=== PATIENT | female | born 1955 | race Caucasian/White ===

== ENCOUNTER 2016-09-19 18:25 | Inpatient (IN) ==
[2016-09-19] MEDS ORDERED: DILTIAZEM 50 MG/10 ML VIAL IV STA (18:52)
--- NOTE | 2016-09-19 18:59 | Emergency Department Note ---
Arrival - Arrival Chief Complaint: Weakness ED Nursing Triage Note: c/o bilateral leg weakness for a month Mode of Arrival: Stretcher Limitations: No Limitations Source: Patient Time Seen by Provider: 09/19/16 18:52 - History of Present Illness HPI Narrative: This 60-year-old white female who recently moved here in May with multiple medical problems including atrial fibrillation and rheumatoid arthritis presents with increasing joint pains and complaints of rapid heartbeat in association with shortness of breath of insidious onset over the last month. The patient admits she has not taken any medicine since probably June when she ran out of her medications. The patient likewise has significant cardiac surgical history of mitral valve replacement with a mechanical valve for which she had been on chronic anticoagulation until she ran out of medication. Currently she denies chest pain, nausea, vomiting, visual changes, slurred speech, headache, or focal deficits. Onset (ago): month(s) (Patient presents 1 month post insidious onset of symptoms ) Allergies/Adverse Reactions: Allergies Allergy/AdvReac Type Severity Reaction Status Date / Time nitrofurantoin AdvReac RASH Verified 09/19/16 18:35 [From Macrodantin] Sulfonylureas AdvReac RASH Verified 09/19/16 18:35 Home Medications: Home Medications Medication Instructions Recorded Confirmed Type Atorvastatin [Lipitor] 40 mg PO BEDTIME 09/19/16 09/19/16 History Digoxin Tab [Lanoxin Tab] 0.125 mg PO DAILY@1300 09/19/16 09/19/16 History Folic Acid Tab 1 mg PO DAILY 09/19/16 09/19/16 History Furosemide Tab [Lasix Tab] 20 mg PO BEDTIME 09/19/16 09/19/16 History Furosemide Tab [Lasix Tab] 40 mg PO QAM 09/19/16 09/19/16 History Losartan Potassium 50 mg PO DAILY 09/19/16 09/19/16 History Metformin HCl 1,000 mg PO DAILY 09/19/16 09/19/16 History Methotrexate Tab 5 mg PO QAM 09/19/16 09/19/16 History Methotrexate Tab 7.5 mg PO DELUNA 09/19/16 09/19/16 History Omeprazole [Prilosec] 20 mg PO DAILY 09/19/16 09/19/16 History Salsalate 1,000 mg PO BID 09/19/16 09/19/16 History Warfarin [Coumadin] 3.75 mg PO SUMOWETHSA 09/19/16 09/19/16 History Warfarin [Coumadin] 5 mg PO TUFR 09/19/16 09/19/16 History dilTIAZem HCl [Cartia XT] 180 mg PO DAILY 09/19/16 09/19/16 History sitaGLIPtin [Januvia] 100 mg PO DAILY 09/19/16 09/19/16 History Review of System - Review of System 12 point system: reviewed and no additional remarkable complaints except as stated - Review of System Constitutional: Present: as per HPI Cardiovascular: Present: as per HPI Musculoskeletal: Present: as per HPI Medical,Surgical,& Family Hx - Medical History Cardio: History of: Hypertension, Cardiovascular Problems (valve replaced; mitral stenosis) HEENT: History of: Eye Problem (nuclear sclerosis) Endocrine: History of: Diabetes Mellitus (NIDDM), Dyslipidemia Respiratory: History of: Asthma Genitourinary: History of: Recurring Urinary Tract Infections Musculoskeletal: History of: Musculoskeletal Problems (arthritis) Other: History of: Miscellaneous Medical Problems (iron deficiency; psoriasis) - Social History Smoking Status: Never smoker Frequency of Alcohol Use: None Type of Drug Use: None Exam Physical Examination: GENERAL: Obese disheveled elderly white female covered in human and the line feces in no acute distress. HEENT: Normocephalic. No trauma. Moist mucous membranes. EOMI. PERRLA. Appearance of mild exophthalmos ENT NML NECK: Supple. No adenopathy. CARDIAC: Irregular at 135 with1/4 gilberto and allowed mechanical valve sounds. CHEST: Clear to auscultation. No respiratory distress. O2 sat 93% ABDOMEN: Soft. Nontender. Active bowel sounds. EXTREMITIES: No trauma. Pain on range of motion of large joints. No pedal edema. SKIN: No diaphoresis. No rash. NEURO: Alert. Oriented 3. Motor, sensory, vibratory intact. No focal deficits. Vital Signs: Vital Signs Temperature 98.0 F 09/19/16 18:28 Pulse Rate 112 H 09/19/16 18:28 Respiratory Rate 18 09/19/16 18:28 Blood Pressure 146/81 09/19/16 18:28 O2 Sat by Pulse Oximetry 93 L 09/19/16 18:28 Course - Reevaluation(s) Reevaluation #1: Discussed with patient the need for hospitalization given her variety of significant problems that have not been treated recently. - Consultations Consultation #1: Discussed with hospitalist service who will admit for further evaluation treatment. Results - Labs CBC & BMP: 09/19/16 19:14 09/19/16 19:14 Lab Results: I have reviewed the patients labs Labs: I reviewed the laboratory noted the significantly decreased potassium as well as the elevated d-dimer, CK total, MB, and borderline troponin. - Impressions EKG: Atrial fibrillation with rapid ventricular response of 120. Incomplete right bundle branch block with associated right ventricular hypertrophy. Evidence of old anterior DE noted. No acute injury pattern noted. - Diagnostic Findings Procedure: Chest x-ray: image reviewed by me, report reviewed by me ( Cardiomegaly with bibasilar edema and pleural effusions), CT - chest: image reviewed by me, report reviewed by me (CTA revealed no embolic phenomena although there is considerable motion artifact) Disposition Clinical Impression: Congestive heart failure, Atrial fibrillation, Status post mitral valve prosthesis, Abnormal cardiac enzyme abnormal cardiac Case discussed with: patient Disposition: Still a Patient Condition: Guarded Time of Disposition: 21:10
--- NOTE | 2016-09-19 19:12 | XRay Report ---
History: Shortness of breath Date: 09/19/2016 Study: Chest x-ray AP portable Comparison exam: No previous There is cardiomegaly. The pulmonary vasculature is slightly prominent. There is no mediastinal mass. The patient is status post prior median sternotomy. There is mild hazy edema in the lung bases. There is mild bilateral pleural effusion. Osseous structures are unremarkable. There has been previous cardiac valve replacement. Impression: Cardiomegaly and evidence of CHF with some mild bibasilar pulmonary edema and minimal bilateral pleural effusion PROCEDURE INTERPRETED AT [facility] [place] DEPARTMENT OF RADIOLOGY Final Report Signed by: Dr. Adrienne Vazquez
[2016-09-19] MEDS ORDERED: FUROSEMIDE 40 MG/4 ML VIAL IV STA (19:26)
[2016-09-19 19:28] LABS: Basophils % 0.1 % (0.0-0.8); Eosinophils % 0.6 % (0.00-10.9); Hematocrit 36.2 VOL% (35.7-47.0); Immature Granulocytes Absolute 0.07 #; Lymphocytes # 0.9 10*3/uL (1.4-4.0); Lymphocytes % 12.6 % (21.3-54.2); Mean Corpuscular HGB Conc 33.1 GM/DL (32-36); Mean Corpuscular Hemoglobin 29 PG (27-34); Mean Corpuscular Volume 88.1 FL (87-102); Monocytes # 1.2 10*3/uL (0.11-0.8); Monocytes % 17.3 % (1.7-12.7); NRBC # 0.04 10*3/uL; Neutrophils # 4.6 10*3/uL (1.4-7.4); Neutrophils % 68.4 % (38.7-73.9); Red Blood Count 4.11 MC/CUMM (3.8-5.5); Red Cell Distribution Width 23.2 % (9.3-17.3); White Blood Count 6.7 T/CUMM (4-12)
[2016-09-19] MEDS ORDERED: FUROSEMIDE 40 MG/4 ML VIAL ONE (19:35)
[2016-09-19] MEDS ORDERED: DILTIAZEM 50 MG/10 ML VIAL IV ONE (19:36)
[2016-09-19 19:37] LABS: INR 1.5; PT Patient Result 16.2 SECS; Partial Thromboplastin Time 31.3 SECS (0-40)
[2016-09-19 19:42] LABS: Platelet Count 48 T/CUMM (130-400)
[2016-09-19 19:44] LABS: D-Dimer 7.9 MG/L FEU
[2016-09-19 19:45] LABS: Band Neutrophils 1 % (0-10); Burr Cells 1+; Eosinophils 1 % (0-10); Lymphocytes 9 % (20-55); Ovalocytes Few; Platelet Estimate Decreased; Poikilocytosis 2+; Segmented Neutrophils 76 % (50-85); Tear Drop Cells Few; Total Cells Counted 100
[2016-09-19 20:04] LABS: Albumin 2.9 G/DL (3.4-5.0); Bilirubin,Total 2.7 MG/DL (0.2-1.0); Calcium 8.5 MG/DL (8.5-10.1); Osmolality,Calculated 278.5 MOS/KG (273-304); Potassium 3.1 MMOL/L (3.5-5.1); Thyroid Stimulating Hormone 3.06 uIU/ml (0.358-3.74); Total Protein 6.3 G/DL (6.4-8.3)
[2016-09-19 20:07] LABS: Free T4 (Free Thyroxine) 1.59 NG/DL (0.76-1.46)
[2016-09-19 20:16] LABS: Troponin I Only 0.083 NG/ML (0.00-0.045)
[2016-09-19] MEDS ORDERED: POTASSIUM BICARB EFFERVESCENT 25 MEQ TABLET PO ONE ×2 (20:19→20:36)
[2016-09-19] MEDS ORDERED: POTASSIUM CHLORIDE 20 MEQ PACK ONE (20:25)
[2016-09-19 20:27] LABS: Apearance,Urine Slightly Hazy (Clear); Bacteria,Urine Many /HPF (Few); Bilirubin,Urine Negative (Negative); Blood, Urine Moderate mg/dL (Negative); Glucose,Urine (UA) Negative (Negative); Ketones,Urine Negative (Negative); Mucus,Urine Few /LPF (Occasional); Nitrite,Urine Negative (Negative); Protein,Urine 100 MG/DL; Squamous Epithelial Cell,Urine Occasional /HPF (0-10); Urine Color Amber (Yellow); Urine Specific Gravity 1.013 (1.001-1.035); WBC,Urine 53 /HPF (0-6)
[2016-09-19 20:45] LABS: Barbiturates Screen,Urine Negative (Negative); Benzodiazepines Screen,Urine Negative (Negative); Cannabinoid Screen,Urine Negative (Negative); Opiate Screen,Urine Negative (Negative); Phencyclidine Screen,Urine Negative (Negative)
--- NOTE | 2016-09-19 20:57 | CT Report ---
History: Shortness of breath Date: 09/19/2016 Study: CT chest with IV contrast with pulmonary embolus technique Comparison exam: No previous similar Spiral CT sections were obtained through the lungs following the IV administration of 80 mL of Omnipaque 350 without immediate complication. Multiplanar reconstruction images are also evaluated. The CT exam was performed using one or more of the following dose reduction techniques: Automated exposure control, adjustment of the mA and/or kV according to patient size, or use of iterative reconstruction technique. There is no obvious evidence of acute pulmonary embolic disease, though evaluation of the peripheral pulmonary arterial tree for chronic PE or tiny subsegmental emboli is limited because of motion artifact and timing of IV contrast. There is distention of the IVC and hepatic veins compatible with passive congestion from right heart failure. There is no aortic aneurysm. There is a prosthetic mitral valve. There is no mediastinal mass or mediastinal lymphadenopathy. There is mild to moderate right and mild left pleural effusion. There is some minor hazy opacity in the lower lungs which could represent some early pulmonary edema. There is scattered mild to moderate thoracic spondylosis. Impression: No definite evidence of acute pulmonary embolic disease, though there is limited sensitivity for subsegmental emboli and chronic PE because of contrast timing and motion artifact. There is evidence to suggest some passive venous congestion of the IVC and hepatic veins from right heart failure Right greater than left pleural effusion Minimal bibasilar pulmonary edema PROCEDURE INTERPRETED AT [facility] [place] DEPARTMENT OF RADIOLOGY Final Report Signed by: Dr. Adrienne Vazquez
--- NOTE | 2016-09-19 22:40 | Hospitalist History & Physical ---
History of Present Illness Chief complaint: knee pain, SOB, and palpitations History of present illness: Ms. Gaytan is a 60 year old female who presents with complaints of knee pain, SOB, and palpitations. She states that was receiving her medical care in [place] and moved here in May 2016. Since May, she has not been taking her medications. Since that time, she has been having SOB mostly with walking along with palpitations. She has a history of a-fib as well as a mechanical mitral valve replacement. She was on coumadin and diltiazem but ran out of them in May 2016. She denies any CP, PND, orthopnea, LE swelling, increased abdominal girth, or weight gain. Her abdomen looks distended but she states that it is not. She states that she has a history of CHF but ran out of her lasix. She also notes some bilteral knee pain for the past month. She states that she has not been able ot walk much because of the pain. She denies any swelling or falls. While in the ER, her heart rate was in the 130s, and she was given diltiazem. She was also given potassium and lasix. Home Medications Medication Instructions Recorded Confirmed Type Atorvastatin [Lipitor] 40 mg PO BEDTIME 09/19/16 09/19/16 History Digoxin Tab [Lanoxin Tab] 0.125 mg PO DAILY@1300 09/19/16 09/19/16 History Folic Acid Tab 1 mg PO DAILY 09/19/16 09/19/16 History Furosemide Tab [Lasix Tab] 20 mg PO BEDTIME 09/19/16 09/19/16 History Furosemide Tab [Lasix Tab] 40 mg PO QAM 09/19/16 09/19/16 History Losartan Potassium 50 mg PO DAILY 09/19/16 09/19/16 History Metformin HCl 1,000 mg PO DAILY 09/19/16 09/19/16 History Methotrexate Tab 5 mg PO QAM 09/19/16 09/19/16 History Methotrexate Tab 7.5 mg PO DELUNA 09/19/16 09/19/16 History Omeprazole [Prilosec] 20 mg PO DAILY 09/19/16 09/19/16 History Salsalate 1,000 mg PO BID 09/19/16 09/19/16 History Warfarin [Coumadin] 3.75 mg PO SUMOWETHSA 09/19/16 09/19/16 History Warfarin [Coumadin] 5 mg PO TUFR 09/19/16 09/19/16 History dilTIAZem HCl [Cartia XT] 180 mg PO DAILY 09/19/16 09/19/16 History sitaGLIPtin [Januvia] 100 mg PO DAILY 09/19/16 09/19/16 History Allergies Allergy/AdvReac Type Severity Reaction Status Date / Time nitrofurantoin AdvReac RASH Verified 09/19/16 18:35 [From Macrodantin] Sulfonylureas AdvReac RASH Verified 09/19/16 18:35 Medical,Surgical,& Family Hx - Medical History Cardio: History of: Hypertension, Valvular Heart Disease (s/p mechanical mitral valve replacement), Cardiovascular Problems (valve replaced; mitral stenosis) HEENT: History of: Eye Problem (nuclear sclerosis) Endocrine: History of: Diabetes Mellitus (NIDDM), Dyslipidemia Respiratory: History of: Asthma Genitourinary: History of: Recurring Urinary Tract Infections Musculoskeletal: History of: Musculoskeletal Problems (rheumatoid arthritis) Other: History of: Miscellaneous Medical Problems (iron deficiency; psoriasis) - Surgical History Cardiac Surgeries: Sugical HX of: Cardiac Surgery (mechanical mitral valve replacement) - Family History Family History: noncontributory - Social History Smoking Status: Never smoker Frequency of Alcohol Use: None Type of Drug Use: None - Constitutional Constitutional: Present: as per HPI - EENT Eyes: Present: as per HPI - Cardiovascular Cardiovascular: Present: as per HPI - Respiratory Respiratory: Present: as per HPI. Absent: cough - Gastrointestinal Gastrointestinal: Present: as per HPI. Absent: abdominal pain, bloating, diarrhea, nausea, vomiting - Musculoskeletal Musculoskeletal: Present: as per HPI, arthralgias Exam - Constitutional Vitals: Period Temp Pulse Resp BP Sys/Grant Pulse Ox Last 24 Hr 98.0 F-98.0 F 112-112 18-18 146-146/81-81 93 General appearance: over weight, disheveled - Head Head exam: Present: normal inspection - Eye Eye exam: Present: EOMI - Neck Neck exam: Present: other (positive JVD) - Respiratory Respiratory exam: Present: decreased breath sounds, rales. Absent: rhonchi, wheezes - Cardiovascular Cardiovascular exam: Present: irregular rhythm (ns1, ns2; positive valvular click) - GI/Abdominal GI/Abdominal exam: Present: normal bowel sounds, distended, soft. Absent: mass - Extremities Exam Extremities exam: Absent: edema (biltateral joint line tenderness of the knees; decreased ROM) - Neurological Exam Neurological exam: Present: oriented X3 - Psychiatric Psychiatric exam: Present: normal affect, normal mood - Skin Skin exam: Present: normal color Results - Labs CBC & BMP: 09/20/16 00:42 09/20/16 00:42 - EKG EKG shows: atrial fibrillation (EKG: a-fib with HR 120, q waves in anteroseptal leads) - Impressions Chest CT: no PE although limited evaluation; bilateral pleural effusions Cxray: cardiomegaly, pulmonary edema Assessment: 1. CHF exacerbation 2. A-fib with RVR 3. Elevated cardiac enzymes 4. h/o mechanical mitral valve, not on AC 5. thrombocytopenia, severe 6. hypokalemia 7. non compliance 8. Abdominal distension 9. ADDY, mild 10. Comorbid conditions: h/o CHF, HTN, DM, RA Plan: telemetry; consult cardiology; patient will need AC but given thrombocytopenia, high risk for bleeding; consult hematology; transfuse platlets as needed; diuresis; strict ins/outs/daily weights; rate control; keep K at least 4 and magensium at least 2; RUQUS given abdominal distension; control pain; control sugars. DVT and GI prophalaxis. SW for PCM establishment and discharge planning. The plan of care may be modified as more information becomes available.
[2016-09-19] MEDS ORDERED: oxyCODONE IR 5 MG TABLET PO PRN (23:10)
[2016-09-20 00:56] LABS: Basophils % 0.2 % (0.0-0.8); Eosinophils # 0.1 10*3/uL (0.0-0.87); Eosinophils % 1.4 % (0.00-10.9); Hematocrit 35.6 VOL% (35.7-47.0); Immature Granulocytes % 1.2 %; Immature Granulocytes Absolute 0.07 #; Lymphocytes # 0.9 10*3/uL (1.4-4.0); Lymphocytes % 15.2 % (21.3-54.2); Mean Corpuscular HGB Conc 33.7 GM/DL (32-36); Mean Corpuscular Hemoglobin 30 PG (27-34); Mean Corpuscular Volume 88.1 FL (87-102); Monocytes # 1.1 10*3/uL (0.11-0.8); Monocytes % 19.6 % (1.7-12.7); NRBC # 0.04 10*3/uL; Neutrophils # 3.5 10*3/uL (1.4-7.4); Neutrophils % 62.4 % (38.7-73.9); Platelet Count 44 T/CUMM (130-400); Red Blood Count 4.04 MC/CUMM (3.8-5.5); Red Cell Distribution Width 23.2 % (9.3-17.3); White Blood Count 5.7 T/CUMM (4-12)
[2016-09-20 01:21] LABS: Band Neutrophils 5 % (0-10); Lymphocytes 15 % (20-55); Myelocytes 6 %; Segmented Neutrophils 70 % (50-85); Total Cells Counted 100
[2016-09-20 01:22] LABS: Anisocytosis 1+; Ovalocytes 2+
[2016-09-20 01:23] LABS: Acanthocytes Few; Platelet Estimate Decreased
[2016-09-20 01:27] LABS: Blood Urea Nitrogen 9 MG/DL (7-18); Calcium 8.2 MG/DL (8.5-10.1); Glucose 137 MG/DL (74-106); Magnesium 1.5 MG/DL (1.8-2.4); Osmolality,Calculated 283.1 MOS/KG (273-304); Potassium 3.7 MMOL/L (3.5-5.1); Sodium 142 MMOL/L (136-145)
[2016-09-20 01:28] LABS: Troponin I Only 0.063 NG/ML (0.00-0.045)
[2016-09-20 06:07] LABS: Basophils % 0.2 % (0.0-0.8); Eosinophils # 0.2 10*3/uL (0.0-0.87); Eosinophils % 3.1 % (0.00-10.9); Hematocrit 34.7 VOL% (35.7-47.0); Hemoglobin 11.6 GM/DL (12.0-16.0); Immature Granulocytes % 0.4 %; Immature Granulocytes Absolute 0.02 #; Lymphocytes # 0.9 10*3/uL (1.4-4.0); Mean Corpuscular HGB Conc 33.4 GM/DL (32-36); Mean Corpuscular Hemoglobin 30 PG (27-34); Mean Corpuscular Volume 88.3 FL (87-102); Monocytes # 0.9 10*3/uL (0.11-0.8); Monocytes % 18.6 % (1.7-12.7); Neutrophils # 2.9 10*3/uL (1.4-7.4); Neutrophils % 59.7 % (38.7-73.9); Platelet Count 47 T/CUMM (130-400); Red Blood Count 3.93 MC/CUMM (3.8-5.5); Red Cell Distribution Width 23.2 % (9.3-17.3); White Blood Count 4.8 T/CUMM (4-12)
[2016-09-20 06:32] LABS: Elliptocytes 1+; Eosinophils 1 % (0-10); Hypochromasia 2+; Lymphocytes 13 % (20-55); Platelet Estimate Decreased; Polychromasia 1+; Segmented Neutrophils 67 % (50-85); Target Cells Slight; Total Cells Counted 100
[2016-09-20 06:54] LABS: Blood Urea Nitrogen 9 MG/DL (7-18); Calcium 8.2 MG/DL (8.5-10.1); Glucose 111 MG/DL (74-106); Magnesium 1.6 MG/DL (1.8-2.4); Potassium 3.5 MMOL/L (3.5-5.1); Sodium 143 MMOL/L (136-145)
[2016-09-20 06:56] LABS: Troponin I Only 0.055 NG/ML (0.00-0.045)
[2016-09-20] MEDS ORDERED: POTASSIUM CHLORIDE 20 MEQ TABLET PO ONE (07:41)
[2016-09-20] MEDS ORDERED: MAGNESIUM SULF RIDER 2 GM in PREMIX 1 EACH IV ONE ×2 (07:41→11:45)
--- NOTE | 2016-09-20 07:41 | Ultrasound Report ---
Right upper quadrant ultrasound Indication: Abdominal distention Findings: The liver is normal in size with nodular contour and mildly heterogeneous echogenicity. The gallbladder has multiple calculi. The gallbladder wall thickness is 2.6 mm . The common bile duct measures 4.0 mm. The pancreas echogenicity appears heterogeneous where visualized The right kidney is normal in size and echogenicity and measures 10.4 cm . No free fluid or free air seen. Small right pleural effusion is seen Impression: Nodular hepatic contour with only heterogeneous echogenicity could indicate cirrhosis. Cholelithiasis, no cysts secondary signs of acute cholecystitis seen. Pancreas echogenicity is heterogeneous where visualized. Small right pleural effusion. Ultrasound images stored and captured. PROCEDURE INTERPRETED AT [facility] DEPARTMENT OF RADIOLOGY Final Report Signed by: Dr. Sal Summers
--- NOTE | 2016-09-20 08:08 | EKG Report ---
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 Electronically Signed On 09-20-16 11:34:54 CDT by JACKSON MACIAS [email or web address]
--- NOTE | 2016-09-20 08:09 | Oncology Consult Note ---
History of Present Illness Chief complaint: Moderate thrombocytopenia History of present illness: Ms. Gaytan is a 60 year old female who has moderate thrombocytopenia. Her platelet count today is 47,000. An MPV is not recorded. She has white cell count of 4800 and a hemoglobin of 11.6. She is on at least 2 medications, Lasix and Cardizem that have been reported to cause thrombocytopenia. She has also been on methotrexate and she tells me that this is the only medication that she has continued to take without fail. She takes it once every week on Monday or Monday. She has a history of atrial fibrillation and a mechanical mitral valve. She ran out of her medications, including diltiazem and Coumadin in May 2016 and did not get the medications refilled. She also has a history of congestive heart failure but has not been taking her Lasix. Her comprehensive metabolic profile on admission included an elevated serum creatinine of 1.2 as well as a total bilirubin of 2.0. The elevated serum creatinine is a relative contraindication to methotrexate. Past medical history: Allergies include nitrofurantoin and sulfonylurea. Medical,Surgical,& Family Hx - Medical History Cardio: History of: Hypertension, Valvular Heart Disease (s/p mechanical mitral valve replacement), Cardiovascular Problems (valve replaced; mitral stenosis) HEENT: History of: Eye Problem (nuclear sclerosis) Endocrine: History of: Diabetes Mellitus (NIDDM), Dyslipidemia Respiratory: History of: Asthma Genitourinary: History of: Recurring Urinary Tract Infections Musculoskeletal: History of: Musculoskeletal Problems (rheumatoid arthritis) for which she is apparently taking methotrexate for she may be taking it for her psoriasis. Other: History of: Miscellaneous Medical Problems (iron deficiency; psoriasis) - Surgical History Cardiac Surgeries: Sugical HX of: Cardiac Surgery (mechanical mitral valve replacement) - Family History Family History: noncontributory - Social History Smoking Status: Never smoker Frequency of Alcohol Use: None Type of Drug Use: She is on a narcotic pain medication but it apparently was started in the hospital. - Constitutional Constitutional: Present: as per HPI - EENT Eyes: Present: as per HPI - Cardiovascular Cardiovascular: Present: as per HPI - Respiratory Respiratory: Present: as per HPI. Absent: cough - Gastrointestinal Gastrointestinal: Present: as per HPI. Absent: abdominal pain, bloating, diarrhea, nausea, vomiting - Musculoskeletal Musculoskeletal: Present: as per HPI, arthralgias Physical examination: General: The patient is chronically ill-appearing. Eyes: Normal lids and conjunctivae. ENT: Her oral mucosa and pharynx are normal. Her trachea is midline. She has no neck masses. Hearing appears normal. Cardiovascular: She has an easily audible mechanical artificial cardiac valve sound heard over the entire precordium. There is no jugular venous distention, clubbing or cyanosis. Abdomen: She has significant splenomegaly. I think she has ascites also. Her abdomen is distended. There is no tenderness. Musculoskeletal: She has arthritic changes in her hands. There is no obvious focal muscle atrophy or bone or joint deformity. Neurologic: Cranial nerves II through XII are intact. There are no focal neurologic deficits. Nodes: I palpate no submandibular, cervical, supraclavicular or axillary adenopathy. Skin: She has multiple ecchymoses over her lower extremities. Impression: Thrombocytopenia that is probably multifactorial including the fact that the patient is taking methotrexate and has splenomegaly and possibly due to the fact that she is off anticoagulants with an artificial mechanical heart valve. In addition, autoimmune disease such as rheumatoid arthritis could cause this. I have ordered a mean platelet volume on this patient and I do not understand why they have not been done. I have also ordered a haptoglobin, B12 level and folic acid level. She has both an elevated bilirubin and elevated serum creatinine. The methotrexate is contraindicated with an elevated serum creatinine or in renal failure. It should not be continued. I will chart check on this patient but it probably will return to see her on a regular basis since I think that her thrombocytopenia is secondary to other disease processes, some of which can be treated and others of which cannot. Home Medications Medication Instructions Recorded Confirmed Type Atorvastatin [Lipitor] 40 mg PO BEDTIME 09/19/16 09/19/16 History Digoxin Tab [Lanoxin Tab] 0.125 mg PO DAILY@1300 09/19/16 09/19/16 History Folic Acid Tab 1 mg PO DAILY 09/19/16 09/19/16 History Furosemide Tab [Lasix Tab] 20 mg PO BEDTIME 09/19/16 09/19/16 History Furosemide Tab [Lasix Tab] 40 mg PO QAM 09/19/16 09/19/16 History Losartan Potassium 50 mg PO DAILY 09/19/16 09/19/16 History Metformin HCl 1,000 mg PO DAILY 09/19/16 09/19/16 History Methotrexate Tab 5 mg PO QAM 09/19/16 09/19/16 History Methotrexate Tab 7.5 mg PO DELUNA 09/19/16 09/19/16 History Omeprazole [Prilosec] 20 mg PO DAILY 09/19/16 09/19/16 History Salsalate 1,000 mg PO BID 09/19/16 09/19/16 History Warfarin [Coumadin] 3.75 mg PO SUMOWETHSA 09/19/16 09/19/16 History Warfarin [Coumadin] 5 mg PO TUFR 09/19/16 09/19/16 History dilTIAZem HCl [Cartia XT] 180 mg PO DAILY 09/19/16 09/19/16 History sitaGLIPtin [Januvia] 100 mg PO DAILY 09/19/16 09/19/16 History Allergies Allergy/AdvReac Type Severity Reaction Status Date / Time nitrofurantoin AdvReac RASH Verified 09/19/16 18:35 [From Macrodantin] Sulfonylureas AdvReac RASH Verified 09/19/16 18:35 Medical,Surgical,& Family Hx - Medical History Cardio: History of: Hypertension, Valvular Heart Disease (s/p mechanical mitral valve replacement), Cardiovascular Problems (valve replaced; mitral stenosis) HEENT: History of: Eye Problem (nuclear sclerosis) Endocrine: History of: Diabetes Mellitus (NIDDM), Dyslipidemia Respiratory: History of: Asthma Genitourinary: History of: Recurring Urinary Tract Infections Musculoskeletal: History of: Musculoskeletal Problems (rheumatoid arthritis) Other: History of: Miscellaneous Medical Problems (iron deficiency; psoriasis) - Surgical History Cardiac Surgeries: Sugical HX of: Cardiac Surgery (mechanical mitral valve replacement) - Social History Smoking Status: Never smoker Frequency of Alcohol Use: None Type of Drug Use: None Exam - Constitutional Vitals: Period Temp Pulse Resp BP Sys/Grant Pulse Ox Last 24 Hr 97.5 F-98.1 F 89-112 16-20 93-146/58-82 93-99 Results - Labs CBC & BMP: 09/20/16 05:41 09/20/16 05:41
[2016-09-20] MEDS: DILTIAZEM 60 MG TABLET PO SCH ×2 (08:22→20:25)
[2016-09-20] MEDS ORDERED: FUROSEMIDE 40 MG/4 ML VIAL IV ONE (09:00)
[2016-09-20 09:37] LABS: Haptoglobin < 8.0 MG/DL (30-200)
[2016-09-20 09:50] LABS: Folate 1.4 NG/ML (5.4-24.0)
--- NOTE | 2016-09-20 10:19 | Hospitalist Progress Note ---
Assessment and Plan (1) CHF (congestive heart failure) Status: Acute Assessment and plan: When Mrs Gaytan left [place] where she had insurance and doctors to come here where she had made arrangements for neither, she put herself at risk for many complications from her chronic medical problems. She needs to figure out how to see doctors and buy meds. At this time her echo is pending. I have reconciled her meds, stopping MTX as DR Cherry asked. I have replaced her magnesium and potassium again. Her heart rate is improved and she remains in afib. She will need to start anticoagulation for afib and the mechanical MV again- in mek[place] past she was on coumadin. The cardiology service is reviewing her echo prior to starting anticoagulation. Her cirrhosis with thrombocytopenia and splenomegaly will also complicate her anticoagulation. Her ADDY is improving. The CM has been consulted for discharge planning support and help wiht her meds , etc. If she was on [place] Medicaid, she should consider returning to [place] and resuming her health care there as it will likely take several years of residence here before she can get Medicaid in [place]. Current Visit: Yes (2) Thrombocytopenia Status: Acute Current Visit: Yes (3) ADDY (acute kidney injury) Status: Acute Current Visit: Yes (4) Hx of mitral valve replacement with mechanical valve Status: Acute Current Visit: Yes (5) Atrial fibrillation with RVR Status: Acute Current Visit: Yes (6) Hypokalemia Status: Acute Current Visit: Yes (7) cirrhosis with splenomegaly Status: Acute Current Visit: Yes (8) Diabetes Status: Acute Current Visit: Yes (9) Rheumatoid arthritis Status: Acute Current Visit: Yes Hospitalist: Subjective Interval history: Mrs Gaytan is doing well today and wants to go home soon. She denies pain or shortness of breath today. She is eating well. She does not have a doctor in [place]. She moved from [place] in the Spring. She lost her insurance when she moved. She lives in a trailer with her near her son' s trailer (they moved to be near their son). She took the MTX regularly, but stopped all her other meds when she moved. Exam - Constitutional Vitals: Period Temp Pulse Resp BP Sys/Grant Pulse Ox Last 24 Hr 97 F-98.1 F 89-112 16-20 93-146/58-82 93-99 General appearance: no acute distress, over weight, disheveled (unkempt, dirty fingernails) - Eye Eye exam: Present: EOMI. Absent: scleral icterus - Respiratory Respiratory exam: Present: clear to auscultation bilaterally - Cardiovascular Cardiovascular exam: Present: irregular rhythm (audible MV click) - GI/Abdominal GI/Abdominal exam: Present: normal bowel sounds, soft. Absent: tenderness - Extremities Exam Extremities exam: Absent: edema - Neurological Exam Neurological exam: Present: alert, oriented X3 - Skin Skin exam: Present: warm, dry Results - Labs CBC & BMP: 09/20/16 05:41 09/20/16 05:41 Lab Results: I have reviewed the past 24 hour labs
--- NOTE | 2016-09-20 11:08 | Cardiology Consult Note ---
<Shelley Mendoza E - Last Filed: 09/20/16 11:09> Assessment and Plan - Time spent with patient Time spent with patient: Greater than 30 minutes (1) Obesity (BMI 30.0-34.9) Status: Chronic Assessment and plan: SEE PLAN OF CARE LISTED BELOW Current Visit: Yes (2) Falls frequently Status: Acute Assessment and plan: SEE PLAN OF CARE LISTED BELOW Current Visit: Yes (3) Non-compliant behavior Status: Chronic Assessment and plan: SEE PLAN OF CARE LISTED BELOW Current Visit: Yes (4) Hypomagnesemia Status: Acute Assessment and plan: SEE PLAN OF CARE LISTED BELOW Current Visit: Yes (5) Thrombocytopenia Status: Acute Assessment and plan: SEE PLAN OF CARE LISTED BELOW Current Visit: Yes (6) ADDY (acute kidney injury) Status: Resolved Assessment and plan: SEE PLAN OF CARE LISTED BELOW Current Visit: Yes (7) Hx of mitral valve replacement with mechanical valve Status: Chronic Assessment and plan: SEE PLAN OF CARE LISTED BELOW Current Visit: Yes (8) CHF (congestive heart failure) Status: Acute Assessment and plan: SEE PLAN OF CARE LISTED BELOW Current Visit: Yes Qualifiers: Congestive heart failure type: unspecified congestive heart failure type Congestive heart failure chronicity: acute Qualified Code(s): I50.9 - Heart failure, unspecified (9) Atrial fibrillation with RVR Status: Acute Assessment and plan: SEE PLAN OF CARE LISTED BELOW Current Visit: Yes (10) Hypokalemia Status: Acute Assessment and plan: SEE PLAN OF CARE LISTED BELOW Current Visit: Yes (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 Status: Acute Assessment and plan: SEE PLAN OF CARE LISTED BELOW Current Visit: Yes (12) Diabetes Status: Chronic Assessment and plan: SEE PLAN OF CARE LISTED BELOW Current Visit: Yes (13) Rheumatoid arthritis Status: Chronic Assessment and plan: SEE PLAN OF CARE LISTED BELOW Current Visit: Yes (14) CHF (congestive heart failure), NYHA class III Status: Acute Current Visit: Yes Qualifiers: Congestive heart failure type: unspecified congestive heart failure type Qualified Code(s): I50.9 - Heart failure, unspecified History of Present Illness - Data of Consult Patient: new to practice Consult date: 09/20/16 Requesting Physician: Keri Mario - Consult Narrative Reason for consult: SOB, atrial fib, mechanical mitral valve, off Coumadin History of present illness: TUB RIDER: (NEW) DR. LOW Ms. Gaytan, 60WF, who was previously followed by [facility] [place], no [facility] locally. Risk factors include: hypertension, obesity , diabetes, sedentary lifestyle, noncompliance. Past medical history includes ( self-reported) mechanical mitral valve replacement three separate times, occurring around [address] [place], believed to be related to mitral stenosis. History of atrial fibrillation, rheumatoid arthritis. Presented to the ED [facility] September 19, 2016 with complaints of shortness of breath, palpitations. She has been diagnosed with acute CHF. Heart rate was noted to be 130 bpm, atrial fibrillation with RVR. Patient has a history of mitral valve replacement with mechanical mitral valve requiring chronic anticoagulation. She has been out of her medications, including Coumadin, Lasix and Diltiazem, since May 2016 when she moved to [place] from [place]. Since May, she has been having unsteady gait, palpitations and shortness of breath. She has not established herself with a primary care provider. She denies history of CAD, chest pain, heaviness or tightness. Cardiac biomarkers reveal mild elevation, most likely related to atrial fib with RVR. Dr. Cherry was consulted for thrombocytopenia. Patient has been taking Methotrexate routinely she reports. Echocardiogram has been ordered. Right upper quadrant abdominal ultrasound revealed cirrhosis, total bilirubin 2.7. At this point, she will need initiation of Coumadin immediately. INR 1.5 without Coumadin however bridging her with Lovenox may worsen the thrombocytopenia. We will check smear for fragmentation syndrome, hemolysis. D -dimer 7.9, CT chest does not reveal PTE. Will further discuss with Dr. Low and await additional recommendations. ASSESSMENT/PLAN: 1. ACUTE CHF - Etiology to be determined, NYHA Class III. Suspect this is acute on chronic as we have no prior records from which to extract information. Continue with diuresis, strict I&O, daily weights. Echo. 2. MECHANICAL MITRAL VALVE - has been off Coumadin and we must restart. Unfortunately, bridging with Lovenox may be contraindicated given her moderately severe thrombocytopenia. I will discuss with Dr. Low. 3. THROMBOCYTOPENIA - Appreciate Dr. Cherry's assistance. WIll ask a lab smear be evaluated for fragmentation syndrome from mechanical mitral valve. Not on aspirin at this time due to thrombocytopenia 4. ATRIAL FIBRILLATION WITH RVR - now rate controlled on oral Diltiazem and Digoxin. PATRICIA VASC SCORE 6. Also would benefit from reinitiation of Coumadin. 5. ADDY - initially creatinine was mildly elevated but this has resolved this morning. Favor CCB for rate control rather than betablocker at this time. 6. HYPOKALEMIA - resolved after treatment 7. HYPOMAGNESEMIA - will replace and check daily 8. NON-COMPLIANCE -reiterated the importance of continued follow-up. I recommended she follow with Dr. Rory Rodríguez in [place], [place]. This is close to her home. She can follow up with him for primary care needs at discharge. Also, the best case management to look into other sources of home benefits for her. I fear she is not being well taken care of at home. She tells me that her is decrepit and not well and he cannot help her when she falls. She is unkempt, actually dirt under her nails and over her body. She is not taking her medications. Will ask case management to look into her home situation further. 9. RHEUMATOID ARTHRITIS - Methotrexate has been home medication for which she takes routinely. Per Dr. Cherry's note, may be contributing to her thrombocytopenia 10. CIRRHOSIS OF THE LIVER - per RUQ US, elevated total bilirubin. Avoiding toxic agents such as lipid lowering agents. CC: Keri Mario MD - Home Medications and Allergies Home Medications: Home Medications Medication Instructions Recorded Confirmed Type Atorvastatin [Lipitor] 40 mg PO BEDTIME 09/19/16 09/19/16 History Digoxin Tab [Lanoxin Tab] 0.125 mg PO DAILY@1300 09/19/16 09/19/16 History Folic Acid Tab 1 mg PO DAILY 09/19/16 09/19/16 History Furosemide Tab [Lasix Tab] 20 mg PO BEDTIME 09/19/16 09/19/16 History Furosemide Tab [Lasix Tab] 40 mg PO QAM 09/19/16 09/19/16 History Losartan Potassium 50 mg PO DAILY 09/19/16 09/19/16 History Metformin HCl 1,000 mg PO DAILY 09/19/16 09/19/16 History Methotrexate Tab 5 mg PO QAM 09/19/16 09/19/16 History Methotrexate Tab 7.5 mg PO DELUNA 09/19/16 09/19/16 History Omeprazole [Prilosec] 20 mg PO DAILY 09/19/16 09/19/16 History Salsalate 1,000 mg PO BID 09/19/16 09/19/16 History Warfarin [Coumadin] 3.75 mg PO SUMOWETHSA 09/19/16 09/19/16 History Warfarin [Coumadin] 5 mg PO TUFR 09/19/16 09/19/16 History dilTIAZem HCl [Cartia XT] 180 mg PO DAILY 09/19/16 09/19/16 History sitaGLIPtin [Januvia] 100 mg PO DAILY 09/19/16 09/19/16 History Allergies/Adverse Reactions: Allergies Allergy/AdvReac Type Severity Reaction Status Date / Time nitrofurantoin AdvReac RASH Verified 09/19/16 18:35 [From Macrodantin] Sulfonylureas AdvReac RASH Verified 09/19/16 18:35 Review of systems: REVIEW OF SYSTEMS: - Constitutional Constitutional: Present: Fatigue, dizziness. Absent: syncope, anorexia, night sweats - EENT Eyes: Absent: blurry vision, loss of vision, diplopia Ears: Absent: decreased hearing, ear pain, ear discharge - Cardiovascular Cardiovascular: Denies: chest pain with exertion. Recent dyspnea on exertion, edema, palpitations. Absent: chest pain with deep breath, claudication - Respiratory Respiratory: Present: GUERRA, denies cough. Absent: wheezing, hemoptysis, change in phlegm color - Gastrointestinal Gastrointestinal: Denies: constipation. Patient has large abdominal girth suspicious for ascites. She states this is no larger than it normally is. Denies abdominal pain, hematemesis, hematochezia, melena, change in bowel habits , nausea - Genitourinary Genitourinary: Absent: difficulty urinating, dysuria, urinary hesitancy, flank pain - Musculoskeletal Musculoskeletal: Present: back pain Absent: joint swelling, muscle cramps, muscle weakness - Neurological Neurological: Present: Poor gait with frequent falls. Dizziness. Denies hemiparesis - Psychiatric Psychiatric: Appears depressed, disheveled. Absent: anxiety, difficulty concentrating - Endocrine Endocrine: Present: fatigue. Absent: cold intolerance, heat intolerance, polyuria, polyphagia, polydipsia - Hematologic/Lymphatic Hematologic/Lymphatic: Present: easy bruising, easy bleeding. -Integumentary Integumentary: Multiple areas of ecchymosis noted. Reports frequent falls due to knee pain, leg weakness and dizziness. Medical,Surgical,& Family Hx - Medical History Cardio: History of: Hypertension, Valvular Heart Disease (s/p mechanical mitral valve replacement), Cardiovascular Problems (valve replaced; mitral stenosis) No history of: CAD, HI HEENT: History of: Eye Problem (nuclear sclerosis) Endocrine: History of: Diabetes Mellitus (NIDDM), Dyslipidemia Respiratory: History of: Asthma Genitourinary: History of: Recurring Urinary Tract Infections Musculoskeletal: History of: Musculoskeletal Problems (rheumatoid arthritis) Other: History of: Miscellaneous Medical Problems (iron deficiency; psoriasis) - Surgical History Cardiac Surgeries: Sugical HX of: Cardiac Surgery (mechanical mitral valve replacement) - Social History Smoking Status: Never smoker Have you smoked in the last 12 months: No Frequency of Alcohol Use: None Type of Drug Use: None Marital Status: Lives With:: Spouse Functional capacity: uses cane/walker Physical Examination Vital Signs Temp Pulse Resp BP Pulse Ox 98.0 F 112 H 18 146/81 93 L 09/19/16 18:28 09/19/16 18:28 09/19/16 18:28 09/19/16 18:28 09/19/16 18:28 General: [Disheveled but pleasant and cooperative. Obese. ] HEENT: [PERRL, normocephalic, atraumatic. Mucous membranes dry and cracked on the lips. ] Neck: Unable to assess for JVD due to habitus. No obvious thyromegaly noted. No carotid bruit appreciated Cardiac: [Irregularly irregular rhythm, controlled rate. Systolic click auscultated best over fifth intercostal space to the left. Lungs: [Quiet, coarse sounds without rales. Not orthopneic. ] Oxygen in use via nasal cannula Abdomen: Soft, bowel sounds normoactive. Ascites. Nontender. No abdominal bruit or thrill noted. Musculoskeletal: No fluid collection. Decreased range of motion is noted. Extremities: No clubbing, cyanosis noted. [Trace bilateral lower extremity edema noted.] Upper extremity pulses 2+. Lower extremity pulses 2+. Capillary refill less than 3 seconds. TEDs on. Skin: Multiple areas of brown skin changes, multiple areas of ecchymosis. Neuro: Awake, alert and oriented 3. Moves all extremities fairly well without hemiparesis or paralysis. No essential tremor is appreciated. Result/EKG - Labs CBC & BMP: 09/20/16 05:41 09/20/16 05:41 Lab Results: I have reviewed the past 24 hour labs Labs: Laboratory Results - last 24 hr 09/19/16 09/19/16 09/19/16 19:14 19:14 19:14 WBC RBC Hgb Hct MCV MCH MCHC RDW Plt Count Neut % (Auto) Lymph % (Auto) Rush % (Auto) Eos % (Auto) Baso % (Auto) Neut # (Auto) Lymph # (Auto) Rush # (Auto) Eos # (Auto) Baso # (Auto) Total Counted Immature Gran % Nucleated RBC % Immature Gran # Segmented Neutrophils Band Neutrophils Lymphocytes Monocytes Eosinophils Myelocytes Nucleated RBCs # Platelet Estimate Polychromasia Hypochromasia Poikilocytosis Anisocytosis Target Cells Tear Drop Cells Ovalocytes Gilbert Cells Elliptocytes Acanthocytes (Spur) Haptoglobin INR 1.5 PT Patient/Control Mix 16.2 D-Dimer, Quantitative 7.9 Circ Anticoag PTT 31.3 Sodium Potassium Chloride Carbon Dioxide Anion Gap BUN Creatinine GFR Calculation BUN/Creatinine Ratio Glucose Calculated Osmolality Calcium Magnesium Total Bilirubin AST ALT Alkaline Phosphatase Lactate Dehydrogenase Total Creatine Kinase 1032 H CK-MB (CK-2) 4.2 H Troponin I 0.083 H B-Natriuretic Peptide Total Protein Albumin Globulin Albumin/Globulin Ratio Vitamin B12 Folate Free T4 1.59 H TSH 3rd Generation Urine Color Pamela Urine Appearance Slightly hazy Urine pH 5.0 Ur Specific [place] 1.013 Urine Protein 100 Urine Glucose (UA) Negative Urine Ketones Negative Urine Blood Moderate Urine Nitrate Negative Urine Bilirubin Negative Urine Urobilinogen 4.0 H Urine Leukocytes Small H Urine WBC 53 Ur Squamous Epith Cells Occasional Urine Bacteria Many Urine Mucus Few Ur Culture Indicated? Results to follow Digoxin Urine Opiates Screen Ur Barbiturates Screen Ur Phencyclidine Scrn U Amphetamine/Methamph U Benzodiazepines Scrn U Cocaine Metab Screen U Cannabinoids Screen Rheumatoid Factor 09/19/16 09/19/16 09/19/16 19:14 19:14 19:14 WBC 6.7 RBC 4.11 Hgb 12.0 Hct 36.2 MCV 88.1 MCH 29 MCHC 33.1 RDW 23.2 H Plt Count 48 L Neut % (Auto) 68.4 Lymph % (Auto) 12.6 L Rush % (Auto) 17.3 H Eos % (Auto) 0.6 Baso % (Auto) 0.1 Neut # (Auto) 4.6 Lymph # (Auto) 0.9 L Rush # (Auto) 1.2 H Eos # (Auto) 0.0 Baso # (Auto) 0.0 Total Counted 100 Immature Gran % 1.0 Nucleated RBC % 0.6 Immature Gran # 0.07 Segmented Neutrophils 76 Band Neutrophils 1 Lymphocytes 9 L Monocytes 13 Eosinophils 1 Myelocytes Nucleated RBCs # 0.04 Platelet Estimate Decreased Polychromasia Hypochromasia Poikilocytosis 2+ Anisocytosis Target Cells Tear Drop Cells Few Ovalocytes Few [place] Cells 1+ Elliptocytes Acanthocytes (Spur) Haptoglobin INR PT Patient/Control Mix D-Dimer, Quantitative Circ Anticoag PTT Sodium 139 Potassium 3.1 L Chloride 104 Carbon Dioxide 23 Anion Gap 15.1 H BUN 10 Creatinine 1.20 H GFR Calculation 53 BUN/Creatinine Ratio 8.00 Glucose 147 H Calculated Osmolality 278.5 Calcium 8.5 Magnesium Total Bilirubin 2.70 H AST 61 H ALT 23 Alkaline Phosphatase 93 Lactate Dehydrogenase Total Creatine Kinase CK-MB (CK-2) Troponin I 0.083 H B-Natriuretic Peptide Total Protein 6.3 L Albumin 2.9 L Globulin 3.4 Albumin/Globulin Ratio 0.8 L Vitamin B12 Folate Free T4 TSH 3rd Generation 3.060 Urine Color Urine Appearance Urine pH Ur Specific [place] Urine Protein Urine Glucose (UA) Urine Ketones Urine Blood Urine Nitrate Urine Bilirubin Urine Urobilinogen Urine Leukocytes Urine WBC Ur Squamous Epith Cells Urine Bacteria Urine Mucus Ur Culture Indicated? Digoxin Urine Opiates Screen Negative Ur Barbiturates Screen Negative Ur Phencyclidine Scrn Negative U Amphetamine/Methamph Negative U Benzodiazepines Scrn Negative U Cocaine Metab Screen Negative U Cannabinoids Screen Negative Rheumatoid Factor 09/19/16 09/20/16 09/20/16 19:14 00:42 00:42 WBC 5.7 RBC 4.04 Hgb 12.0 Hct 35.6 L MCV 88.1 MCH 30 MCHC 33.7 RDW 23.2 H Plt Count 44 L Neut % (Auto) 62.4 Lymph % (Auto) 15.2 L Rush % (Auto) 19.6 H Eos % (Auto) 1.4 Baso % (Auto) 0.2 Neut # (Auto) 3.5 Lymph # (Auto) 0.9 L Rush # (Auto) 1.1 H Eos # (Auto) 0.1 Baso # (Auto) 0.0 Total Counted 100 Immature Gran % 1.2 Nucleated RBC % 0.7 Immature Gran # 0.07 Segmented Neutrophils 70 Band Neutrophils 5 Lymphocytes 15 L Monocytes 4 Eosinophils Myelocytes 6 Nucleated RBCs # 0.04 Platelet Estimate Decreased Polychromasia Hypochromasia Poikilocytosis Anisocytosis 1+ Target Cells Tear Drop Cells Ovalocytes 2+ Gilbert Cells Elliptocytes Acanthocytes (Spur) Few Haptoglobin INR PT Patient/Control Mix D-Dimer, Quantitative Circ Anticoag PTT Sodium 142 Potassium 3.7 Chloride 105 Carbon Dioxide 27 Anion Gap 13.7 BUN 9 Creatinine 1.20 H GFR Calculation 53 BUN/Creatinine Ratio 7.00 Glucose 137 H Calculated Osmolality 283.1 Calcium 8.2 L Magnesium 1.5 L Total Bilirubin AST ALT Alkaline Phosphatase Lactate Dehydrogenase Total Creatine Kinase 769 H D CK-MB (CK-2) 2.8 Troponin I 0.063 H D B-Natriuretic Peptide Total Protein Albumin Globulin Albumin/Globulin Ratio Vitamin B12 Folate Free T4 TSH 3rd Generation Urine Color Urine Appearance Urine pH Ur Specific [place] Urine Protein Urine Glucose (UA) Urine Ketones Urine Blood Urine Nitrate Urine Bilirubin Urine Urobilinogen Urine Leukocytes Urine WBC Ur Squamous Epith Cells Urine Bacteria Urine Mucus Ur Culture Indicated? Digoxin Urine Opiates Screen Ur Barbiturates Screen Ur Phencyclidine Scrn U Amphetamine/Methamph U Benzodiazepines Scrn U Cocaine Metab Screen U Cannabinoids Screen Rheumatoid Factor < 15 09/20/16 09/20/16 09/20/16 05:41 05:41 05:41 WBC 4.8 RBC 3.93 Hgb 11.6 L Hct 34.7 L MCV 88.3 MCH 30 MCHC 33.4 RDW 23.2 H Plt Count 47 L Neut % (Auto) 59.7 Lymph % (Auto) 18.0 L Rush % (Auto) 18.6 H Eos % (Auto) 3.1 Baso % (Auto) 0.2 Neut # (Auto) 2.9 Lymph # (Auto) 0.9 L Rush # (Auto) 0.9 H Eos # (Auto) 0.2 Baso # (Auto) 0.0 Total Counted 100 Immature Gran % 0.4 Nucleated RBC % 0.0 Immature Gran # 0.02 Segmented Neutrophils 67 Band Neutrophils Lymphocytes 13 L Monocytes 19 H Eosinophils 1 Myelocytes Nucleated RBCs # 0.00 Platelet Estimate Decreased Polychromasia 1+ Hypochromasia 2+ Poikilocytosis Anisocytosis Target Cells Slight Tear Drop Cells Ovalocytes [place] Cells Elliptocytes 1+ Acanthocytes (Spur) Haptoglobin INR PT Patient/Control Mix D-Dimer, Quantitative Circ Anticoag PTT Sodium 143 Potassium 3.5 Chloride 104 Carbon Dioxide 29 Anion Gap 13.5 BUN 9 Creatinine 1.10 H GFR Calculation 59 BUN/Creatinine Ratio 8.00 Glucose 111 H Calculated Osmolality 284.0 Calcium 8.2 L Magnesium 1.6 L Total Bilirubin AST ALT Alkaline Phosphatase Lactate Dehydrogenase Total Creatine Kinase 561 H D CK-MB (CK-2) 1.5 Troponin I 0.055 H B-Natriuretic Peptide 748 H Total Protein Albumin Globulin Albumin/Globulin Ratio Vitamin B12 Folate Free T4 TSH 3rd Generation Urine Color Urine Appearance Urine pH Ur Specific [place] Urine Protein Urine Glucose (UA) Urine Ketones Urine Blood Urine Nitrate Urine Bilirubin Urine Urobilinogen Urine Leukocytes Urine WBC Ur Squamous Epith Cells Urine Bacteria Urine Mucus Ur Culture Indicated? Digoxin Urine Opiates Screen Ur Barbiturates Screen Ur Phencyclidine Scrn U Amphetamine/Methamph U Benzodiazepines Scrn U Cocaine Metab Screen U Cannabinoids Screen Rheumatoid Factor 09/20/16 09/20/16 09/20/16 08:26 08:26 08:26 WBC RBC Hgb Hct MCV MCH MCHC RDW Plt Count Neut % (Auto) Lymph % (Auto) Rush % (Auto) Eos % (Auto) Baso % (Auto) Neut # (Auto) Lymph # (Auto) Rush # (Auto) Eos # (Auto) Baso # (Auto) Total Counted Immature Gran % Nucleated RBC % Immature Gran # Segmented Neutrophils Band Neutrophils Lymphocytes Monocytes Eosinophils Myelocytes Nucleated RBCs # Platelet Estimate Polychromasia Hypochromasia Poikilocytosis Anisocytosis Target Cells Tear Drop Cells Ovalocytes Gilbert Cells Elliptocytes Acanthocytes (Spur) Haptoglobin < 8.0 L INR PT Patient/Control Mix D-Dimer, Quantitative Circ Anticoag PTT Sodium Potassium Chloride Carbon Dioxide Anion Gap BUN Creatinine GFR Calculation BUN/Creatinine Ratio Glucose Calculated Osmolality Calcium Magnesium Total Bilirubin AST ALT Alkaline Phosphatase Lactate Dehydrogenase 737 H Total Creatine Kinase CK-MB (CK-2) Troponin I B-Natriuretic Peptide Total Protein Albumin Globulin Albumin/Globulin Ratio Vitamin B12 909 Folate 1.4 L Free T4 TSH 3rd Generation Urine Color Urine Appearance Urine pH Ur Specific [place] Urine Protein Urine Glucose (UA) Urine Ketones Urine Blood Urine Nitrate Urine Bilirubin Urine Urobilinogen Urine Leukocytes Urine WBC Ur Squamous Epith Cells Urine Bacteria Urine Mucus Ur Culture Indicated? Digoxin < 0.10 L Urine Opiates Screen Ur Barbiturates Screen Ur Phencyclidine Scrn U Amphetamine/Methamph U Benzodiazepines Scrn U Cocaine Metab Screen U Cannabinoids Screen Rheumatoid Factor - Diagnostic Findings Procedure: Chest x-ray: report reviewed by me - EKG EKG results: interpreted by me EKG shows: atrial fibrillation <Derek Low - Last Filed: 09/20/16 14:22> History of Present Illness - Consult Narrative History of present illness: Cardiology addendum Patient examined chart reviewed discussed with nurse Shelley mendoza. Frail 60-year-old woman recently moved from [place] to [place] to be near her son. Status post bioprosthetic mitral valve replacement 1993 Status post redo #29 [employer] mechanical MVR for prosthetic mitral valve stenosis and #21 [employer] AVR June 16, 2008 [facility]. Chronic atrial fibrillation. Medical noncompliance. The patient been off Coumadin since May 2016. On exam she does have crisp valve clicks and a systolic ejection murmur at the upper right sternal border and at the lower sternal border radiates nearly to the apex. Debilitated. The patient has been essentially bedridden for the past several months. She has a walker at home but has fallen several times and does not get out of bed without assistance. Ultrasound of the abdomen consistent with cirrhosis Rheumatoid arthritis on methotrexate Thrombocytopenia No history of bleeding Denies any history of alcohol abuse. EKG shows atrial fib with ST-T wave changes Chest x-ray mild cardiomegaly Plan Echo Doppler Restart Coumadin Social service to see. This patient is unable to take care of herself. CC: Keri Mario MD Physical Examination Vital Signs Temp Pulse Resp BP Pulse Ox 98.0 F 112 H 18 146/81 93 L 09/19/16 18:28 09/19/16 18:28 09/19/16 18:28 09/19/16 18:28 09/19/16 18:28 Result/EKG - Labs CBC & BMP: 09/20/16 13:33 09/20/16 05:41 Labs: Laboratory Results - last 24 hr 09/19/16 09/19/16 09/19/16 19:14 19:14 19:14 WBC RBC Hgb Hct MCV MCH MCHC RDW Plt Count Neut % (Auto) Lymph % (Auto) Rush % (Auto) Eos % (Auto) Baso % (Auto) Neut # (Auto) Lymph # (Auto) Rush # (Auto) Eos # (Auto) Baso # (Auto) Total Counted Immature Gran % Nucleated RBC % Immature Gran # Segmented Neutrophils Band Neutrophils Lymphocytes Monocytes Eosinophils Myelocytes Nucleated RBCs # Hypersegmented Neuts Smudge Cells Platelet Estimate Polychromasia Hypochromasia Poikilocytosis Anisocytosis Target Cells Tear Drop Cells Ovalocytes Gilbert Cells Elliptocytes Acanthocytes (Spur) Haptoglobin INR 1.5 PT Patient/Control Mix 16.2 D-Dimer, Quantitative 7.9 Circ Anticoag PTT 31.3 Sodium Potassium Chloride Carbon Dioxide Anion Gap BUN Creatinine GFR Calculation BUN/Creatinine Ratio Glucose Calculated Osmolality Calcium Magnesium Total Bilirubin AST ALT Alkaline Phosphatase Lactate Dehydrogenase Total Creatine Kinase 1032 H CK-MB (CK-2) 4.2 H Troponin I 0.083 H B-Natriuretic Peptide Total Protein Albumin Globulin Albumin/Globulin Ratio Vitamin B12 Folate Free T4 1.59 H TSH 3rd Generation Urine Color Pamela Urine Appearance Slightly hazy Urine pH 5.0 Ur Specific [place] 1.013 Urine Protein 100 Urine Glucose (UA) Negative Urine Ketones Negative Urine Blood Moderate Urine Nitrate Negative Urine Bilirubin Negative Urine Urobilinogen 4.0 H Urine Leukocytes Small H Urine WBC 53 Ur Squamous Epith Cells Occasional Urine Bacteria Many Urine Mucus Few Ur Culture Indicated? Results to follow Digoxin Urine Opiates Screen Ur Barbiturates Screen Ur Phencyclidine Scrn U Amphetamine/Methamph U Benzodiazepines Scrn U Cocaine Metab Screen U Cannabinoids Screen Rheumatoid Factor 09/19/16 09/19/16 09/19/16 19:14 19:14 19:14 WBC 6.7 RBC 4.11 Hgb 12.0 Hct 36.2 MCV 88.1 MCH 29 MCHC 33.1 RDW 23.2 H Plt Count 48 L Neut % (Auto) 68.4 Lymph % (Auto) 12.6 L Rush % (Auto) 17.3 H Eos % (Auto) 0.6 Baso % (Auto) 0.1 Neut # (Auto) 4.6 Lymph # (Auto) 0.9 L Rush # (Auto) 1.2 H Eos # (Auto) 0.0 Baso # (Auto) 0.0 Total Counted 100 Immature Gran % 1.0 Nucleated RBC % 0.6 Immature Gran # 0.07 Segmented Neutrophils 76 Band Neutrophils 1 Lymphocytes 9 L Monocytes 13 Eosinophils 1 Myelocytes Nucleated RBCs # 0.04 Hypersegmented Neuts Smudge Cells Platelet Estimate Decreased Polychromasia Hypochromasia Poikilocytosis 2+ Anisocytosis Target Cells Tear Drop Cells Few Ovalocytes Few [place] Cells 1+ Elliptocytes Acanthocytes (Spur) Haptoglobin INR PT Patient/Control Mix D-Dimer, Quantitative Circ Anticoag PTT Sodium 139 Potassium 3.1 L Chloride 104 Carbon Dioxide 23 Anion Gap 15.1 H BUN 10 Creatinine 1.20 H GFR Calculation 53 BUN/Creatinine Ratio 8.00 Glucose 147 H Calculated Osmolality 278.5 Calcium 8.5 Magnesium Total Bilirubin 2.70 H AST 61 H ALT 23 Alkaline Phosphatase 93 Lactate Dehydrogenase Total Creatine Kinase CK-MB (CK-2) Troponin I 0.083 H B-Natriuretic Peptide Total Protein 6.3 L Albumin 2.9 L Globulin 3.4 Albumin/Globulin Ratio 0.8 L Vitamin B12 Folate Free T4 TSH 3rd Generation 3.060 Urine Color Urine Appearance Urine pH Ur Specific [place] Urine Protein Urine Glucose (UA) Urine Ketones Urine Blood Urine Nitrate Urine Bilirubin Urine Urobilinogen Urine Leukocytes Urine WBC Ur Squamous Epith Cells Urine Bacteria Urine Mucus Ur Culture Indicated? Digoxin Urine Opiates Screen Negative Ur Barbiturates Screen Negative Ur Phencyclidine Scrn Negative U Amphetamine/Methamph Negative U Benzodiazepines Scrn Negative U Cocaine Metab Screen Negative U Cannabinoids Screen Negative Rheumatoid Factor 09/19/16 09/20/16 09/20/16 19:14 00:42 00:42 WBC 5.7 RBC 4.04 Hgb 12.0 Hct 35.6 L MCV 88.1 MCH 30 MCHC 33.7 RDW 23.2 H Plt Count 44 L Neut % (Auto) 62.4 Lymph % (Auto) 15.2 L Rush % (Auto) 19.6 H Eos % (Auto) 1.4 Baso % (Auto) 0.2 Neut # (Auto) 3.5 Lymph # (Auto) 0.9 L Rush # (Auto) 1.1 H Eos # (Auto) 0.1 Baso # (Auto) 0.0 Total Counted 100 Immature Gran % 1.2 Nucleated RBC % 0.7 Immature Gran # 0.07 Segmented Neutrophils 70 Band Neutrophils 5 Lymphocytes 15 L Monocytes 4 Eosinophils Myelocytes 6 Nucleated RBCs # 0.04 Hypersegmented Neuts Smudge Cells Platelet Estimate Decreased Polychromasia Hypochromasia Poikilocytosis Anisocytosis 1+ Target Cells Tear Drop Cells Ovalocytes 2+ [place] Cells Elliptocytes Acanthocytes (Spur) Few Haptoglobin INR PT Patient/Control Mix D-Dimer, Quantitative Circ Anticoag PTT Sodium 142 Potassium 3.7 Chloride 105 Carbon Dioxide 27 Anion Gap 13.7 BUN 9 Creatinine 1.20 H GFR Calculation 53 BUN/Creatinine Ratio 7.00 Glucose 137 H Calculated Osmolality 283.1 Calcium 8.2 L Magnesium 1.5 L Total Bilirubin AST ALT Alkaline Phosphatase Lactate Dehydrogenase Total Creatine Kinase 769 H D CK-MB (CK-2) 2.8 Troponin I 0.063 H D B-Natriuretic Peptide Total Protein Albumin Globulin Albumin/Globulin Ratio Vitamin B12 Folate Free T4 TSH 3rd Generation Urine Color Urine Appearance Urine pH Ur Specific [place] Urine Protein Urine Glucose (UA) Urine Ketones Urine Blood Urine Nitrate Urine Bilirubin Urine Urobilinogen Urine Leukocytes Urine WBC Ur Squamous Epith Cells Urine Bacteria Urine Mucus Ur Culture Indicated? Digoxin Urine Opiates Screen Ur Barbiturates Screen Ur Phencyclidine Scrn U Amphetamine/Methamph U Benzodiazepines Scrn U Cocaine Metab Screen U Cannabinoids Screen Rheumatoid Factor < 15 09/20/16 09/20/16 09/20/16 05:41 05:41 05:41 WBC 4.8 RBC 3.93 Hgb 11.6 L Hct 34.7 L MCV 88.3 MCH 30 MCHC 33.4 RDW 23.2 H Plt Count 47 L Neut % (Auto) 59.7 Lymph % (Auto) 18.0 L Rush % (Auto) 18.6 H Eos % (Auto) 3.1 Baso % (Auto) 0.2 Neut # (Auto) 2.9 Lymph # (Auto) 0.9 L Rush # (Auto) 0.9 H Eos # (Auto) 0.2 Baso # (Auto) 0.0 Total Counted 100 Immature Gran % 0.4 Nucleated RBC % 0.0 Immature Gran # 0.02 Segmented Neutrophils 67 Band Neutrophils Lymphocytes 13 L Monocytes 19 H Eosinophils 1 Myelocytes Nucleated RBCs # 0.00 Hypersegmented Neuts Smudge Cells Platelet Estimate Decreased Polychromasia 1+ Hypochromasia 2+ Poikilocytosis Anisocytosis Target Cells Slight Tear Drop Cells Ovalocytes [place] Cells Elliptocytes 1+ Acanthocytes (Spur) Haptoglobin INR PT Patient/Control Mix D-Dimer, Quantitative Circ Anticoag PTT Sodium 143 Potassium 3.5 Chloride 104 Carbon Dioxide 29 Anion Gap 13.5 BUN 9 Creatinine 1.10 H GFR Calculation 59 BUN/Creatinine Ratio 8.00 Glucose 111 H Calculated Osmolality 284.0 Calcium 8.2 L Magnesium 1.6 L Total Bilirubin AST ALT Alkaline Phosphatase Lactate Dehydrogenase Total Creatine Kinase 561 H D CK-MB (CK-2) 1.5 Troponin I 0.055 H B-Natriuretic Peptide 748 H Total Protein Albumin Globulin Albumin/Globulin Ratio Vitamin B12 Folate Free T4 TSH 3rd Generation Urine Color Urine Appearance Urine pH Ur Specific [place] Urine Protein Urine Glucose (UA) Urine Ketones Urine Blood Urine Nitrate Urine Bilirubin Urine Urobilinogen Urine Leukocytes Urine WBC Ur Squamous Epith Cells Urine Bacteria Urine Mucus Ur Culture Indicated? Digoxin Urine Opiates Screen Ur Barbiturates Screen Ur Phencyclidine Scrn U Amphetamine/Methamph U Benzodiazepines Scrn U Cocaine Metab Screen U Cannabinoids Screen Rheumatoid Factor 09/20/16 09/20/16 09/20/16 08:26 08:26 08:26 WBC RBC Hgb Hct MCV MCH MCHC RDW Plt Count Neut % (Auto) Lymph % (Auto) Rush % (Auto) Eos % (Auto) Baso % (Auto) Neut # (Auto) Lymph # (Auto) Rush # (Auto) Eos # (Auto) Baso # (Auto) Total Counted Immature Gran % Nucleated RBC % Immature Gran # Segmented Neutrophils Band Neutrophils Lymphocytes Monocytes Eosinophils Myelocytes Nucleated RBCs # Hypersegmented Neuts Smudge Cells Platelet Estimate Polychromasia Hypochromasia Poikilocytosis Anisocytosis Target Cells Tear Drop Cells Ovalocytes [place] Cells Elliptocytes Acanthocytes (Spur) Haptoglobin < 8.0 L INR PT Patient/Control Mix D-Dimer, Quantitative Circ Anticoag PTT Sodium Potassium Chloride Carbon Dioxide Anion Gap BUN Creatinine GFR Calculation BUN/Creatinine Ratio Glucose Calculated Osmolality Calcium Magnesium Total Bilirubin AST ALT Alkaline Phosphatase Lactate Dehydrogenase 737 H Total Creatine Kinase CK-MB (CK-2) Troponin I B-Natriuretic Peptide Total Protein Albumin Globulin Albumin/Globulin Ratio Vitamin B12 909 Folate 1.4 L Free T4 TSH 3rd Generation Urine Color Urine Appearance Urine pH Ur Specific [place] Urine Protein Urine Glucose (UA) Urine Ketones Urine Blood Urine Nitrate Urine Bilirubin Urine Urobilinogen Urine Leukocytes Urine WBC Ur Squamous Epith Cells Urine Bacteria Urine Mucus Ur Culture Indicated? Digoxin < 0.10 L Urine Opiates Screen Ur Barbiturates Screen Ur Phencyclidine Scrn U Amphetamine/Methamph U Benzodiazepines Scrn U Cocaine Metab Screen U Cannabinoids Screen Rheumatoid Factor 09/20/16 13:33 WBC 6.1 RBC 4.05 Hgb 11.9 L Hct 36.4 MCV 89.9 MCH 29 MCHC 32.7 RDW 23.6 H Plt Count 59 L D Neut % (Auto) 65.4 Lymph % (Auto) 12.2 L Rush % (Auto) 18.1 H Eos % (Auto) 2.8 Baso % (Auto) 0.2 Neut # (Auto) 4.0 Lymph # (Auto) 0.7 L Rush # (Auto) 1.1 H Eos # (Auto) 0.2 Baso # (Auto) 0.0 Total Counted 100 Immature Gran % 1.3 Nucleated RBC % 0.5 Immature Gran # 0.08 Segmented Neutrophils 77 Band Neutrophils Lymphocytes 11 L Monocytes 11 Eosinophils 1 Myelocytes Nucleated RBCs # 0.03 Hypersegmented Neuts 1+ Smudge Cells Few Platelet Estimate Decreased Polychromasia Slight Hypochromasia Poikilocytosis 1+ Anisocytosis Target Cells Few Tear Drop Cells Ovalocytes 1+ [place] Cells Slight Elliptocytes Acanthocytes (Spur) Haptoglobin INR PT Patient/Control Mix D-Dimer, Quantitative Circ Anticoag PTT Sodium Potassium Chloride Carbon Dioxide Anion Gap BUN Creatinine GFR Calculation BUN/Creatinine Ratio Glucose Calculated Osmolality Calcium Magnesium Total Bilirubin AST ALT Alkaline Phosphatase Lactate Dehydrogenase Total Creatine Kinase CK-MB (CK-2) Troponin I B-Natriuretic Peptide Total Protein Albumin Globulin Albumin/Globulin Ratio Vitamin B12 Folate Free T4 TSH 3rd Generation Urine Color Urine Appearance Urine pH Ur Specific [place] Urine Protein Urine Glucose (UA) Urine Ketones Urine Blood Urine Nitrate Urine Bilirubin Urine Urobilinogen Urine Leukocytes Urine WBC Ur Squamous Epith Cells Urine Bacteria Urine Mucus Ur Culture Indicated? Digoxin Urine Opiates Screen Ur Barbiturates Screen Ur Phencyclidine Scrn U Amphetamine/Methamph U Benzodiazepines Scrn U Cocaine Metab Screen U Cannabinoids Screen Rheumatoid Factor
[2016-09-20] MEDS: cefTRIAXone 1,000 MG in SODIUM CHLORIDE 0.9% 100 ML IV SCH (11:20)
[2016-09-20] MEDS ORDERED: TUBERCULIN SKIN TEST 0.1 ML SYRINGE INTRADERM ONE (11:32)
[2016-09-20] MEDS ORDERED: MAGNESIUM SULF RIDER 4 GM in PREMIX 1 EACH IV PRN (11:45)
[2016-09-20] MEDS: DESITIN 4OZ/NYSTATIN 15 GRAM MIXTURE PASTE TOP SCH ×2 (11:50→20:26)
[2016-09-20] MEDS: DIGOXIN 0.125 MG TABLET PO SCH (13:15)
[2016-09-20 13:37] LABS: Basophils % 0.2 % (0.0-0.8); Eosinophils # 0.2 10*3/uL (0.0-0.87); Eosinophils % 2.8 % (0.00-10.9); Hematocrit 36.4 VOL% (35.7-47.0); Hemoglobin 11.9 GM/DL (12.0-16.0); Immature Granulocytes % 1.3 %; Immature Granulocytes Absolute 0.08 #; Lymphocytes # 0.7 10*3/uL (1.4-4.0); Lymphocytes % 12.2 % (21.3-54.2); Mean Corpuscular HGB Conc 32.7 GM/DL (32-36); Mean Corpuscular Hemoglobin 29 PG (27-34); Mean Corpuscular Volume 89.9 FL (87-102); Monocytes # 1.1 10*3/uL (0.11-0.8); Monocytes % 18.1 % (1.7-12.7); NRBC # 0.03 10*3/uL; Neutrophils % 65.4 % (38.7-73.9); Platelet Count 59 T/CUMM (130-400); Red Blood Count 4.05 MC/CUMM (3.8-5.5); Red Cell Distribution Width 23.6 % (9.3-17.3); White Blood Count 6.1 T/CUMM (4-12)
[2016-09-20 13:57] LABS: Eosinophils 1 % (0-10); Hypersegmented Neutrophil 1+; Lymphocytes 11 % (20-55); Platelet Estimate Decreased; Segmented Neutrophils 77 % (50-85); Total Cells Counted 100
[2016-09-20 13:58] LABS: Burr Cells Slight; Ovalocytes 1+; Poikilocytosis 1+; Polychromasia Slight; Smudge Cells Few; Target Cells Few
--- NOTE | 2016-09-20 16:37 | ECHO Report ---
Lilian Gaytan Exam Date: 09/20/2016 13:20 Referring Physician: Technologist: Jessie Allred Age: 60 Ht (in): 65 Wt (lb): 180 Gender: F Exam Location: [facility] Echo Indications: MVR, A fib, SOB, palp, CHF exacerbation BP: 93 / 58 HR: 98 Rhythm: Atrial fibrillation Technical Quality: Technically difficult study IMPRESSIONS Technically difficult study. EF 40 %, septal hypokinesis. Moderately increased right ventricular size. Severely increased right atrial size. Moderately increased left atrial size. Prosthetic mechanical mitral valve with pannus formation . Mean gradient 6 mmHG. V max 1.50. MVA 2.34 cm 2. Trace mitral valve regurgitation. Prosthetic mechanical AV with pannus. Peak gradient 53, mean gradient 20 mmHg. Trace aortic valve regurgitation. Moderate tricuspid valve regurgitation. PAP50 m,mHG. Trace pulmonary valve regurgitation. No pericardial effusion. Normal size aortic root and proximal ascending aorta. MEASUREMENTS (Male / Female) Normal Values 2D ECHO LV Diastolic Diameter PLAX 4.6 cm 4.2 - 5.9 / 3.9 - 5.3 cm LV Systolic Diameter PLAX 4.3 cm LV Fractional Shortening PLAX 7.0 % IVS Diastolic Thickness 1.2 cm 0.6 - 1.0 / 0.6 - 0.9 cm LVPW Diastolic Thickness 1.1 cm 0.6 - 1.0 / 0.6 - 0.9 cm Aortic Root Diameter 2.7 cm LA Systolic Diameter LX 2.5 cm 3.0 - 4.0 / 2.7 - 3.8 cm DOPPLER TR Peak Velocity 326.0 cm/s TR Peak Gradient 42.5 mmHg FINDINGS Left Ventricle EF 40 %, septal hypokinesis.; Right Ventricle Moderately increased right ventricular size. Right Atrium Severely increased right atrial size. Left Atrium Moderately increased left atrial size. Mitral Valve Prosthetic mechanical mitral valve with pannus formation . Mean gradient 6 mmHG. V max 1.50. MVA 2.34 cm 2.trace mitral valve regurgitation. Aortic Valve Prosthetic mechanical AV with pannus.Peak gradient 53, mean gradient 20 mmHg.trace aortic valve regurgitation. Tricuspid Valve Morphologically normal tricuspid valve. Moderate tricuspid valve regurgitation. PAP50 m,mHG. Pulmonic Valve Pulmonic valve not well visualized. Trace pulmonary valve regurgitation. . Pericardium No pericardial effusion. Aorta Normal size aortic root and proximal ascending aorta. Jayjay Devante (Electronically Signed) Final Date: 20 September 2016 16:36
[2016-09-20] MEDS: WARFARIN 7.5 MG TABLET PO SCH (17:45)
--- NOTE | 2016-09-20 18:14 | Oncology Progress Note ---
Oncology Subjective PN Interval history: Lab work that I have ordered that has returned includes a low haptoglobin of less than 8.0. She is probably hemolyzing but haptoglobin levels are decreased with liver disease which results in decreased production of haptoglobin. Her folic acid level is below normal at 1.4. I am ordering 1 mg p.o. daily. I ordered a mean platelet volume and it apparently has not been reported. I note that her LDH is 737. Exam - Constitutional Vitals: Period Temp Pulse Resp BP Sys/Grant Pulse Ox Last 24 Hr 97 F-98.4 F 89-112 16-20 93-146/58-86 93-100 Results - Labs CBC & BMP: 09/20/16 13:33 09/20/16 05:41
[2016-09-20] MEDS: FUROSEMIDE 20 MG TABLET PO SCH (20:25)
[2016-09-21 06:05] LABS: Basophils % 0.2 % (0.0-0.8); Eosinophils # 0.2 10*3/uL (0.0-0.87); Eosinophils % 4.4 % (0.00-10.9); Hematocrit 29.1 VOL% (35.7-47.0); Hemoglobin 9.8 GM/DL (12.0-16.0); Immature Granulocytes % 0.9 %; Immature Granulocytes Absolute 0.04 #; Lymphocytes # 0.8 10*3/uL (1.4-4.0); Lymphocytes % 19.1 % (21.3-54.2); Mean Corpuscular HGB Conc 33.7 GM/DL (32-36); Mean Corpuscular Hemoglobin 30 PG (27-34); Mean Corpuscular Volume 87.9 FL (87-102); Monocytes % 23.5 % (1.7-12.7); Neutrophils # 2.2 10*3/uL (1.4-7.4); Neutrophils % 51.9 % (38.7-73.9); Platelet Count 59 T/CUMM (130-400); Red Blood Count 3.31 MC/CUMM (3.8-5.5); Red Cell Distribution Width 23.4 % (9.3-17.3); White Blood Count 4.3 T/CUMM (4-12)
[2016-09-21 06:11] LABS: INR 1.4; PT Patient Result 14.8 SECS
[2016-09-21 06:32] LABS: Eosinophils 4 % (0-10); Hypochromasia 1+; Lymphocytes 13 % (20-55); Ovalocytes Slight; Platelet Estimate Decreased; Segmented Neutrophils 64 % (50-85); Total Cells Counted 100
[2016-09-21 06:39] LABS: Calcium 7.7 MG/DL (8.5-10.1); Osmolality,Calculated 275.8 MOS/KG (273-304); Potassium 2.9 MMOL/L (3.5-5.1)
[2016-09-21 06:40] LABS: Magnesium 1.7 MG/DL (1.8-2.4); Osmolality,Calculated 275.8 MOS/KG (273-304); Potassium 2.9 MMOL/L (3.5-5.1)
--- NOTE | 2016-09-21 07:41 | Physician Query Form ---
CLICK EDIT DOCUMENT TO SELECT QUERY ANSWER --> OK --> SIGN Nena Mata RN, CCDS Certified Clinical Project Construction Manager W) [phone] (f) [phone] [email or web address] PROVIDERS: Make your selection(s) from the choices in EACH section by typing an "x" and enter comments in the comment section. Please use your independent medical judgment in providing your response. This request does not imply that any particular answer is desired or expected. CLINICAL INDICATORS: (Providers should not edit this section) The medical record indicates that the patient was admitted with AF, urine CS is showing > 100,00 gram negative rods, Urine WBC of 53# and the patient is on Ceftriaxone. Based on the above, could you clarify the appropriate diagnosis, if significant , that supports the above abnormalities and additional evaluation, monitoring, and/or treatment rendered: ( x) patient is being treated or monitored for an UTI ( ) patient is not being treated or monitored for an UTI ( ) Other, please specify: ( ) Clinically unable to determine COMMENTS: PLEASE ALSO DOCUMENT RESPONSE IN PROGRESS NOTES AND/OR DISCHARGE SUMMARY Use of terms such as suspected, likely, or probable (associated with a specific diagnosis that is being evaluated, monitored, or treated as if it exists) are acceptable and can be restated in the discharge summary if not ruled out. MTDD
--- NOTE | 2016-09-21 07:43 | Physician Query Form ---
CLICK EDIT DOCUMENT TO SELECT QUERY ANSWER --> OK --> SIGN Nena Mata RN, CCDS Certified Clinical Veterans' Counselor W) [phone] (f) [phone] [email or web address] PROVIDERS: Make your selection(s) from the choices in EACH section by typing an "x" and enter comments in the comment section. Please use your independent medical judgment in providing your response. This request does not imply that any particular answer is desired or expected. CLINICAL INDICATORS: (Providers should not edit this section) The medical record indicates that the patient was admitted with AF, CHF [acute] , BNP 748#, "EF 40 %" and the patient is on PO / IV Lasix. Please provide further specificity regarding CHF. ACUITY: ( ) Acute ( ) Chronic (x) Acute on Chronic ( ) Clinically unable to determine TYPE: ( x) Systolic (HFrEF - heart failure with reduced systolic function/EF) ( ) Diastolic (HFpEF - heart failure with preserved systolic function/EF) ( ) Combined Systolic/Diastolic ( ) Other, please specify: ( ) Clinically unable to determine ( ) The patient does NOT have CHF COMMENTS: PLEASE ALSO DOCUMENT RESPONSE IN PROGRESS NOTES AND/OR DISCHARGE SUMMARY Use of terms such as suspected, likely, or probable (associated with a specific diagnosis that is being evaluated, monitored, or treated as if it exists) are acceptable and can be restated in the discharge summary if not ruled out. MTDD
[2016-09-21 07:57] LABS: Basophils % 0.2 % (0.0-0.8); Eosinophils # 0.2 10*3/uL (0.0-0.87); Eosinophils % 4.6 % (0.00-10.9); Hematocrit 29.3 VOL% (35.7-47.0); Hemoglobin 9.8 GM/DL (12.0-16.0); Immature Granulocytes % 0.5 %; Immature Granulocytes Absolute 0.02 #; Lymphocytes % 22.5 % (21.3-54.2); Mean Corpuscular HGB Conc 33.4 GM/DL (32-36); Mean Corpuscular Hemoglobin 30 PG (27-34); Mean Corpuscular Volume 89.3 FL (87-102); Monocytes # 1.2 10*3/uL (0.11-0.8); Monocytes % 26.8 % (1.7-12.7); Neutrophils % 45.4 % (38.7-73.9); Platelet Count 58 T/CUMM (130-400); Red Blood Count 3.28 MC/CUMM (3.8-5.5); Red Cell Distribution Width 23.3 % (9.3-17.3); White Blood Count 4.4 T/CUMM (4-12)
--- NOTE | 2016-09-21 08:08 | Cardiology Progress Note ---
Cardiology - PN: Subj Interval history: Cardiology note Awake and alert and responsive. Appreciate Dr. Cherry's assistance. Platelet count is 59,000 today. Status post bioprosthetic mitral valve replacement 1993. 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 Patient been off Coumadin for several months. Rheumatoid arthritis Cirrhosis Denies any history of alcohol abuse Blood pressure 110/74 Telemetry shows atrial fib controlled rate Irregular rhythm with crisp valve sounds and systolic ejection murmur but no AI Lab data today White count 4.3 hemoglobin 9.8 medical 29.1 platelet count 59,000 Pro time 14.8 INR 1.4 Sodium 137 potassium 2.9 chloride 99 CO2 30 BUN 10 creatinine 1.10 glucose 170 Echo Doppler Delia difficult, EF 40% with severely dilated atrium, normally functioning mechanical mitral valve prosthesis with pannus formation mean gradient 6, trivial MR. Normally functioning mechanical aortic valve prosthesis with peak gradient 53, mean gradient 20, with trace AI moderate TR PA pressure 50 and no effusion Plan 7.5 mg Coumadin Social service to see Exam (Progress Note) - Constitutional Vitals: Period Temp Pulse Resp BP Sys/Grant Pulse Ox Last 24 Hr 97.4 F-98.9 F 83-110 16-18 92-123/50-86 98-100 Result/EKG - Labs CBC & BMP: 09/21/16 07:46 09/21/16 05:56 Labs: Laboratory Results - last 24 hr 09/20/16 09/20/16 09/20/16 08:26 08:26 08:26 WBC RBC Hgb Hct MCV MCH MCHC RDW Plt Count MPV Neut % (Auto) Lymph % (Auto) Kimble % (Auto) Eos % (Auto) Baso % (Auto) Neut # (Auto) Lymph # (Auto) Kimble # (Auto) Eos # (Auto) Baso # (Auto) Total Counted Immature Gran % Nucleated RBC % Immature Gran # Segmented Neutrophils Lymphocytes Monocytes Eosinophils Nucleated RBCs # Hypersegmented Neuts Smudge Cells Platelet Estimate Polychromasia Hypochromasia Poikilocytosis Target Cells Ovalocytes Gilbert Cells Morphology Comment Peripheral Blood Smear Peripher Smr Path Cons Haptoglobin < 8.0 L INR PT Patient/Control Mix Sodium Potassium Chloride Carbon Dioxide Anion Gap BUN Creatinine GFR Calculation BUN/Creatinine Ratio Glucose Calculated Osmolality Calcium Magnesium Lactate Dehydrogenase 737 H Vitamin B12 909 Folate 1.4 L Digoxin < 0.10 L 09/20/16 09/21/16 09/21/16 13:33 05:56 05:56 WBC 6.1 4.3 RBC 4.05 3.31 L Hgb 11.9 L 9.8 L D Hct 36.4 29.1 L MCV 89.9 87.9 MCH 29 30 MCHC 32.7 33.7 RDW 23.6 H 23.4 H Plt Count 59 L D 59 L MPV Neut % (Auto) 65.4 51.9 Lymph % (Auto) 12.2 L 19.1 L Kimble % (Auto) 18.1 H 23.5 H Eos % (Auto) 2.8 4.4 Baso % (Auto) 0.2 0.2 Neut # (Auto) 4.0 2.2 Lymph # (Auto) 0.7 L 0.8 L Kimble # (Auto) 1.1 H 1.0 H Eos # (Auto) 0.2 0.2 Baso # (Auto) 0.0 0.0 Total Counted 100 100 Immature Gran % 1.3 0.9 Nucleated RBC % 0.5 0.0 Immature Gran # 0.08 0.04 Segmented Neutrophils 77 64 Lymphocytes 11 L 13 L Monocytes 11 19 H Eosinophils 1 4 Nucleated RBCs # 0.03 0.00 Hypersegmented Neuts 1+ Smudge Cells Few Platelet Estimate Decreased Decreased Polychromasia Slight Hypochromasia 1+ Poikilocytosis 1+ Target Cells Few Ovalocytes 1+ Slight [place] Cells Slight Morphology Comment Peripheral Blood Smear Not Reportable Peripher Smr Path Cons Haptoglobin INR 1.4 PT Patient/Control Mix 14.8 Sodium Potassium Chloride Carbon Dioxide Anion Gap BUN Creatinine GFR Calculation BUN/Creatinine Ratio Glucose Calculated Osmolality Calcium Magnesium Lactate Dehydrogenase Vitamin B12 Folate Digoxin 09/21/16 09/21/16 09/21/16 05:56 05:56 07:46 WBC 4.4 RBC 3.28 L Hgb 9.8 L Hct 29.3 L MCV 89.3 MCH 30 MCHC 33.4 RDW 23.3 H Plt Count 58 L MPV Neut % (Auto) 45.4 Lymph % (Auto) 22.5 Kimble % (Auto) 26.8 H Eos % (Auto) 4.6 Baso % (Auto) 0.2 Neut # (Auto) 2.0 Lymph # (Auto) 1.0 L Kimble # (Auto) 1.2 H Eos # (Auto) 0.2 Baso # (Auto) 0.0 Total Counted Immature Gran % 0.5 Nucleated RBC % 0.0 Immature Gran # 0.02 Segmented Neutrophils Lymphocytes Monocytes Eosinophils Nucleated RBCs # 0.00 Hypersegmented Neuts Smudge Cells Platelet Estimate Polychromasia Hypochromasia Poikilocytosis Target Cells Ovalocytes [place] Cells Morphology Comment Peripheral Blood Smear Peripher Smr Path Cons Haptoglobin INR PT Patient/Control Mix Sodium 137 137 Potassium 2.9 L 2.9 L Chloride 98 99 Carbon Dioxide 30 30 Anion Gap 11.9 10.9 BUN 10 10 Creatinine 1.10 H 1.10 H GFR Calculation 57 57 BUN/Creatinine Ratio 9.00 9.00 Glucose 162 H 170 H Calculated Osmolality 275.8 275.8 Calcium 7.7 L 7.7 L Magnesium 1.7 L Lactate Dehydrogenase Vitamin B12 Folate Digoxin
[2016-09-21 08:37] LABS: Band Neutrophils 1 % (0-10); Eosinophils 5 % (0-10); Lymphocytes 16 % (20-55); Platelet Estimate Decreased; Segmented Neutrophils 62 % (50-85); Total Cells Counted 100
[2016-09-21 08:38] LABS: Hypochromasia 1+; Ovalocytes Slight
[2016-09-21] MEDS: FOLIC ACID 1 MG TABLET PO SCH (08:46)
[2016-09-21] MEDS: LOSARTAN 50 MG TABLET PO SCH (08:46)
[2016-09-21] MEDS: DILTIAZEM 60 MG TABLET PO SCH ×2 (08:47→21:55)
[2016-09-21] MEDS: FUROSEMIDE 40 MG TABLET PO SCH (08:47)
[2016-09-21] MEDS: DESITIN 4OZ/NYSTATIN 15 GRAM MIXTURE PASTE TOP SCH ×2 (08:48→21:56)
[2016-09-21] MEDS: MAGNESIUM SULF RIDER 2 GM in PREMIX 1 EACH IV PRN (08:51)
[2016-09-21] MEDS ORDERED: FOLIC ACID 1 MG TABLET PO SCH (09:00)
[2016-09-21] MEDS: cefTRIAXone 1,000 MG in SODIUM CHLORIDE 0.9% 100 ML IV SCH (10:37)
[2016-09-21] MEDS ORDERED: POTASSIUM CHLORIDE 20 MEQ TABLET PO ONE ×2 (10:42→18:00)
--- NOTE | 2016-09-21 13:17 | Hospitalist Progress Note ---
Assessment and Plan (1) CHF (congestive heart failure) Status: Acute Assessment and plan: 1)cardiac-MVR and CHF, and afib---her echo shows EF 40%, dilated atrium, MVR functioning. Dr Low has added Coumadin back for her valve. 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 7)RA- off MTX. refer to outpatient rheumatology. 8)low potassium- replace today and recheck tomorrow. 9)UTI due to Klebsiella- on ceftriaxone. Current Visit: Yes Qualifiers: Congestive heart failure type: unspecified congestive heart failure type Congestive heart failure chronicity: acute Qualified Code(s): I50.9 - Heart failure, unspecified (2) Thrombocytopenia Status: Acute Current Visit: Yes (3) ADDY (acute kidney injury) Status: Resolved Current Visit: Yes (4) Hx of mitral valve replacement with mechanical valve Status: Chronic Current Visit: Yes (5) Atrial fibrillation with RVR Status: Acute Current Visit: Yes (6) Hypokalemia Status: Acute Current Visit: Yes (7) cirrhosis with splenomegaly Status: Acute Current Visit: Yes (8) Diabetes Status: Chronic Current Visit: Yes (9) Rheumatoid arthritis Status: Chronic Current Visit: Yes Hospitalist: Subjective Interval history: Mrs Mcrae feels good this morning. She is interested in swing bed. Exam - Constitutional Vitals: Period Temp Pulse Resp BP Sys/Grant Pulse Ox Last 24 Hr 97.6 F-98.9 F 83-110 16-18 92-120/50-68 98-100 General appearance: normal weight, no acute distress - Head Head exam: Present: normocephalic, atraumatic - Eye Eye exam: Present: EOMI. Absent: scleral icterus - Respiratory Respiratory exam: Present: clear to auscultation bilaterally - Cardiovascular Cardiovascular exam: Present: regular rate and rhythm - GI/Abdominal GI/Abdominal exam: Present: normal bowel sounds, soft. Absent: tenderness - Extremities Exam Extremities exam: Absent: edema - Neurological Exam Neurological exam: Present: alert, oriented X3 Results - Labs CBC & BMP: 09/21/16 07:46 09/21/16 05:56 Lab Results: I have reviewed the past 24 hour labs
[2016-09-21] MEDS: DIGOXIN 0.125 MG TABLET PO SCH (13:31)
[2016-09-21] MEDS: WARFARIN 7.5 MG TABLET PO SCH (17:06)
[2016-09-21] MEDS: FUROSEMIDE 20 MG TABLET PO SCH (21:56)
[2016-09-22 05:16] LABS: Basophils % 0.2 % (0.0-0.8); Eosinophils # 0.3 10*3/uL (0.0-0.87); Eosinophils % 6.5 % (0.00-10.9); Hemoglobin 10.8 GM/DL (12.0-16.0); Immature Granulocytes % 1.2 %; Immature Granulocytes Absolute 0.05 #; Lymphocytes % 24.5 % (21.3-54.2); Mean Corpuscular HGB Conc 32.7 GM/DL (32-36); Mean Corpuscular Hemoglobin 30 PG (27-34); Mean Corpuscular Volume 90.2 FL (87-102); Mean Platelet Volume 12.7 FL (9.6-12.0); Neutrophils # 1.8 10*3/uL (1.4-7.4); Neutrophils % 43.6 % (38.7-73.9); Platelet Count 88 T/CUMM (130-400); Red Blood Count 3.66 MC/CUMM (3.8-5.5); Red Cell Distribution Width 23.8 % (9.3-17.3); White Blood Count 4.2 T/CUMM (4-12)
[2016-09-22 05:43] LABS: Atypical Lymphocytes Few; Band Neutrophils 1 % (0-10); Eosinophils 6 % (0-10); Hypochromasia 1+; Lymphocytes 31 % (20-55); Segmented Neutrophils 48 % (50-85); Total Cells Counted 100
[2016-09-22 05:44] LABS: Anisocytosis 1+; Calcium 7.6 MG/DL (8.5-10.1); Magnesium 1.9 MG/DL (1.8-2.4); Microcytosis 1+; Osmolality,Calculated 273.8 MOS/KG (273-304); Ovalocytes Few; Potassium 3.7 MMOL/L (3.5-5.1)
[2016-09-22 05:45] LABS: Platelet Estimate Decreased
[2016-09-22] MEDS: DILTIAZEM 60 MG TABLET PO SCH ×2 (08:33→20:44)
[2016-09-22] MEDS: FUROSEMIDE 40 MG TABLET PO SCH (08:33)
[2016-09-22] MEDS: LOSARTAN 50 MG TABLET PO SCH (08:33)
[2016-09-22] MEDS: FOLIC ACID 1 MG TABLET PO SCH (08:33)
[2016-09-22] MEDS: DESITIN 4OZ/NYSTATIN 15 GRAM MIXTURE PASTE TOP SCH ×2 (08:34→20:47)
--- NOTE | 2016-09-22 08:50 | Cardiology Progress Note ---
Cardiology - PN: Subj Interval history: Cardiology note Eating better. 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 Patient has been off Coumadin several months Rheumatoid arthritis Cirrhosis Thrombocytopenia Denies any history of alcohol abuse echo Doppler ejection fraction 40% Normally functioning mechanical MVR with pannus formation and mean gradient 6 and trivial MR. Normally functioning mechanical aortic valve prosthesis with peak gradient 53 mean gradient 20 trace AI with moderate TR PA pressure 50 no effusion Plan 7.5 mg Coumadin today Pro time/INR in a.m. Encourage nutrition Social service to see Exam (Progress Note) - Constitutional Vitals: Period Temp Pulse Resp BP Sys/Grant Pulse Ox Last 24 Hr 96.7 F-98.5 F 79-97 18-20 89-120/47-67 98-100 Result/EKG - Labs CBC & BMP: 09/22/16 04:12 09/22/16 04:12 Labs: Laboratory Results - last 24 hr 09/22/16 09/22/16 04:12 04:12 WBC 4.2 RBC 3.66 L Hgb 10.8 L Hct 33.0 L MCV 90.2 MCH 30 MCHC 32.7 RDW 23.8 H Plt Count 88 L D MPV 12.7 H Neut % (Auto) 43.6 Lymph % (Auto) 24.5 [place] % (Auto) 24.0 H Eos % (Auto) 6.5 Baso % (Auto) 0.2 Neut # (Auto) 1.8 Lymph # (Auto) 1.0 L [place] # (Auto) 1.0 H Eos # (Auto) 0.3 Baso # (Auto) 0.0 Total Counted 100 Immature Gran % 1.2 Nucleated RBC % 0.0 Immature Gran # 0.05 Segmented Neutrophils 48 L Band Neutrophils 1 Lymphocytes 31 Monocytes 13 Eosinophils 6 Basophils 1.0 H Nucleated RBCs # 0.00 Atypical Lymphocytes Few Platelet Estimate Decreased Hypochromasia 1+ Anisocytosis 1+ Microcytosis 1+ Ovalocytes Few Sodium 137 Potassium 3.7 Chloride 100 Carbon Dioxide 32 Anion Gap 8.7 BUN 12 Creatinine 1.00 GFR Calculation 64 BUN/Creatinine Ratio 12.00 Glucose 115 H Calculated Osmolality 273.8 Calcium 7.6 L Magnesium 1.9
[2016-09-22] MEDS: cefTRIAXone 1,000 MG in SODIUM CHLORIDE 0.9% 100 ML IV SCH (10:19)
[2016-09-22] MEDS: DIGOXIN 0.125 MG TABLET PO SCH (12:04)
--- NOTE | 2016-09-22 13:24 | Hospitalist Progress Note ---
Assessment and Plan (1) CHF (congestive heart failure) Status: Acute Assessment and plan: 1)cardiac-MVR and CHF, and afib---her echo shows EF 40%, dilated atrium, MVR functioning. INR is 1.4, coumadin dose 7.5 mg. Home meds restarted yesterday including lasix, losartan, dig. On oral lasix. Comfortable, weak. 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 Medicaid pending. 6)afib- rate ok, on oral dilt now. 7)RA- off MTX. refer to outpatient rheumatology. 8)low potassium- replaced and now normal range. hypomagnesemia also replaced. 9)UTI due to Klebsiella- on ceftriaxone. Current Visit: Yes Qualifiers: Congestive heart failure type: unspecified congestive heart failure type Congestive heart failure chronicity: acute Qualified Code(s): I50.9 - Heart failure, unspecified (2) Thrombocytopenia Status: Acute Current Visit: Yes (3) ADDY (acute kidney injury) Status: Resolved Current Visit: Yes (4) Hx of mitral valve replacement with mechanical valve Status: Chronic Current Visit: Yes (5) Atrial fibrillation with RVR Status: Acute Current Visit: Yes (6) Hypokalemia Status: Acute Current Visit: Yes (7) cirrhosis with splenomegaly Status: Acute Current Visit: Yes (8) Diabetes Status: Chronic Current Visit: Yes (9) Rheumatoid arthritis Status: Chronic Current Visit: Yes Hospitalist: Subjective Interval history: Mrs Mehta reports a good night's sleep, eating well and feeling better than when she was admitted. The community mental health social worker is seeking a NH for her as she has Medicaid pending. Exam - Constitutional Vitals: Period Temp Pulse Resp BP Sys/Grant Pulse Ox Last 24 Hr 96.2 F-98.5 F 79-97 18-20 89-112/47-67 97-100 General appearance: no acute distress, over weight - Head Head exam: Present: normocephalic, atraumatic - Eye Eye exam: Present: EOMI. Absent: scleral icterus - Respiratory Respiratory exam: Present: clear to auscultation bilaterally - Cardiovascular Cardiovascular exam: Present: regular rate and rhythm (valve click) - GI/Abdominal GI/Abdominal exam: Present: normal bowel sounds, soft. Absent: tenderness - Extremities Exam Extremities exam: Present: edema - Neurological Exam Neurological exam: Present: alert, oriented X3 Results - Labs CBC & BMP: 09/22/16 04:12 09/22/16 04:12 Lab Results: I have reviewed the past 24 hour labs
[2016-09-22] MEDS: WARFARIN 7.5 MG TABLET PO SCH (18:05)
[2016-09-22] MEDS: FUROSEMIDE 20 MG TABLET PO SCH (20:45)
[2016-09-23 04:44] LABS: Basophils % 0.4 % (0.0-0.8); Eosinophils # 0.3 10*3/uL (0.0-0.87); Eosinophils % 5.9 % (0.00-10.9); Hematocrit 29.7 VOL% (35.7-47.0); Hemoglobin 9.8 GM/DL (12.0-16.0); Immature Granulocytes % 0.9 %; Immature Granulocytes Absolute 0.05 #; Lymphocytes # 1.2 10*3/uL (1.4-4.0); Lymphocytes % 22.8 % (21.3-54.2); Mean Corpuscular Hemoglobin 30 PG (27-34); Mean Platelet Volume 12.3 FL (9.6-12.0); Monocytes # 1.2 10*3/uL (0.11-0.8); Monocytes % 22.2 % (1.7-12.7); Neutrophils # 2.6 10*3/uL (1.4-7.4); Neutrophils % 47.8 % (38.7-73.9); Platelet Count 146 T/CUMM (130-400); Red Cell Distribution Width 23.9 % (9.3-17.3); White Blood Count 5.4 T/CUMM (4-12)
[2016-09-23 05:10] LABS: Calcium 7.7 MG/DL (8.5-10.1); Magnesium 1.6 MG/DL (1.8-2.4); Osmolality,Calculated 270.2 MOS/KG (273-304); Potassium 3.7 MMOL/L (3.5-5.1)
[2016-09-23 05:30] LABS: Band Neutrophils 1 % (0-10); Eosinophils 8 % (0-10); Lymphocytes 15 % (20-55); Segmented Neutrophils 57 % (50-85); Total Cells Counted 100
[2016-09-23 05:38] LABS: Anisocytosis 2+; Hypochromasia Slight; Macrocytosis 2+; Ovalocytes Few; Platelet Estimate Decreased
[2016-09-23] MEDS: LOSARTAN 50 MG TABLET PO SCH (08:21)
[2016-09-23] MEDS: DILTIAZEM 60 MG TABLET PO SCH ×2 (08:21→20:34)
[2016-09-23] MEDS: FOLIC ACID 1 MG TABLET PO SCH (08:22)
[2016-09-23] MEDS: FUROSEMIDE 40 MG TABLET PO SCH (08:22)
[2016-09-23] MEDS: MAGNESIUM SULF RIDER 2 GM in PREMIX 1 EACH IV PRN (08:22)
[2016-09-23] MEDS: DESITIN 4OZ/NYSTATIN 15 GRAM MIXTURE PASTE TOP SCH ×2 (08:22→20:34)
--- NOTE | 2016-09-23 08:57 | Cardiology Progress Note ---
Cardiology - PN: Subj Interval history: Cardiology note Awake and alert and has good appetite. Telemetry shows controlled atrial fibrillation No temperature Irregular rhythm with crisp valve clicks and systolic murmur as before no AI Decreased breath sounds but clear Abdomen benign No leg edema Lab data today White count 5.4 hemoglobin 9.8 hematocrit 29.7 platelet count up to 146,000 Sodium 134 potassium 3.7 chloride 97 CO2 29 BUN 14 creatinine 1.0 magnesium 1.6 Pro time/INR pending Impression Status post bioprosthetic MVR 1993 Status post redo #29 [employer] mechanical MVR for prosthetic mitral valve stenosis and #21 [employer] AVR June 16, 2008 [facility] Chronic atrial fibrillation Medical noncompliance. Patient has been off Coumadin several months Rheumatoid arthritis Cirrhosis Thrombocytopenia improved Denies any history of alcohol abuse. Echo Doppler EF 40% normally functioning mechanical MVR with pannus formation mean gradient 6 and trivial MR. Normally functioning mechanical aVR with peak gradient 53 mean gradient 20 with trace AI and moderate TR PA pressure 50 Plan Encourage nutrition Pro time/INR pending Awaiting social service Exam (Progress Note) - Constitutional Vitals: Period Temp Pulse Resp BP Sys/Grant Pulse Ox Last 24 Hr 96.2 F-99.6 F 81-95 16-20 92-123/50-74 97-100 Result/EKG - Labs CBC & BMP: 09/23/16 03:52 09/23/16 03:52 Labs: Laboratory Results - last 24 hr 09/20/16 09/23/16 09/23/16 08:24 03:52 03:52 WBC 5.4 RBC 3.30 L Hgb 9.8 L Hct 29.7 L MCV 90.0 MCH 30 MCHC 33.0 RDW 23.9 H Plt Count 146 D MPV 12.3 H Neut % (Auto) 47.8 Lymph % (Auto) 22.8 [place] % (Auto) 22.2 H Eos % (Auto) 5.9 Baso % (Auto) 0.4 Neut # (Auto) 2.6 Lymph # (Auto) 1.2 L [place] # (Auto) 1.2 H Eos # (Auto) 0.3 Baso # (Auto) 0.0 Total Counted 100 Immature Gran % 0.9 Nucleated RBC % 0.0 Immature Gran # 0.05 Segmented Neutrophils 57 Band Neutrophils 1 Lymphocytes 15 L Monocytes 19 H Eosinophils 8 Nucleated RBCs # 0.00 Platelet Estimate Decreased Immature Plt Fraction 0.0 Hypochromasia Slight Anisocytosis 2+ Macrocytosis 2+ Ovalocytes Few Sodium 134 L Potassium 3.7 Chloride 97 L Carbon Dioxide 29 Anion Gap 11.7 BUN 14 Creatinine 1.00 GFR Calculation 65 BUN/Creatinine Ratio 14.00 Glucose 143 H Calculated Osmolality 270.2 L Calcium 7.7 L Magnesium 1.6 L Cycl Citrul Peptide IgG < 15.6
[2016-09-23 10:14] LABS: INR 1.6; PT Patient Result 17.7 SECS; Partial Thromboplastin Time 33.3 SECS (0-40)
--- NOTE | 2016-09-23 10:18 | Discharge Summary ---
<Tianna Vogel - Last Filed: 09/23/16 11:06> Hospital Course - Hospital Course Hospital Course: Ms Gaytan was admitted 09/19/16 after presenting to [facility] ED with complaints of knee pain, SOB, and palpitations. She stated that she was receiving her medical care in [place] and then moved here in May 2016. Since May , she has not been taking her medications and therefore has been having SOB mostly with walking along with palpitations. She has a history of a-fib as well as a mechanical mitral valve replacement. She was on coumadin and diltiazem but ran out of them in May 2016. She denied any CP, PND, orthopnea, increased abdominal girth, or weight gain. Her abdomen looked distended but she verbalized that it was not. She has a history of CHF but ran out of her lasix. She also noted some bilteral knee pain for the past month. She voiced that she has not been able to walk much because of pain. She denies any swelling or falls. While in the ER, her heart rate was in the 130s, and she was given diltiazem. She was also given potassium and lasix. CXR: 09/19/16: Impression: Cardiomegaly and evidence of CHF with some mild bibasilarpulmonary edema and minimal bilateral pleural effusion. CT of chest showed no evidence of acute pulmonary embolic disease. This admission she was found to have thrombocytonpenia (platelet 48). Oncology/ heme was consulted 09/20/16. Oncology's impression of Thrombocytopenia was probably due to multifactorial including the fact that the patient is taking methotrexate and has splenomegaly and possibly due to the fact that she is off anticoagulants with an artificial mechanical heart valve. In addition, autoimmune disease such as rheumatoid arthritis could cause this. The recommendation was: methotrexate is contraindicated with an elevated serum creatinine or in renal failure. It should not be continued and her folic acid level was below normal (1.4) so she was started on folic acid daily. She was noted to have UTI: due to Klebsiella and was placed on ceftriaxone. Cardiology was consulted: for Acute exacerbation of CHF NYHA class III and Atrial fibrillation with RVR. Echo resulted: shows EF 40%EF 40 %, septal hypokinesis. Moderately increased right ventricular size. Severely increased right atrial size. Moderately increased left atrial size. Prosthetic mechanical mitral valve with pannus formation . Mean gradient 6 mmHG. V max 1.50. MVA 2.34 cm 2. Trace mitral valve regurgitation. Prosthetic mechanical AV with pannus. Peak gradient 53, mean gradient 20 mmHg. Trace aortic valve regurgitation. Moderate tricuspid valve regurgitation. PAP50 m,mHG. Trace pulmonary valve regurgitation. No pericardial effusion. Normal size aortic root and proximal ascending aorta. 09/23/16 - Patient seen and chart reviewed. Patient is feeling much better. Plan to discharge to [place]. Thrombocytopenia is stable and improved to Platelet 146. Remain off methotrexate and follow up with outpatient rheumatology for RA. Presumed cirrhosis with splenomegaly. Potassium and magnesium was low and replaced. Cardiology encourage nutrition improvement and Resumed coumadin dose 7.5 mg and Home meds were restarted yesterday: losartan, dig. and oral lasix. Atrial fib is stable with rate controlled on diltiazem. She will need to follow up with Dr Low - cardiology. - Time spent with patient Time with patient DS: Less than 30 minutes Specialty Discharge - Follow Up or Referrals Follow up with: Derek Low MD [Physician] - 10/03/16 1:30 pm (PT/INR in office at 13:30 Follow up appointment at 14:00) rheumatology, clinic [Other] - 2 Weeks Discharge Plan - Discharge Data Disposition: Disch/Xfer to Snf - Discharge Medications New Ciprofloxacin Tab [Cipro Tab] 250 mg PO BID #10 tablet Continue Atorvastatin [Lipitor] 40 mg PO BEDTIME Losartan Potassium 50 mg PO DAILY Folic Acid Tab 1 mg PO DAILY sitaGLIPtin [Januvia] 100 mg PO DAILY Furosemide Tab [Lasix Tab] 20 mg PO BEDTIME dilTIAZem HCl [Cartia XT] 180 mg PO DAILY Salsalate 1,000 mg PO BID Warfarin [Coumadin] 3.75 mg PO SUMOWETHSA Digoxin Tab [Lanoxin Tab] 0.125 mg PO DAILY@1300 Furosemide Tab [Lasix Tab] 40 mg PO QAM Warfarin [Coumadin] 5 mg PO TUFR Discontinued Methotrexate Tab 5 mg PO QAM Metformin HCl 1,000 mg PO DAILY Methotrexate Tab 7.5 mg PO DELUNA No Action Omeprazole [Prilosec] 20 mg PO DAILY - Follow Up or Referral Follow Up: Derek Low MD [Physician] - 10/03/16 1:30 pm (PT/INR in office at 13:30 Follow up appointment at 14:00) - Forms/Instructions Instructions: Atrial Fibrillation (DC), Fall Prevention (DC) Exam - Constitutional Vitals: Period Temp Pulse Resp BP Sys/Grant Pulse Ox Last 24 Hr 96.2 F-99.6 F 81-95 16-20 92-123/50-74 97-100 Discharge Results Labs on day of discharge: Labs from last 24 hours 09/23/16 09/23/16 09/23/16 09:06 03:52 03:52 WBC 5.4 RBC 3.30 L Hgb 9.8 L Hct 29.7 L MCV 90.0 MCH 30 MCHC 33.0 RDW 23.9 H Plt Count 146 D MPV 12.3 H Neut % (Auto) 47.8 Lymph % (Auto) 22.8 [place] % (Auto) 22.2 H Eos % (Auto) 5.9 Baso % (Auto) 0.4 Neut # (Auto) 2.6 Lymph # (Auto) 1.2 L [place] # (Auto) 1.2 H Eos # (Auto) 0.3 Baso # (Auto) 0.0 Total Counted 100 Immature Gran % 0.9 Nucleated RBC % 0.0 Immature Gran # 0.05 Segmented Neutrophils 57 Band Neutrophils 1 Lymphocytes 15 L Monocytes 19 H Eosinophils 8 Nucleated RBCs # 0.00 Platelet Estimate Decreased Immature Plt Fraction 0.0 Hypochromasia Slight Anisocytosis 2+ Macrocytosis 2+ Ovalocytes Few INR 1.6 PT Patient/Control Mix 17.7 Circ Anticoag PTT 33.3 Sodium 134 L Potassium 3.7 Chloride 97 L Carbon Dioxide 29 Anion Gap 11.7 BUN 14 Creatinine 1.00 GFR Calculation 65 BUN/Creatinine Ratio 14.00 Glucose 143 H Calculated Osmolality 270.2 L Calcium 7.7 L Magnesium 1.6 L Cycl Citrul Peptide IgG 09/20/16 08:24 WBC RBC Hgb Hct MCV MCH MCHC RDW Plt Count MPV Neut % (Auto) Lymph % (Auto) [place] % (Auto) Eos % (Auto) Baso % (Auto) Neut # (Auto) Lymph # (Auto) [place] # (Auto) Eos # (Auto) Baso # (Auto) Total Counted Immature Gran % Nucleated RBC % Immature Gran # Segmented Neutrophils Band Neutrophils Lymphocytes Monocytes Eosinophils Nucleated RBCs # Platelet Estimate Immature Plt Fraction Hypochromasia Anisocytosis Macrocytosis Ovalocytes INR PT Patient/Control Mix Circ Anticoag PTT Sodium Potassium Chloride Carbon Dioxide Anion Gap BUN Creatinine GFR Calculation BUN/Creatinine Ratio Glucose Calculated Osmolality Calcium Magnesium Cycl Citrul Peptide IgG < 15.6 DS: Provider Date of admission: 09/19/16 23:00 Primary care physician: . No PCP Attending physician on admission: Vijay Waddell MD Consults: 09/19/16 23:05 Consult to Physician [CONS] Routine Comment: chf, mechanical mitral valve, not on AC Consulting Provider: Derek Low When should Consulting Provider be notified: In am Consult to Specialist Group: Cardiology Person Notified: [email or web address] Date Notified: 09/20/16 Time Notified: 07:50 09/19/16 23:06 Consult to Physician [CONS] Routine Comment: severe thrombocytopenia Consulting Provider: Marshall Cherry When should Consulting Provider be notified: In am Consult to Specialist Group: Oncology Person Notified: [email or web address] Date Notified: 09/20/16 Time Notified: 08:50 09/19/16 23:11 Consult to Case Mgmt/Social Srvs [CONS] Routine Reason for Case Mgmt/Social Srvs: Discharge Planning 09/20/16 00:19 Consult to Wound Care - [place] [CONS] Routine Reason for Wound Care: Wound Care Management 09/20/16 11:32 Consult to Occupational Therapy [CONS] Routine Reason for Occupational Therapy: Evaluate and Treat Consult to Physical Therapy [CONS] Routine Reason for Physical Therapy: Evaluate and Treat Discharging clinician: Tianna Vogel NP <Keri Mario - Last Filed: 09/23/16 14:39> Diagnosis - Discharge Diagnosis (1) CHF (congestive heart failure) Status: Acute (2) Thrombocytopenia Status: Acute (3) ADDY (acute kidney injury) Status: Resolved (4) Hx of mitral valve replacement with mechanical valve Status: Chronic (5) Atrial fibrillation with RVR Status: Acute (6) Hypokalemia Status: Acute (7) cirrhosis with splenomegaly Status: Acute (8) Diabetes Status: Chronic (9) Rheumatoid arthritis Status: Chronic Discharge Plan - Discharge Data Condition at Discharge: Stable Discharge Diet: diabetic diet, heart healthy Activity: resume usual activities as tolerated, as per physical therapy - Forms/Instructions Additional Discharge Instructions: INR in 5 days, adjust dosing from there. Exam - Constitutional General appearance: no acute distress, over weight - Eye Eye exam: Present: EOMI. Absent: scleral icterus - Respiratory Respiratory exam: Present: clear to auscultation bilaterally - Cardiovascular Cardiovascular exam: Present: irregular rhythm (valve click) - GI/Abdominal GI/Abdominal exam: Present: normal bowel sounds, soft. Absent: tenderness - Extremities Exam Extremities exam: Absent: edema
[2016-09-23] MEDS: cefTRIAXone 1,000 MG in SODIUM CHLORIDE 0.9% 100 ML IV SCH (11:19)
[2016-09-23] MEDS ORDERED: MAGNESIUM SULF RIDER 2 GM in PREMIX 1 EACH IV PRN (11:54)
[2016-09-23] MEDS ORDERED: MAGNESIUM SULF RIDER 4 GM in PREMIX 1 EACH IV PRN (11:54)
[2016-09-23] MEDS: DIGOXIN 0.125 MG TABLET PO SCH (12:04)
[2016-09-23] MEDS: WARFARIN 7.5 MG TABLET PO SCH (17:38)
[2016-09-23] MEDS: FUROSEMIDE 20 MG TABLET PO SCH (20:34)
--- NOTE | 2016-09-24 03:34 | Cardiology Progress Note ---
Cardiology - PN: Subj Interval history: Cardiology note Telemetry shows controlled atrial fib. No chest pain or shortness of breath. Afebrile. Irregular rhythm with crisp prosthetic clicks and systolic murmur, no AI Decreased breath sounds but fairly clear Abdomen nontender No leg edema Pro time 17.7 and INR 1.6 yesterday Impression Status post bioprosthetic MVR 1993 Status post redo #29 [employer] mechanical MVR for prosthetic mitral valve stenosis and #21 [employer] AVR June 16, 2008 [facility] Chronic atrial fibrillation Medical noncompliance patient has been off Coumadin several months Rheumatoid arthritis Cirrhosis Thrombocytopenia improved Denies any history of alcohol abuse Echo shows EF 40% with normally functioning mechanical MVR and aVR with PA pressure 50 Plan Daily Coumadin Pro time/INR Awaiting transfer to [facility]dc Exam (Progress Note) - Constitutional Vitals: Period Temp Pulse Resp BP Sys/Grant Pulse Ox Last 24 Hr 97.0 F-99.6 F 67-89 18-20 97-123/52-74 99-100 Result/EKG - Labs CBC & BMP: 09/23/16 03:52 09/23/16 03:52 Labs: Laboratory Results - last 24 hr 09/20/16 09/23/16 09/23/16 08:24 03:52 03:52 WBC 5.4 RBC 3.30 L Hgb 9.8 L Hct 29.7 L MCV 90.0 MCH 30 MCHC 33.0 RDW 23.9 H Plt Count 146 D MPV 12.3 H Neut % (Auto) 47.8 Lymph % (Auto) 22.8 [place] % (Auto) 22.2 H Eos % (Auto) 5.9 Baso % (Auto) 0.4 Neut # (Auto) 2.6 Lymph # (Auto) 1.2 L [place] # (Auto) 1.2 H Eos # (Auto) 0.3 Baso # (Auto) 0.0 Total Counted 100 Immature Gran % 0.9 Nucleated RBC % 0.0 Immature Gran # 0.05 Segmented Neutrophils 57 Band Neutrophils 1 Lymphocytes 15 L Monocytes 19 H Eosinophils 8 Nucleated RBCs # 0.00 Platelet Estimate Decreased Immature Plt Fraction 0.0 Hypochromasia Slight Anisocytosis 2+ Macrocytosis 2+ Ovalocytes Few INR PT Patient/Control Mix Circ Anticoag PTT Sodium 134 L Potassium 3.7 Chloride 97 L Carbon Dioxide 29 Anion Gap 11.7 BUN 14 Creatinine 1.00 GFR Calculation 65 BUN/Creatinine Ratio 14.00 Glucose 143 H Calculated Osmolality 270.2 L Calcium 7.7 L Magnesium 1.6 L Cycl Citrul Peptide IgG < 15.6 09/23/16 09:06 WBC RBC Hgb Hct MCV MCH MCHC RDW Plt Count MPV Neut % (Auto) Lymph % (Auto) [place] % (Auto) Eos % (Auto) Baso % (Auto) Neut # (Auto) Lymph # (Auto) [place] # (Auto) Eos # (Auto) Baso # (Auto) Total Counted Immature Gran % Nucleated RBC % Immature Gran # Segmented Neutrophils Band Neutrophils Lymphocytes Monocytes Eosinophils Nucleated RBCs # Platelet Estimate Immature Plt Fraction Hypochromasia Anisocytosis Macrocytosis Ovalocytes INR 1.6 PT Patient/Control Mix 17.7 Circ Anticoag PTT 33.3 Sodium Potassium Chloride Carbon Dioxide Anion Gap BUN Creatinine GFR Calculation BUN/Creatinine Ratio Glucose Calculated Osmolality Calcium Magnesium Cycl Citrul Peptide IgG Specialty Discharge - Follow Up or Referrals Follow up with: rheumatology, clinic [Other] - 2 Weeks Derek Low MD [Physician] - 10/03/16 1:30 pm (PT/INR in office at 13:30 Follow up appointment at 14:00)
[2016-09-24 06:28] LABS: PT Patient Result 21.8 SECS
[2016-09-24] MEDS: FUROSEMIDE 40 MG TABLET PO SCH (08:23)
[2016-09-24] MEDS: DILTIAZEM 60 MG TABLET PO SCH ×2 (08:23→21:32)
[2016-09-24] MEDS: LOSARTAN 50 MG TABLET PO SCH (08:23)
[2016-09-24] MEDS: DESITIN 4OZ/NYSTATIN 15 GRAM MIXTURE PASTE TOP SCH ×2 (08:23→21:33)
[2016-09-24] MEDS: FOLIC ACID 1 MG TABLET PO SCH (08:23)
--- NOTE | 2016-09-24 08:30 | Hospitalist Progress Note ---
<Tianna Vogel - Last Filed: 09/24/16 08:27> Assessment and Plan - Time spent with patient Time spent with patient: Less than 30 minutes (1) Atrial fibrillation Status: Acute Assessment and plan: Rate controlled. HR 67-88. Continue Daily Coumadin (INR 2.0). Will repeat a.m. INR and PT. Currently waiting on placement in [facility] to be approved. Current Visit: Yes (2) CHF (congestive heart failure), NYHA class III Status: Acute Assessment and plan: Cardiology following. Echo showed: EF 40% with normally functioning mechanical MVR and AVR with PA pressure 50. Continue lasix daily. Continue to monitor. Current Visit: Yes Qualifiers: Congestive heart failure type: unspecified congestive heart failure type Qualified Code(s): I50.9 - Heart failure, unspecified (3) ADDY (acute kidney injury) Status: Resolved Assessment and plan: Improved. (09/22/16 Labs: BUN 14 and Creatinine 1.00). will repeat labs in a.m. Current Visit: Yes Hospitalist: Subjective Interval history: 09/24/16 - Ms Trinh sitting up on side of bed eating breakfast, patient seen. Chart Reviewed. No acute events reported. Verbalized having a good night. Denies any shortness of breath, denies chest pain. She is awaiting [facility] placement approval. Exam - Constitutional Vitals: Period Temp Pulse Resp BP Sys/Grant Pulse Ox Last 24 Hr 96.8 F-99.6 F 67-89 18-20 97-110/52-62 98-100 General appearance: normal weight - Head Head exam: Present: normal inspection - Eye Eye exam: Present: EOMI Pupils: Present: ROMA - Neck Neck exam: Present: normal inspection - Respiratory Respiratory exam: Present: clear to auscultation bilaterally - Cardiovascular Cardiovascular exam: Present: irregular rhythm, other (audible prosthetic valve clicks) - GI/Abdominal GI/Abdominal exam: Present: normal bowel sounds, soft. Absent: tenderness, rebound - Extremities Exam Extremities exam: Present: normal inspection, full ROM. Absent: edema - Neurological Exam Neurological exam: Present: alert, oriented X3, CN II-XII intact - Psychiatric Psychiatric exam: Present: normal affect, normal mood - Skin Skin exam: Present: normal color, warm, dry Results - Labs CBC & BMP: 09/23/16 03:52 07/28/17 03:52 Lab Results: I have reviewed the past 24 hour labs Labs: INR 2.0 and PT 21.8. Specialty Discharge - Follow Up or Referrals Follow up with: rheumatology, clinic [Other] - 2 Weeks Derek Low MD [Physician] - 10/03/16 1:30 pm (PT/INR in office at 13:30 Follow up appointment at 14:00) <Anara,Timbo - Last Filed: 09/24/16 11:03> Hospitalist: Subjective Interval history: Shared visit with nurse practitioner, chart reviewed, and agree with the above management and plans. 60-year-old lady admitted for CHF, acute kidney injury, atrial fibrillation most of which is currently controlled. She is currently awaiting [facility] placement approval. No new events reported overnight. No fever Vitals: Temperature 96.8, blood pressure 105/62, 100% oxygen saturation on room air. No new labs today. Last BUN and creatinine 12/03 Plan: Continue current management, no new changes. Discharge once placement arraignment is complete. Exam - Constitutional Vitals: Period Temp Pulse Resp BP Sys/Grant Pulse Ox Last 24 Hr 96.8 F-99.6 F 67-89 18-20 97-110/52-62 98-100 Results - Labs CBC & BMP: 09/23/16 03:52 09/23/16 03:52
[2016-09-24] MEDS: cefTRIAXone 1,000 MG in SODIUM CHLORIDE 0.9% 100 ML IV SCH (10:10)
[2016-09-24] MEDS: DIGOXIN 0.125 MG TABLET PO SCH (12:25)
[2016-09-24] MEDS: WARFARIN 7.5 MG TABLET PO SCH (17:07)
[2016-09-24] MEDS: FUROSEMIDE 20 MG TABLET PO SCH (21:33)
[2016-09-25 04:44] LABS: Basophils % 0.6 % (0.0-0.8); Eosinophils # 0.2 10*3/uL (0.0-0.87); Hematocrit 33.5 VOL% (35.7-47.0); Immature Granulocytes Absolute 0.05 #; Lymphocytes # 1.2 10*3/uL (1.4-4.0); Lymphocytes % 23.9 % (21.3-54.2); Mean Corpuscular HGB Conc 32.8 GM/DL (32-36); Mean Corpuscular Hemoglobin 30 PG (27-34); Mean Corpuscular Volume 91.3 FL (87-102); Mean Platelet Volume 10.9 FL (9.6-12.0); Monocytes # 1.1 10*3/uL (0.11-0.8); Monocytes % 21.1 % (1.7-12.7); Neutrophils # 2.5 10*3/uL (1.4-7.4); Neutrophils % 49.4 % (38.7-73.9); Platelet Count 278 T/CUMM (130-400); Red Blood Count 3.67 MC/CUMM (3.8-5.5); Red Cell Distribution Width 24.1 % (9.3-17.3)
[2016-09-25 05:13] LABS: INR 2.6
[2016-09-25 05:16] LABS: Magnesium 1.8 MG/DL (1.8-2.4); Osmolality,Calculated 271.1 MOS/KG (273-304); Potassium 3.8 MMOL/L (3.5-5.1)
[2016-09-25 05:52] LABS: PT Patient Result 28.7 SECS
[2016-09-25 05:54] LABS: Eosinophils 2 % (0-10); Lymphocytes 25 % (20-55); Myelocytes 4 %; Platelet Estimate Normal; Segmented Neutrophils 62 % (50-85); Total Cells Counted 100
[2016-09-25] MEDS: DESITIN 4OZ/NYSTATIN 15 GRAM MIXTURE PASTE TOP SCH ×2 (08:55→21:17)
[2016-09-25] MEDS: DILTIAZEM 60 MG TABLET PO SCH ×2 (08:55→21:15)
[2016-09-25] MEDS: MAGNESIUM SULF RIDER 2 GM in PREMIX 1 EACH IV PRN (08:55)
[2016-09-25] MEDS: LOSARTAN 50 MG TABLET PO SCH (08:56)
[2016-09-25] MEDS: FOLIC ACID 1 MG TABLET PO SCH (08:56)
[2016-09-25] MEDS: FUROSEMIDE 40 MG TABLET PO SCH (08:56)
--- NOTE | 2016-09-25 09:09 | Hospitalist Progress Note ---
<Tianna Vogel - Last Filed: 09/25/16 09:06> Assessment and Plan - Time spent with patient Time spent with patient: Less than 30 minutes (1) Atrial fibrillation Status: Acute Assessment and plan: 09/25/16 - Rate Controlled. Continues Coumadin (INR 2.6 and PT 28.7). Cardiology is following. Will repeat a.m. INR and PT in a.m. She is currently waiting on approval for [facility] bed. [employer]/Case management is following. 09/24/16 Rate controlled. HR 67-88. Continue Daily Coumadin (INR 2.0). Will repeat a.m. INR and PT. Currently waiting on placement in group home to be approved. Current Visit: Yes (2) CHF (congestive heart failure), NYHA class III Status: Acute Assessment and plan: 09/25/16 - Cardiology following. Continue Lasix daily. Continue to monitor. Awaiting group home approval for discharge planning. 09/24/16 Cardiology following. Echo showed: EF 40% with normally functioning mechanical MVR and AVR with PA pressure 50. Continue lasix daily. Continue to monitor. Current Visit: Yes Qualifiers: Congestive heart failure type: unspecified congestive heart failure type Qualified Code(s): I50.9 - Heart failure, unspecified (3) ADDY (acute kidney injury) Status: Resolved Assessment and plan: 09/25/16 - Resolved. BUN 12 and Creatinine 0.90. Will continue to monitor. will repeat a.m. labs. 09/24/16 Improved. (09/22/16 Labs: BUN 14 and Creatinine 1.00). will repeat labs in a.m. Current Visit: Yes Hospitalist: Subjective Interval history: 09/25/16 - Patient seen and chart reviewed. No acute events reported. VS stable without any fever noted. She is sitting up on side of bed eating breakfast. Denies any shortness of breath, fever, or chills. Verbalized a good night. We are still waiting on approval for [facility] bed acceptance. Has not been accepted at this time. Will continue to follow until she is discharged to accepting facility. Exam - Constitutional Vitals: Period Temp Pulse Resp BP Sys/Grant Pulse Ox Last 24 Hr 96.2 F-99.0 F 61-96 16-18 98-117/46-74 96-100 General appearance: normal weight - Head Head exam: Present: normal inspection - Eye Eye exam: Present: EOMI Pupils: Present: ROMA - Neck Neck exam: Present: normal inspection - Respiratory Respiratory exam: Present: clear to auscultation bilaterally. Absent: wheezes - Cardiovascular Cardiovascular exam: Present: irregular rhythm (controlled rate of chronic AFib (Rate 61-76)) - GI/Abdominal GI/Abdominal exam: Present: normal bowel sounds, soft. Absent: tenderness, rebound - Extremities Exam Extremities exam: Present: full ROM, other (KELLY bilateral in use). Absent: edema - Neurological Exam Neurological exam: Present: alert, oriented X3, CN II-XII intact - Psychiatric Psychiatric exam: Present: normal affect, normal mood - Skin Skin exam: Present: normal color, warm, dry Results - Labs CBC & BMP: 09/25/16 04:02 09/25/16 04:02 Lab Results: I have reviewed the past 24 hour labs Specialty Discharge - Follow Up or Referrals Follow up with: rheumatology, clinic [Other] - 2 Weeks Derek Low MD [Physician] - 10/03/16 1:30 pm (PT/INR in office at 13:30 Follow up appointment at 14:00) <Anara,Timbo - Last Filed: 09/25/16 10:18> Hospitalist: Subjective Interval history: Shared visit with nurse practitioner, independently reviewed patient. No overnight events reported. She has remained clinically stable. No fever. No shortness of breath. Heart rate stable. Plan: Continue current management. Resume placement arraignment tomorrow, discharge when placement is found. Exam - Constitutional Vitals: Period Temp Pulse Resp BP Sys/Grant Pulse Ox Last 24 Hr 96.2 F-99.0 F 61-96 16-18 98-117/46-74 96-100 Results - Labs CBC & BMP: 09/25/16 04:02 09/25/16 04:02
--- NOTE | 2016-09-25 09:25 | Cardiology Progress Note ---
Cardiology - PN: Subj Interval history: Cardiology note 61-year-old woman with double mechanical valve and chronic A. fib Telemetry shows controlled A. fib No temperature. Good appetite. Irregular rhythm with crisp prosthetic clicks and systolic murmur, no AI Decreased breath sounds but clear Abdomen benign No leg edema Lab data today Pro time 28.7 INR 2.6 White count 5.0 hemoglobin 11.0 hematocrit 33.5 Sodium 135 potassium 3.8 chloride 98 CO2 30 BUN 12 creatinine 0.90 Glucose 139 magnesium 1.8 Impression Status post bioprosthetic MVR 1993 Status post #29 [employer] mechanical MVR for prosthetic mitral valve stenosis and #21 [employer] AVR June 16, 2008 [facility] Chronic atrial fib Medical noncompliance. Patient has been off Coumadin several months. Rheumatoid arthritis Cirrhosis Thrombocytopenia improved Denies any alcohol history Echo showed ejection fraction 40% with normally functioning mechanical MVR and aVR with PA pressure 50 Plan Decrease Coumadin 2.5 mg daily Pro time/INR a.m. Encourage nutrition A[facility]ing [facility] if [facility] Exam (Progress Note) - Constitutional Vitals: Period Temp Pulse Resp BP Sys/Grant Pulse Ox Last 24 Hr 96.2 F-99.0 F 61-96 16-18 98-117/46-74 96-100 Result/EKG - Labs CBC & BMP: 09/25/16 04:02 09/25/16 04:02 Labs: Laboratory Results - last 24 hr 09/25/16 09/25/16 09/25/16 04:02 04:02 04:02 WBC 5.0 RBC 3.67 L Hgb 11.0 L Hct 33.5 L MCV 91.3 MCH 30 MCHC 32.8 RDW 24.1 H Plt Count 278 D MPV 10.9 Neut % (Auto) 49.4 Lymph % (Auto) 23.9 [place] % (Auto) 21.1 H Eos % (Auto) 4.0 Baso % (Auto) 0.6 Neut # (Auto) 2.5 Lymph # (Auto) 1.2 L [place] # (Auto) 1.1 H Eos # (Auto) 0.2 Baso # (Auto) 0.0 Total Counted 100 Immature Gran % 1.0 Nucleated RBC % 0.0 Immature Gran # 0.05 Segmented Neutrophils 62 Lymphocytes 25 Monocytes 7 Eosinophils 2 Myelocytes 4 Nucleated RBCs # 0.00 Platelet Estimate Normal Immature Plt Fraction 0.0 [place] Career INR 2.6 PT Patient/Control Mix 28.7 D Sodium 135 L Potassium 3.8 Chloride 98 Carbon Dioxide 30 Anion Gap 10.8 BUN 12 Creatinine 0.90 GFR Calculation 74 BUN/Creatinine Ratio 13.00 Glucose 139 H Calculated Osmolality 271.1 L Calcium 8.0 L Magnesium 1.8 Specialty Discharge - Follow Up or Referrals Follow up with: rheumatology, clinic [Other] - 2 Weeks Derek Low MD [Physician] - 10/03/16 1:30 pm (PT/INR in office at 13:30 Follow up appointment at 14:00)
[2016-09-25] MEDS: cefTRIAXone 1,000 MG in SODIUM CHLORIDE 0.9% 100 ML IV SCH (10:14)
[2016-09-25] MEDS: DIGOXIN 0.125 MG TABLET PO SCH (12:06)
[2016-09-25] MEDS ORDERED: WARFARIN 2.5 MG TABLET PO ONE (16:25)
[2016-09-25] MEDS: FUROSEMIDE 20 MG TABLET PO SCH (21:15)
[2016-09-26 05:13] LABS: Basophils % 0.7 % (0.0-0.8); Eosinophils # 0.2 10*3/uL (0.0-0.87); Eosinophils % 3.6 % (0.00-10.9); Hematocrit 34.6 VOL% (35.7-47.0); Hemoglobin 11.3 GM/DL (12.0-16.0); Immature Granulocytes % 1.1 %; Immature Granulocytes Absolute 0.06 #; Lymphocytes # 1.7 10*3/uL (1.4-4.0); Mean Corpuscular HGB Conc 32.7 GM/DL (32-36); Mean Corpuscular Hemoglobin 30 PG (27-34); Mean Corpuscular Volume 91.3 FL (87-102); Mean Platelet Volume 11.2 FL (9.6-12.0); Monocytes # 1.3 10*3/uL (0.11-0.8); Neutrophils # 2.2 10*3/uL (1.4-7.4); Neutrophils % 39.6 % (38.7-73.9); Platelet Count 363 T/CUMM (130-400); Red Blood Count 3.79 MC/CUMM (3.8-5.5); Red Cell Distribution Width 24.2 % (9.3-17.3); White Blood Count 5.6 T/CUMM (4-12)
[2016-09-26 05:47] LABS: INR 2.9
[2016-09-26 05:50] LABS: Calcium 8.5 MG/DL (8.5-10.1); Magnesium 2.1 MG/DL (1.8-2.4); Potassium 4.5 MMOL/L (3.5-5.1)
[2016-09-26 06:02] LABS: Eosinophils 1 % (0-10); Hypochromasia 1+; Lymphocytes 33 % (20-55); Segmented Neutrophils 42 % (50-85); Total Cells Counted 100
[2016-09-26 06:04] LABS: Microcytosis Slight
[2016-09-26 06:05] LABS: Ovalocytes Few; Platelet Estimate Normal
[2016-09-26 06:14] LABS: PT Patient Result 32.8 SECS
[2016-09-26] MEDS: DILTIAZEM 60 MG TABLET PO SCH ×2 (08:19→21:38)
[2016-09-26] MEDS: LOSARTAN 50 MG TABLET PO SCH (08:20)
[2016-09-26] MEDS: FOLIC ACID 1 MG TABLET PO SCH (08:20)
[2016-09-26] MEDS: FUROSEMIDE 40 MG TABLET PO SCH (08:20)
[2016-09-26] MEDS: DESITIN 4OZ/NYSTATIN 15 GRAM MIXTURE PASTE TOP SCH ×2 (08:20→21:38)
[2016-09-26] MEDS: cefTRIAXone 1,000 MG in SODIUM CHLORIDE 0.9% 100 ML IV SCH (11:37)
--- NOTE | 2016-09-26 12:50 | Cardiology Progress Note ---
Assessment and Plan - Time spent with patient Time spent with patient: Greater than 30 minutes (1) Obesity (BMI 30.0-34.9) Status: Chronic Assessment and plan: SEE PLAN OF CARE LISTED BELOW Current Visit: Yes (2) Falls frequently Status: Chronic Assessment and plan: SEE PLAN OF CARE LISTED BELOW Current Visit: Yes (3) Non-compliant behavior Status: Chronic Assessment and plan: SEE PLAN OF CARE LISTED BELOW Current Visit: Yes (4) Hypomagnesemia Status: Acute Assessment and plan: SEE PLAN OF CARE LISTED BELOW Current Visit: Yes (5) Thrombocytopenia Status: Acute Assessment and plan: SEE PLAN OF CARE LISTED BELOW Current Visit: Yes (6) ADDY (acute kidney injury) Status: Resolved Assessment and plan: SEE PLAN OF CARE LISTED BELOW Current Visit: Yes (7) Hx of mitral valve replacement with mechanical valve Status: Chronic Assessment and plan: SEE PLAN OF CARE LISTED BELOW Current Visit: Yes (8) CHF (congestive heart failure) Status: Acute Assessment and plan: SEE PLAN OF CARE LISTED BELOW Current Visit: Yes Qualifiers: Congestive heart failure type: unspecified congestive heart failure type Congestive heart failure chronicity: acute Qualified Code(s): I50.9 - Heart failure, unspecified (9) Atrial fibrillation with RVR Status: Acute Assessment and plan: SEE PLAN OF CARE LISTED BELOW Current Visit: Yes (10) Hypokalemia Status: Acute Assessment and plan: SEE PLAN OF CARE LISTED BELOW Current Visit: Yes (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 Status: Acute Assessment and plan: SEE PLAN OF CARE LISTED BELOW Current Visit: Yes (12) Diabetes Status: Chronic Assessment and plan: SEE PLAN OF CARE LISTED BELOW Current Visit: Yes (13) Rheumatoid arthritis Status: Chronic Assessment and plan: SEE PLAN OF CARE LISTED BELOW Current Visit: Yes (14) CHF (congestive heart failure), NYHA class III Status: Acute Assessment and plan: SEE PLAN OF CARE LISTED BELOW Current Visit: Yes Qualifiers: Congestive heart failure type: combined Congestive heart failure chronicity : acute on chronic Qualified Code(s): I50.43 - Acute on chronic combined systolic (congestive) and diastolic (congestive) heart failure (15) Nonischemic cardiomyopathy Status: Chronic Assessment and plan: SEE PLAN OF CARE LISTED BELOW Current Visit: Yes (16) H/O mechanical aortic valve replacement Status: Chronic Assessment and plan: SEE PLAN OF CARE LISTED BELOW Current Visit: Yes Cardiology - PN: Subj Interval history: COMMUNITY DIRECTOR: (NEW) DR. 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 Gaytan, 60WF, who was previously followed by rubber curer in [place], no rubber curer locally. Risk factors include: hypertension, obesity, diabetes, sedentary lifestyle, noncompliance. Past medical history includes: #29 [employer] mechanical MVR for prosethetic mitral valve stenosis and #21 [employer] AVR June 16, 2008 [place], [place]. History of chronic atrial fibrillation, rheumatoid arthritis. Presented to the ED [facility] September 19, 2016 with complaints of shortness of breath, palpitations, diagnosed with acute CHF, secondary to combined systolic and diastolic dysfunction, EF 40%, NYHA Class III initially. Heart rate initially significantly elevated, A. fib with RVR. She was treated with IV Cardizem and then transitioned to oral calcium channel chary. Rate well controlled of the weekend. Patient has a history of mitral valve replacement and aortic valve replaced with mechanical mitral valves requiring chronic anticoagulation. She had been out of her medications, including Coumadin, Lasix and Diltiazem, since May 2016 when she moved to [place] from [place]. Since May, she has been having unsteady gait, palpitations and shortness of breath. She has not established herself with a primary care provider. Cardiac biomarkers were mildly elevated, thought to be related to A. fib with RVR. Dr. Cherry was consulted for thrombocytopenia. It is felt that she may be hemolyzing as her haptoglobin levels are decreased as they are with liver disease as well. She had has a history of cirrhosis. Right upper quadrant abdominal ultrasound revealed cirrhosis, elevated bilirubin. CT chest does not reveal PTE. SEPTEMBER 26, 2016: Over the weekend, patient has continued to improve. Denies chest pain, heaviness or tightness. Vital signs have improved. She remains in chronic atrial fibrillation, INR 2.1. Platelet counts improved and are currently normal this morning. Patient is being evaluated for possible transfer to swing bed facility, hopefully today. At this point, she is tolerating ARB. Using calcium channel chary for rate control rather than beta -chary. Avoiding lipid-lowering agents due to her history of cirrhosis and elevated total bilirubin. Continue Coumadin with frequent PT/INR. Will further discuss with Dr. Maricruz Schulte and await additional recommendations. ASSESSMENT/PLAN: 1. ACUTE CHF - I suspect this is acute on chronic CHF. Secondary to diastolic dysfunction and systolic dysfunction (EF 40%) initially NYHA Class III , Class II. Continue with diuresis, strict I&O, daily weights. 2. MECHANICAL MITRAL VALVE, MECHANICAL AORTIC VALVE - INR therapeutic. 3. THROMBOCYTOPENIA - Appreciate Dr. Cherry's assistance. Now normalized. 4. ATRIAL FIBRILLATION WITH RVR - now rate controlled on oral Diltiazem and Digoxin. PATRICIA VASC SCORE 6. Continue Coumadin. 5. ADDY - initially creatinine was mildly elevated but this has resolved this morning. Favor CCB for rate control rather than betablocker at this time. 6. HYPOKALEMIA - resolved after treatment 7. HYPOMAGNESEMIA - resolved 8. NON-COMPLIANCE - reiterated the importance of continued follow-up. 9. RHEUMATOID ARTHRITIS - Methotrexate has been home medication for which she takes routinely. Per Dr. Cherry's note, may be contributing to her thrombocytopenia 10. CIRRHOSIS OF THE LIVER - per RUQ US, elevated total bilirubin. Avoiding toxic agents such as lipid lowering agents. 11. CARDIOMYOPATHY - not to be nonischemic in nature. Exam (Progress Note) - Constitutional Vitals: Period Temp Pulse Resp BP Sys/Grant Pulse Ox Last 24 Hr 96.7 F-99.1 F 73-93 16-18 95-128/46-73 91-99 Exam: General: [Appears well with no apparent distress.] [Pleasant and cooperative. ] [Appears comfortable.] HEENT: [PERRL, normocephalic, atraumatic. Mucous membranes moist. No jaundice noted. Conjunctiva moist and clear, sclerae anicteric] Neck: No JVD/HJR, no thyromegaly or lymphadenopathy noted. No carotid bruit appreciated Cardiac: [[place] click of valve is noted. Irregularly irregular rhythm Lungs: [Clear to auscultation without accessory muscle use to assist the respiratory pattern.] Not requiring oxygen Abdomen: Soft, bowel sounds normoactive. Nontender and nondistended. No abdominal bruit or thrill noted. No masses noted. Musculoskeletal: No fluid collection. Decreased range of motion is noted. Extremities: No clubbing, cyanosis noted. [ No edema noted.] Upper extremity pulses 2+. Lower extremity pulses 2+. Capillary refill less than 3 seconds. Skin: No unusual lesions or rashes. No skin breakdown appreciated. Neuro: Awake, alert and oriented 3. Moves all extremities well without hemiparesis or paralysis. No essential tremor is appreciated. Result/EKG - Labs CBC & BMP: 09/26/16 03:40 09/26/16 03:40 Lab Results: I have reviewed the past 24 hour labs Labs: Laboratory Results - last 24 hr 09/26/16 09/26/16 09/26/16 03:40 03:40 03:40 WBC 5.6 RBC 3.79 L Hgb 11.3 L Hct 34.6 L MCV 91.3 MCH 30 MCHC 32.7 RDW 24.2 H Plt Count 363 D MPV 11.2 Neut % (Auto) 39.6 Lymph % (Auto) 31.0 [place] % (Auto) 24.0 H Eos % (Auto) 3.6 Baso % (Auto) 0.7 Neut # (Auto) 2.2 Lymph # (Auto) 1.7 [place] # (Auto) 1.3 H Eos # (Auto) 0.2 Baso # (Auto) 0.0 Total Counted 100 Immature Gran % 1.1 Nucleated RBC % 0.0 Immature Gran # 0.06 Segmented Neutrophils 42 L Lymphocytes 33 Monocytes 24 H Eosinophils 1 Nucleated RBCs # 0.00 Platelet Estimate Normal Immature Plt Fraction 0.0 Hypochromasia 1+ Microcytosis Slight Ovalocytes Few Morphology Comment INR 2.9 PT Patient/Control Mix 32.8 Sodium 136 Potassium 4.5 Chloride 97 L Carbon Dioxide 33 H Anion Gap 10.5 BUN 13 Creatinine 1.00 GFR Calculation 65 BUN/Creatinine Ratio 13.00 Glucose 155 H Calculated Osmolality 274.0 Calcium 8.5 Magnesium 2.1 - EKG EKG results: interpreted by me EKG shows: atrial fibrillation Specialty Discharge - Follow Up or Referrals Follow up with: rheumatology, clinic [Other] - 2 Weeks Derek Low MD [Physician] - 10/03/16 1:30 pm (PT/INR in office at 13:30 Follow up appointment at 14:00)
--- NOTE | 2016-09-26 14:31 | Hospitalist Progress Note ---
Assessment and Plan - Time spent with patient Time spent with patient: Greater than 30 minutes (1) Urinary tract infection Status: Acute Current Visit: Yes (2) Atrial fibrillation Status: Acute Current Visit: Yes (3) CHF (congestive heart failure) Status: Acute Current Visit: Yes Qualifiers: Congestive heart failure type: unspecified congestive heart failure type Congestive heart failure chronicity: acute Qualified Code(s): I50.9 - Heart failure, unspecified (4) Thrombocytopenia Status: Acute Current Visit: Yes (5) ADDY (acute kidney injury) Status: Resolved Assessment and plan: On oral Lasix, digoxin, Cozaar for CHF. Cardizem for atrial fibrillation, rate controlled. Continue oral anticoagulation with warfarin 7.5 mg, monitor INR. Has completed IV therapy for Klebsiella UTI, will discontinue ceftriaxone and monitor. Cardiology is following. Discharge once placement arraignment is complete. Current Visit: Yes Hospitalist: Subjective Interval history: No new changes overnight, she has remained hemodynamically stable. I discussed placement with case management, because she is uninsured and facilities require upfront payment, there has been difficulty with finding placement for her so far. The process is still ongoing Exam - Constitutional Vitals: Period Temp Pulse Resp BP Sys/Grant Pulse Ox Last 24 Hr 96.7 F-99.1 F 73-93 16-18 95-128/46-73 91-99 Exam: General appearance: normal weight - Head Head exam: Present: normal inspection - Eye Eye exam: Present: EOMI Pupils: Present: ROMA - Neck Neck exam: Present: normal inspection - Respiratory Respiratory exam: Present: clear to auscultation bilaterally. Absent: wheezes - Cardiovascular Cardiovascular exam: Present: irregular rhythm (controlled rate of chronic AFib (Rate 61-76)) - GI/Abdominal GI/Abdominal exam: Present: normal bowel sounds, soft. Absent: tenderness, rebound - Extremities Exam Extremities exam: Present: full ROM, other (KELLY bilateral in use). Absent: edema - Neurological Exam Neurological exam: Present: alert, oriented X3, CN II-XII intact - Psychiatric Psychiatric exam: Present: normal affect, normal mood - Skin Skin exam: Present: normal color, warm, dry Results - Labs CBC & BMP: 09/26/16 03:40 09/26/16 03:40 Lab Results: I have reviewed the past 24 hour labs Specialty Discharge - Follow Up or Referrals Follow up with: rheumatology, clinic [Other] - 2 Weeks Derek Low MD [Physician] - 10/03/16 1:30 pm (PT/INR in office at 13:30 Follow up appointment at 14:00)
[2016-09-26] MEDS: DIGOXIN 0.125 MG TABLET PO SCH (15:00)
[2016-09-26] MEDS: FUROSEMIDE 20 MG TABLET PO SCH (21:38)
[2016-09-27 05:17] LABS: Basophils # 0.1 10*3/uL (0.0-0.2); Eosinophils # 0.2 10*3/uL (0.0-0.87); Eosinophils % 4.3 % (0.00-10.9); Hematocrit 32.8 VOL% (35.7-47.0); Hemoglobin 10.8 GM/DL (12.0-16.0); Immature Granulocytes % 1.2 %; Immature Granulocytes Absolute 0.06 #; Lymphocytes # 1.8 10*3/uL (1.4-4.0); Lymphocytes % 35.2 % (21.3-54.2); Mean Corpuscular HGB Conc 32.9 GM/DL (32-36); Mean Corpuscular Hemoglobin 30 PG (27-34); Mean Corpuscular Volume 90.1 FL (87-102); Mean Platelet Volume 10.8 FL (9.6-12.0); Monocytes # 1.3 10*3/uL (0.11-0.8); Monocytes % 25.8 % (1.7-12.7); Neutrophils # 1.7 10*3/uL (1.4-7.4); Neutrophils % 32.5 % (38.7-73.9); Platelet Count 386 T/CUMM (130-400); Red Blood Count 3.64 MC/CUMM (3.8-5.5); Red Cell Distribution Width 23.9 % (9.3-17.3); White Blood Count 5.1 T/CUMM (4-12)
[2016-09-27 05:27] LABS: INR 2.8
[2016-09-27 05:36] LABS: PT Patient Result 32.1 SECS
[2016-09-27 05:49] LABS: Calcium 8.2 MG/DL (8.5-10.1); Potassium 3.7 MMOL/L (3.5-5.1)
[2016-09-27 09:17] LABS: Eosinophils 6 % (0-10); Giant Platelets Few; Hypochromasia 1+; Lymphocytes 33 % (20-55); Microcytosis Slight; Ovalocytes Slight; Platelet Estimate Adequate; Segmented Neutrophils 33 % (50-85); Total Cells Counted 100
[2016-09-27] MEDS: DILTIAZEM 60 MG TABLET PO SCH ×2 (09:32→20:02)
[2016-09-27] MEDS: LOSARTAN 50 MG TABLET PO SCH (09:32)
[2016-09-27] MEDS: DESITIN 4OZ/NYSTATIN 15 GRAM MIXTURE PASTE TOP SCH ×2 (09:32→20:03)
[2016-09-27] MEDS: FOLIC ACID 1 MG TABLET PO SCH (09:32)
[2016-09-27] MEDS: FUROSEMIDE 40 MG TABLET PO SCH (09:32)
--- NOTE | 2016-09-27 12:05 | Cardiology Progress Note ---
<Shelley Carballo E - Last Filed: 09/27/16 12:05> Assessment and Plan - Time spent with patient Time spent with patient: Greater than 30 minutes (1) Obesity (BMI 30.0-34.9) Status: Chronic Assessment and plan: SEE PLAN OF CARE LISTED BELOW Current Visit: Yes (2) Falls frequently Status: Chronic Assessment and plan: SEE PLAN OF CARE LISTED BELOW Current Visit: Yes (3) Non-compliant behavior Status: Chronic Assessment and plan: SEE PLAN OF CARE LISTED BELOW Current Visit: Yes (4) Hypomagnesemia Status: Acute Assessment and plan: SEE PLAN OF CARE LISTED BELOW Current Visit: Yes (5) Thrombocytopenia Status: Acute Assessment and plan: SEE PLAN OF CARE LISTED BELOW Current Visit: Yes (6) ADDY (acute kidney injury) Status: Resolved Assessment and plan: SEE PLAN OF CARE LISTED BELOW Current Visit: Yes (7) Hx of mitral valve replacement with mechanical valve Status: Chronic Assessment and plan: SEE PLAN OF CARE LISTED BELOW Current Visit: Yes (8) CHF (congestive heart failure) Status: Acute Assessment and plan: SEE PLAN OF CARE LISTED BELOW Current Visit: Yes Qualifiers: Congestive heart failure type: unspecified congestive heart failure type Congestive heart failure chronicity: acute Qualified Code(s): I50.9 - Heart failure, unspecified (9) Atrial fibrillation with RVR Status: Acute Assessment and plan: SEE PLAN OF CARE LISTED BELOW Current Visit: Yes (10) Hypokalemia Status: Acute Assessment and plan: SEE PLAN OF CARE LISTED BELOW Current Visit: Yes (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 Status: Acute Assessment and plan: SEE PLAN OF CARE LISTED BELOW Current Visit: Yes (12) Diabetes Status: Chronic Assessment and plan: SEE PLAN OF CARE LISTED BELOW Current Visit: Yes (13) Rheumatoid arthritis Status: Chronic Assessment and plan: SEE PLAN OF CARE LISTED BELOW Current Visit: Yes (14) CHF (congestive heart failure), NYHA class III Status: Acute Assessment and plan: SEE PLAN OF CARE LISTED BELOW Current Visit: Yes Qualifiers: Congestive heart failure type: combined Congestive heart failure chronicity : acute on chronic Qualified Code(s): I50.43 - Acute on chronic combined systolic (congestive) and diastolic (congestive) heart failure (15) Nonischemic cardiomyopathy Status: Chronic Assessment and plan: SEE PLAN OF CARE LISTED BELOW Current Visit: Yes (16) H/O mechanical aortic valve replacement Status: Chronic Assessment and plan: SEE PLAN OF CARE LISTED BELOW Current Visit: Yes Cardiology - PN: Subj Interval history: HOSPITAL COORDINATOR: (NEW) DR. 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 Gaytan, 60WF, who was previously followed by shrimp pond laborer in [place], no shrimp pond laborer locally. Risk factors include: hypertension, obesity, diabetes, sedentary lifestyle, noncompliance. Past medical history includes: #29 [employer] mechanical MVR for prosethetic mitral valve stenosis and #21 [employer] AVR June 16, 2008 [place], [place]. History of chronic atrial fibrillation, rheumatoid arthritis. Presented to the ED [facility] September 19, 2016 with complaints of shortness of breath, palpitations, diagnosed with acute CHF, secondary to combined systolic and diastolic dysfunction, EF 40%, NYHA Class III initially. Heart rate initially significantly elevated, A. fib with RVR. She was treated with IV Cardizem and then transitioned to oral calcium channel chary. Rate well controlled of the weekend. Patient has a history of mitral valve replacement and aortic valve replaced with mechanical mitral valves requiring chronic anticoagulation. She had been out of her medications, including Coumadin, Lasix and Diltiazem, since May 2016 when she moved to [place] from [place]. Since May, she has been having unsteady gait, palpitations and shortness of breath. She has not established herself with a primary care provider. Cardiac biomarkers were mildly elevated, thought to be related to A. fib with RVR. Dr. Cherry was consulted for thrombocytopenia. It is felt that she may be hemolyzing as her haptoglobin levels are decreased as they are with liver disease as well. She had has a history of cirrhosis. Right upper quadrant abdominal ultrasound revealed cirrhosis, elevated bilirubin. CT chest does not reveal PTE. SEPTEMBER 26, 2016: Over the weekend, patient has continued to improve. Denies chest pain, heaviness or tightness. Vital signs have improved. She remains in chronic atrial fibrillation, INR 2.1. Platelet counts improved and are currently normal this morning. Patient is being evaluated for possible transfer to swing bed facility, hopefully today. At this point, she is tolerating ARB. Using calcium channel chary for rate control rather than beta -chary. Avoiding lipid-lowering agents due to her history of cirrhosis and elevated total bilirubin. Continue Coumadin with frequent PT/INR. Will further discuss with Dr. Maricruz Schulte and await additional recommendations. SEPTEMBER 27, 2016: Patient appears very comfortable in the bed this morning. Overall, she is feeling markedly better since her arrival. Hopefully, she will be transferred to a group home type facility today. Insurance is pending. Labs are stable. INR 2.8. At this point, not much to add from cardiology standpoint. Using calcium channel chary for rate control rather than beta- blockade. Tolerating well. Will further discuss with Dr. Schulte and await additional recommendations. ASSESSMENT/PLAN: 1. ACUTE CHF - I suspect this is acute on chronic CHF. Secondary to diastolic dysfunction and systolic dysfunction (EF 40%) initially NYHA Class III , Class II. Continue with diuresis, strict I&O, daily weights. 2. MECHANICAL MITRAL VALVE, MECHANICAL AORTIC VALVE - INR therapeutic. 3. THROMBOCYTOPENIA - Appreciate Dr. Cherry's assistance. Now normalized. 4. ATRIAL FIBRILLATION WITH RVR - now rate controlled on oral Diltiazem and Digoxin. PATRICIA VASC SCORE 6. Continue Coumadin. 5. ADDY - initially creatinine was mildly elevated but this has resolved this morning. Favor CCB for rate control rather than betablocker at this time. 6. HYPOKALEMIA - resolved after treatment 7. HYPOMAGNESEMIA - resolved 8. NON-COMPLIANCE - reiterated the importance of continued follow-up. 9. RHEUMATOID ARTHRITIS - Methotrexate has been home medication for which she takes routinely. Per Dr. Cherry's note, may be contributing to her thrombocytopenia 10. CIRRHOSIS OF THE LIVER - per RUQ US, elevated total bilirubin. Avoiding toxic agents such as lipid lowering agents. 11. CARDIOMYOPATHY -thought to be nonischemic in nature. Exam (Progress Note) - Constitutional Vitals: Period Temp Pulse Resp BP Sys/Grant Pulse Ox Last 24 Hr 97.6 F-100.6 F 74-100 16-18 94-116/55-70 96-99 Exam: General: [Appears well with no apparent distress.] [Pleasant and cooperative. ] [Appears comfortable.] HEENT: [PERRL, normocephalic, atraumatic. Mucous membranes moist. No jaundice noted. Conjunctiva moist and clear, sclerae anicteric] Neck: No JVD/HJR, no thyromegaly or lymphadenopathy noted. No carotid bruit appreciated Cardiac: [[place] click of valve is noted. Irregularly irregular rhythm Lungs: [Clear to auscultation without accessory muscle use to assist the respiratory pattern.] Not requiring oxygen Abdomen: Soft, bowel sounds normoactive. Nontender and nondistended. No abdominal bruit or thrill noted. No masses noted. Musculoskeletal: No fluid collection. Decreased range of motion is noted. Extremities: No clubbing, cyanosis noted. [ No edema noted.] Upper extremity pulses 2+. Lower extremity pulses 2+. Capillary refill less than 3 seconds. Skin: No unusual lesions or rashes. No skin breakdown appreciated. Neuro: Awake, alert and oriented 3. Moves all extremities well without hemiparesis or paralysis. No essential tremor is appreciated. Result/EKG - Labs CBC & BMP: 09/27/16 04:53 09/27/16 04:54 Lab Results: I have reviewed the past 24 hour labs Labs: Laboratory Results - last 24 hr 09/27/16 09/27/16 09/27/16 04:53 04:53 04:54 WBC 5.1 RBC 3.64 L Hgb 10.8 L Hct 32.8 L MCV 90.1 MCH 30 MCHC 32.9 RDW 23.9 H Plt Count 386 MPV 10.8 Neut % (Auto) 32.5 L Lymph % (Auto) 35.2 [place] % (Auto) 25.8 H Eos % (Auto) 4.3 Baso % (Auto) 1.0 H Neut # (Auto) 1.7 Lymph # (Auto) 1.8 [place] # (Auto) 1.3 H Eos # (Auto) 0.2 Baso # (Auto) 0.1 Total Counted 100 Immature Gran % 1.2 Nucleated RBC % 0.0 Immature Gran # 0.06 Segmented Neutrophils 33 L Lymphocytes 33 Monocytes 28 H Eosinophils 6 Nucleated RBCs # 0.00 Platelet Estimate Adequate Giant Platelets Few Immature Plt Fraction 0.0 Hypochromasia 1+ Microcytosis Slight Ovalocytes Slight INR 2.8 PT Patient/Control Mix 32.1 Sodium 136 Potassium 3.7 Chloride 98 Carbon Dioxide 30 Anion Gap 11.7 BUN 14 Creatinine 1.00 GFR Calculation 64 BUN/Creatinine Ratio 14.00 Glucose 140 H Calculated Osmolality 274.0 Calcium 8.2 L Magnesium 2.0 - EKG EKG results: interpreted by me EKG shows: atrial fibrillation Specialty Discharge - Follow Up or Referrals Follow up with: rheumatology, clinic [Other] - 2 Weeks Derek Low MD [Physician] - 10/03/16 1:30 pm (PT/INR in office at 13:30 Follow up appointment at 14:00) <Maricruz Schulte - Last Filed: 09/27/16 16:46> Cardiology - PN: Subj Interval history: I have personally interviewed and evaluated the patient, reviewed the chart and discussed medical decision-making with Practitioner Haris. I have read this note and agree with her documentation here in. Exam (Progress Note) - Constitutional Vitals: Period Temp Pulse Resp BP Sys/Grant Pulse Ox Last 24 Hr 97.6 F-100.6 F 69-100 16-18 94-116/55-67 96-100 Result/EKG - Labs CBC & BMP: 09/27/16 04:53 09/27/16 04:54 Labs: Laboratory Results - last 24 hr 09/27/16 09/27/16 09/27/16 04:53 04:53 04:54 WBC 5.1 RBC 3.64 L Hgb 10.8 L Hct 32.8 L MCV 90.1 MCH 30 MCHC 32.9 RDW 23.9 H Plt Count 386 MPV 10.8 Neut % (Auto) 32.5 L Lymph % (Auto) 35.2 [place] % (Auto) 25.8 H Eos % (Auto) 4.3 Baso % (Auto) 1.0 H Neut # (Auto) 1.7 Lymph # (Auto) 1.8 [place] # (Auto) 1.3 H Eos # (Auto) 0.2 Baso # (Auto) 0.1 Total Counted 100 Immature Gran % 1.2 Nucleated RBC % 0.0 Immature Gran # 0.06 Segmented Neutrophils 33 L Lymphocytes 33 Monocytes 28 H Eosinophils 6 Nucleated RBCs # 0.00 Platelet Estimate Adequate Giant Platelets Few Immature Plt Fraction 0.0 Hypochromasia 1+ Microcytosis Slight Ovalocytes Slight INR 2.8 PT Patient/Control Mix 32.1 Sodium 136 Potassium 3.7 Chloride 98 Carbon Dioxide 30 Anion Gap 11.7 BUN 14 Creatinine 1.00 GFR Calculation 64 BUN/Creatinine Ratio 14.00 Glucose 140 H Calculated Osmolality 274.0 Calcium 8.2 L Magnesium 2.0
[2016-09-27] MEDS: DIGOXIN 0.125 MG TABLET PO SCH (14:55)
--- NOTE | 2016-09-27 16:22 | Hospitalist Progress Note ---
Assessment and Plan (1) Diabetes Status: Chronic Current Visit: Yes Qualifiers: Diabetes mellitus type: type 2 (2) Obesity (BMI 30.0-34.9) Status: Chronic Current Visit: Yes (3) CHF (congestive heart failure), NYHA class III Status: Acute Current Visit: Yes Qualifiers: Congestive heart failure type: combined Congestive heart failure chronicity : acute on chronic Qualified Code(s): I50.43 - Acute on chronic combined systolic (congestive) and diastolic (congestive) heart failure (4) Atrial fibrillation Status: Acute Current Visit: Yes Qualifiers: Atrial fibrillation type: chronic Qualified Code(s): I48.2 - Chronic atrial fibrillation (5) Nonischemic cardiomyopathy Status: Chronic Current Visit: Yes (6) Urinary tract infection Status: Acute Current Visit: Yes Qualifiers: Urinary tract infection type: acute cystitis Hospitalist: Subjective Interval history: No acute events overnight. The patient is awaiting placement. She offers no new complaints. Exam - Constitutional Vitals: Period Temp Pulse Resp BP Sys/Grant Pulse Ox Last 24 Hr 97.6 F-100.6 F 69-100 16-18 94-116/55-67 96-99 Exam: Constitutional System: No distress. No tremulousness. Head: Normocephalic, atraumatic. Ears, Nose and Throat System: No pain or tenderness. No epistaxis or discharge Eyes System: Pupils equal, round, and reactive. Extraocular muscles intact. Neck: Supple, without adenopathy, No jugular venous distention. No thyromegaly, neck mass, or prior surgery apparent. Respiratory System: Chest clear to auscultation. Cardiovascular System: Heart with regular rate and rhythm. GI System: Abdomen soft, nontender. Normo active bowel sounds present. Musculoskeletal System: limbs with no pedal edema. Full distal pulses. Neurological System: No discernable sensory deficit. No aphasia Psychiatric System: Conversation is rational Results - Labs CBC & BMP: 09/27/16 04:53 09/27/16 04:54 Lab Results: I have reviewed the past 24 hour labs Specialty Discharge - Follow Up or Referrals Follow up with: rheumatology, clinic [Other] - 2 Weeks Derek Low MD [Physician] - 10/03/16 1:30 pm (PT/INR in office at 13:30 Follow up appointment at 14:00)
[2016-09-27] MEDS: WARFARIN 7.5 MG TABLET PO SCH (17:38)
[2016-09-27] MEDS: FUROSEMIDE 20 MG TABLET PO SCH (20:02)
[2016-09-28] MEDS: FOLIC ACID 1 MG TABLET PO SCH (08:37)
[2016-09-28] MEDS: DESITIN 4OZ/NYSTATIN 15 GRAM MIXTURE PASTE TOP SCH ×2 (08:38→20:45)
[2016-09-28] MEDS: DILTIAZEM 60 MG TABLET PO SCH ×2 (08:38→22:46)
[2016-09-28] MEDS: LOSARTAN 50 MG TABLET PO SCH (08:38)
[2016-09-28] MEDS: FUROSEMIDE 40 MG TABLET PO SCH (08:38)
--- NOTE | 2016-09-28 10:33 | Hospitalist Progress Note ---
Assessment and Plan (1) Diabetes Status: Chronic Current Visit: Yes Qualifiers: Diabetes mellitus type: type 2 (2) CHF (congestive heart failure), NYHA class III Status: Acute Assessment and plan: Echo shows: EF 40 %, septal hypokinesis. Moderately increased right ventricular size. Severely increased right atrial size. Moderately increased left atrial size. Prosthetic mechanical mitral valve with pannus formation . Mean gradient 6 mmHG. Current Visit: Yes Qualifiers: Congestive heart failure type: combined Congestive heart failure chronicity : acute on chronic Qualified Code(s): I50.43 - Acute on chronic combined systolic (congestive) and diastolic (congestive) heart failure (3) Obesity (BMI 30.0-34.9) Status: Chronic Current Visit: Yes (4) Atrial fibrillation Status: Chronic Current Visit: Yes Qualifiers: Atrial fibrillation type: chronic Qualified Code(s): I48.2 - Chronic atrial fibrillation (5) Nonischemic cardiomyopathy Status: Chronic Current Visit: Yes (6) Urinary tract infection Status: Acute Assessment and plan: The patient has completed treatment for Klebsiella urinary tract infection. Will repeat urinalysis. Current Visit: Yes Qualifiers: Urinary tract infection type: acute cystitis Hospitalist: Subjective Interval history: Patient seen and examined. No acute events overnight. Case discussed with nursing staff. Labs reviewed. Case discussed with case management. Patient's Medicaid is pending. Having issues with placement. Will attempt a few other places today and if unsuccessful will discharge home with home health. The patient is interested in long-term placement in a correction which can be done as an outpatient. She is participating with physical therapy. She is slowly improving. A referral has been made for [facility]. Exam - Constitutional Vitals: Period Temp Pulse Resp BP Sys/Grant Pulse Ox Last 24 Hr 97.0 F-98.9 F 67-79 16-28 106-129/58-71 98-100 Exam: Constitutional System: No distress. No tremulousness. Head: Normocephalic, atraumatic. Ears, Nose and Throat System: No pain or tenderness. No epistaxis or discharge Eyes System: Pupils equal, round, and reactive. Extraocular muscles intact. Neck: Supple, without adenopathy, No jugular venous distention. No thyromegaly, neck mass, or prior surgery apparent. Respiratory System: Chest clear to auscultation. Audible click noted consistent with mechanical valve replacement. Cardiovascular System: Heart with regular rate and rhythm. GI System: Abdomen soft, nontender. Normo active bowel sounds present. Musculoskeletal System: limbs with no pedal edema. Full distal pulses. Neurological System: No discernable sensory deficit. No aphasia Psychiatric System: Conversation is rational Results - Labs CBC & BMP: 09/27/16 04:53 09/27/16 04:54 Lab Results: I have reviewed the past 24 hour labs Specialty Discharge - Follow Up or Referrals Follow up with: rheumatology, clinic [Other] - 2 Weeks Derek Low MD [Physician] - 10/03/16 1:30 pm (PT/INR in office at 13:30 Follow up appointment at 14:00)
--- NOTE | 2016-09-28 11:04 | Cardiology Progress Note ---
<Shelley Carballo E - Last Filed: 09/28/16 10:59> Assessment and Plan - Time spent with patient Time spent with patient: Greater than 30 minutes (1) Obesity (BMI 30.0-34.9) Status: Chronic Assessment and plan: SEE PLAN OF CARE LISTED BELOW Current Visit: Yes (2) Falls frequently Status: Chronic Assessment and plan: SEE PLAN OF CARE LISTED BELOW Current Visit: Yes (3) Non-compliant behavior Status: Chronic Assessment and plan: SEE PLAN OF CARE LISTED BELOW Current Visit: Yes (4) Hypomagnesemia Status: Acute Assessment and plan: SEE PLAN OF CARE LISTED BELOW Current Visit: Yes (5) Thrombocytopenia Status: Acute Assessment and plan: SEE PLAN OF CARE LISTED BELOW Current Visit: Yes (6) ADDY (acute kidney injury) Status: Resolved Assessment and plan: SEE PLAN OF CARE LISTED BELOW Current Visit: Yes (7) Hx of mitral valve replacement with mechanical valve Status: Chronic Assessment and plan: SEE PLAN OF CARE LISTED BELOW Current Visit: Yes (8) CHF (congestive heart failure) Status: Acute Assessment and plan: SEE PLAN OF CARE LISTED BELOW Current Visit: Yes Qualifiers: Congestive heart failure type: unspecified congestive heart failure type Congestive heart failure chronicity: acute Qualified Code(s): I50.9 - Heart failure, unspecified (9) Atrial fibrillation with RVR Status: Acute Assessment and plan: SEE PLAN OF CARE LISTED BELOW Current Visit: Yes (10) Hypokalemia Status: Acute Assessment and plan: SEE PLAN OF CARE LISTED BELOW Current Visit: Yes (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 Status: Acute Assessment and plan: SEE PLAN OF CARE LISTED BELOW Current Visit: Yes (12) Diabetes Status: Chronic Assessment and plan: SEE PLAN OF CARE LISTED BELOW Current Visit: Yes Qualifiers: Diabetes mellitus type: type 2 (13) Rheumatoid arthritis Status: Chronic Assessment and plan: SEE PLAN OF CARE LISTED BELOW Current Visit: Yes (14) CHF (congestive heart failure), NYHA class III Status: Acute Assessment and plan: SEE PLAN OF CARE LISTED BELOW Current Visit: Yes Qualifiers: Congestive heart failure type: combined Congestive heart failure chronicity : acute on chronic Qualified Code(s): I50.43 - Acute on chronic combined systolic (congestive) and diastolic (congestive) heart failure (15) Nonischemic cardiomyopathy Status: Chronic Assessment and plan: SEE PLAN OF CARE LISTED BELOW Current Visit: Yes (16) H/O mechanical aortic valve replacement Status: Chronic Assessment and plan: SEE PLAN OF CARE LISTED BELOW Current Visit: Yes (17) Paroxysmal atrial fibrillation Status: Acute Assessment and plan: See plan of care listed below Current Visit: Yes Cardiology - PN: Subj Interval history: [employer] WORKER: (NEW) DR. 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 Risk factors include: hypertension, obesity, diabetes, sedentary lifestyle, noncompliance. 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 History of chronic atrial fibrillation, rheumatoid arthritis. Presented to the ED [facility] September 19, 2016 with complaints of shortness of breath, palpitations, diagnosed with acute CHF, secondary to combined systolic and diastolic dysfunction, EF 40%, NYHA Class III initially. Heart rate initially significantly elevated, A. fib with RVR. She was treated with IV Cardizem and then transitioned to oral calcium channel chary. Rate well controlled of the weekend. Patient has a history of mitral valve replacement and aortic valve replaced with mechanical mitral valves requiring chronic anticoagulation. She had been out of her medications, including Coumadin, Lasix and Diltiazem, since May 2016 when she moved to [place] from [place]. Since May, she has been having unsteady gait, palpitations and shortness of breath. She has not established herself with a primary care provider. Cardiac biomarkers were mildly elevated, thought to be related to A. fib with RVR. Dr. Cherry was consulted for thrombocytopenia. It is felt that she may be hemolyzing as her haptoglobin levels are decreased as they are with liver disease as well. She had has a history of cirrhosis. Right upper quadrant abdominal ultrasound revealed cirrhosis, elevated bilirubin. CT chest does not reveal PTE. SEPTEMBER 26, 2016: Over the weekend, patient has continued to improve. Denies chest pain, heaviness or tightness. Vital signs have improved. She remains in chronic atrial fibrillation, INR 2.1. Platelet counts improved and are currently normal this morning. Patient is being evaluated for [facility], hopefully today. At this point, she is tolerating ARB. Using calcium channel chary for rate control rather than beta -chary. Avoiding lipid-lowering agents due to her history of cirrhosis and elevated total bilirubin. Continue Coumadin with frequent PT/INR. Will further discuss with Dr. Maricruz Schulte and await additional recommendations. SEPTEMBER 27, 2016: Patient appears very comfortable in the bed this morning. Overall, she is feeling markedly better since her arrival. Hopefully, she will be transferred to a senior living type facility today. Insurance is pending. Labs are stable. INR 2.8. At this point, not much to add from cardiology standpoint. Using calcium channel chary for rate control rather than beta- blockade. Tolerating well. Will further discuss with Dr. Schulte and await additional recommendations. SEPTEMBER 28, 2016: Sitting up in the bedside chair this morning, denies chest pain , heaviness or tightness. She feels as if her strength has improved yet she is still somewhat debilitated. Apparently, if patient is not accepted into a senior living facility today, she will require discharge home and this will be worked on from an outpatient basis. From a cardiology standpoint she is doing well. INR has been therapeutic for the last 4 days. We will sign off at this point anticipating discharge home tomorrow versus senior living today. She will be given a follow-up appointment with Dr. Low in approximately 4-6 weeks. Her INR will need to be monitored closely. I will arrange for INR at [facility] 1 week after discharge. Nothing further to add from a cardiology standpoint, therefore will sign off. ASSESSMENT/PLAN: 1. ACUTE CHF - I suspect this is acute on chronic CHF. Secondary to diastolic dysfunction and systolic dysfunction (EF 40%) initially NYHA Class III , Class II. Continue with diuresis, strict I&O, daily weights. 2. MECHANICAL MITRAL VALVE, MECHANICAL AORTIC VALVE - INR has been therapeutic for 4 days. 3. THROMBOCYTOPENIA - Appreciate Dr. Cherry's assistance. Now normalized. 4. ATRIAL FIBRILLATION WITH RVR - now rate controlled on oral Diltiazem and Digoxin. PATRICIA VASC SCORE 6. Continue Coumadin. 5. ADDY - initially creatinine was mildly elevated but this has resolved this morning. Favor CCB for rate control rather than betablocker at this time. 6. HYPOKALEMIA - resolved after treatment 7. HYPOMAGNESEMIA - resolved 8. NON-COMPLIANCE - reiterated the importance of continued follow-up. 9. RHEUMATOID ARTHRITIS - Methotrexate has been home medication for which she takes routinely. Per Dr. Cherry's note, may be contributing to her thrombocytopenia 10. CIRRHOSIS OF THE LIVER - per RUQ US, elevated total bilirubin. Avoiding toxic agents such as lipid lowering agents. 11. CARDIOMYOPATHY - thought to be nonischemic in nature. Exam (Progress Note) - Constitutional Vitals: Period Temp Pulse Resp BP Sys/Grant Pulse Ox Last 24 Hr 97.0 F-98.9 F 67-79 16-28 106-129/58-71 98-100 Exam: General: [Appears well with no apparent distress.] [Pleasant and cooperative. ] [Appears comfortable.] HEENT: [PERRL, normocephalic, atraumatic. Mucous membranes moist. No jaundice noted. Conjunctiva moist and clear, sclerae anicteric] Neck: No JVD/HJR, no thyromegaly or lymphadenopathy noted. No carotid bruit appreciated Cardiac: [[place] click of valve is noted. Irregularly irregular rhythm Lungs: [Clear to auscultation without accessory muscle use to assist the respiratory pattern.] Not requiring oxygen Abdomen: Soft, bowel sounds normoactive. Nontender and nondistended. No abdominal bruit or thrill noted. No masses noted. Musculoskeletal: No fluid collection. Decreased range of motion is noted. Extremities: No clubbing, cyanosis noted. [ No edema noted.] Upper extremity pulses 2+. Lower extremity pulses 2+. Capillary refill less than 3 seconds. Skin: No unusual lesions or rashes. No skin breakdown appreciated. Neuro: Awake, alert and oriented 3. Moves all extremities well without hemiparesis or paralysis. No essential tremor is appreciated. Result/EKG - Labs CBC & BMP: 09/27/16 04:53 09/27/16 04:54 Lab Results: I have reviewed the past 24 hour labs - EKG EKG results: interpreted by me EKG shows: sinus rhythm Specialty Discharge - Follow Up or Referrals Follow up with: rheumatology, clinic [Other] - 2 Weeks Derek Low MD [Physician] - 11/03/16 1:00 pm (PT/INR in office at oct 03 1:30 p.m. only and pt will come back for follow up with Nov 03, 1:00p.m. ) <Maricruz Schulte - Last Filed: 09/28/16 16:51> Cardiology - PN: Subj Interval history: I have personally interviewed and evaluated the patient, reviewed the chart and discussed medical decision-making with Practitioner Haris. I have read this note and agree with her documentation here in. Exam (Progress Note) - Constitutional Vitals: Period Temp Pulse Resp BP Sys/Grant Pulse Ox Last 24 Hr 97.0 F-98.9 F 67-79 16-28 103-129/51-71 98-100 Result/EKG - Labs CBC & BMP: 09/27/16 04:53 09/27/16 04:54 Labs: Laboratory Results - last 24 hr 09/28/16 12:14 Urine Color Straw Urine Appearance Clear Urine pH 7.0 Ur Specific [place] 1.004 Urine Protein Negative Urine Glucose (UA) Negative Urine Ketones Negative Urine Blood Negative Urine Nitrate Negative Urine Bilirubin Negative Urine Urobilinogen < 2.0 H Urine Leukocytes Negative Urine WBC <1 Ur Squamous Epith Cells Occasional Ur Culture Indicated? Not indicated
[2016-09-28 12:20] LABS: Apearance,Urine CLEAR (Clear); Bilirubin,Urine Negative (Negative); Blood, Urine Negative (Negative); Glucose,Urine (UA) Negative (Negative); Ketones,Urine Negative (Negative); Nitrite,Urine Negative (Negative); Protein,Urine Negative; Squamous Epithelial Cell,Urine Occasional /HPF (0-10); Urine Color Straw (Yellow); Urine Specific Gravity 1.004 (1.001-1.035); Urine Urobilinogen < 2.0 EU/DL (0.2-1.0); WBC,Urine <1 /HPF (0-6)
[2016-09-28] MEDS: DIGOXIN 0.125 MG TABLET PO SCH (12:29)
[2016-09-28] MEDS: WARFARIN 7.5 MG TABLET PO SCH (17:19)
[2016-09-28] MEDS: FUROSEMIDE 20 MG TABLET PO SCH (21:01)
[2016-09-29 07:58] VITALS: BP 112/53
--- NOTE | 2016-09-29 08:42 | Discharge Summary ---
Hospital Course - Hospital Course Hospital Course: Ms. 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 Risk factors include: hypertension, obesity , diabetes, sedentary lifestyle, noncompliance. 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 History of chronic atrial fibrillation, rheumatoid arthritis. Presented to the ED [facility] September 19, 2016 with complaints of shortness of breath, palpitations, diagnosed with acute CHF, secondary to combined systolic and diastolic dysfunction, EF 40%, NYHA Class III initially. Heart rate initially significantly elevated, A. fib with RVR. She was treated with IV Cardizem and then transitioned to oral calcium channel chary. Rate well controlled of the weekend. Patient has a history of mitral valve replacement and aortic valve replaced with mechanical mitral valves requiring chronic anticoagulation. She had been out of her medications, including Coumadin, Lasix and Diltiazem, since May 2016 when she moved to [place] from [place]. Since May, she has been having unsteady gait, palpitations and shortness of breath. She has not established herself with a primary care provider. Cardiac biomarkers were mildly elevated, thought to be related to A. fib with RVR. Dr. Cherry was consulted for thrombocytopenia. It is felt that she may be hemolyzing as her haptoglobin levels are decreased as they are with liver disease as well. She had has a history of cirrhosis. Right upper quadrant abdominal ultrasound revealed cirrhosis, elevated bilirubin. Ms Gaytan was admitted 09/19/16 after presenting to [facility] ED with complaints of knee pain, SOB, and palpitations. She stated that she was receiving her medical care in [place] and then moved here in May 2016. Since May , she has not been taking her medications and therefore has been having SOB mostly with walking along with palpitations. She has a history of a-fib as well as a mechanical mitral valve replacement. She was on coumadin and diltiazem but ran out of them in May 2016. She denied any CP, PND, orthopnea, increased abdominal girth, or weight gain. Her abdomen looked distended but she verbalized that it was not. She has a history of CHF but ran out of her lasix. She also noted some bilteral knee pain for the past month. She voiced that she has not been able to walk much because of pain. She denies any swelling or falls. While in the ER, her heart rate was in the 130s, and she was given diltiazem. She was also given potassium and lasix. CXR: 09/19/16: Impression: Cardiomegaly and evidence of CHF with some mild bibasilarpulmonary edema and minimal bilateral pleural effusion. CT of chest showed no evidence of acute pulmonary embolic disease. This admission she was found to have thrombocytonpenia (platelet 48). Oncology/ heme was consulted 09/20/16. Oncology's impression of Thrombocytopenia was probably due to multifactorial including the fact that the patient is taking methotrexate and has splenomegaly and possibly due to the fact that she is off anticoagulants with an artificial mechanical heart valve. In addition, autoimmune disease such as rheumatoid arthritis could cause this. The recommendation was: methotrexate is contraindicated with an elevated serum creatinine or in renal failure. It should not be continued and her folic acid level was below normal (1.4) so she was started on folic acid daily. She was noted to have UTI: due to Klebsiella and was placed on ceftriaxone, and completed a full course of treatment prior to discharge Cardiology was consulted: for Acute exacerbation of CHF NYHA class III and Atrial fibrillation with RVR. Echo resulted: shows EF 40%EF 40 %, septal hypokinesis. Moderately increased right ventricular size. Severely increased right atrial size. Moderately increased left atrial size. Prosthetic mechanical mitral valve with pannus formation . Mean gradient 6 mmHG. V max 1.50. MVA 2.34 cm 2. Trace mitral valve regurgitation. Prosthetic mechanical AV with pannus. Peak gradient 53, mean gradient 20 mmHg. Trace aortic valve regurgitation. Moderate tricuspid valve regurgitation. PAP50 m,mHG. Trace pulmonary valve regurgitation. No pericardial effusion. Normal size aortic root and proximal ascending aorta. Patient is feeling much better. Plan to discharge to [place]. Thrombocytopenia is stable and improved to Platelet 146. Remain off methotrexate and follow up with outpatient rheumatology for RA. Presumed cirrhosis with splenomegaly. Potassium and magnesium was low and replaced. Cardiology encourage nutrition improvement and Resumed coumadin dose 7.5 mg and Home meds were restarted yesterday: losartan, dig. and oral lasix. Atrial fib is stable with rate controlled on diltiazem. She will need to follow up with Dr Low - cardiology. At this point, she is tolerating ARB. Using calcium channel chary for rate control rather than beta-chary. Avoiding lipid-lowering agents due to her history of cirrhosis and elevated total bilirubin. Continue Coumadin with frequent PT/INR. Sitting up in the bedside chair this morning, denies chest pain, heaviness or tightness. She feels as if her strength has improved yet she is still somewhat debilitated. Apparently, if patient is not accepted into a [facility] facility today, she will require discharge home and this will be worked on from an outpatient basis. From a cardiology standpoint she is doing well. INR has been therapeutic for the last 4 days. She will be given a follow-up appointment with Dr. Low in approximately 4-6 weeks. Her INR will need to be monitored closely. I will arrange for INR at [facility] 1 week after discharge. ASSESSMENT/PLAN: 1. ACUTE CHF - I suspect this is acute on chronic CHF. Secondary to diastolic dysfunction and systolic dysfunction (EF 40%) initially NYHA Class III , Class II. Continue with diuresis, strict I&O, daily weights. 2. MECHANICAL MITRAL VALVE, MECHANICAL AORTIC VALVE - INR has been therapeutic for 4 days. 3. THROMBOCYTOPENIA - Appreciate Dr. Cherry's assistance. Now normalized. 4. ATRIAL FIBRILLATION WITH RVR - now rate controlled on oral Diltiazem and Digoxin. PATRICIA VASC SCORE 6. Continue Coumadin. 5. ADDY - initially creatinine was mildly elevated but this has resolved this morning. Favor CCB for rate control rather than betablocker at this time. 6. HYPOKALEMIA - resolved after treatment 7. HYPOMAGNESEMIA - resolved 8. NON-COMPLIANCE - reiterated the importance of continued follow-up. 9. RHEUMATOID ARTHRITIS - Methotrexate has been home medication for which she takes routinely. Per Dr. Cherry's note, may be contributing to her thrombocytopenia 10. CIRRHOSIS OF THE LIVER - per RUQ US, elevated total bilirubin. Avoiding toxic agents such as lipid lowering agents. 11. CARDIOMYOPATHY - thought to be nonischemic in nature. - Time spent with patient Time with patient DS: Greater than 30 minutes (Total discharge time for this patient, including [id number] time, clinical documentation, medication reconciliation, and discharge planning was 50 minutes.) Diagnosis - Discharge Diagnosis (1) Diabetes Status: Chronic (2) CHF (congestive heart failure), NYHA class III Status: Acute (3) Obesity (BMI 30.0-34.9) Status: Chronic (4) Atrial fibrillation Status: Chronic (5) Nonischemic cardiomyopathy Status: Chronic (6) Urinary tract infection Status: Resolved Specialty Discharge - Follow Up or Referrals Follow up with: rheumatology, clinic [Other] - 2 Weeks Derek Low MD [Physician] - 11/03/16 1:00 pm (PT/INR in office at oct 03 1:30 p.m. only and pt will come back for follow up with Dr. Fernando Medina, 1:00p.m. ) Discharge Plan - Discharge Data Disposition: Home Health Service Condition at Discharge: Stable Discharge Diet: advance to your usual diet Activity: resume usual activities as tolerated Hygiene: no restrictions Weight Bearing at Discharge: full weight bearing Contact your physician if you experience:: fever over 101, Shortness of breath, pain uncontrolled by pain medications - Discharge Medications New Diltiazem Tab [Cardizem Tab] 60 mg PO BID #60 tablet Warfarin [Coumadin] 7.5 mg PO DAILY@1800 #30 tablet Continue Losartan Potassium 50 mg PO DAILY Folic Acid Tab 1 mg PO DAILY sitaGLIPtin [Januvia] 100 mg PO DAILY Furosemide Tab [Lasix Tab] 20 mg PO BEDTIME Salsalate 1,000 mg PO BID Omeprazole [Prilosec] 20 mg PO DAILY Digoxin Tab [Lanoxin Tab] 0.125 mg PO DAILY@1300 Furosemide Tab [Lasix Tab] 40 mg PO QAM Discontinued Atorvastatin [Lipitor] 40 mg PO BEDTIME dilTIAZem HCl [Cartia XT] 180 mg PO DAILY Methotrexate Tab 5 mg PO QAM Warfarin [Coumadin] 3.75 mg PO SUMOWETHSA Metformin HCl 1,000 mg PO DAILY Methotrexate Tab 7.5 mg PO DELUNA Warfarin [Coumadin] 5 mg PO TUFR - Follow Up or Referral Follow Up: rheumatology, clinic [Other] - 2 Weeks Derek Low MD [Physician] - 11/03/16 1:00 pm (PT/INR in office at oct 03 1:30 p.m. only and pt will come back for follow up with Dr. Fernando Medina, 1:00p.m. ) - Forms/Instructions Instructions: Atrial Fibrillation (DC), Fall Prevention (DC) Exam - Constitutional Vitals: Period Temp Pulse Resp BP Sys/Grant Pulse Ox Last 24 Hr 97.4 F-98.5 F 68-91 16-20 103-127/51-69 97-100 Discharge Results Labs on day of discharge: Labs from last 24 hours 09/28/16 12:14 Urine Color Straw Urine Appearance Clear Urine pH 7.0 Ur Specific Shirley 1.004 Urine Protein Negative Urine Glucose (UA) Negative Urine Ketones Negative Urine Blood Negative Urine Nitrate Negative Urine Bilirubin Negative Urine Urobilinogen < 2.0 H Urine Leukocytes Negative Urine WBC <1 Ur Squamous Epith Cells Occasional Ur Culture Indicated? Not indicated DS: Provider Date of admission: 09/19/16 23:00 Primary care physician: . No PCP Attending physician on admission: Vijay Waddell MD Consults: 09/19/16 23:05 Consult to Physician [CONS] Routine Comment: chf, mechanical mitral valve, not on AC Consulting Provider: Derek Low When should Consulting Provider be notified: In am Consult to Specialist Group: Cardiology Person Notified: [email or web address] Date Notified: 09/20/16 Time Notified: 07:50 09/19/16 23:06 Consult to Physician [CONS] Routine Comment: severe thrombocytopenia Consulting Provider: Marshall Cherry When should Consulting Provider be notified: In am Consult to Specialist Group: Oncology Person Notified: [email or web address] Date Notified: 09/20/16 Time Notified: 08:50 09/19/16 23:11 Consult to Case Mgmt/Social Srvs [CONS] Routine Reason for Case Mgmt/Social Srvs: Discharge Planning 09/20/16 00:19 Consult to Wound Care - [place] [CONS] Routine Reason for Wound Care: Wound Care Management 09/20/16 11:32 Consult to Occupational Therapy [CONS] Routine Reason for Occupational Therapy: Evaluate and Treat Consult to Physical Therapy [CONS] Routine Reason for Physical Therapy: Evaluate and Treat Discharging clinician: Klarissa Reddy MD Expected date of discharge: 09/29/16
[2016-09-29] MEDS: DILTIAZEM 60 MG TABLET PO SCH (09:12)
[2016-09-29] MEDS: DESITIN 4OZ/NYSTATIN 15 GRAM MIXTURE PASTE TOP SCH (09:12)
[2016-09-29] MEDS: LOSARTAN 50 MG TABLET PO SCH (09:12)
[2016-09-29] MEDS: FOLIC ACID 1 MG TABLET PO SCH (09:12)
[2016-09-29] MEDS: FUROSEMIDE 40 MG TABLET PO SCH (09:12)
== END 2016-09-29 11:00 | disposition swing bed (61) | DRG 308 ==
LOC: N.ED 18:25 → N.EDINP 23:00 → SUATTDRO 23:00 → N.TELES 23:44
PROVIDERS: ADMIT Internal Medicine; ATTEND Family Medicine

== ENCOUNTER 2016-11-25 22:47 | Inpatient (IN) ==
[2016-11-26] MEDS ORDERED: SODIUM CHLORIDE 0.9% 1,000 ML IV STA (00:11)
--- NOTE | 2016-11-26 00:13 | XRay Report ---
Exam: XR chest 1V portable Date: 11/25/2016 11:21 PM Indication: Weakness Comparison: 09/19/2016 Technical: AP Findings: Cardiomegaly is present with previous sternotomy with previous valve replacement surgery present. No obvious effusions or consolidating infiltrates present. Mediastinum is otherwise intact. There some calcification tracheobronchial tree present. Impression: 1. Cardiomegaly with previous sternotomy with valve replacement surgery without decompensation. PROCEDURE INTERPRETED AT [facility] DEPARTMENT OF RADIOLOGY Final Report Signed by: Dr. Stephane Valle
--- NOTE | 2016-11-26 00:14 | Emergency Department Note ---
Arrival - Arrival Chief Complaint: Weakness Stated Complaint: Weakness ED Nursing Triage Note: Patient states that she has been weak for the past three days and has been losing weight without trying. Patient states that she fell earlier tonight due to weakness. Denies hitting head nor LOC. Awake, alert , oriented and ambulatory upon triage. History of DM, valve replacement sugery, and afib. Mode of Arrival: Ambulatory Limitations: No Limitations Source: Patient, Family, RN Notes Reviewed Time Seen by Provider: 11/25/16 23:10 - History of Present Illness HPI Narrative: The patient complains of weakness for the past 2-3 days. This caused her to fall tonight. She felt like she was weak and off-balance and fell trying to make it to her chair. She denies any loss of consciousness. No injury from the fall. She has had vomiting for the past 2-3 days with decreased intake. The family states that she has had an unintentional weight loss of approximately 15 pounds over the last 2 months. The patient denies any fever, cough, sore throat. She has had some white rhinorrhea. She denies any focal weakness or sensory changes. No changes in her speech. No chest pain, shortness of breath or mental status changes. She has not had similar symptoms in the past. Date of Last Menstrual Period: menopause Allergies/Adverse Reactions: Allergies Allergy/AdvReac Type Severity Reaction Status Date / Time nitrofurantoin AdvReac RASH Verified 09/19/16 18:35 [From Macrodantin] Sulfonylureas AdvReac RASH Verified 09/19/16 18:35 Home Medications: Home Medications Medication Instructions Recorded Confirmed Type Digoxin Tab [Lanoxin Tab] 0.125 mg PO DAILY@1300 09/19/16 09/29/16 History Folic Acid Tab 1 mg PO DAILY 09/19/16 09/29/16 History Furosemide Tab [Lasix Tab] 20 mg PO DAILY@1600 09/19/16 09/29/16 History Furosemide Tab [Lasix Tab] 40 mg PO QAM 09/19/16 09/29/16 History Losartan Potassium 50 mg PO DAILY 09/19/16 09/29/16 History Omeprazole [Prilosec] 20 mg PO DAILY 09/19/16 09/29/16 History Salsalate 1,000 mg PO BID 09/19/16 09/29/16 History sitaGLIPtin [Januvia] 100 mg PO DAILY 09/19/16 09/29/16 History Diltiazem Tab [Cardizem Tab] 60 mg PO BID #60 tablet 09/29/16 09/29/16 Rx Warfarin [Coumadin] 5 mg PO MOFR@1800 tablet 10/10/16 Rx Warfarin [Coumadin] 7.5 mg PO SUTUWETHSA@1800 tablet 10/10/16 Rx Review of System - Review of System 12 point system: reviewed and no additional remarkable complaints except as stated - Review of System Constitutional: Present: weakness. Absent: diaphoresis, fever Eyes: Absent: vision change Head/Ears/Nose/Throat: Present: nasal drainage. Absent: earache, sore throat Respiratory: Absent: cough, respiratory distress, wheezing Cardiovascular: Absent: chest pain, dyspnea on exertion Gastrointestinal: Present: nausea, vomiting. Absent: abdominal pain Neurological: Present: weakness. Absent: headache, numbness, paresthesias, confusion, abnormal gait Medical,Surgical,& Family Hx - Medical History Cardio: History of: Hypertension, Valvular Heart Disease (s/p mechanical mitral valve replacement), Cardiovascular Problems (valve replaced; mitral stenosis) HEENT: History of: Eye Problem (nuclear sclerosis) Endocrine: History of: Diabetes Mellitus (NIDDM), Dyslipidemia Rheumatology: History of;: Psoriasis Respiratory: History of: Bronchitis Genitourinary: History of: Recurring Urinary Tract Infections, Problems ( occasional stress leakage) Musculoskeletal: History of: Musculoskeletal Problems (rheumatoid arthritis) Other: History of: Miscellaneous Medical Problems (iron deficiency; psoriasis) - Surgical History Cardiac Surgeries: Sugical HX of: Cardiac Catheterization, Cardiac Surgery ( mechanical mitral valve replacement) Abdominal Surgeries: Surgical HX of: Colonoscopy Reproductive Surgeries: Surgical HX of;: Dilation and Curettage, Hysterectomy - Family History Family History: Reports;: Family Diabetes (mother, father, grandfather), Family Stroke (father, mother) - Social History Smoking Status: Never smoker Frequency of Alcohol Use: None Type of Drug Use: None Exam Physical Examination: GENERAL: Alert. No acute distress. HEENT: Normocephalic and atraumatic. There is no nasal drainage. No pharyngeal erythema or exudate. Dry mucous membranes. NECK: Normal inspection. Supple. No lymphadenopathy or meningismus. LUNGS: No respiratory distress. Clear to auscultation bilaterally, no wheezes, rales or rhonchi. HEART: Regular rate and rhythm. ABDOMEN: Soft, nontender and nondistended with normoactive bowel sounds. BACK: Normal inspection. SKIN: Color normal. Warm and dry. There is an area of erythema and scaling at the lower chest, under the breasts and onto the upper abdomen. EXTREMITIES: Nontender. Normal range of motion. No pedal edema. NEUROLOGICAL/PSYCHIATRIC: Alert and oriented -3 with normal mood and affect. Cranial nerves normal. No motor or sensory deficit. Vital Signs: Vital Signs Temperature 98.1 F 11/25/16 22:58 Pulse Rate 106 H 11/25/16 22:58 Respiratory Rate 18 11/25/16 22:58 Blood Pressure 161/69 11/25/16 22:58 O2 Sat by Pulse Oximetry 97 11/25/16 22:58 Course - Reevaluation(s) Reevaluation #1: I have discussed this patient with the hospitalist service who will see him and admit Time: Results - Labs CBC & BMP: 11/25/16 23:55 11/25/16 23:55 Lab Results: I have reviewed the patients labs Labs: Laboratory Tests 11/25/16 11/25/16 11/25/16 23:55 23:55 23:55 INR 2.7 Total Bilirubin 0.60 AST 26 ALT 16 Alkaline Phosphatase 126 H Total Creatine Kinase CK-MB (CK-2) Troponin I B-Natriuretic Peptide Free T4 TSH 3rd Generation Urine Leukocytes Trace Urine RBC 8 Urine WBC 5 Urine Bacteria Few Ur Culture Indicated? Results to follow Digoxin 11/25/16 11/25/16 11/25/16 23:55 23:55 23:55 INR Total Bilirubin AST ALT Alkaline Phosphatase Total Creatine Kinase 59 CK-MB (CK-2) < 1.0 Troponin I < 0.015 B-Natriuretic Peptide 103 H Free T4 1.18 TSH 3rd Generation 2.230 Urine Leukocytes Urine RBC Urine WBC Urine Bacteria Ur Culture Indicated? Digoxin 0.70 L - Impressions Chest x-ray shows: 1. Cardiomegaly with previous sternotomy with valve replacement surgery without decompensation. EKG shows atrial fibrillation at 90 with right ventricular hypertrophy. Disposition Clinical Impression: Weakness, Hypokalemia, Subtherapeutic digoxin, Fall, Atrial fibrillation, Vomiting, Dehydration Case discussed with: patient, patient's family Disposition: Still a Patient Condition: Stable Time of Disposition: 02:01
[2016-11-26 00:15] LABS: Hematocrit 38.5 VOL% (35.7-47.0); Hemoglobin 13.1 GM/DL (12.0-16.0); Immature Granulocytes % 0.9 %; Immature Granulocytes Absolute 0.04 #; Lymphocytes # 0.8 10*3/uL (1.4-4.0); Lymphocytes % 18.1 % (21.3-54.2); Mean Corpuscular Hemoglobin 29 PG (27-34); Mean Corpuscular Volume 85.7 FL (87-102); Mean Platelet Volume 11.1 FL (9.6-12.0); Monocytes # 0.8 10*3/uL (0.11-0.8); Monocytes % 16.2 % (1.7-12.7); Neutrophils % 64.8 % (38.7-73.9); Platelet Count 161 T/CUMM (130-400); Red Blood Count 4.49 MC/CUMM (3.8-5.5); Red Cell Distribution Width 13.2 % (9.3-17.3); White Blood Count 4.6 T/CUMM (4-12)
[2016-11-26 00:32] LABS: INR 2.7; Partial Thromboplastin Time 40.8 SECS (0-40)
[2016-11-26 00:37] LABS: Albumin 3.2 G/DL (3.4-5.0); Bilirubin,Total 0.6 MG/DL (0.2-1.0); Calcium 8.2 MG/DL (8.5-10.1); Osmolality,Calculated 273.1 MOS/KG (273-304); PT Patient Result 28.2 SECS; Potassium 2.8 MMOL/L (3.5-5.1); Total Protein 7.5 G/DL (6.4-8.3)
[2016-11-26 00:44] LABS: Free T4 (Free Thyroxine) 1.18 NG/DL (0.76-1.46); Magnesium 1.1 MG/DL (1.8-2.4); Troponin I Only < 0.015 NG/ML (0.00-0.045)
[2016-11-26 01:16] LABS: Apearance,Urine CLOUDY (Clear); Bacteria,Urine Few /HPF (Few); Bilirubin,Urine Negative (Negative); Blood, Urine Small mg/dL (Negative); Glucose,Urine (UA) Negative (Negative); Ketones,Urine Negative (Negative); Mucus,Urine Occasional /LPF (Occasional); Nitrite,Urine Negative (Negative); Protein,Urine 30 MG/DL; RBC,Urine 8 /HPF (0-4); Squamous Epithelial Cell,Urine Occasional /HPF (0-10); Urine Specific Gravity 1.013 (1.001-1.035); WBC,Urine 5 /HPF (0-6)
[2016-11-26 01:17] LABS: Urine Color Yellow (Yellow)
[2016-11-26 01:23] LABS: Atypical Lymphocytes Few; Lymphocytes 20 % (20-55); Segmented Neutrophils 69 % (50-85); Smudge Cells Few; Total Cells Counted 100
[2016-11-26 01:24] LABS: Giant Platelets Few; Platelet Estimate Normal
[2016-11-26] MEDS ORDERED: ACETAMINOPHEN 325 MG TABLET PO PRN (03:42)
[2016-11-26] MEDS ORDERED: ONDANSETRON 4 MG/2 ML VIAL IV PRN (03:42)
[2016-11-26] MEDS ORDERED: DEXTROSE 50% 25 GM/50 ML SYRINGE IV PRN (03:42)
[2016-11-26] MEDS ORDERED: GLUCAGON 1 MG VIAL IM PRN (03:42)
[2016-11-26] MEDS ORDERED: SODIUM CHLORIDE 0.9% 1,000 ML IV SCH (04:00)
--- NOTE | 2016-11-26 04:12 | Hospitalist History & Physical ---
Assessment and Plan - Time spent with patient Time spent with patient: Greater than 30 minutes (1) Nausea & vomiting Status: Acute Assessment and plan: Admit to hospitalist services. NS bolus given in ED. Continue hydration with NS at 100 ml/hr. Zofran 4 mg IV Q4 hours PRN. Replace electrolytes. Recheck CBC and BMP in am. Current Visit: Yes (2) Weakness Status: Acute Assessment and plan: As above. Current Visit: Yes (3) ADDY (acute kidney injury) Status: Resolved Assessment and plan: NS bolus given in ED. Continue hydration with NS at 100 ml/hr. Recheck BMP in am. Current Visit: No (4) Hypokalemia Status: Acute Assessment and plan: K was 2.8 in ED. Potassium rider ordered. Recheck K when rider complete. Repeat BMP in am. Current Visit: No (5) Hypomagnesemia Status: Acute Assessment and plan: Magnesium was 1.1 in ED. Magnesium rider ordered. Recheck magnesium levels after rider complete. Current Visit: No (6) Yeast dermatitis Status: Acute Assessment and plan: Miconazole 2% cream applied topically BID. Current Visit: Yes (7) Atrial fibrillation Status: Chronic Assessment and plan: Home medications not updated for reconciliation. Continue digoxin and coumadin when home medications are updated. Digoxin level was low at 0.7 in the ED. Recheck digoxin in am. Current Visit: Yes Qualifiers: Atrial fibrillation type: chronic Qualified Code(s): I48.2 - Chronic atrial fibrillation (8) Diabetes Status: Chronic Assessment and plan: Home medications not updated for reconciliation at this time. Continue home medications when available. No A1c on record; obtain A1c in am. Clear liquid diet. Accuchecks and SSI ACHS. Current Visit: No Qualifiers: Diabetes mellitus type: type 2 (9) DVT prophylaxis Status: Acute Assessment and plan: Lovenox 40 mg SQ daily. Current Visit: Yes History of Present Illness Chief complaint: Weakness, nausea, vomiting History of present illness: Ms. Gaytan is a 61 year old female with a past medical history of NIDDM, HTN, mitral stenosis s/p valve replacement, rheumatoid arthritis, psoriasis, and frequent UTIs who presented to the ED tonight with complaints of weakness that caused a fall. Ms. Gaytan reports that she was walking to her chair when she became too weak to continue walking and fell. She denies any loss of consciousness at the time or fall-related injury. She reports that she has had intermittent nausea with 2-3 episodes of vomiting and decreased oral intake for the last 3 days, as well as a small amount of diarrhea. She denies fever and abdominal pain. Additionally, she complains of a 15-20 pound unintentional weight loss over the last couple of months. However, she cannot explain how she has knowledge of this weight loss and states that she does not have a set of scales in her home. She appears to be a poor historian and not completely reliable. Her [id number] was present in the room during the exam and could offer very little information to help with the history. In the ED, significant labs include Na 135, K 2.8, creatinine 1.2, blood glucose 155, calcium 8.2, magnesium 1.1, and digoxin 0.7. She is hypertensive and mildly tachycardic. Currently, she is lying in bed without complaints of nausea or vomiting at this time. Hospitalist services were consulted, and the patient will be admitted for further evaluation and treatment. Home medications not available for reconciliation at this time. This patient is a full code. Home Medications Medication Instructions Recorded Confirmed Type Digoxin Tab [Lanoxin Tab] 0.125 mg PO DAILY@1300 09/19/16 09/29/16 History Folic Acid Tab 1 mg PO DAILY 09/19/16 09/29/16 History Furosemide Tab [Lasix Tab] 20 mg PO DAILY@1600 09/19/16 09/29/16 History Furosemide Tab [Lasix Tab] 40 mg PO QAM 09/19/16 09/29/16 History Losartan Potassium 50 mg PO DAILY 09/19/16 09/29/16 History Omeprazole [Prilosec] 20 mg PO DAILY 09/19/16 09/29/16 History Salsalate 1,000 mg PO BID 09/19/16 09/29/16 History sitaGLIPtin [Januvia] 100 mg PO DAILY 09/19/16 09/29/16 History Diltiazem Tab [Cardizem Tab] 60 mg PO BID #60 tablet 09/29/16 09/29/16 Rx Warfarin [Coumadin] 5 mg PO MOFR@1800 tablet 10/10/16 Rx Warfarin [Coumadin] 7.5 mg PO SUTUWETHSA@1800 tablet 10/10/16 Rx Allergies Allergy/AdvReac Type Severity Reaction Status Date / Time nitrofurantoin AdvReac RASH Verified 09/19/16 18:35 [From Macrodantin] Sulfonylureas AdvReac RASH Verified 09/19/16 18:35 Medical,Surgical,& Family Hx - Medical History Cardio: History of: Hypertension, Valvular Heart Disease (s/p mechanical mitral valve replacement), Cardiovascular Problems (valve replaced; mitral stenosis) HEENT: History of: Eye Problem (nuclear sclerosis) Endocrine: History of: Diabetes Mellitus (NIDDM), Dyslipidemia Rheumatology: History of;: Psoriasis Respiratory: History of: Bronchitis Genitourinary: History of: Recurring Urinary Tract Infections, Problems ( occasional stress leakage) Musculoskeletal: History of: Musculoskeletal Problems (rheumatoid arthritis) Other: History of: Miscellaneous Medical Problems (iron deficiency; psoriasis) - Surgical History Cardiac Surgeries: Sugical HX of: Cardiac Catheterization, Cardiac Surgery ( mechanical mitral valve replacement) Abdominal Surgeries: Surgical HX of: Colonoscopy Reproductive Surgeries: Surgical HX of;: Dilation and Curettage, Hysterectomy - Family History Family History: Reports;: Family Diabetes (mother, father, grandfather), Family Stroke (father, mother) - Social History Smoking Status: Never smoker Have you smoked in the last 12 months: No Frequency of Alcohol Use: None Type of Drug Use: None Marital Status: Lives With:: Spouse Functional capacity: independent ambulation 12 point system: reviewed and no additional remarkable complaints except as stated - Constitutional Constitutional: Present: anorexia, weakness, weight loss. Absent: chills, fever (s) - EENT Eyes: Absent: blurry vision, diplopia, loss of vision Ears: Absent: decreased hearing, ear discharge, ear pain Nose, mouth and throat: Absent: headache(s), nasal congestion, sore throat - Cardiovascular Cardiovascular: Absent: chest pain at rest, chest pain with activity, dyspnea, edema, orthopnea, palpitations - Respiratory Respiratory: Absent: cough, dyspnea, wheezing - Gastrointestinal Gastrointestinal: Present: diarrhea, nausea, vomiting. Absent: abdominal pain, constipation - Genitourinary Genitourinary: Absent: dysuria, flank pain, urinary frequency - Musculoskeletal Musculoskeletal: Absent: arthralgias, joint swelling, muscle weakness, myalgias - Neurological Neurological: Absent: confusion, dizziness, numbness, paresthesias, syncope - Psychiatric Psychiatric: Absent: anxiety, depression - Endocrine Endocrine: Absent: cold intolerance, polydipsia, polyphagia, polyuria - Hematologic/Lymphatic Hematologic/Lymphatic: Absent: easy bleeding, easy bruising Exam - Constitutional Vitals: Period Temp Pulse Resp BP Sys/Grant Pulse Ox Last 24 Hr 98.1 F-98.1 F 106-106 18-18 161-161/69-69 97-97 Exam: Constitutional System: Afebrile. Awake, alert and oriented x 3. No distress. No tremulousness. Skin: Extensive area of redness covering below bilateral breasts and lower chest; pruritic. Head: Normocephalic, atraumatic. Ears, Nose and Throat System: No pain or tenderness. No epistaxis or discharge Eyes System: Pupils equal, round, and reactive. Extraocular muscles intact. Neck: Supple, without adenopathy, No jugular venous distention. No thyromegaly, neck mass, or prior surgery apparent. Respiratory System: Chest clear to auscultation. Cardiovascular System: Heart with tachycardic rate and rhythm. No murmur. GI System: Abdomen soft, nontender. Normo active bowel sounds present. Musculoskeletal System: limbs with no pedal edema. Full distal pulses. Normal capillary refill. Neurological System: No discernable sensory deficit. No aphasia Psychiatric System: Conversation is rational Results - Labs CBC & BMP: 11/25/16 23:55 11/25/16 23:55 Lab Results: I have reviewed the past 24 hour labs - Diagnostic Findings Procedure: Chest x-ray: report reviewed by me
[2016-11-26] MEDS ORDERED: POTASSIUM CHLORIDE RIDER 10 MEQ in PREMIX 1 EACH IV PRN (04:25)
[2016-11-26] MEDS ORDERED: MAGNESIUM SULF RIDER 1 GM in PREMIX 1 EACH IV ONE (04:26)
[2016-11-26] MEDS ORDERED: PHYTONADIONE 10 MG/1 ML AMP SUBCUT ONE (08:13)
--- NOTE | 2016-11-26 08:23 | Gastrointestinal Consult Note ---
Assessment and Plan (1) Abnormal weight loss Status: Acute Assessment and plan: The etiology of her abnormal weight loss of 25 pounds is unclear. She seems to have some cognitive deficits and certainly this may be driven by dementia or depression. Will rule out organic causes of weight loss including gastritis, gastroparesis, esophageal or stomach cancer, peptic ulcer disease, and colon cancer. To this end, we will put the patient on Lovenox bridge and perform EGD and colonoscopy on Monday after discontinuation of Lovenox on Monday. In the meantime we will cover the patient with Protonix twice daily and improve her electrolyte status. We need her potassium above 3.2 and her magnesium improved as well prior to performance of the procedures on Monday. Her INR is now 2.7 and will likely require a small dose of vitamin K to improve this in case biopsies or polypectomy are required. We may want to get a interior design coordinator on board if one has not already been consulted on her case. Current Visit: Yes (2) Chronic GERD Status: Acute Assessment and plan: Patient takes Prilosec as an outpatient and has been complaining of recent nausea and vomiting we will check for esophagitis. The patient is dehydrated state her hematocrit appears to be normal but I suspect this will go down significantly with hydration. Risks and benefits of the above procedures were outlined with the patient and include but are not limited to: Bleeding, infection, perforation, cardiac and pulmonary compromise. Current Visit: Yes (3) Nausea & vomiting Status: Acute Assessment and plan: This appears to be improving already on the pantoprazole. Again upper endoscopy is scheduled for Monday along with colonoscopy. Current Visit: Yes (4) Hypokalemia Status: Acute Assessment and plan: Currently the patient's potassium was 2.8, we need this to be at least 3.2 for the above procedures, we will continue to replace with K riders and oral potassium as well as potassium and the patient's IV fluids. Current Visit: No History of Present Illness Chief complaint: Poor p.o. intake, 25 pound weight loss, GERD, requires CRC screening History of present illness: Ms. Gaytan is a 61 year old female who states that she has been having nausea and vomiting daily for the last 3-4 days, she denies coffee grounds or bright red blood in the vomitus. She does not state that she has any diarrhea or constipation. She has had anorexia for several weeks with poor p.o. intake. She states that she has dropped her weight approximately 25 pounds going down from her usual weight of 180 pounds down to her current weight of 155 pounds. Patient has an extremely low magnesium and low potassium at 1.1 & 2.8 respectively. She is on Prilosec for underlying reflux. She does complain of generalized weakness and appears malnourished. Patient appears to have some cognitive deficits and pulled out her IV and was laying in bed crossways with blood all over the sheets/blanket and on the floor when I visit her today. She is not complaining of any diarrhea or constipation but appears to have some fecal incontinence based on physical examination with poor rectal tone. She does appear to be compliant with her warfarin dose as her INR was 2.7 on her current dosing. She does have atrial fibrillation. Her hematocrit is stable I suspect this will drop slightly with recent blood loss and with hydration, currently is 38.5 % She denies any fever, cough, bright red blood per rectum or black tarry bowel movements. Again her cognitive function is somewhat questionable based on the history I took. Patient denies heavy drinking ever and has not had a drink since 1984. Home Medications Medication Instructions Recorded Confirmed Type Digoxin Tab [Lanoxin Tab] 0.125 mg PO DAILY@1300 09/19/16 09/29/16 History Folic Acid Tab 1 mg PO DAILY 09/19/16 09/29/16 History Furosemide Tab [Lasix Tab] 20 mg PO DAILY@1600 09/19/16 09/29/16 History Furosemide Tab [Lasix Tab] 40 mg PO QAM 09/19/16 09/29/16 History Losartan Potassium 50 mg PO DAILY 09/19/16 09/29/16 History Omeprazole [Prilosec] 20 mg PO DAILY 09/19/16 09/29/16 History Salsalate 1,000 mg PO BID 09/19/16 09/29/16 History sitaGLIPtin [Januvia] 100 mg PO DAILY 09/19/16 09/29/16 History Diltiazem Tab [Cardizem Tab] 60 mg PO BID #60 tablet 09/29/16 09/29/16 Rx Warfarin [Coumadin] 5 mg PO MOFR@1800 tablet 10/10/16 Rx Warfarin [Coumadin] 7.5 mg PO SUTUWETHSA@1800 tablet 10/10/16 Rx Allergies Allergy/AdvReac Type Severity Reaction Status Date / Time nitrofurantoin AdvReac RASH Verified 09/19/16 18:35 [From Macrodantin] Sulfonylureas AdvReac RASH Verified 09/19/16 18:35 Medical,Surgical,& Family Hx - Medical History Cardio: History of: Cardiac Dysrhythmia (a-fib), CHF, Hypertension, Valvular Heart Disease (s/p mechanical mitral valve replacement), Cardiovascular Problems (valve replaced; mitral stenosis) No history of: CAD, [place] Psychological: No history of: Previous Suicide Attempt HEENT: History of: Eye Problem (nuclear sclerosis) Endocrine: History of: Diabetes Mellitus (NIDDM), Dyslipidemia Rheumatology: History of;: Psoriasis Respiratory: History of: Bronchitis No history of: Asthma Renal: History of: Renal Problems (ADDY) Genitourinary: History of: Recurring Urinary Tract Infections, Problems ( occasional stress leakage) Musculoskeletal: History of: Musculoskeletal Problems (rheumatoid arthritis) Other: History of: Miscellaneous Medical Problems (iron deficiency; psoriasis) - Surgical History Cardiac Surgeries: Sugical HX of: Cardiac Catheterization, Cardiac Surgery ( mechanical mitral valve replacement) HEENT Surgeries: Patient denies: Eye Surgery, Tonsilectomy & Adenoidectomy Abdominal Surgeries: Surgical HX of: Colonoscopy Reproductive Surgeries: Surgical HX of;: Dilation and Curettage, Hysterectomy Patient denies;: Section - Family History Family History: Reports;: Family Diabetes (mother, father, grandfather), Family Stroke (father, mother) Denies;: Family Cancer, Family Heart Disease, Family Hypertension, Family Psychiatric Problems - Social History Smoking Status: Never smoker Frequency of Alcohol Use: None Type of Drug Use: None Review of systems: Constitutional: Denies fever, chills, positive for nausea, and vomiting Eyes: Denies dry eyes, and scleral icterus HENT: Occasional headaches, recent fall Cardiovascular: Denies acute chest pain and claudication Respiratory: Denies shortness of breath, wheezing, and difficulty breathing, denies cough Gastrointestinal: As noted in the HPI Genitourinary: Denies dysuria and hematuria Neurologic: Denies vision loss, and loss of sensation Musculoskeletal: Denies joint swelling, but does complain of joint stiffness , and generalized muscular weakness Psychiatric: Admits to depression without mary grace symptoms Heme-Lymph: She does admit to easy bruising and excessive bleeding, but no lymph node enlargement or tenderness, night sweats Allergies-immunologic: She does admit to pruritus but no rhinorrhea Exam - Constitutional Vitals: Period Temp Pulse Resp BP Sys/Grant Pulse Ox Last 24 Hr 98.1 F-99.2 F 99-106 18-20 152-161/69-74 93-97 Exam: Constitutional: Well-developed, poorly-nourished, alert, and in acute distress due to recently self removed IV Head and face: Head: Normocephalic atraumatic Eyes: Conjunctiva without injection, no gross scleral icterus, pupils equal and round bilaterally Ears: Intact to conversation in both ears Nose: External appearance is normal, nares patent Mouth: Oral mucous membranes dry and intact without erythema dentition noted to be without erosion Neck: Normal appearance, no masses or tenderness, trachea midline Thyroid: Gland midline and appropriate size for age Respiratory: Normal respiratory effort, clear to auscultation without wheezes, rhonchi or rales Cardiovascular: Irregular rate and rhythm, there is a distinct mechanical click noted, normal S1, S2, the exam is without rubs, or gallops. There is a 2 out of 6 systolic ejection murmur heard best at the left lower sternal border with blowing quality consistent with the patient's mechanical heart valve Gastrointestinal: Nontender to palpation, normal active bowel sounds, tone normal without rigidity or guarding, no masses present, no hepatomegaly, no spleen tip felt. Rectal exam shows fecal incontinence with poor tone, stool is brown and surprisingly guaiac negative. Lymphatic: Neck without adenopathy, axilla without lymphadenopathy present Musculoskeletal: Right and left lower extremities without evidence of edema Skin and subcutaneous tissue: The patient has what appears to be a scabbing area along a dermatomal distribution around T4 on her left back consistent with healing shingles, deep-seated fungal-appearing infection below the breasts bilaterally, normal skin turgor, digits without clubbing/cyanosis/deformities except for toenail loss and what appears to be onchiomycosis of the toenail Neurologic: The patient is grossly oriented to person place and time, cranial nerves show tongue movements are normal with normal tongue extrusion midline, light touch sensation is intact. Psychiatric: No hallucinations or delusions are present, does appear to be somewhat demented/inattentive/confused Results - Labs CBC & BMP: 11/25/16 23:55 11/25/16 23:55
[2016-11-26] MEDS ORDERED: ENOXAPARIN 60 MG/0.6 ML SYRINGE SUBCUT SCH (08:30)
[2016-11-26] MEDS: MULTIVITAMIN (CENTRUM) TABLET PO SCH (08:52)
[2016-11-26] MEDS: FLUCONAZOLE 100 MG TABLET PO SCH (08:52)
[2016-11-26] MEDS: INSULIN LISPRO 100 UNIT/ML SUBCUT SCH ×4 (08:53→22:03)
[2016-11-26] MEDS ORDERED: ENOXAPARIN 40 MG/0.4 ML SYRINGE SUBCUT SCH (09:00)
[2016-11-26 09:07] LABS: Hematocrit 36.1 VOL% (35.7-47.0); Hemoglobin 12.4 GM/DL (12.0-16.0); Immature Granulocytes % 0.9 %; Immature Granulocytes Absolute 0.03 #; Lymphocytes # 0.8 10*3/uL (1.4-4.0); Mean Corpuscular HGB Conc 34.3 GM/DL (32-36); Mean Corpuscular Hemoglobin 29 PG (27-34); Mean Corpuscular Volume 85.5 FL (87-102); Mean Platelet Volume 10.9 FL (9.6-12.0); Monocytes # 0.6 10*3/uL (0.11-0.8); Monocytes % 17.4 % (1.7-12.7); Neutrophils # 1.9 10*3/uL (1.4-7.4); Neutrophils % 57.7 % (38.7-73.9); Platelet Count 131 T/CUMM (130-400); Red Blood Count 4.22 MC/CUMM (3.8-5.5); White Blood Count 3.3 T/CUMM (4-12)
[2016-11-26 09:28] LABS: Calcium 8.2 MG/DL (8.5-10.1); Magnesium 1.5 MG/DL (1.8-2.4); Osmolality,Calculated 271.1 MOS/KG (273-304); Potassium 2.6 MMOL/L (3.5-5.1)
[2016-11-26] MEDS ORDERED: LORazepam 2 MG/1 ML VIAL IV PRN (10:25)
--- NOTE | 2016-11-26 11:38 | Hospitalist Progress Note ---
Assessment and Plan (1) Nausea & vomiting Status: Acute Assessment and plan: EGD and colonoscopy on Monday, nausea better today Current Visit: Yes (2) Hypomagnesemia Status: Acute Assessment and plan: mg 2 gram IV Current Visit: Yes (3) Hypokalemia Status: Acute Assessment and plan: replacing IV, potassium rider and baseline fluids Current Visit: No (4) Diabetes Status: Chronic Assessment and plan: hgb a1c 6.6, ISC Current Visit: No Qualifiers: Diabetes mellitus type: type 2 (5) Rheumatoid arthritis Status: Chronic Assessment and plan: Restart home meds Current Visit: No (6) CHF (congestive heart failure), NYHA class III Status: Acute Assessment and plan: Chronic and stable, last echo EF 40% with septal hypokinesis prosthetic mechanical mitral valve with pannus formation PAP of 50 from 09/12 Current Visit: No Qualifiers: Congestive heart failure type: combined Congestive heart failure chronicity : acute on chronic Qualified Code(s): I50.43 - Acute on chronic combined systolic (congestive) and diastolic (congestive) heart failure (7) Atrial fibrillation Status: Chronic Assessment and plan: Continue dig and diltiazem Current Visit: Yes Qualifiers: Atrial fibrillation type: chronic Qualified Code(s): I48.2 - Chronic atrial fibrillation (8) Nonischemic cardiomyopathy Status: Chronic Assessment and plan: Echocardiogram showed an EF of 40% Current Visit: No (9) H/O mechanical aortic valve replacement Status: Chronic Assessment and plan: Stop Coumadin, Lovenox 70 every 12 hour when INR less than 2.5. Mitral valve try to keep 2.5 to 3.5, Cards consulted Current Visit: No (10) Dehydration Status: Acute Assessment and plan: hold lasix, gentle hydration Current Visit: Yes (11) Yeast dermatitis Status: Acute Assessment and plan: diflucan and nystatin powder Current Visit: Yes (12) Abnormal weight loss Status: Acute Assessment and plan: EGD and colonoscopy Current Visit: Yes (13) Chronic GERD Status: Acute Assessment and plan: protonix daily Current Visit: Yes (14) Hypertension Status: Acute Assessment and plan: cont dilt and losartan Current Visit: Yes Hospitalist: Subjective Interval history: Patient has a history of dementia and is not a very good historian. Her potassium is low at 2.8 and Federico is abnormally low and has not been replaced. Discussed case with Dr. Fuentes team plans to do an EGD and colonoscopy on Monday. He has stopped her Coumadin which she takes for a mechanical mitral valve. I have spoken with Dr. Thakkar and has for his assistance in bridging her Lovenox and recommendations for clearance for EGD and colonoscopy as requested by Dr. Fuentes. Patient is already pulled out her IV. Home meds were reviewed and reconciled Exam - Constitutional Vitals: Period Temp Pulse Resp BP Sys/Grant Pulse Ox Last 24 Hr 98.1 F-99.2 F 90-106 18-20 152-172/69-96 93-97 Exam: Heart Rate-[IRR with murmur] Lungs-[CTAB] GI-[+bs soft, NT] Ext-[no edema] Neuro follows commands but seems confused. psych [depressed mood and flat affect] General [no acute distress] Results - Labs CBC & BMP: 11/26/16 08:39 11/26/16 08:39 Lab Results: I have reviewed the past 24 hour labs Labs: INR 2.7 - EKG EKG shows: atrial fibrillation (Q waves in anterior septal leads) - Diagnostic Findings Procedure: Chest x-ray: report reviewed by me (Cardiomegaly without decompensation)
[2016-11-26] MEDS ORDERED: SALSALATE 500 MG TABLET PO SCH (12:00)
[2016-11-26 12:16] LABS: Band Neutrophils 1 % (0-10); Hypochromasia 1+; Lymphocytes 13 % (20-55); Platelet Estimate Decreased; Segmented Neutrophils 68 % (50-85); Total Cells Counted 100
[2016-11-26 12:19] LABS: INR 2.4
[2016-11-26 12:21] LABS: PT Patient Result 24.9 SECS
--- NOTE | 2016-11-26 12:36 | Cardiology Consult Note ---
Assessment and Plan (1) Abnormal weight loss Status: Acute Assessment and plan: Workup is underway via gastroenterology. Current Visit: Yes (2) Fall Status: Acute Assessment and plan: This appears to be multifactorial, but may be primarily related to volume and/ or electrolyte depletion. Workup is underway. Current Visit: Yes (3) Hypokalemia Status: Acute Assessment and plan: This is being repleted. Current Visit: Yes (4) Hypomagnesemia Status: Acute Assessment and plan: This is being repleted. Current Visit: Yes (5) Nausea & vomiting Status: Acute Assessment and plan: Workup by gastroenterology is underway per Current Visit: Yes (6) Weakness Status: Acute Current Visit: Yes (7) Atrial fibrillation Status: Chronic Assessment and plan: This appears to be well controlled on the current medical regimen. Current Visit: Yes Qualifiers: Atrial fibrillation type: chronic Qualified Code(s): I48.2 - Chronic atrial fibrillation (8) Debility Status: Acute Current Visit: No (9) Diabetes Status: Chronic Current Visit: No Qualifiers: Diabetes mellitus type: type 2 (10) Hx of mitral valve replacement with mechanical valve Status: Chronic Assessment and plan: Clinically this is functioning normally. We will need to hold her anticoagulation for her endoscopy. I agree with the Lovenox window as outlined by Dr. Fuentes. Current Visit: No (11) Rheumatoid arthritis Status: Chronic Current Visit: No (12) Chronic anticoagulation Status: Acute Assessment and plan: I think we can hold this until her INR is low enough to proceed with endoscopy. When her INR is less than 2.0 we can cover her with a Lovenox window except for the morning of her procedures. Current Visit: Yes History of Present Illness - Consult Narrative History of present illness: Ms. Gaytan is a 61 year old female who has a history of multiple medical problems including chronic atrial fibrillation and a mitral valve replacement in the past. Her primary coo is Dr. Low. She also has a history of diabetes, cirrhosis, rheumatoid arthritis, chronic renal insufficiency, and a mild cardiomyopathy. The patient actually came into the hospital at this time after having a fall at home. She essentially just got too weak and fell. She did not lose consciousness. She also complains of having nausea and vomiting for several days. She also reportedly has had a 25 pound weight loss over the last several weeks. Gastroenterology is planning on working her up with a endoscopy. However she is on warfarin and has a mitral valve replacement. I have been asked to see her to make recommendations regarding anticoagulation perioperatively. The patient denies any cardiac specific complaints at this time, although she is not a great historian. She denies any palpitations or angina. She is not having any congestive heart failure symptoms. She is lying flat in the bed without dyspnea. She does complain of generalized weakness which may be partially related to her hypokalemia. She also has marked hyponatremia and hypomagnesemia which could be a factor. Home Medications Medication Instructions Recorded Confirmed Type Digoxin Tab [Lanoxin Tab] 0.125 mg PO DAILY@1300 09/19/16 09/29/16 History Folic Acid Tab 1 mg PO DAILY 09/19/16 09/29/16 History Furosemide Tab [Lasix Tab] 20 mg PO DAILY@1600 09/19/16 09/29/16 History Furosemide Tab [Lasix Tab] 40 mg PO QAM 09/19/16 09/29/16 History Losartan Potassium 50 mg PO DAILY 09/19/16 09/29/16 History Omeprazole [Prilosec] 20 mg PO DAILY 09/19/16 09/29/16 History Salsalate 1,000 mg PO BID 09/19/16 09/29/16 History sitaGLIPtin [Januvia] 100 mg PO DAILY 09/19/16 09/29/16 History Diltiazem Tab [Cardizem Tab] 60 mg PO BID #60 tablet 09/29/16 09/29/16 Rx Warfarin [Coumadin] 5 mg PO MOFR@1800 tablet 10/10/16 Rx Warfarin [Coumadin] 7.5 mg PO SUTUWETHSA@1800 tablet 10/10/16 Rx CC: Sandi Canales MD - Home Medications and Allergies Home Medications: Home Medications Medication Instructions Recorded Confirmed Type Digoxin Tab [Lanoxin Tab] 0.125 mg PO DAILY@1300 09/19/16 09/29/16 History Folic Acid Tab 1 mg PO DAILY 09/19/16 09/29/16 History Furosemide Tab [Lasix Tab] 20 mg PO DAILY@1600 09/19/16 09/29/16 History Furosemide Tab [Lasix Tab] 40 mg PO QAM 09/19/16 09/29/16 History Losartan Potassium 50 mg PO DAILY 09/19/16 09/29/16 History Omeprazole [Prilosec] 20 mg PO DAILY 09/19/16 09/29/16 History Salsalate 1,000 mg PO BID 09/19/16 09/29/16 History sitaGLIPtin [Januvia] 100 mg PO DAILY 09/19/16 09/29/16 History Diltiazem Tab [Cardizem Tab] 60 mg PO BID #60 tablet 09/29/16 09/29/16 Rx Warfarin [Coumadin] 5 mg PO MOFR@1800 tablet 10/10/16 Rx Warfarin [Coumadin] 7.5 mg PO SUTUWETHSA@1800 tablet 10/10/16 Rx Allergies/Adverse Reactions: Allergies Allergy/AdvReac Type Severity Reaction Status Date / Time nitrofurantoin AdvReac RASH Verified 09/19/16 18:35 [From Macrodantin] Sulfonylureas AdvReac RASH Verified 09/19/16 18:35 12 point system: reviewed and no additional remarkable complaints except as stated Medical,Surgical,& Family Hx - Medical History Cardio: History of: Cardiac Dysrhythmia (a-fib), CHF, Hypertension, Valvular Heart Disease (s/p mechanical mitral valve replacement), Cardiovascular Problems (valve replaced; mitral stenosis) No history of: CAD, [place] Psychological: No history of: Previous Suicide Attempt HEENT: History of: Eye Problem (nuclear sclerosis) Endocrine: History of: Diabetes Mellitus (NIDDM), Dyslipidemia Rheumatology: History of;: Psoriasis Respiratory: History of: Bronchitis No history of: Asthma Renal: History of: Renal Problems (ADDY) Genitourinary: History of: Recurring Urinary Tract Infections, Problems ( occasional stress leakage) Musculoskeletal: History of: Musculoskeletal Problems (rheumatoid arthritis) Other: History of: Miscellaneous Medical Problems (iron deficiency; psoriasis) - Surgical History Cardiac Surgeries: Sugical HX of: Cardiac Catheterization, Cardiac Surgery ( mechanical mitral valve replacement) HEENT Surgeries: Patient denies: Eye Surgery, Tonsilectomy & Adenoidectomy Abdominal Surgeries: Surgical HX of: Colonoscopy Reproductive Surgeries: Surgical HX of;: Dilation and Curettage, Hysterectomy Patient denies;: Section - Family History Family History: Reports;: Family Diabetes (mother, father, grandfather), Family Stroke (father, mother) Denies;: Family Cancer, Family Heart Disease, Family Hypertension, Family Psychiatric Problems - Social History Smoking Status: Never smoker Frequency of Alcohol Use: None Type of Drug Use: None Physical Examination Vital Signs Temp Pulse Resp BP Pulse Ox 98.1 F 106 H 18 161/69 97 11/25/16 22:58 11/25/16 22:58 11/25/16 22:58 11/25/16 22:58 11/25/16 22:58 Exam: General: Frail, chronically ill-appearing, poorly kempt HEENT: Normocephalic, atraumatic Neck: Supple Neck, Midline Trachea, No Bruit, No JVD Cardiac: Irregular rhythm, 2 out of 6 systolic murmur, mechanical S1, no gallop , no rub Lungs: Clear to auscultation, No Wheeze, Rales, Rhonchi Neuro: Cranial Nerve 2-12 Intact, Motor Function Grossly Intact Abdomen: Soft, Active Bowel Sounds, No Masses, No Pulsations/Bruits Skin: Normal color, light rash over legs Extremities: No Clubbing, No Cyanosis, No Edema, Normal Upper Extr. Pulses Musculoskeletal: No acute abnormality noted, mild diffuse generalized weakness Psychiatric: The patient does not appear to be anxious or depressed Result/EKG - Labs CBC & BMP: 11/26/16 08:39 11/26/16 08:39 Lab Results: I have reviewed the past 24 hour labs Labs: Laboratory Results - last 24 hr 11/25/16 11/25/16 11/25/16 23:55 23:55 23:55 WBC 4.6 RBC 4.49 Hgb 13.1 Hct 38.5 MCV 85.7 L MCH 29 MCHC 34.0 RDW 13.2 Plt Count 161 MPV 11.1 Neut % (Auto) 64.8 Lymph % (Auto) 18.1 L Dickson % (Auto) 16.2 H Eos % (Auto) 0.0 Baso % (Auto) 0.0 Neut # (Auto) 3.0 Lymph # (Auto) 0.8 L Dickson # (Auto) 0.8 Eos # (Auto) 0.0 Baso # (Auto) 0.0 Total Counted 100 Immature Gran % 0.9 Nucleated RBC % 0.0 Immature Gran # 0.04 Segmented Neutrophils 69 Band Neutrophils Lymphocytes 20 Monocytes 11 Nucleated RBCs # 0.00 Atypical Lymphocytes Few Smudge Cells Few Platelet Estimate Normal Giant Platelets Few Immature Plt Fraction 0.0 Hypochromasia Morphology Comment INR 2.7 PT Patient/Control Mix 28.2 Circ Anticoag PTT 40.8 H Sodium 135 L Potassium 2.8 L Chloride 98 Carbon Dioxide 29 Anion Gap 10.8 BUN 16 Creatinine 1.20 H GFR Calculation 52 BUN/Creatinine Ratio 13.00 Glucose 155 H POC Glucose Hemoglobin A1c Calculated Osmolality 273.1 Calcium 8.2 L Magnesium Total Bilirubin 0.60 AST 26 ALT 16 Alkaline Phosphatase 126 H Total Creatine Kinase CK-MB (CK-2) Troponin I B-Natriuretic Peptide Total Protein 7.5 Albumin 3.2 L Globulin 4.3 H Albumin/Globulin Ratio 0.7 L Free T4 TSH 3rd Generation Urine Color Urine Appearance Urine pH Ur Specific [place] Urine Protein Urine Glucose (UA) Urine Ketones Urine Blood Urine Nitrate Urine Bilirubin Urine Urobilinogen Urine Leukocytes Urine RBC Urine WBC Ur Squamous Epith Cells Urine Bacteria Urine Mucus Ur Culture Indicated? Digoxin 11/25/16 11/25/16 11/25/16 23:55 23:55 23:55 WBC RBC Hgb Hct MCV MCH MCHC RDW Plt Count MPV Neut % (Auto) Lymph % (Auto) Dickson % (Auto) Eos % (Auto) Baso % (Auto) Neut # (Auto) Lymph # (Auto) Dickson # (Auto) Eos # (Auto) Baso # (Auto) Total Counted Immature Gran % Nucleated RBC % Immature Gran # Segmented Neutrophils Band Neutrophils Lymphocytes Monocytes Nucleated RBCs # Atypical Lymphocytes Smudge Cells Platelet Estimate Giant Platelets Immature Plt Fraction Hypochromasia Morphology Comment INR PT Patient/Control Mix Circ Anticoag PTT Sodium Potassium Chloride Carbon Dioxide Anion Gap BUN Creatinine GFR Calculation BUN/Creatinine Ratio Glucose POC Glucose Hemoglobin A1c Calculated Osmolality Calcium Magnesium 1.1 L Total Bilirubin AST ALT Alkaline Phosphatase Total Creatine Kinase 59 CK-MB (CK-2) < 1.0 Troponin I < 0.015 B-Natriuretic Peptide 103 H Total Protein Albumin Globulin Albumin/Globulin Ratio Free T4 1.18 TSH 3rd Generation 2.230 Urine Color Yellow Urine Appearance Cloudy Urine pH 5.0 Ur Specific [place] 1.013 Urine Protein 30 Urine Glucose (UA) Negative Urine Ketones Negative Urine Blood Small Urine Nitrate Negative Urine Bilirubin Negative Urine Urobilinogen 2.0 H Urine Leukocytes Trace Urine RBC 8 Urine WBC 5 Ur Squamous Epith Cells Occasional Urine Bacteria Few Urine Mucus Occasional Ur Culture Indicated? Results to follow Digoxin 11/25/16 11/26/16 11/26/16 23:55 08:02 08:39 WBC RBC Hgb Hct MCV MCH MCHC RDW Plt Count MPV Neut % (Auto) Lymph % (Auto) Dickson % (Auto) Eos % (Auto) Baso % (Auto) Neut # (Auto) Lymph # (Auto) Dickson # (Auto) Eos # (Auto) Baso # (Auto) Total Counted Immature Gran % Nucleated RBC % Immature Gran # Segmented Neutrophils Band Neutrophils Lymphocytes Monocytes Nucleated RBCs # Atypical Lymphocytes Smudge Cells Platelet Estimate Giant Platelets Immature Plt Fraction Hypochromasia Morphology Comment INR PT Patient/Control Mix Circ Anticoag PTT Sodium Potassium Chloride Carbon Dioxide Anion Gap BUN Creatinine GFR Calculation BUN/Creatinine Ratio Glucose POC Glucose 224 H Hemoglobin A1c 6.6 H Calculated Osmolality Calcium Magnesium Total Bilirubin AST ALT Alkaline Phosphatase Total Creatine Kinase CK-MB (CK-2) Troponin I B-Natriuretic Peptide Total Protein Albumin Globulin Albumin/Globulin Ratio Free T4 TSH 3rd Generation Urine Color Urine Appearance Urine pH Ur Specific [place] Urine Protein Urine Glucose (UA) Urine Ketones Urine Blood Urine Nitrate Urine Bilirubin Urine Urobilinogen Urine Leukocytes Urine RBC Urine WBC Ur Squamous Epith Cells Urine Bacteria Urine Mucus Ur Culture Indicated? Digoxin 0.70 L 11/26/16 11/26/16 11/26/16 08:39 08:39 10:54 WBC 3.3 L RBC 4.22 Hgb 12.4 Hct 36.1 MCV 85.5 L MCH 29 MCHC 34.3 RDW 13.0 Plt Count 131 MPV 10.9 Neut % (Auto) 57.7 Lymph % (Auto) 24.0 Dickson % (Auto) 17.4 H Eos % (Auto) 0.0 Baso % (Auto) 0.0 Neut # (Auto) 1.9 Lymph # (Auto) 0.8 L Dickson # (Auto) 0.6 Eos # (Auto) 0.0 Baso # (Auto) 0.0 Total Counted 100 Immature Gran % 0.9 Nucleated RBC % 0.0 Immature Gran # 0.03 Segmented Neutrophils 68 Band Neutrophils 1 Lymphocytes 13 L Monocytes 18 H Nucleated RBCs # 0.00 Atypical Lymphocytes Smudge Cells Platelet Estimate Decreased Giant Platelets Immature Plt Fraction 0.0 Hypochromasia 1+ Morphology Comment INR PT Patient/Control Mix Circ Anticoag PTT Sodium 135 L Potassium 2.6 L Chloride 99 Carbon Dioxide 27 Anion Gap 11.6 BUN 12 Creatinine 1.10 H GFR Calculation 55 BUN/Creatinine Ratio 10.00 Glucose 139 H POC Glucose 87 Hemoglobin A1c Calculated Osmolality 271.1 L Calcium 8.2 L Magnesium 1.5 L Total Bilirubin AST ALT Alkaline Phosphatase Total Creatine Kinase CK-MB (CK-2) Troponin I B-Natriuretic Peptide Total Protein Albumin Globulin Albumin/Globulin Ratio Free T4 TSH 3rd Generation Urine Color Urine Appearance Urine pH Ur Specific [place] Urine Protein Urine Glucose (UA) Urine Ketones Urine Blood Urine Nitrate Urine Bilirubin Urine Urobilinogen Urine Leukocytes Urine RBC Urine WBC Ur Squamous Epith Cells Urine Bacteria Urine Mucus Ur Culture Indicated? Digoxin 11/26/16 11:57 WBC RBC Hgb Hct MCV MCH MCHC RDW Plt Count MPV Neut % (Auto) Lymph % (Auto) Dickson % (Auto) Eos % (Auto) Baso % (Auto) Neut # (Auto) Lymph # (Auto) Dickson # (Auto) Eos # (Auto) Baso # (Auto) Total Counted Immature Gran % Nucleated RBC % Immature Gran # Segmented Neutrophils Band Neutrophils Lymphocytes Monocytes Nucleated RBCs # Atypical Lymphocytes Smudge Cells Platelet Estimate Giant Platelets Immature Plt Fraction Hypochromasia Morphology Comment INR 2.4 PT Patient/Control Mix 24.9 Circ Anticoag PTT Sodium Potassium Chloride Carbon Dioxide Anion Gap BUN Creatinine GFR Calculation BUN/Creatinine Ratio Glucose POC Glucose Hemoglobin A1c Calculated Osmolality Calcium Magnesium Total Bilirubin AST ALT Alkaline Phosphatase Total Creatine Kinase CK-MB (CK-2) Troponin I B-Natriuretic Peptide Total Protein Albumin Globulin Albumin/Globulin Ratio Free T4 TSH 3rd Generation Urine Color Urine Appearance Urine pH Ur Specific [place] Urine Protein Urine Glucose (UA) Urine Ketones Urine Blood Urine Nitrate Urine Bilirubin Urine Urobilinogen Urine Leukocytes Urine RBC Urine WBC Ur Squamous Epith Cells Urine Bacteria Urine Mucus Ur Culture Indicated? Digoxin - EKG EKG results: interpreted by me
[2016-11-26] MEDS: MICONAZOLE 2% CREAM 57 GM TUBE TOP SCH ×2 (15:44→22:00)
[2016-11-26] MEDS: NYSTATIN POWDER 15 GM BOTTLE TOP SCH ×3 (15:44→22:01)
[2016-11-26] MEDS: POTASSIUM CHLORIDE RIDER 10 MEQ in PREMIX 1 EACH IV SCH ×3 (15:45→21:50)
[2016-11-26] MEDS: SODIUM CHLOR 0.9% KCL 20 MEQ 20 MEQ/1,000 ML BAG IV SCH (15:45)
[2016-11-26] MEDS: PANTOPRAZOLE 40 MG VIAL IV SCH (17:21)
[2016-11-26] MEDS: DILTIAZEM 60 MG TABLET PO SCH ×2 (17:22→21:54)
[2016-11-26] MEDS: FOLIC ACID 1 MG TABLET PO SCH (17:22)
[2016-11-26] MEDS: DIGOXIN 0.125 MG TABLET PO SCH (17:22)
[2016-11-26] MEDS: LOSARTAN 50 MG TABLET PO SCH (17:22)
[2016-11-26 17:33] LABS: Calcium 7.9 MG/DL (8.5-10.1); Osmolality,Calculated 268.1 MOS/KG (273-304)
[2016-11-26] MEDS ORDERED: WARFARIN 7.5 MG TABLET PO SCH (18:00)
[2016-11-26] MEDS ORDERED: MAGNESIUM CITRATE 300 ML BOTTLE PO ONE (21:00)
[2016-11-26] MEDS: ENOXAPARIN 80 MG/0.8 ML SYRINGE SUBCUT SCH (21:54)
[2016-11-27] MEDS ORDERED: MAGNESIUM SULF RIDER 2 GM in PREMIX 1 EACH IV ONE
[2016-11-27] MEDS: MAGNESIUM SULF RIDER 2 GM in PREMIX 1 EACH IV ONE ×2 (00:23→03:39)
[2016-11-27] MEDS: SODIUM CHLOR 0.9% KCL 20 MEQ 20 MEQ/1,000 ML BAG IV SCH ×3 (01:50→19:46)
[2016-11-27] MEDS: POTASSIUM CHLORIDE RIDER 10 MEQ in PREMIX 1 EACH IV SCH ×3 (03:30→09:08)
[2016-11-27] MEDS: SALSALATE 500 MG TABLET PO SCH ×2 (03:40→09:06)
[2016-11-27 03:42] LABS: INR 1.7; PT Patient Result 17.6 SECS
[2016-11-27 04:16] LABS: Calcium 7.8 MG/DL (8.5-10.1)
[2016-11-27] MEDS ORDERED: PHYTONADIONE 10 MG/1 ML AMP SUBCUT ONE (08:00)
[2016-11-27] MEDS ORDERED: POTASSIUM CHLORIDE 20 MEQ TABLET PO ONE (08:49)
[2016-11-27] MEDS: PANTOPRAZOLE 40 MG VIAL IV SCH (09:04)
[2016-11-27] MEDS: DILTIAZEM 60 MG TABLET PO SCH ×2 (09:05→21:06)
[2016-11-27] MEDS: MICONAZOLE 2% CREAM 57 GM TUBE TOP SCH ×2 (09:05→21:08)
[2016-11-27] MEDS: FLUCONAZOLE 100 MG TABLET PO SCH (09:05)
[2016-11-27] MEDS: MULTIVITAMIN (CENTRUM) TABLET PO SCH (09:05)
[2016-11-27] MEDS: BISACODYL 5 MG TABLET PO SCH ×2 (09:05→16:03)
[2016-11-27] MEDS: LOSARTAN 50 MG TABLET PO SCH (09:05)
[2016-11-27] MEDS: FOLIC ACID 1 MG TABLET PO SCH (09:07)
[2016-11-27] MEDS: NYSTATIN POWDER 15 GM BOTTLE TOP SCH ×2 (09:10→16:06)
[2016-11-27] MEDS: INSULIN LISPRO 100 UNIT/ML SUBCUT SCH ×4 (11:01→21:22)
[2016-11-27] MEDS: ENOXAPARIN 80 MG/0.8 ML SYRINGE SUBCUT SCH (11:04)
--- NOTE | 2016-11-27 13:27 | Event Note ---
The patient was in the bathroom when I came by. According to the nursing staff she is doing well and there have been no cardiac issues overnight. Her INR is down to 1.7. I think we can proceed with endoscopy using the Lovenox window as planned.
--- NOTE | 2016-11-27 14:17 | Gastrointestinal Progress Note ---
Assessment and Plan (1) Abnormal weight loss Status: Acute Assessment and plan: The etiology of her abnormal weight loss of 25 pounds is unclear. She seems to have some cognitive deficits and certainly this may be driven by dementia or depression. Will rule out organic causes of weight loss including gastritis, gastroparesis, esophageal or stomach cancer, peptic ulcer disease, and colon cancer. To this end, we will put the patient on Lovenox bridge and perform EGD and colonoscopy on Monday after discontinuation of Lovenox on Monday. In the meantime we will cover the patient with Protonix twice daily and improve her electrolyte status. We need her potassium above 3.2 and her magnesium improved as well prior to performance of the procedures on Monday. Her INR is now 2.7 and will likely require a small dose of vitamin K to improve this in case biopsies or polypectomy are required. We may want to get a flat cutter on board if one has not already been consulted on her case. 11/27/16--the patient has abnormal weight loss and is about to undergo both EGD and colonoscopy tomorrow to rule out organic causes. Her potassium is now 3.8 her magnesium is improved into the normal range. Her INR is down to 1.7 and I suspect that she may get even better now she is being given 1 more dose of vitamin K-- 5 mg. Current Visit: Yes (2) Chronic GERD Status: Acute Assessment and plan: Patient takes Prilosec as an outpatient and has been complaining of recent nausea and vomiting we will check for esophagitis. The patient is dehydrated state her hematocrit appears to be normal but I suspect this will go down significantly with hydration. Risks and benefits of the above procedures were outlined with the patient and include but are not limited to: Bleeding, infection, perforation, cardiac and pulmonary compromise. 11/27/16--patient is taking pantoprazole 40 mg twice daily. She had recent nausea and vomiting we are searching for a cause for this including esophagitis. Further recommendations post upper and lower endoscopy tomorrow morning. The patient's [id number] is at the bedside and her questions were answered. Current Visit: Yes (3) Nausea & vomiting Status: Acute Assessment and plan: This appears to be improving already on the pantoprazole. Again upper endoscopy is scheduled for Monday, tomorrow, along with colonoscopy. Current Visit: Yes (4) Hypokalemia Status: Acute Assessment and plan: Currently the patient's potassium was 2.8, we need this to be at least 3.2 for the above procedures, we will continue to replace with K riders and oral potassium as well as potassium and the patient's IV fluids. 11/27/16--Patient's nursing staff have done an excellent job getting this into the normal range. We will proceed with upper and lower endoscopy as mentioned. Current Visit: No Gastroenterology - PN: Subj Interval history: Patient is doing well with her Lovenox window for upper and lower endoscopy tomorrow. She has abnormal weight loss. Patient is otherwise doing well and her questions were answered. She is about to get her bowel prep in the near future. Exam (Progress Note) - Constitutional Vitals: Period Temp Pulse Resp BP Sys/Grant Pulse Ox Last 24 Hr 97.4 F-99.9 F 68-81 18-20 112-126/56-68 93-96 General appearance: no acute distress - Head Head exam: Present: normocephalic - Eye Eye exam: Present: EOMI - Respiratory Respiratory exam: Present: clear to auscultation bilaterally - Cardiovascular Cardiovascular exam: Present: regular rate and rhythm - GI/Abdominal GI/Abdominal exam: Present: normal bowel sounds, distended, soft. Absent: tenderness, rebound - Extremities Exam Extremities exam: Absent: edema - Neurological Exam Neurological exam: Present: alert, oriented X3 - Psychiatric Psychiatric exam: Present: normal affect, normal mood - Skin Skin exam: Present: warm Results - Labs CBC & BMP: 11/26/16 08:39 11/27/16 11:15
--- NOTE | 2016-11-27 14:58 | Hospitalist Progress Note ---
Assessment and Plan (1) Nausea & vomiting Status: Acute Assessment and plan: EGD and colonoscopy on Monday, nausea better today Current Visit: Yes (2) Hypomagnesemia Status: Acute Assessment and plan: resolved Current Visit: Yes (3) Hypokalemia Status: Acute Assessment and plan: resolved, cont replacing, replacement oral protocol Current Visit: No (4) Diabetes Status: Chronic Assessment and plan: hgb a1c 6.6, ISC, BS stable Current Visit: No Qualifiers: Diabetes mellitus type: type 2 (5) Rheumatoid arthritis Status: Chronic Assessment and plan: Restart home meds Current Visit: No (6) CHF (congestive heart failure), NYHA class III Status: Acute Assessment and plan: Chronic and stable, last echo EF 40% with septal hypokinesis prosthetic mechanical mitral valve with pannus formation PAP of 50 from 09/12 Current Visit: No Qualifiers: Congestive heart failure type: combined Congestive heart failure chronicity : acute on chronic Qualified Code(s): I50.43 - Acute on chronic combined systolic (congestive) and diastolic (congestive) heart failure (7) Atrial fibrillation Status: Chronic Assessment and plan: Continue dig and diltiazem Current Visit: Yes Qualifiers: Atrial fibrillation type: chronic Qualified Code(s): I48.2 - Chronic atrial fibrillation (8) Nonischemic cardiomyopathy Status: Chronic Assessment and plan: Echocardiogram showed an EF of 40% Current Visit: No (9) H/O mechanical aortic valve replacement Status: Chronic Assessment and plan: Stop Coumadin, Lovenox 70 every 12 hour when INR less than 2.5. Mitral valve try to keep 2.5 to 3.5 Current Visit: No (10) Dehydration Status: Acute Assessment and plan: resolved Current Visit: Yes (11) Yeast dermatitis Status: Acute Assessment and plan: diflucan and nystatin powder Current Visit: Yes (12) Abnormal weight loss Status: Acute Assessment and plan: EGD and colonoscopy tomorrow Current Visit: Yes (13) Chronic GERD Status: Acute Assessment and plan: protonix daily Current Visit: Yes (14) Hypertension Status: Acute Assessment and plan: cont dilt and losartan Current Visit: Yes Hospitalist: Subjective Interval history: Patient more lucid and talkative today. She was able to tolerate oral potassium this morning. Her repeat potassium is finally normal. I will continue replacement. Patient has had no diarrhea but had a bowel movement yesterday. I am concerned that her potassium will drop again with prep and will give her some extra potassium again tonight. Patient is ambulating without assistance to the bathroom. The area under her breasts look a little less angry today. She reports got her to take a good bath yesterday. Exam - Constitutional Vitals: Period Temp Pulse Resp BP Sys/Grant Pulse Ox Last 24 Hr 97.4 F-99.9 F 68-81 18-20 112-126/56-68 93-96 Exam: Heart Rate-[IRR with murmur] Lungs-[CTAB] GI-[+bs soft, NT] Ext-[no edema] Neuro motor 5 out of 5, alert and oriented 2 psych [depressed mood and flat affect] General [no acute distress] Skin diffuse yeast under her breast Results - Labs CBC & BMP: 11/26/16 08:39 11/27/16 11:15 Lab Results: I have reviewed the past 24 hour labs Labs: Gram-negative rods in the urine
[2016-11-27] MEDS: DIGOXIN 0.125 MG TABLET PO SCH ×2 (16:03→16:04)
[2016-11-27] MEDS: SODIUM CHLOR 0.9% KCL 40 MEQ 40 MEQ/1,000 ML BAG IV SCH (16:03)
[2016-11-27] MEDS ORDERED: POLYETHYLENE GLYCOL POWDER 255 GM BOTTLE PO ONE (18:00)
[2016-11-27] MEDS ORDERED: MAGNESIUM CITRATE 300 ML BOTTLE PO ONE (21:00)
[2016-11-28] MEDS: SODIUM CHLOR 0.9% KCL 40 MEQ 40 MEQ/1,000 ML BAG IV SCH ×3 (00:37→14:30)
[2016-11-28] MEDS: NYSTATIN POWDER 15 GM BOTTLE TOP SCH ×4 (00:39→22:23)
[2016-11-28] MEDS: SALSALATE 500 MG TABLET PO SCH ×3 (00:41→22:23)
[2016-11-28] MEDS: BISACODYL 5 MG TABLET PO SCH (00:44)
[2016-11-28 07:27] LABS: Hematocrit 34.5 VOL% (35.7-47.0); Hemoglobin 11.7 GM/DL (12.0-16.0); Immature Granulocytes % 0.3 %; Immature Granulocytes Absolute 0.01 #; Lymphocytes # 1.3 10*3/uL (1.4-4.0); Lymphocytes % 44.7 % (21.3-54.2); Mean Corpuscular HGB Conc 33.9 GM/DL (32-36); Mean Corpuscular Hemoglobin 29 PG (27-34); Mean Platelet Volume 10.8 FL (9.6-12.0); Monocytes # 0.5 10*3/uL (0.11-0.8); Monocytes % 17.3 % (1.7-12.7); Neutrophils # 1.1 10*3/uL (1.4-7.4); Neutrophils % 37.7 % (38.7-73.9); Platelet Count 114 T/CUMM (130-400); Red Blood Count 4.01 MC/CUMM (3.8-5.5); Red Cell Distribution Width 13.2 % (9.3-17.3)
[2016-11-28 07:32] LABS: INR 1.2; PT Patient Result 12.2 SECS
[2016-11-28 07:55] LABS: Magnesium 1.9 MG/DL (1.8-2.4); Osmolality,Calculated 277.4 MOS/KG (273-304); Potassium 3.7 MMOL/L (3.5-5.1)
[2016-11-28 08:15] LABS: Band Neutrophils 5 % (0-10); Hypochromasia 1+; Lymphocytes 40 % (20-55); Microcytosis 1+; Myelocytes 1 %; Segmented Neutrophils 39 % (50-85); Total Cells Counted 100
[2016-11-28 08:16] LABS: Platelet Estimate Adequate
[2016-11-28] MEDS ORDERED: LIDOCAINE 1% 5 ML VIAL ONE (08:52)
[2016-11-28] MEDS ORDERED: PROPOFOL 200 MG/20 ML VIAL IV ONE (08:52)
[2016-11-28] MEDS ORDERED: ETOMIDATE 20 MG/10 ML VIAL IV ONE (08:52)
[2016-11-28] MEDS: INSULIN LISPRO 100 UNIT/ML SUBCUT SCH ×4 (09:05→22:20)
--- NOTE | 2016-11-28 09:05 | Operative Note ---
Date of procedure: 11/28/16 Pre-op diagnosis: Nausea/vomiting/abnormal weight loss/hypokalemia Post-op diagnosis: other (This patient has some very mild nonerosive linear gastritis which was biopsied, there was mild erythema noted in the distal esophagus but no gross evidence of erosions or ulcerations, biopsies were also taken for celiac sprue incidentally.) Procedure: PROCEDURE: Esophagogastroduodenoscopy (EGD) with cold biopsy for pathology REFERRING PHYSICIAN: Sandi Canales MD INDICATIONS: Nausea/vomiting/abnormal weight loss/hypokalemia the prior H&P was reviewed and interrim changes are as noted: No change from GI consultation 2 days ago ENDOSCOPIST: Derek Fuentes MD ENDOSCOPE: Olympus Video 100 System upper endoscope ASA CLASS: 3 EXAM: CV: regular rate and rhythm respiratory: Clear without wheezes abdominal: active bowel sounds MEDICATION: Per nursing anesthesia protocol, see their notes PROCEDURE: After discussion of the potential risks and benefits of upper endoscopy, the informed consent was obtained. The patient was then placed in the left lateral decubitus position where sedation was achieved as noted above. Esophageal intubation was performed without difficulty, and the endoscope was advanced through the esophagus, stomach and duodenum. A slow withdrawal was then performed with retroflexion in the stomach for careful inspection of the incisura angularis, fundus and cardia. The scope was then returned to a neutral position and withdrawn through the esophagus. The patient tolerated the procedure well and without complication. BIOPSIES: Gastric antrum/body, duodenum PHOTOGRAPHS: Obtained FINDINGS: Hypopharynx and Larynx: Normal Esohagoscopy Upper and middle thirds: Normal Lower third mild erythema 3 cm but no gross evidence of stricturing or varices or Munoz's. Esophogastric junctions: Mild erythema 3 cm but no gross evidence of stricturing varices Munoz's or erosion. Gastroscopy: Cardia/Fundus: Normal, no fluid Body: Normal with mild linear nonerosive gastritis, biopsied Antrum and pylorus mild nonerosive linear gastritis, biopsied Duodenoscopy: Bulb normal-appearing, biopsied for sprue Second and third portions: Normal appearing, biopsied for sprue IMPRESSION: This patient has some very mild nonerosive linear gastritis which was biopsied, there was mild erythema noted in the distal esophagus but no gross evidence of erosions or ulcerations, biopsies were also taken for celiac sprue incidentally. RECOMMENDATIONS: Follow up for biopsy results in 1-2 weeks by phone [phone] Continue anti-gastroesophageal reflux measures (avoid carbonated and acidic beverages, avoid eating within 2 hours of bedtime, avoid tight fitting clothing , and elevate the front bed posts 6 inches prior to sleeping. My suggest using Protonix daily to help out with appetite, biopsies pending for rule out Helicobacter pylori Derek Fuentes MD COPY TO: Sandi Canales MD Anesthesia: GETA Surgeon / Physician: Derek Fuentes Estimated blood loss: minimal Specimens: other (Gastric antrum/body and duodenum) Condition: stable Disposition: post procedure unit ([facility]) Results - Labs CBC & BMP: 11/28/16 07:10 11/28/16 07:10 Discharge Plan - Discharge Medications No Action Losartan Potassium 50 mg PO DAILY Folic Acid Tab 1 mg PO DAILY sitaGLIPtin [Januvia] 100 mg PO DAILY Omeprazole [Prilosec] 20 mg PO DAILY Digoxin Tab [Lanoxin Tab] 0.125 mg PO DAILY@1300 Furosemide Tab [Lasix Tab] 40 mg PO QAM Diltiazem Tab [Cardizem Tab] 60 mg PO BID #60 tablet sulfaSALAzine [Sulfasalazine] 500 mg PO BID Warfarin [Coumadin] 7.5 mg PO SUTUWETHSA@1800 tablet Warfarin [Coumadin] 5 mg PO MOFR@1800 tablet - Follow Up or Referral - Forms/Instructions
--- NOTE | 2016-11-28 09:21 | Operative Note ---
Date of procedure: 11/28/16 Pre-op diagnosis: Abnormal weight loss of 25 pounds in the last for several years. Post-op diagnosis: other (Possible inflamed diverticulum at 38 cm, biopsies pending, mild proctitis but otherwise normal-appearing colon with moderate left- sided diverticulosis and moderate size internal hemorrhoids.) Procedure: PROCEDURE: Colonoscopy with cold biopsy for pathology REFERRING PHYSICIAN: Sandi Canales MD INDICATIONS: Abnormal weight loss of 25 pounds over the last several years no change from GI consultation 2 days ago the prior H&P was reviewed and interrim changes are as noted: No change from GI consultation 2 days ago ENDOSCOPIST: Derek Fuentes MD ENDOSCOPE: Olympus Video 100 System colonoscope COLON PREPARATION: 238 gm of PEG containing laxative and 1.9 liters of gatoraid/sports drink and dulcolax 15 mg q8 hours x 3 ASA CLASS: 3 EXAM: CV: regular rate and rhythm Respiratory: Clear without wheezes Abdominal: active bowel sounds Rectal: Good tone, no fissures or fistulas MEDICATION: Per nursing anesthesia protocol, see their notes PROCEDURE: After discussion of the potential risks and benefits of colonoscopy, the informed consent was obtained, from patient or health care surrogate. The patient was then placed in the left lateral decubitus position where sedation was achieved as noted above. Rectal examination was followed by insertion of the colonoscope. The colonoscope was passed under direct visualization to the cecum. Advancement was facilitated by insertion/withdrawl techniques, abdominal pressure and patient positioning. Once the cecal pole was reached, slow withdrawal was performed with the findings as noted below. The patient tolerated the procedure well and without complication. QUALITY OF PREP: Excellent WITHDRAWL TIME: 6 minutes 13 seconds BIOPSIES: In the descending colon at 38 cm PHOTOGRAPHS: Obtained FINDINGS: The musoca appeared normal in the following regions: Sigmoid colon, splenic flexure, transverse colon, hepatic flexure, ascending colon and cecum. Position within the cecum was confirmed by ileocecal valve, appendiceal oriface , and the convergence of folds (crows foot). No polyp, mass or AVM was noted throughout the colon. There was an area of localized inflammation around the rectum consistent with mild proctitis from stool, moderate sized internal hemorrhoids noted here as well. Moderate left-sided diverticulosis noted. A single diverticulum appeared to have been inflamed and swollen at about 38 cm, this area was biopsied along the rim to ensure that it was not a small cancer but it appeared almost ulcerated in the center. Intubation of the TI was achieved x 5 cm with normal appearence IMPRESSION: Possible inflamed diverticulum at 38 cm, biopsies pending, mild proctitis but otherwise normal-appearing colon with moderate left-sided diverticulosis and moderate size internal hemorrhoids. No cause for weight loss specifically identified. RECOMMENDATIONS: High fiber diet Repeat colonosocopy will be in 10 years The patient can resume their Lovenox and Coumadin at this time Resume regular diet as tolerated Consider Citrucel 1 tablespoon in 12 oz juice BID: 1 bottle: :11 Follow up by phone for biopsy results in 1-2 weeks by phone Derek Fuentes MD COPY TO: Sandi Canales MD Anesthesia: GETA Surgeon / Physician: Derek Fuentes Estimated blood loss: minimal Specimens: other (Descending colon, lesion at 38 cm, ?Inflamed diverticulum?) Condition: stable Disposition: post procedure unit ([facility]) Results - Labs CBC & BMP: 11/28/16 07:10 11/28/16 07:10 Discharge Plan - Discharge Medications No Action Losartan Potassium 50 mg PO DAILY Folic Acid Tab 1 mg PO DAILY sitaGLIPtin [Januvia] 100 mg PO DAILY Omeprazole [Prilosec] 20 mg PO DAILY Digoxin Tab [Lanoxin Tab] 0.125 mg PO DAILY@1300 Furosemide Tab [Lasix Tab] 40 mg PO QAM Diltiazem Tab [Cardizem Tab] 60 mg PO BID #60 tablet sulfaSALAzine [Sulfasalazine] 500 mg PO BID Warfarin [Coumadin] 7.5 mg PO SUTUWETHSA@1800 tablet Warfarin [Coumadin] 5 mg PO MOFR@1800 tablet - Follow Up or Referral - Forms/Instructions
--- NOTE | 2016-11-28 09:25 | Gastrointestinal Progress Note ---
Assessment and Plan (1) Abnormal weight loss Status: Acute Assessment and plan: The etiology of her abnormal weight loss of 25 pounds is unclear. She seems to have some cognitive deficits and certainly this may be driven by dementia or depression. Will rule out organic causes of weight loss including gastritis, gastroparesis, esophageal or stomach cancer, peptic ulcer disease, and colon cancer. To this end, we will put the patient on Lovenox bridge and perform EGD and colonoscopy on Monday after discontinuation of Lovenox on Monday. In the meantime we will cover the patient with Protonix twice daily and improve her electrolyte status. We need her potassium above 3.2 and her magnesium improved as well prior to performance of the procedures on Monday. Her INR is now 2.7 and will likely require a small dose of vitamin K to improve this in case biopsies or polypectomy are required. We may want to get a release manager on board if one has not already been consulted on her case. 11/27/16--the patient has abnormal weight loss and is about to undergo both EGD and colonoscopy tomorrow to rule out organic causes. Her potassium is now 3.8 her magnesium is improved into the normal range. Her INR is down to 1.7 and I suspect that she may get even better now she is being given 1 more dose of vitamin K-- 5 mg. 11/28/16--the patient did have some mild erythema in her esophagus as well as some scant linear gastritis in her stomach, biopsies taken to rule out Helicobacter pylori, the colonoscopy was negative except for what appear to be an inflamed diverticulum at 38 cm that was healing. Biopsies taken of that lesion. She is safe to go right back on her Coumadin and start her Lovenox bridge again today. Current Visit: Yes (2) Chronic GERD Status: Acute Assessment and plan: Patient takes Prilosec as an outpatient and has been complaining of recent nausea and vomiting we will check for esophagitis. The patient is dehydrated state her hematocrit appears to be normal but I suspect this will go down significantly with hydration. Risks and benefits of the above procedures were outlined with the patient and include but are not limited to: Bleeding, infection, perforation, cardiac and pulmonary compromise. 11/27/16--patient is taking pantoprazole 40 mg twice daily. She had recent nausea and vomiting we are searching for a cause for this including esophagitis. Further recommendations post upper and lower endoscopy tomorrow morning. The patient's [id number] is at the bedside and her questions were answered. 11/28/16--Continue on pantoprazole 40 mg prior to suppertime each night. We might consider use of Remeron 15 mg per day to help with appetite Current Visit: Yes (3) Nausea & vomiting Status: Acute Assessment and plan: This appears to be improving already on the pantoprazole. Again upper endoscopy is scheduled for Monday, tomorrow, along with colonoscopy. 11/28/16--No significant findings seen on upper or lower endoscopy to explain the vomiting. No gross evidence of gastroparesis or ulcerations seen, continue treating with PPIs symptomatically. Biopsies are pending. No specific cause for weight loss seen. Current Visit: Yes (4) Hypokalemia Status: Acute Assessment and plan: Currently the patient's potassium was 2.8, we need this to be at least 3.2 for the above procedures, we will continue to replace with K riders and oral potassium as well as potassium and the patient's IV fluids. 11/27/16--Patient's nursing staff have done an excellent job getting this into the normal range. We will proceed with upper and lower endoscopy as mentioned. 11/28/16--improved over time with potassium replacement. Current Visit: No Gastroenterology - PN: Subj Interval history: No new complaints Exam (Progress Note) - Constitutional Vitals: Period Temp Pulse Resp BP Sys/Grant Pulse Ox Last 24 Hr 97.6 F-98.4 F 20-86 18-20 99-151/54-85 95-97 General appearance: mild distress - Head Head exam: Present: normocephalic - Eye Eye exam: Present: EOMI - Respiratory Respiratory exam: Present: clear to auscultation bilaterally - Cardiovascular Cardiovascular exam: Present: regular rate and rhythm - GI/Abdominal GI/Abdominal exam: Present: normal bowel sounds, soft. Absent: distended, tenderness, rebound - Extremities Exam Extremities exam: Absent: edema - Neurological Exam Neurological exam: Present: alert, oriented X3 - Psychiatric Psychiatric exam: Present: normal mood, flat affect - Skin Skin exam: Present: warm Results - Labs CBC & BMP: 11/28/16 07:10 11/28/16 07:10
--- NOTE | 2016-11-28 09:35 | Anesthesia Post-Op ---
Anesthesia Post OP - Post Ansesthetic Evaluation Patient seen in post op: Yes Resp: within normal limits CV: within normal limits Mental: within normal limits Temp: within normal limits [id number]: within normal limits Nausea and Vomiting: within normal limits Pain: within normal limits
[2016-11-28] MEDS: DILTIAZEM 60 MG TABLET PO SCH ×2 (11:23→22:22)
[2016-11-28] MEDS: FLUCONAZOLE 100 MG TABLET PO SCH (11:23)
[2016-11-28] MEDS: LOSARTAN 50 MG TABLET PO SCH (11:26)
[2016-11-28] MEDS: FOLIC ACID 1 MG TABLET PO SCH (11:26)
[2016-11-28] MEDS: MULTIVITAMIN (CENTRUM) TABLET PO SCH (11:26)
[2016-11-28] MEDS: MICONAZOLE 2% CREAM 57 GM TUBE TOP SCH ×2 (11:27→22:23)
[2016-11-28] MEDS: PANTOPRAZOLE 40 MG VIAL IV SCH (11:31)
--- NOTE | 2016-11-28 12:08 | Cardiology Progress Note ---
<Kayla Lugo E - Last Filed: 11/28/16 12:11> Assessment and Plan - Time spent with patient Time spent with patient: Less than 30 minutes (1) Abnormal weight loss Status: Acute Assessment and plan: See plan of care listed below. Current Visit: Yes (2) Fall Status: Acute Assessment and plan: See plan of care listed below. Current Visit: Yes (3) Hypokalemia Status: Acute Assessment and plan: See plan of care listed below. Current Visit: Yes (4) Hypomagnesemia Status: Acute Assessment and plan: See plan of care listed below. Current Visit: Yes (5) Nausea & vomiting Status: Acute Assessment and plan: See plan of care listed below. Current Visit: Yes (6) Weakness Status: Acute Assessment and plan: See plan of care listed below. Current Visit: Yes (7) Atrial fibrillation Status: Chronic Assessment and plan: See plan of care listed below. Current Visit: Yes Qualifiers: Atrial fibrillation type: chronic Qualified Code(s): I48.2 - Chronic atrial fibrillation (8) Debility Status: Acute Assessment and plan: See plan of care listed below. Current Visit: Yes (9) Diabetes Status: Chronic Assessment and plan: See plan of care listed below. Current Visit: Yes Qualifiers: Diabetes mellitus type: type 2 (10) Hx of mitral valve replacement with mechanical valve Status: Chronic Assessment and plan: See plan of care listed below. Current Visit: Yes (11) Rheumatoid arthritis Status: Chronic Assessment and plan: See plan of care listed below. Current Visit: No Cardiology - PN: Subj Interval history: Kayla Tang, SHEET LAYER, am acting as a scribe for Dr. Maricruz Schulte on at 12:12 PM Personnel Technician: Dr. Low SUMMARY: Ms. Gaytan is a 61 year old female who has a history of multiple medical problems including chronic atrial fibrillation and a mitral valve replacement in the past. She was admitted after having a fall and reports a 25 pound weight loss over the past several weeks. Gastroenterology planned to work her up for upper endoscopy; however, she has been on warfarin due to having a mechanical mitral valve. We were consulted to aid in her management. NOVEMBER 28, 2016: Mr. Gaytan is seen following EGD this morning. We are continuing to follow her regarding anticoagulation needs. Her Coumadin has been on hold and she has been being bridged with Lovenox which was held this morning prior to her EGD. GI found no specific cause for her weight loss. We will resume her Lovenox and Coumadin at this time. The patient wishes to be discharged home. If it can be arranged for her to receive Lovenox at home, she may be discharged from a cardiology standpoint. She will need to continue Lovenox 70mg SC BID as well as her doses of Coumadin (5mg PO daily on Mondays and Fridays and 7.5mg PO daily on Monday, Monday, Monday, , and Monday). She will need to have her INR repeated on . She will need to continue her Coumadin with Lovenox bridging until her INR is greater than 2.0. REVIEW OF SYSTEMS: CARDIAC: No chest pain, palpitations. RESPIRATORY: No shortness of breath. IMPRESSION/PLAN: 1. ABNORMAL WEIGHT LOSS: Workup is underway via gastroenterology. 2. FALL: This appears to be multifactorial, but may be primarily related to volume and/or electrolyte depletion. Workup is underway. 3. HYPOKALEMIA: This is being repleted. 4. HYPOMAGNESEMIA: This is being repleted. 5. NAUSEA AND VOMITING: Gastroenterology is following. 6. WEAKNESS: Possibly related to her nausea and vomiting and electrolyte disturbances. Defer further management to attending. 7. ATRIAL FIBRILLATION: This appears to be well controlled on the current medical regimen. 8. DEBILITY 9. DIABETES: Type 2, chronic. Hospital medicine is following. 10. HX OF MVR WITH MECHANICAL VALVE: Clinically this is functioning normally. 11. RHEUMATOID ARTHRITIS 12. CHRONIC ANTICOAGULATION: We will resume her Lovenox and Coumadin at this time. She will need to continue her Coumadin with Lovenox bridging until her INR is greater than 2.0. Exam (Progress Note) - Constitutional Vitals: Period Temp Pulse Resp BP Sys/Grant Pulse Ox Last 24 Hr 97.3 F-98.4 F 20-85 18-26 85-151/56-85 95-99 Exam: General appearance: Appears well. Pleasant and cooperative. Overweight, no acute distress. Head exam: Present: normal inspection, normocephalic, atraumatic. Absent: hematoma, laceration Eye exam: Present: EOMI. Absent: conjunctival injection, nystagmus, periorbital swelling, scleral icterus, laceration to eyelids, jaundice Pupils: Present: PERRL. Absent: constricted, dilated, fixed, irregular, unequal ENT exam: Present: normal exam, normal external ear exam, mucous membranes moist. Neck exam: Present: normal inspection, midline trachea. Absent: masses, lymphadenopathy, tenderness, thyromegaly, carotid bruit Respiratory exam: Present: Scant crackles to bilateral bases, otherwise clear to auscultation bilaterally. Absent: accessory muscle use, chest wall tenderness, rhonchi, wheezing. Cardiovascular exam: Present: Irregular rate and rhythm. 2/6 systolic murmur. Absent: gallop, JVD, rubs GI/Abdominal exam: Present: normal bowel sounds, soft. Absent: distended, firm , hernia, mass, tenderness. Extremities exam: Present: Normal Gait, No Clubbing, No Cyanosis, Upper Extr. Pulses 2+, Lower Extr. Pulses diminished, No edema. Capillary refill less than 3 seconds. Musculoskeletal: Present: No Fluid Collection, No Pain, Normal Range of Motion Back exam: Present: normal inspection. Absent: muscle spasm, vertebral tenderness Neurological exam: Present: awake, alert, oriented X3, Moves all extremities well without hemiparesis or paralysis. Grossly intact without resting or essential tremor Psychiatric exam: Present: normal affect, normal mood Skin exam: Present: normal color, warm, dry, intact. Absent: cyanosis, diaphoretic, rash, urticaria Result/EKG - Labs CBC & BMP: 11/28/16 07:10 11/28/16 07:10 Lab Results: I have reviewed the past 24 hour labs Labs: Laboratory Results - last 24 hr 11/27/16 11/27/16 11/27/16 11:15 16:35 20:56 WBC RBC Hgb Hct MCV MCH MCHC RDW Plt Count MPV Neut % (Auto) Lymph % (Auto) Bleckley % (Auto) Eos % (Auto) Baso % (Auto) Neut # (Auto) Lymph # (Auto) Bleckley # (Auto) Eos # (Auto) Baso # (Auto) Total Counted Immature Gran % Nucleated RBC % Immature Gran # Segmented Neutrophils Band Neutrophils Lymphocytes Monocytes Myelocytes Nucleated RBCs # Platelet Estimate Immature Plt Fraction Hypochromasia Microcytosis Morphology Comment INR PT Patient/Control Mix Sodium Potassium 3.8 Chloride Carbon Dioxide Anion Gap BUN Creatinine GFR Calculation BUN/Creatinine Ratio Glucose POC Glucose 246 H 135 H Calculated Osmolality Calcium Magnesium 11/27/16 11/28/16 11/28/16 21:35 07:10 07:10 WBC RBC Hgb Hct MCV MCH MCHC RDW Plt Count MPV Neut % (Auto) Lymph % (Auto) Bleckley % (Auto) Eos % (Auto) Baso % (Auto) Neut # (Auto) Lymph # (Auto) Bleckley # (Auto) Eos # (Auto) Baso # (Auto) Total Counted Immature Gran % Nucleated RBC % Immature Gran # Segmented Neutrophils Band Neutrophils Lymphocytes Monocytes Myelocytes Nucleated RBCs # Platelet Estimate Immature Plt Fraction Hypochromasia Microcytosis Morphology Comment INR 1.2 PT Patient/Control Mix 12.2 D Sodium 140 Potassium 3.8 3.7 Chloride 110 H Carbon Dioxide 21 Anion Gap 12.7 BUN 7 Creatinine 0.80 GFR Calculation 81 BUN/Creatinine Ratio 8.00 Glucose 115 H POC Glucose Calculated Osmolality 277.4 Calcium 8.0 L Magnesium 1.9 11/28/16 11/28/16 07:10 11:17 WBC 3.0 L RBC 4.01 Hgb 11.7 L Hct 34.5 L MCV 86.0 L MCH 29 MCHC 33.9 RDW 13.2 Plt Count 114 L MPV 10.8 Neut % (Auto) 37.7 L Lymph % (Auto) 44.7 Bleckley % (Auto) 17.3 H Eos % (Auto) 0.0 Baso % (Auto) 0.0 Neut # (Auto) 1.1 L Lymph # (Auto) 1.3 L Bleckley # (Auto) 0.5 Eos # (Auto) 0.0 Baso # (Auto) 0.0 Total Counted 100 Immature Gran % 0.3 Nucleated RBC % 0.0 Immature Gran # 0.01 Segmented Neutrophils 39 L Band Neutrophils 5 Lymphocytes 40 Monocytes 15 Myelocytes 1 Nucleated RBCs # 0.00 Platelet Estimate Adequate Immature Plt Fraction 0.0 Hypochromasia 1+ Microcytosis 1+ Morphology Comment INR PT Patient/Control Mix Sodium Potassium Chloride Carbon Dioxide Anion Gap BUN Creatinine GFR Calculation BUN/Creatinine Ratio Glucose POC Glucose 124 H Calculated Osmolality Calcium Magnesium - EKG EKG results: interpreted by me EKG shows: atrial fibrillation Specialty Discharge - Follow Up or Referrals Follow up with: Derek Fuentes MD [Physician] - (Follow up by phone in 1-2 weeks for biopsy results.) Derek Low MD [Physician] - 2 Weeks (Follow up with Dr. Low in 2-3 weeks. Patient needs INR check on 12/01/16. ) - Speciality Discharge Instructions Cardiology Instructions: If it can be arranged for her to receive Lovenox at home, she may be discharged from a cardiology standpoint. She will need to continue Lovenox 70mg SC BID as well as her doses of Coumadin (5mg PO daily on Mondays and Fridays and 7.5mg PO daily on Monday, Monday, Monday, , and Monday). She will need to have her INR repeated on , 12/01/16. She will need to continue her Coumadin with Lovenox bridging until her INR is greater than 2.0. <Maricruz Schulte - Last Filed: 11/28/16 15:10> Cardiology - PN: Subj Interval history: I have personally interviewed and evaluated the patient, reviewed the chart and discussed medical decision-making with practitioner Parish. I have read this note and agree with her documentation here in. From a cardiac standpoint, as long as the patient can get at home Lovenox therapy to bridge her, she would be suitable for discharge. She should recheck her INR on , and the Lovenox will be discontinued when her INR somewhere in the 1.8-2 range. Exam (Progress Note) - Constitutional Vitals: Period Temp Pulse Resp BP Sys/Grant Pulse Ox Last 24 Hr 97.3 F-98.4 F 20-85 16-26 85-151/56-85 95-99 Result/EKG - Labs CBC & BMP: 11/28/16 07:10 11/28/16 07:10 Labs: Laboratory Results - last 24 hr 11/27/16 11/27/16 11/27/16 16:35 20:56 21:35 WBC RBC Hgb Hct MCV MCH MCHC RDW Plt Count MPV Neut % (Auto) Lymph % (Auto) Bleckley % (Auto) Eos % (Auto) Baso % (Auto) Neut # (Auto) Lymph # (Auto) Bleckley # (Auto) Eos # (Auto) Baso # (Auto) Total Counted Immature Gran % Nucleated RBC % Immature Gran # Segmented Neutrophils Band Neutrophils Lymphocytes Monocytes Myelocytes Nucleated RBCs # Platelet Estimate Immature Plt Fraction Hypochromasia Microcytosis Morphology Comment INR PT Patient/Control Mix Sodium Potassium 3.8 Chloride Carbon Dioxide Anion Gap BUN Creatinine GFR Calculation BUN/Creatinine Ratio Glucose POC Glucose 246 H 135 H Calculated Osmolality Calcium Magnesium 11/28/16 11/28/16 11/28/16 07:10 07:10 07:10 WBC 3.0 L RBC 4.01 Hgb 11.7 L Hct 34.5 L MCV 86.0 L MCH 29 MCHC 33.9 RDW 13.2 Plt Count 114 L MPV 10.8 Neut % (Auto) 37.7 L Lymph % (Auto) 44.7 Bleckley % (Auto) 17.3 H Eos % (Auto) 0.0 Baso % (Auto) 0.0 Neut # (Auto) 1.1 L Lymph # (Auto) 1.3 L Bleckley # (Auto) 0.5 Eos # (Auto) 0.0 Baso # (Auto) 0.0 Total Counted 100 Immature Gran % 0.3 Nucleated RBC % 0.0 Immature Gran # 0.01 Segmented Neutrophils 39 L Band Neutrophils 5 Lymphocytes 40 Monocytes 15 Myelocytes 1 Nucleated RBCs # 0.00 Platelet Estimate Adequate Immature Plt Fraction 0.0 Hypochromasia 1+ Microcytosis 1+ Morphology Comment INR 1.2 PT Patient/Control Mix 12.2 D Sodium 140 Potassium 3.7 Chloride 110 H Carbon Dioxide 21 Anion Gap 12.7 BUN 7 Creatinine 0.80 GFR Calculation 81 BUN/Creatinine Ratio 8.00 Glucose 115 H POC Glucose Calculated Osmolality 277.4 Calcium 8.0 L Magnesium 1.9 11/28/16 11:17 WBC RBC Hgb Hct MCV MCH MCHC RDW Plt Count MPV Neut % (Auto) Lymph % (Auto) Bleckley % (Auto) Eos % (Auto) Baso % (Auto) Neut # (Auto) Lymph # (Auto) Bleckley # (Auto) Eos # (Auto) Baso # (Auto) Total Counted Immature Gran % Nucleated RBC % Immature Gran # Segmented Neutrophils Band Neutrophils Lymphocytes Monocytes Myelocytes Nucleated RBCs # Platelet Estimate Immature Plt Fraction Hypochromasia Microcytosis Morphology Comment INR PT Patient/Control Mix Sodium Potassium Chloride Carbon Dioxide Anion Gap BUN Creatinine GFR Calculation BUN/Creatinine Ratio Glucose POC Glucose 124 H Calculated Osmolality Calcium Magnesium
[2016-11-28] MEDS: DIGOXIN 0.125 MG TABLET PO SCH (13:21)
[2016-11-28] MEDS: ENOXAPARIN 80 MG/0.8 ML SYRINGE SUBCUT SCH (13:22)
--- NOTE | 2016-11-28 15:47 | Hospitalist Progress Note ---
Assessment and Plan (1) Hx of mitral valve replacement with mechanical valve Status: Chronic Assessment and plan: The patient is unable to obtain Lovenox as outpatient and will remain the hospital until INR is greater than 2 Current Visit: Yes (2) Chronic anticoagulation Status: Chronic Current Visit: Yes Hospitalist: Subjective Interval history: The patient is now status post esophagogastroduodenoscopy. She has aortic valve replacement and requires Lovenox bridging until INR is greater than 2.0. The patient will have to be here in the hospital until that time. Exam - Constitutional Vitals: Period Temp Pulse Resp BP Sys/Grant Pulse Ox Last 24 Hr 97.3 F-98.4 F 20-85 16-26 85-151/56-85 95-99 General appearance: no acute distress - Respiratory Respiratory exam: Present: clear to auscultation bilaterally - Cardiovascular Cardiovascular exam: Present: regular rate and rhythm - GI/Abdominal GI/Abdominal exam: Present: normal bowel sounds Results - Labs CBC & BMP: 11/28/16 07:10 11/28/16 07:10 Lab Results: I have reviewed the past 24 hour labs Specialty Discharge - Follow Up or Referrals Follow up with: Derek Fuentes MD [Physician] - (Follow up by phone in 1-2 weeks for biopsy results.) Derek Low MD [Physician] - 2 Weeks (Follow up with Dr. Low in 2-3 weeks. Patient needs INR check on 12/01/16. )
[2016-11-28] MEDS ORDERED: WARFARIN 5 MG TABLET PO SCH ×2 (18:00)
[2016-11-29] MEDS: ENOXAPARIN 80 MG/0.8 ML SYRINGE SUBCUT SCH ×2 (00:30→12:43)
[2016-11-29] MEDS: SODIUM CHLOR 0.9% KCL 40 MEQ 40 MEQ/1,000 ML BAG IV SCH ×3 (00:32→15:19)
--- NOTE | 2016-11-29 06:33 | Gastrointestinal Progress Note ---
Assessment and Plan (1) Abnormal weight loss Status: Acute Assessment and plan: The etiology of her abnormal weight loss of 25 pounds is unclear. She seems to have some cognitive deficits and certainly this may be driven by dementia or depression. Will rule out organic causes of weight loss including gastritis, gastroparesis, esophageal or stomach cancer, peptic ulcer disease, and colon cancer. To this end, we will put the patient on Lovenox bridge and perform EGD and colonoscopy on Monday after discontinuation of Lovenox on Monday. In the meantime we will cover the patient with Protonix twice daily and improve her electrolyte status. We need her potassium above 3.2 and her magnesium improved as well prior to performance of the procedures on Monday. Her INR is now 2.7 and will likely require a small dose of vitamin K to improve this in case biopsies or polypectomy are required. We may want to get a inside plant supervisor on board if one has not already been consulted on her case. 11/27/16--the patient has abnormal weight loss and is about to undergo both EGD and colonoscopy tomorrow to rule out organic causes. Her potassium is now 3.8 her magnesium is improved into the normal range. Her INR is down to 1.7 and I suspect that she may get even better now she is being given 1 more dose of vitamin K-- 5 mg. 11/28/16--the patient did have some mild erythema in her esophagus as well as some scant linear gastritis in her stomach, biopsies taken to rule out Helicobacter pylori, the colonoscopy was negative except for what appear to be an inflamed diverticulum at 38 cm that was healing. Biopsies taken of that lesion. She is safe to go right back on her Coumadin and start her Lovenox bridge again today. 11/29/16--As the patient will not be able to afford Lovenox bridge she is going to remain in the hospital until her INR is above or equal to 2.5. Her EGD findings are as noted above along with her colonoscopy findings. She is safe to be discharged on the medications I have left on the front of the chart. Thank you for this interesting consult she can see me as needed when she is discharged from the hospital but I would not make a routine follow-up appointment. She is safe to wait for 10 years before her next colonoscopy. Current Visit: Yes (2) Chronic GERD Status: Acute Assessment and plan: Patient takes Prilosec as an outpatient and has been complaining of recent nausea and vomiting we will check for esophagitis. The patient is dehydrated state her hematocrit appears to be normal but I suspect this will go down significantly with hydration. Risks and benefits of the above procedures were outlined with the patient and include but are not limited to: Bleeding, infection, perforation, cardiac and pulmonary compromise. 11/27/16--patient is taking pantoprazole 40 mg twice daily. She had recent nausea and vomiting we are searching for a cause for this including esophagitis. Further recommendations post upper and lower endoscopy tomorrow morning. The patient's [id number] is at the bedside and her questions were answered. 11/28/16--Continue on pantoprazole 40 mg prior to suppertime each night. We might consider use of Remeron 15 mg per day to help with appetite 11/28/16--no further nausea and vomiting, the patient is able tolerate her food well, upper endoscopy demonstrated some mild esophagitis, she is safe for discharge from a GI standpoint, prescription written in the front of the chart. Please reconsult me if you have any further questions. Current Visit: Yes (3) Nausea & vomiting Status: Acute Assessment and plan: This appears to be improving already on the pantoprazole. Again upper endoscopy is scheduled for Monday, tomorrow, along with colonoscopy. 11/28/16--No significant findings seen on upper or lower endoscopy to explain the vomiting. No gross evidence of gastroparesis or ulcerations seen, continue treating with PPIs symptomatically. Biopsies are pending. No specific cause for weight loss seen. 11/28/16--No colonic source of weight loss seen, follow-up with me as needed in the future. Current Visit: Yes (4) Hypokalemia Status: Acute Assessment and plan: Currently the patient's potassium was 2.8, we need this to be at least 3.2 for the above procedures, we will continue to replace with K riders and oral potassium as well as potassium and the patient's IV fluids. 11/27/16--Patient's nursing staff have done an excellent job getting this into the normal range. We will proceed with upper and lower endoscopy as mentioned. 11/28/16--improved over time with potassium replacement. 11/29/16--check occasionally as outpatient. Current Visit: No Gastroenterology - PN: Subj Interval history: No new complaints, waiting on the INR to increase above 2.5 in order to be discharged from the hospital as the patient cannot afford Lovenox as a bridge. Exam (Progress Note) - Constitutional Vitals: Period Temp Pulse Resp BP Sys/Grant Pulse Ox Last 24 Hr 97.1 F-98.4 F 64-85 16-26 85-149/51-85 94-99 - Eye Eye exam: Present: EOMI - Respiratory Respiratory exam: Present: clear to auscultation bilaterally. Absent: rhonchi, stridor, wheezes - Cardiovascular Cardiovascular exam: Present: regular rate and rhythm, systolic murmur, other ( Bacon click noted over the left lower sternal border) - GI/Abdominal GI/Abdominal exam: Present: normal bowel sounds, soft. Absent: guarding, tenderness, rebound - Neurological Exam Neurological exam: Present: alert, oriented X3. Absent: motor sensory deficit - Psychiatric Psychiatric exam: Present: normal affect, normal mood - Skin Skin exam: Present: warm Results - Labs CBC & BMP: 11/28/16 07:10 11/28/16 07:10 Specialty Discharge - Follow Up or Referrals Follow up with: Derek Fuentes MD [Physician] - (Follow up by phone in 1-2 weeks for biopsy results.) Derek Low MD [Physician] - 2 Weeks (Follow up with Dr. Low in 2-3 weeks. Patient needs INR check on 12/01/16. )
[2016-11-29 07:16] LABS: INR 1.1; PT Patient Result 11.5 SECS
[2016-11-29 07:20] LABS: INR 1.1; PT Patient Result 11.7 SECS
[2016-11-29 07:40] LABS: Calcium 8.2 MG/DL (8.5-10.1); Magnesium 1.7 MG/DL (1.8-2.4); Osmolality,Calculated 281.1 MOS/KG (273-304); Potassium 4.5 MMOL/L (3.5-5.1)
[2016-11-29] MEDS: INSULIN LISPRO 100 UNIT/ML SUBCUT SCH ×4 (07:51→22:10)
[2016-11-29] MEDS: LOSARTAN 50 MG TABLET PO SCH (08:40)
[2016-11-29] MEDS: DILTIAZEM 60 MG TABLET PO SCH ×2 (08:40→22:08)
[2016-11-29] MEDS: FLUCONAZOLE 100 MG TABLET PO SCH (08:41)
[2016-11-29] MEDS: MULTIVITAMIN (CENTRUM) TABLET PO SCH (08:41)
[2016-11-29] MEDS: PANTOPRAZOLE 40 MG VIAL IV SCH (08:41)
[2016-11-29] MEDS: NYSTATIN POWDER 15 GM BOTTLE TOP SCH ×3 (08:41→22:11)
[2016-11-29] MEDS: FOLIC ACID 1 MG TABLET PO SCH (08:41)
--- NOTE | 2016-11-29 10:23 | Pathology Report from [facility] ---
[facility] ACCESSION # : [id number] PATIENT NAME : Lilian Schroeder ORDERING DR : Derek Fuentes MD CLINICAL HX: WT loss POST-OP DX: Same SPECIMEN INFO: #1 Duodenal BX #2 BETH #3 Inflammation @ 38 cm colon GROSS DESCRIPTION: Received in formalin in three parts labeled:#1 LILIAN CISNEROS & #1 is a 0.6 x 0.2 cm aggregate of tran tissue submitted in cassette #1. #2 LILIAN SCHROEDER & #2 is a 1.3 x 0.2 cm aggregate of tran tissue submitted in cassette #2.#3 LILIAN SCHROEDER & #3 is a 0.6 x 0.3 cm aggregate of tran tissue submitted in cassette #3. DIAGNOSIS FOR LILIAN SCHROEDER: #1 DUODENAL BIOPSY: Mild superficial chronic inflammation. No evidence of granulomas, parasites, tumor, or celiac disease.#2 BETH BIOPSIES: Fragments of unremarkable superficial gastric mucosa. H. pylori not seen on H&E or special stain with appropriate control.#3 BIOPSY INFLAMMATION @ 38 CM COLON: Unremarkable superficial colonic mucosal fragments. COLLECTED DATE: 11/28/2016 [facility] REPORT DATE: 11/29/2016 ELECTRONICALLY SIGNED BY: Jarrod Gutierrez M.D. 11/29/2016 - 9:05:12 ABRIL
--- NOTE | 2016-11-29 10:48 | Hospitalist Progress Note ---
Assessment and Plan - Time spent with patient Time spent with patient: Less than 30 minutes (1) Hx of mitral valve replacement with mechanical valve Status: Chronic Assessment and plan: 61-year-old white female with history of diabetes, dementia, CHF, hypertension, A. fib, mitral stenosis status post valve replacement with mechanical valve, RA , psoriasis admitted by the hospitalist on 11/26/2016 with nausea, vomiting, weakness, acute kidney injury, hypokalemia and hypomagnesemia. Patient had abnormal weight loss and Dr. Fuentes was consulted. Her Coumadin was stopped and she was bridged with Lovenox to prepare for EGD and C scope. EGD on 12/13 showed mild nonerosive linear gastritis which was biopsied. Colonoscopy performed on the same day showed possible inflamed diverticulum with pending biopsies, mild proctitis with moderate left-sided diverticulosis and internal hemorrhoids. No cause for weight loss was identified. Patient's Coumadin has been restarted and her INR today is 1.1. She is to be bridged with Lovenox until her INR is greater than 2. Cardiology is managing this. Repeat INR on . Dr. Boston will see and examine patient and further recommendations to follow. Current Visit: Yes (2) Chronic anticoagulation Status: Chronic Current Visit: Yes Hospitalist: Subjective Interval history: Patient is without complaints today. She understands that she will have to stay here until her INR is greater than 2. Exam - Constitutional Vitals: Period Temp Pulse Resp BP Sys/Grant Pulse Ox Last 24 Hr 97.1 F-98.4 F 64-79 16-20 107-147/51-67 94-99 Exam: 61-year-old white female, no acute distress, alert and oriented Chest clear CV regular rate and rhythm Abdomen soft nontender Extremities no edema Results - Labs CBC & BMP: 11/28/16 07:10 11/29/16 05:16 Lab Results: I have reviewed the past 24 hour labs Specialty Discharge - Follow Up or Referrals Follow up with: Derek Fuentes MD [Physician] - (Follow up by phone in 1-2 weeks for biopsy results.) Derek Low MD [Physician] - 2 Weeks (Follow up with Dr. Low in 2-3 weeks. Patient needs INR check on 12/01/16. )
[2016-11-29] MEDS: SALSALATE 500 MG TABLET PO SCH (11:22)
[2016-11-29] MEDS: MICONAZOLE 2% CREAM 57 GM TUBE TOP SCH ×2 (11:32→22:11)
[2016-11-29] MEDS: DIGOXIN 0.125 MG TABLET PO SCH (12:44)
[2016-11-29] MEDS ORDERED: MAGNESIUM SULF RIDER 4 GM in PREMIX 1 EACH IV PRN (13:22)
--- NOTE | 2016-11-29 15:41 | Cardiology Progress Note ---
<Kayla Lugo E - Last Filed: 11/29/16 15:42> Assessment and Plan - Time spent with patient Time spent with patient: Less than 30 minutes (1) Abnormal weight loss Status: Acute Assessment and plan: See plan of care listed below. Current Visit: Yes (2) Fall Status: Acute Assessment and plan: See plan of care listed below. Current Visit: Yes (3) Hypokalemia Status: Acute Assessment and plan: See plan of care listed below. Current Visit: Yes (4) Hypomagnesemia Status: Acute Assessment and plan: See plan of care listed below. Current Visit: Yes (5) Nausea & vomiting Status: Acute Assessment and plan: See plan of care listed below. Current Visit: Yes (6) Weakness Status: Acute Assessment and plan: See plan of care listed below. Current Visit: Yes (7) Atrial fibrillation Status: Chronic Assessment and plan: See plan of care listed below. Current Visit: Yes Qualifiers: Atrial fibrillation type: chronic Qualified Code(s): I48.2 - Chronic atrial fibrillation (8) Debility Status: Acute Assessment and plan: See plan of care listed below. Current Visit: Yes (9) Diabetes Status: Chronic Assessment and plan: See plan of care listed below. Current Visit: Yes Qualifiers: Diabetes mellitus type: type 2 (10) Hx of mitral valve replacement with mechanical valve Status: Chronic Assessment and plan: See plan of care listed below. Current Visit: Yes (11) Rheumatoid arthritis Status: Chronic Assessment and plan: See plan of care listed below. Current Visit: No Cardiology - PN: Subj Interval history: Kayla Tang, HUMAN MACHINE INTERFACE ENGINEER, am acting as a scribe for Dr. Maricruz Schulte on at 15:42 PM Newspaper Copy Editor: Dr. Low SUMMARY: Ms. Gaytan is a 61 year old female who has a history of multiple medical problems including chronic atrial fibrillation and a mitral valve replacement in the past. She was admitted after having a fall and reports a 25 pound weight loss over the past several weeks. Gastroenterology planned to work her up for upper endoscopy; however, she has been on warfarin due to having a mechanical mitral valve. We were consulted to aid in her management. GI performed EGD on 11/28/16 and found no specific cause for her weight loss. As her anticoagulation was on hold for EGD, we resumed her Coumadin on 11/28/16 and are bridging her with Lovenox until her INR is greater than 1.8-2. NOVEMBER 29, 2016: We are continuing to follow Ms. Gaytan regarding anticoagulation needs. Her Coumadin has been resumed and she is being bridged with Lovenox. INR is 1.1 today. Although she wished to be discharged and could have been if she could continue Lovenox shots at home, she is self pay and could not afford Lovenox shots at home. We are subsequently keeping her in the hospital to receive these injections until we have attained an adequate INR. We will continue to follow her INR. Once she has reached therapeutic range, she may be discharged home from a cardiology standpoint. REVIEW OF SYSTEMS: CARDIAC: No chest pain, palpitations. RESPIRATORY: No shortness of breath. IMPRESSION/PLAN: 1. ABNORMAL WEIGHT LOSS: Workup is underway via gastroenterology. 2. FALL: This appears to be multifactorial, but may be primarily related to volume and/or electrolyte depletion. Workup is underway. 3. HYPOKALEMIA: This is being repleted. 4. HYPOMAGNESEMIA: This is being repleted. 5. NAUSEA AND VOMITING: Gastroenterology is following. 6. WEAKNESS: Possibly related to her nausea and vomiting and electrolyte disturbances. Defer further management to attending. 7. ATRIAL FIBRILLATION: This appears to be well controlled on the current medical regimen. 8. DEBILITY 9. DIABETES: Type 2, chronic. Hospital medicine is following. 10. HX OF MVR WITH MECHANICAL VALVE: Clinically this is functioning normally. 11. RHEUMATOID ARTHRITIS 12. CHRONIC ANTICOAGULATION: We have resumed her Coumadin and are bridging her with Lovenox which may be continued when her INR is in the 1.8-2.0 range. Exam (Progress Note) - Constitutional Vitals: Period Temp Pulse Resp BP Sys/Grant Pulse Ox Last 24 Hr 97.1 F-98.4 F 58-76 18-22 107-147/51-67 94-99 Exam: General appearance: Appears well. Pleasant and cooperative. Overweight, no acute distress. Head exam: Present: normal inspection, normocephalic, atraumatic. Absent: hematoma, laceration Eye exam: Present: EOMI. Absent: conjunctival injection, nystagmus, periorbital swelling, scleral icterus, laceration to eyelids, jaundice Pupils: Present: PERRL. Absent: constricted, dilated, fixed, irregular, unequal ENT exam: Present: normal exam, normal external ear exam, mucous membranes moist. Neck exam: Present: normal inspection, midline trachea. Absent: masses, lymphadenopathy, tenderness, thyromegaly, carotid bruit Respiratory exam: Present: Scant crackles to bilateral bases, otherwise clear to auscultation bilaterally. Absent: accessory muscle use, chest wall tenderness, rhonchi, wheezing. Cardiovascular exam: Present: Irregular rate and rhythm. 2/6 systolic murmur. Absent: gallop, JVD, rubs GI/Abdominal exam: Present: normal bowel sounds, soft. Absent: distended, firm , hernia, mass, tenderness. Extremities exam: Present: Normal Gait, No Clubbing, No Cyanosis, Upper Extr. Pulses 2+, Lower Extr. Pulses diminished, No edema. Capillary refill less than 3 seconds. Musculoskeletal: Present: No Fluid Collection, No Pain, Normal Range of Motion Back exam: Present: normal inspection. Absent: muscle spasm, vertebral tenderness Neurological exam: Present: awake, alert, oriented X3, Moves all extremities well without hemiparesis or paralysis. Grossly intact without resting or essential tremor Psychiatric exam: Present: normal affect, normal mood Skin exam: Present: normal color, warm, dry, intact. Absent: cyanosis, diaphoretic, rash, urticaria Result/EKG - Labs CBC & BMP: 11/28/16 07:10 11/29/16 05:16 Lab Results: I have reviewed the past 24 hour labs Labs: Laboratory Results - last 24 hr 11/28/16 11/28/16 11/29/16 15:54 19:41 05:16 INR 1.1 PT Patient/Control Mix 11.5 Sodium Potassium Chloride Carbon Dioxide Anion Gap BUN Creatinine GFR Calculation BUN/Creatinine Ratio Glucose POC Glucose 157 H 253 H Calculated Osmolality Calcium Magnesium 11/29/16 11/29/16 11/29/16 05:16 06:51 07:33 INR 1.1 PT Patient/Control Mix 11.7 Sodium 142 Potassium 4.5 Chloride 114 H Carbon Dioxide 20 L Anion Gap 12.5 BUN 7 Creatinine 0.80 GFR Calculation 81 BUN/Creatinine Ratio 8.00 Glucose 111 H POC Glucose 131 H Calculated Osmolality 281.1 Calcium 8.2 L Magnesium 1.7 L 11/29/16 11:49 INR PT Patient/Control Mix Sodium Potassium Chloride Carbon Dioxide Anion Gap BUN Creatinine GFR Calculation BUN/Creatinine Ratio Glucose POC Glucose 205 H Calculated Osmolality Calcium Magnesium - EKG EKG results: interpreted by me EKG shows: atrial fibrillation Specialty Discharge - Follow Up or Referrals Follow up with: Derek Fuentes MD [Physician] - (Follow up by phone in 1-2 weeks for biopsy results.) Derek Low MD [Physician] - 2 Weeks (Follow up with Dr. Low in 2-3 weeks. Patient needs INR check on 12/01/16. ) <Maricruz Schulte - Last Filed: 11/29/16 19:29> Cardiology - PN: Subj Interval history: I have personally interviewed and evaluated the patient, reviewed the chart and discussed medical decision-making with Practitioner Parish. I have read this note and agree with her documentation here in. Exam (Progress Note) - Constitutional Vitals: Period Temp Pulse Resp BP Sys/Grant Pulse Ox Last 24 Hr 97.1 F-98.4 F 58-78 18-22 117-151/55-69 94-99 Result/EKG - Labs CBC & BMP: 11/28/16 07:10 11/29/16 05:16 Labs: Laboratory Results - last 24 hr 11/28/16 11/29/16 11/29/16 19:41 05:16 05:16 INR 1.1 PT Patient/Control Mix 11.5 Sodium 142 Potassium 4.5 Chloride 114 H Carbon Dioxide 20 L Anion Gap 12.5 BUN 7 Creatinine 0.80 GFR Calculation 81 BUN/Creatinine Ratio 8.00 Glucose 111 H POC Glucose 253 H Calculated Osmolality 281.1 Calcium 8.2 L Magnesium 1.7 L 11/29/16 11/29/16 11/29/16 06:51 07:33 11:49 INR 1.1 PT Patient/Control Mix 11.7 Sodium Potassium Chloride Carbon Dioxide Anion Gap BUN Creatinine GFR Calculation BUN/Creatinine Ratio Glucose POC Glucose 131 H 205 H Calculated Osmolality Calcium Magnesium 11/29/16 11/29/16 15:58 16:01 INR PT Patient/Control Mix Sodium Potassium Chloride Carbon Dioxide Anion Gap BUN Creatinine GFR Calculation BUN/Creatinine Ratio Glucose POC Glucose 81 88 Calculated Osmolality Calcium Magnesium
[2016-11-29] MEDS ORDERED: WARFARIN 7.5 MG TABLET PO SCH (18:00)
[2016-11-29] MEDS: MAGNESIUM SULF RIDER 2 GM in PREMIX 1 EACH IV PRN (18:04)
[2016-11-29] MEDS: CIPROFLOXACIN 500 MG TABLET PO SCH (22:09)
[2016-11-30] MEDS: SALSALATE 500 MG TABLET PO SCH ×3 (00:08→20:57)
[2016-11-30] MEDS: ENOXAPARIN 80 MG/0.8 ML SYRINGE SUBCUT SCH ×2 (01:05→13:24)
[2016-11-30 08:02] LABS: Basophils % 0.3 % (0.0-0.8); Hemoglobin 11.3 GM/DL (12.0-16.0); Immature Granulocytes % 0.6 %; Immature Granulocytes Absolute 0.02 #; Lymphocytes # 1.4 10*3/uL (1.4-4.0); Lymphocytes % 43.7 % (21.3-54.2); Mean Corpuscular HGB Conc 34.2 GM/DL (32-36); Mean Corpuscular Hemoglobin 30 PG (27-34); Mean Corpuscular Volume 86.6 FL (87-102); Mean Platelet Volume 10.9 FL (9.6-12.0); Monocytes # 0.3 10*3/uL (0.11-0.8); Monocytes % 10.7 % (1.7-12.7); Neutrophils # 1.4 10*3/uL (1.4-7.4); Neutrophils % 44.7 % (38.7-73.9); Platelet Count 125 T/CUMM (130-400); Red Blood Count 3.81 MC/CUMM (3.8-5.5); Red Cell Distribution Width 13.4 % (9.3-17.3); White Blood Count 3.2 T/CUMM (4-12)
[2016-11-30 08:05] LABS: INR 1.1; PT Patient Result 11.4 SECS
[2016-11-30 08:30] LABS: Atypical Lymphocytes Few; Band Neutrophils 1 % (0-10); Burr Cells Slight; Giant Platelets Few; Hypochromasia 1+; Lymphocytes 42 % (20-55); Microcytosis Slight; Platelet Estimate Normal; Segmented Neutrophils 44 % (50-85); Total Cells Counted 100
[2016-11-30 08:47] LABS: Calcium 8.6 MG/DL (8.5-10.1); Magnesium 1.7 MG/DL (1.8-2.4); Osmolality,Calculated 279.4 MOS/KG (273-304); Potassium 4.3 MMOL/L (3.5-5.1)
[2016-11-30] MEDS: DILTIAZEM 60 MG TABLET PO SCH ×2 (09:24→20:55)
[2016-11-30] MEDS: MULTIVITAMIN (CENTRUM) TABLET PO SCH (09:24)
[2016-11-30] MEDS: CIPROFLOXACIN 500 MG TABLET PO SCH ×2 (09:25→20:56)
[2016-11-30] MEDS: MICONAZOLE 2% CREAM 57 GM TUBE TOP SCH ×2 (09:25→20:59)
[2016-11-30] MEDS: LOSARTAN 50 MG TABLET PO SCH (09:25)
[2016-11-30] MEDS: INSULIN LISPRO 100 UNIT/ML SUBCUT SCH ×4 (09:25→20:57)
[2016-11-30] MEDS: FLUCONAZOLE 100 MG TABLET PO SCH (09:25)
[2016-11-30] MEDS: FOLIC ACID 1 MG TABLET PO SCH (09:25)
[2016-11-30] MEDS: NYSTATIN POWDER 15 GM BOTTLE TOP SCH ×3 (09:25→20:59)
[2016-11-30] MEDS: PANTOPRAZOLE 40 MG VIAL IV SCH (09:25)
[2016-11-30] MEDS: MAGNESIUM SULF RIDER 2 GM in PREMIX 1 EACH IV PRN (09:42)
[2016-11-30] MEDS ORDERED: DEXTROSE 50% 25 GM/50 ML VIAL IV PRN (11:00)
--- NOTE | 2016-11-30 11:15 | Cardiology Progress Note ---
Assessment and Plan - Time spent with patient Time spent with patient: Less than 30 minutes (1) Abnormal weight loss Status: Acute Assessment and plan: See plan of care listed below. Current Visit: Yes (2) Fall Status: Acute Assessment and plan: See plan of care listed below. Current Visit: Yes (3) Hypokalemia Status: Acute Assessment and plan: See plan of care listed below. Current Visit: Yes (4) Hypomagnesemia Status: Acute Assessment and plan: See plan of care listed below. Current Visit: Yes (5) Nausea & vomiting Status: Acute Assessment and plan: See plan of care listed below. Current Visit: Yes (6) Weakness Status: Acute Assessment and plan: See plan of care listed below. Current Visit: Yes (7) Atrial fibrillation Status: Chronic Assessment and plan: See plan of care listed below. Current Visit: Yes Qualifiers: Atrial fibrillation type: chronic Qualified Code(s): I48.2 - Chronic atrial fibrillation (8) Debility Status: Acute Assessment and plan: See plan of care listed below. Current Visit: Yes (9) Diabetes Status: Chronic Assessment and plan: See plan of care listed below. Current Visit: Yes Qualifiers: Diabetes mellitus type: type 2 (10) Hx of mitral valve replacement with mechanical valve Status: Chronic Assessment and plan: See plan of care listed below. Current Visit: Yes (11) Rheumatoid arthritis Status: Chronic Assessment and plan: See plan of care listed below. Current Visit: No Cardiology - PN: Subj Interval history: Director Phone: Dr. Low SUMMARY: Ms. Gaytan is a 61 year old female who has a history of multiple medical problems including chronic atrial fibrillation and a mitral valve replacement in the past. She was admitted after having a fall and reports a 25 pound weight loss over the past several weeks. Gastroenterology planned to work her up for upper endoscopy; however, she has been on warfarin due to having a mechanical mitral valve. We were consulted to aid in her management. GI performed EGD on 11/28/16 and found no specific cause for her weight loss. As her anticoagulation was on hold for EGD, we resumed her Coumadin on 11/28/16 and are bridging her with Lovenox until her INR is greater than 1.8-2. NOVEMBER 30, 2016: We are continuing to follow Ms. Gaytan regarding anticoagulation needs. Her Coumadin has been resumed and she is being bridged with Lovenox. INR is 1.1 today. Although she wished to be discharged and could have been if she could continue Lovenox shots at home, she is self pay and it was noted she could not afford Lovenox shots at home. The patient reports she was not told how much these injections are to determine whether she could afford it or not. We will have someone speak with her regarding prices of Lovenox injections. If she is able to afford these, she could be discharged home ; however, if she cannot, we will need to keep her in the hospital to receive these injections until we have attained an adequate INR. We will continue to follow her INR. Once she has reached therapeutic range, she may be discharged home from a cardiology standpoint. REVIEW OF SYSTEMS: CARDIAC: No chest pain, palpitations. RESPIRATORY: No shortness of breath. IMPRESSION/PLAN: 1. ABNORMAL WEIGHT LOSS: Workup is underway via gastroenterology. 2. FALL: This appears to be multifactorial, but may be primarily related to volume and/or electrolyte depletion. Workup is underway. 3. HYPOKALEMIA: This is being repleted. 4. HYPOMAGNESEMIA: This is being repleted. 5. NAUSEA AND VOMITING: Gastroenterology is following. 6. WEAKNESS: Possibly related to her nausea and vomiting and electrolyte disturbances. Defer further management to attending. 7. ATRIAL FIBRILLATION: This appears to be well controlled on the current medical regimen. 8. DEBILITY 9. DIABETES: Type 2, chronic. Hospital medicine is following. 10. HX OF MVR WITH MECHANICAL VALVE: Clinically this is functioning normally. 11. RHEUMATOID ARTHRITIS 12. CHRONIC ANTICOAGULATION: We have resumed her Coumadin and are bridging her with Lovenox which may be continued when her INR is in the 1.8-2.0 range. Exam (Progress Note) - Constitutional Vitals: Period Temp Pulse Resp BP Sys/Grant Pulse Ox Last 24 Hr 97.1 F-98.4 F 58-78 18-22 117-158/55-71 92-100 Exam: General appearance: Appears well. Pleasant and cooperative. Overweight, no acute distress. Head exam: Present: normal inspection, normocephalic, atraumatic. Absent: hematoma, laceration Eye exam: Present: EOMI. Absent: conjunctival injection, nystagmus, periorbital swelling, scleral icterus, laceration to eyelids, jaundice Pupils: Present: PERRL. Absent: constricted, dilated, fixed, irregular, unequal ENT exam: Present: normal exam, normal external ear exam, mucous membranes moist. Neck exam: Present: normal inspection, midline trachea. Absent: masses, lymphadenopathy, tenderness, thyromegaly, carotid bruit Respiratory exam: Present: Scant crackles to bilateral bases, otherwise clear to auscultation bilaterally. Absent: accessory muscle use, chest wall tenderness, rhonchi, wheezing. Cardiovascular exam: Present: Irregular rate and rhythm. 2/6 systolic murmur. Absent: gallop, JVD, rubs GI/Abdominal exam: Present: normal bowel sounds, soft. Absent: distended, firm , hernia, mass, tenderness. Extremities exam: Present: Normal Gait, No Clubbing, No Cyanosis, Upper Extr. Pulses 2+, Lower Extr. Pulses diminished, No edema. Capillary refill less than 3 seconds. Musculoskeletal: Present: No Fluid Collection, No Pain, Normal Range of Motion Back exam: Present: normal inspection. Absent: muscle spasm, vertebral tenderness Neurological exam: Present: awake, alert, oriented X3, Moves all extremities well without hemiparesis or paralysis. Grossly intact without resting or essential tremor Psychiatric exam: Present: normal affect, normal mood Skin exam: Present: normal color, warm, dry, intact. Absent: cyanosis, diaphoretic, rash, urticaria Result/EKG - Labs CBC & BMP: 11/30/16 07:48 11/30/16 07:48 Lab Results: I have reviewed the past 24 hour labs Labs: Laboratory Results - last 24 hr 11/29/16 11/29/16 11/29/16 11:49 15:58 16:01 WBC RBC Hgb Hct MCV MCH MCHC RDW Plt Count MPV Neut % (Auto) Lymph % (Auto) Hitchcock % (Auto) Eos % (Auto) Baso % (Auto) Neut # (Auto) Lymph # (Auto) Hitchcock # (Auto) Eos # (Auto) Baso # (Auto) Total Counted Immature Gran % Nucleated RBC % Immature Gran # Segmented Neutrophils Band Neutrophils Lymphocytes Monocytes Nucleated RBCs # Atypical Lymphocytes Platelet Estimate Giant Platelets Immature Plt Fraction Hypochromasia Microcytosis [place] Cells INR PT Patient/Control Mix Sodium Potassium Chloride Carbon Dioxide Anion Gap BUN Creatinine GFR Calculation BUN/Creatinine Ratio Glucose POC Glucose 205 H 81 88 Calculated Osmolality Calcium Magnesium 11/29/16 11/30/16 11/30/16 20:19 07:27 07:48 WBC RBC Hgb Hct MCV MCH MCHC RDW Plt Count MPV Neut % (Auto) Lymph % (Auto) [place] % (Auto) Eos % (Auto) Baso % (Auto) Neut # (Auto) Lymph # (Auto) Hitchcock # (Auto) Eos # (Auto) Baso # (Auto) Total Counted Immature Gran % Nucleated RBC % Immature Gran # Segmented Neutrophils Band Neutrophils Lymphocytes Monocytes Nucleated RBCs # Atypical Lymphocytes Platelet Estimate Giant Platelets Immature Plt Fraction Hypochromasia Microcytosis Gilbert Cells INR PT Patient/Control Mix Sodium 140 Potassium 4.3 Chloride 110 H Carbon Dioxide 24 Anion Gap 10.3 BUN 11 Creatinine 0.80 GFR Calculation 81 BUN/Creatinine Ratio 13.00 Glucose 134 H POC Glucose 184 H 143 H Calculated Osmolality 279.4 Calcium 8.6 Magnesium 1.7 L 11/30/16 11/30/16 07:48 07:48 WBC 3.2 L RBC 3.81 Hgb 11.3 L Hct 33.0 L MCV 86.6 L MCH 30 MCHC 34.2 RDW 13.4 Plt Count 125 L MPV 10.9 Neut % (Auto) 44.7 Lymph % (Auto) 43.7 Hitchcock % (Auto) 10.7 Eos % (Auto) 0.0 Baso % (Auto) 0.3 Neut # (Auto) 1.4 Lymph # (Auto) 1.4 Hitchcock # (Auto) 0.3 Eos # (Auto) 0.0 Baso # (Auto) 0.0 Total Counted 100 Immature Gran % 0.6 Nucleated RBC % 0.0 Immature Gran # 0.02 Segmented Neutrophils 44 L Band Neutrophils 1 Lymphocytes 42 Monocytes 13 Nucleated RBCs # 0.00 Atypical Lymphocytes Few Platelet Estimate Normal Giant Platelets Few Immature Plt Fraction 0.0 Hypochromasia 1+ Microcytosis Slight [place] Cells Slight INR 1.1 PT Patient/Control Mix 11.4 Sodium Potassium Chloride Carbon Dioxide Anion Gap BUN Creatinine GFR Calculation BUN/Creatinine Ratio Glucose POC Glucose Calculated Osmolality Calcium Magnesium - EKG EKG results: interpreted by me EKG shows: atrial fibrillation Specialty Discharge - Follow Up or Referrals Follow up with: Derek Fuentes MD [Physician] - (Follow up by phone in 1-2 weeks for biopsy results.) Derek Low MD [Physician] - 2 Weeks (Follow up with Dr. Low in 2-3 weeks. Patient needs INR check on 12/01/16. )
--- NOTE | 2016-11-30 12:39 | Hospitalist Progress Note ---
Assessment and Plan - Time spent with patient Time spent with patient: Less than 30 minutes (1) Hx of mitral valve replacement with mechanical valve Status: Chronic Assessment and plan: 61-year-old white female with history of diabetes, dementia, CHF, hypertension, A. fib, mitral stenosis status post valve replacement with mechanical valve, RA , psoriasis admitted by the hospitalist on 11/26/2016 with nausea, vomiting, weakness, acute kidney injury, hypokalemia and hypomagnesemia. Patient had abnormal weight loss and Dr. Fuentes was consulted. Her Coumadin was stopped and she was bridged with Lovenox to prepare for EGD and C scope. EGD on 12/13 showed mild nonerosive linear gastritis which was biopsied. Colonoscopy performed on the same day showed possible inflamed diverticulum with pending biopsies, mild proctitis with moderate left-sided diverticulosis and internal hemorrhoids. No cause for weight loss was identified. Patient's Coumadin has been restarted and her INR today is 1.1. She is to be bridged with Lovenox until her INR is greater than 2. Cardiology is managing this. Repeat INR on . Dr. Boston will see and examine patient and further recommendations to follow. 11/30/2016 patient feels fine without complaints. Her INR is again 1.1. We will increase her dosage of Coumadin to 10 mg daily until INR therapeutic and then resume her home dose. shut off worker to discuss cost of Lovenox shots with patient to see if she can afford them. This is unlikely. Patient can be discharged once her INR is greater than 2. Cardiology will follow INRs. Dr. Boston will see and examine patient and further recommendations to follow. Current Visit: Yes (2) Chronic anticoagulation Status: Chronic Current Visit: Yes Hospitalist: Subjective Interval history: Patient feels fine without complaints. shut off worker is giving her prices of Lovenox to see if she can be discharged home. Exam - Constitutional Vitals: Period Temp Pulse Resp BP Sys/Grant Pulse Ox Last 24 Hr 97.1 F-98.2 F 62-78 18-22 123-158/67-71 92-100 Exam: 61-year-old white female, no acute distress, alert and oriented Chest clear CV regular rate and rhythm Abdomen soft nontender Extremities no edema Results - Labs CBC & BMP: 11/30/16 07:48 11/30/16 07:48 Lab Results: I have reviewed the past 24 hour labs Specialty Discharge - Follow Up or Referrals Follow up with: Derek Fuentes MD [Physician] - (Follow up by phone in 1-2 weeks for biopsy results.) Derek Low MD [Physician] - 2 Weeks (Follow up with Dr. Low in 2-3 weeks. Patient needs INR check on 12/01/16. )
[2016-11-30] MEDS: DIGOXIN 0.125 MG TABLET PO SCH (13:24)
[2016-11-30] MEDS ORDERED: WARFARIN 5 MG TABLET ONE (17:12)
[2016-11-30] MEDS: WARFARIN 10 MG TABLET PO SCH (17:20)
--- NOTE | 2016-11-30 21:49 | Order Completion Report ---
See report scanned to EMR
[2016-12-01] MEDS: ENOXAPARIN 80 MG/0.8 ML SYRINGE SUBCUT SCH ×2 (01:01→13:37)
[2016-12-01 06:23] LABS: INR 1.3; INR 1.4; PT Patient Result 14.8 SECS
[2016-12-01 07:09] LABS: Calcium 9.2 MG/DL (8.5-10.1); Magnesium 1.9 MG/DL (1.8-2.4); Osmolality,Calculated 281.1 MOS/KG (273-304); Potassium 4.1 MMOL/L (3.5-5.1)
[2016-12-01] MEDS: FLUCONAZOLE 100 MG TABLET PO SCH (09:22)
[2016-12-01] MEDS: FOLIC ACID 1 MG TABLET PO SCH (09:22)
[2016-12-01] MEDS: LOSARTAN 50 MG TABLET PO SCH (09:22)
[2016-12-01] MEDS: DILTIAZEM 60 MG TABLET PO SCH ×2 (09:22→21:14)
[2016-12-01] MEDS: MULTIVITAMIN (CENTRUM) TABLET PO SCH (09:23)
[2016-12-01] MEDS: SALSALATE 500 MG TABLET PO SCH (09:23)
[2016-12-01] MEDS: NYSTATIN POWDER 15 GM BOTTLE TOP SCH ×3 (09:23→21:17)
[2016-12-01] MEDS: PANTOPRAZOLE 40 MG VIAL IV SCH (09:23)
[2016-12-01] MEDS: INSULIN LISPRO 100 UNIT/ML SUBCUT SCH ×4 (09:23→21:15)
[2016-12-01] MEDS: MICONAZOLE 2% CREAM 57 GM TUBE TOP SCH ×2 (09:23→21:17)
[2016-12-01] MEDS: CIPROFLOXACIN 500 MG TABLET PO SCH ×2 (09:23→21:14)
--- NOTE | 2016-12-01 12:10 | Cardiology Progress Note ---
Assessment and Plan - Time spent with patient Time spent with patient: Greater than 30 minutes (1) Hx of mitral valve replacement with mechanical valve Status: Chronic Assessment and plan: SEE PLAN OF CARE LISTED BELOW Current Visit: Yes (2) Hypokalemia Status: Resolved Assessment and plan: SEE PLAN OF CARE LISTED BELOW Current Visit: No (3) Non-compliant behavior Status: Chronic Assessment and plan: SEE PLAN OF CARE LISTED BELOW Current Visit: No (4) Hypomagnesemia Status: Resolved Assessment and plan: SEE PLAN OF CARE LISTED BELOW Current Visit: No (5) H/O mechanical aortic valve replacement Status: Chronic Assessment and plan: SEE PLAN OF CARE LISTED BELOW Current Visit: No (6) Paroxysmal atrial fibrillation Status: Acute Assessment and plan: SEE PLAN OF CARE LISTED BELOW Current Visit: No Cardiology - PN: Subj Interval history: 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 Gaytan is a 61 year old female who has a history of multiple medical problems including chronic atrial fibrillation and a MECHANICAL MITRAL VALVE REPLACEMENT AND MECHANICAL AORTIC VALVE REPLACEMENT 2008. SHE IS ON LONG-TERM ANTICOAGULATION. She was admitted after having a fall and reports a 25 pound weight loss over the past several weeks. Gastroenterology planned to work her up for upper endoscopy; however, she has been on warfarin due to having a mechanical mitral valve. We were consulted to aid in her management. GI performed EGD on 11/28/16 and found no specific cause for her weight loss. As her anticoagulation was on hold for EGD, we resumed her Coumadin on 11/28/16 and are bridging her with Lovenox until her INR is greater than 1.8-2. DECEMBER 01, 2016: Patient is followed for stable, chronic conditions to include atrial fibrillation, mechanical mitral valve. Patient is being followed for acute conditions to include subtherapeutic INR with mechanical mitral valve. Denies chest pain, heaviness, tightness. Denies shortness of breath, palpitations or heart racing. INR 1.4. She is anxious for release home and hopefully, patient's INR will be therapeutic tomorrow. Continue bridging her at this point with Lovenox until INR in appropriate range. at [facility] monitors her INR. Will further discuss with Dr. Schulte and await additional recommendations. DECEMBER 01, 2016 THAT REVIEW OF SYSTEMS: CARDIAC: No chest pain, heaviness or tightness. No palpitations. RESPIRATORY: Denies shortness of breath, orthopnea PND GASTROINTESTINAL: Denies constipation, abdominal pain, nausea or IMPRESSION/PLAN: 1. ABNORMAL WEIGHT LOSS: No identifiable source of etiology of weight loss. 2. FALL: This appears to be multifactorial, but may be primarily related to volume and/or electrolyte depletion. Stable. 3. HYPOKALEMIA: Resolved. 4. HYPOMAGNESEMIA: 1.9 today. We will continue replacing per protocol. 5. NAUSEA AND VOMITING: This too has improved. No obvious source of etiology of nausea and/or vomiting. 6. WEAKNESS: Possibly related to her nausea and vomiting and electrolyte disturbances. This is improved. Defer further management to attending. 7. ATRIAL FIBRILLATION: Rate controlled. Coumadin for stroke prevention. 8. DEBILITY - her strength has improved. 9. DIABETES: Type 2, chronic. Blood glucose levels are well controlled at this time. 10. HX OF MVR WITH MECHANICAL VALVE AND AORTIC VALVE REPLACEMENT WITH MECHANICAL VALVE 2008 -requires long-term anticoagulation and we are treating with Lovenox until INR therapeutic 11. RHEUMATOID ARTHRITIS - no complaints of pain today from arthritic complications 12. CHRONIC ANTICOAGULATION: We have resumed her Coumadin and are bridging her with Lovenox which may be continued when her INR is in the 1.8-2.0 range. INR 1.4 today. Continue to monitor PT/INR daily Exam (Progress Note) - Constitutional Vitals: Period Temp Pulse Resp BP Sys/Grant Pulse Ox Last 24 Hr 97.2 F-98.2 F 46-86 18-22 116-147/54-69 97-99 Exam: General: [Appears well with no apparent distress.] [Pleasant and cooperative. ] [Appears comfortable.] HEENT: [PERRL, normocephalic, atraumatic. Mucous membranes moist. No jaundice noted. Conjunctiva moist and clear, sclerae anicteric] Neck: Unable to assess for JVD due to habitus. No thyromegaly. No lymphadenopathy noted. No carotid bruit appreciated Cardiac: [Irregularly irregular rhythm, controlled rate. Click of mitral valve heard best at fifth intercostal space the left. Lungs: [Clear to auscultation without accessory muscle use to assist the respiratory pattern.] Not requiring oxygen Abdomen: Soft, bowel sounds normoactive. Nontender and nondistended. No abdominal bruit or thrill noted. No masses noted. Musculoskeletal: No fluid collection. Decreased range of motion is noted. Extremities: No clubbing, cyanosis noted. [Trace bilateral lower extremity edema noted.] Upper extremity pulses 2+. Lower extremity pulses 2+. Capillary refill less than 3 seconds. Skin: Psoriatic type lesions noted on chest and arms. No other unusual lesions or rashes. No skin breakdown appreciated. Neuro: Awake, alert and oriented 3. Moves all extremities well without hemiparesis or paralysis. No essential tremor is appreciated. Result/EKG - Labs CBC & BMP: 11/30/16 07:48 12/01/16 05:59 Lab Results: I have reviewed the past 24 hour labs Labs: Laboratory Results - last 24 hr 11/30/16 11/30/16 11/30/16 11:55 16:14 20:40 INR PT Patient/Control Mix Sodium Potassium Chloride Carbon Dioxide Anion Gap BUN Creatinine GFR Calculation BUN/Creatinine Ratio Glucose POC Glucose 115 H 140 H 190 H Calculated Osmolality Calcium Magnesium 12/01/16 12/01/16 12/01/16 05:59 06:00 06:00 INR 1.3 1.4 PT Patient/Control Mix 14.0 D 14.8 Sodium 142 Potassium 4.1 Chloride 110 H Carbon Dioxide 24 Anion Gap 12.1 BUN 11 Creatinine 0.80 GFR Calculation 81 BUN/Creatinine Ratio 13.00 Glucose 107 H POC Glucose Calculated Osmolality 281.1 Calcium 9.2 Magnesium 1.9 12/01/16 07:28 INR PT Patient/Control Mix Sodium Potassium Chloride Carbon Dioxide Anion Gap BUN Creatinine GFR Calculation BUN/Creatinine Ratio Glucose POC Glucose 114 H Calculated Osmolality Calcium Magnesium - EKG EKG results: interpreted by me EKG shows: atrial fibrillation Specialty Discharge - Follow Up or Referrals Follow up with: Derek Fuentes MD [Physician] - (Follow up by phone in 1-2 weeks for biopsy results.) Derek Low MD [Physician] - 2 Weeks (Follow up with Dr. Low in 2-3 weeks. Patient needs INR check on 12/01/16. )
--- NOTE | 2016-12-01 13:05 | Hospitalist Progress Note ---
Assessment and Plan - Time spent with patient Time spent with patient: Less than 30 minutes (1) Hx of mitral valve replacement with mechanical valve Status: Chronic Assessment and plan: 61-year-old white female with history of diabetes, dementia, CHF, hypertension, A. fib, mitral stenosis status post valve replacement with mechanical valve, RA , psoriasis admitted by the hospitalist on 11/26/2016 with nausea, vomiting, weakness, acute kidney injury, hypokalemia and hypomagnesemia. Patient had abnormal weight loss and Dr. Fuentes was consulted. Her Coumadin was stopped and she was bridged with Lovenox to prepare for EGD and C scope. EGD on 12/13 showed mild nonerosive linear gastritis which was biopsied. Colonoscopy performed on the same day showed possible inflamed diverticulum with pending biopsies, mild proctitis with moderate left-sided diverticulosis and internal hemorrhoids. No cause for weight loss was identified. Patient's Coumadin has been restarted and her INR today is 1.1. She is to be bridged with Lovenox until her INR is greater than 2. Cardiology is managing this. Repeat INR on . Dr. Boston will see and examine patient and further recommendations to follow. 11/30/2016 patient feels fine without complaints. Her INR is again 1.1. We will increase her dosage of Coumadin to 10 mg daily until INR therapeutic and then resume her home dose. 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 This is unlikely. Patient can be discharged once her INR is greater than 2. Cardiology will follow INRs. Dr. Boston will see and examine patient and further recommendations to follow. 12/01/2016 patient feels well and she is eager to go home. Her INR today is 1.4. Continue with Coumadin 10 mg at 1800 until INR is greater than 2. Then she can reduce to her home dose. Dr. Low from [facility] will monitor her INR on discharge. Dr. Boston will see and examine patient and further recommendations to follow. Current Visit: Yes (2) Chronic anticoagulation Status: Chronic Current Visit: Yes Hospitalist: Subjective Interval history: Patient states she feels fine and has no complaints. She is eager to go home. Exam - Constitutional Vitals: Period Temp Pulse Resp BP Sys/Grant Pulse Ox Last 24 Hr 97.2 F-98.2 F 46-86 18-22 116-147/54-69 97-99 Exam: 61-year-old white female, no acute distress, alert and oriented Chest clear CV regular rate and rhythm Abdomen soft nontender Extremities no edema Results - Labs CBC & BMP: 11/30/16 07:48 12/01/16 05:59 Lab Results: I have reviewed the past 24 hour labs Labs: INR is 1.4 Specialty Discharge - Follow Up or Referrals Follow up with: Derek Fuentes MD [Physician] - (Follow up by phone in 1-2 weeks for biopsy results.) Derek Low MD [Physician] - 2 Weeks (Follow up with Dr. Low in 2-3 weeks. Patient needs INR check on 12/01/16. )
[2016-12-01] MEDS: DIGOXIN 0.125 MG TABLET PO SCH (13:37)
[2016-12-01] MEDS ORDERED: WARFARIN 5 MG TABLET ONE ×2 (18:02)
[2016-12-01] MEDS: WARFARIN 10 MG TABLET PO SCH (18:03)
[2016-12-02] MEDS: ENOXAPARIN 80 MG/0.8 ML SYRINGE SUBCUT SCH (01:15)
[2016-12-02] MEDS: SALSALATE 500 MG TABLET PO SCH ×2 (01:17→08:40)
[2016-12-02 04:47] LABS: Hematocrit 34.9 VOL% (35.7-47.0); Hemoglobin 11.7 GM/DL (12.0-16.0); Immature Granulocytes % 0.6 %; Immature Granulocytes Absolute 0.03 #; Lymphocytes # 1.8 10*3/uL (1.4-4.0); Lymphocytes % 33.5 % (21.3-54.2); Mean Corpuscular HGB Conc 33.5 GM/DL (32-36); Mean Corpuscular Hemoglobin 29 PG (27-34); Mean Corpuscular Volume 86.8 FL (87-102); Mean Platelet Volume 11.5 FL (9.6-12.0); Monocytes # 0.7 10*3/uL (0.11-0.8); Monocytes % 13.2 % (1.7-12.7); Neutrophils # 2.8 10*3/uL (1.4-7.4); Neutrophils % 52.7 % (38.7-73.9); Platelet Count 179 T/CUMM (130-400); Red Blood Count 4.02 MC/CUMM (3.8-5.5); Red Cell Distribution Width 13.4 % (9.3-17.3); White Blood Count 5.3 T/CUMM (4-12)
[2016-12-02 05:02] LABS: INR 2.1
[2016-12-02 05:06] LABS: PT Patient Result 22.3 SECS
[2016-12-02 05:18] LABS: Calcium 8.8 MG/DL (8.5-10.1); Magnesium 1.6 MG/DL (1.8-2.4); Osmolality,Calculated 280.3 MOS/KG (273-304); Potassium 4.1 MMOL/L (3.5-5.1)
[2016-12-02] MEDS: INSULIN LISPRO 100 UNIT/ML SUBCUT SCH (07:51)
[2016-12-02] MEDS: MULTIVITAMIN (CENTRUM) TABLET PO SCH (08:38)
[2016-12-02] MEDS: LOSARTAN 50 MG TABLET PO SCH (08:38)
[2016-12-02] MEDS: DILTIAZEM 60 MG TABLET PO SCH (08:39)
[2016-12-02] MEDS: CIPROFLOXACIN 500 MG TABLET PO SCH (08:39)
[2016-12-02] MEDS: FOLIC ACID 1 MG TABLET PO SCH (08:39)
[2016-12-02] MEDS: FLUCONAZOLE 100 MG TABLET PO SCH (08:39)
[2016-12-02] MEDS: PANTOPRAZOLE 40 MG VIAL IV SCH (08:40)
[2016-12-02] MEDS: NYSTATIN POWDER 15 GM BOTTLE TOP SCH (08:40)
[2016-12-02] MEDS: MICONAZOLE 2% CREAM 57 GM TUBE TOP SCH (08:40)
[2016-12-02 08:43] VITALS: BP 148/69
--- NOTE | 2016-12-02 09:36 | Discharge Summary ---
Hospital Course - Hospital Course Hospital Course: 61-year-old white female with history of diabetes, dementia, CHF, hypertension, A. fib, mitral stenosis status post valve replacement with mechanical valve on Coumadin, RA, psoriasis admitted by the hospitalist on 11/26/2016 with nausea, vomiting, weakness, acute kidney injury, hypokalemia and hypomagnesemia. Patient had abnormal weight loss and Dr. Fuentes was consulted. Her Coumadin was stopped and she was bridged with Lovenox to prepare for EGD and C scope. EGD on 11/28/16 showed mild nonerosive linear gastritis which was biopsied. Colonoscopy performed on the same day showed possible inflamed diverticulum with pending biopsies, mild proctitis with moderate left-sided diverticulosis and internal hemorrhoids. No cause for weight loss was identified. Patient's Coumadin was restarted and due to her insurance issues she was kept in the hospital bridged with Lovenox until her INR level was greater than 2. This morning her INR is 2.1 so she will be discharged to home on her home dose of Coumadin. Patient will follow up with Dr. low in 2 weeks with an INR. She will also call Dr. Fuentes's office in 1-2 weeks for biopsy results. Complete discharge instructions were given. Care coordination, chart review, and completed discharge paperwork took approximately 45 minutes. - Time spent with patient Time with patient DS: Greater than 30 minutes Diagnosis - Discharge Diagnosis (1) Hx of mitral valve replacement with mechanical valve Status: Chronic (2) Chronic anticoagulation Status: Chronic Specialty Discharge - Follow Up or Referrals Follow up with: Derek Fuentes MD [Physician] - (Follow up by phone in 1-2 weeks for biopsy results.) Derek Low MD [Physician] - 2 Weeks (Follow up with Dr. Low in 2-3 weeks. Patient needs INR check on 12/01/16. ) Discharge Plan - Discharge Data Disposition: Discharge Diet: advance to your usual diet Activity: resume usual activities as tolerated Contact your physician if you experience:: Bleeding - Discharge Medications Continue Losartan Potassium 50 mg PO DAILY Folic Acid Tab 1 mg PO DAILY sitaGLIPtin [Januvia] 100 mg PO DAILY Omeprazole [Prilosec] 20 mg PO DAILY Digoxin Tab [Lanoxin Tab] 0.125 mg PO DAILY@1300 Furosemide Tab [Lasix Tab] 40 mg PO QAM Diltiazem Tab [Cardizem Tab] 60 mg PO BID #60 tablet sulfaSALAzine [Sulfasalazine] 500 mg PO BID Warfarin [Coumadin] 7.5 mg PO SUTUWETHSA@1800 tablet Warfarin [Coumadin] 5 mg PO MOFR@1800 tablet - Follow Up or Referral Follow Up: Derek Low MD [Physician] - 2 Weeks (Follow up with Dr. Low in 2-3 weeks. Patient needs INR check on 12/01/16. ) Derek Fuentes MD [Physician] - (Follow up by phone in 1-2 weeks for biopsy results.) - Forms/Instructions Exam - Constitutional Vitals: Period Temp Pulse Resp BP Sys/Grant Pulse Ox Last 24 Hr 97.5 F-98.4 F 55-84 18-20 124-148/52-69 96-99 Exam: 61-year-old white female, no acute distress, alert and oriented Chest clear CV regular rate and rhythm Abdomen soft nontender Extremities no edema Discharge Results Labs on day of discharge: Labs from last 24 hours 12/02/16 12/02/16 12/02/16 07:45 03:44 03:44 WBC 5.3 D RBC 4.02 Hgb 11.7 L Hct 34.9 L MCV 86.8 L MCH 29 MCHC 33.5 RDW 13.4 Plt Count 179 D MPV 11.5 Neut % (Auto) 52.7 Lymph % (Auto) 33.5 Richardson % (Auto) 13.2 H Eos % (Auto) 0.0 Baso % (Auto) 0.0 Neut # (Auto) 2.8 Lymph # (Auto) 1.8 Richardson # (Auto) 0.7 Eos # (Auto) 0.0 Baso # (Auto) 0.0 Immature Gran % 0.6 Nucleated RBC % 0.0 Immature Gran # 0.03 Nucleated RBCs # 0.00 Immature Plt Fraction 0.0 INR 2.1 PT Patient/Control Mix 22.3 D Sodium Potassium Chloride Carbon Dioxide Anion Gap BUN Creatinine GFR Calculation BUN/Creatinine Ratio Glucose POC Glucose 116 H Calculated Osmolality Calcium Magnesium 12/02/16 12/01/16 12/01/16 03:44 20:04 15:45 WBC RBC Hgb Hct MCV MCH MCHC RDW Plt Count MPV Neut % (Auto) Lymph % (Auto) Richardson % (Auto) Eos % (Auto) Baso % (Auto) Neut # (Auto) Lymph # (Auto) Richardson # (Auto) Eos # (Auto) Baso # (Auto) Immature Gran % Nucleated RBC % Immature Gran # Nucleated RBCs # Immature Plt Fraction INR PT Patient/Control Mix Sodium 141 Potassium 4.1 Chloride 108 H Carbon Dioxide 26 Anion Gap 11.1 BUN 11 Creatinine 0.90 GFR Calculation 70 BUN/Creatinine Ratio 12.00 Glucose 111 H POC Glucose 312 H 133 H Calculated Osmolality 280.3 Calcium 8.8 Magnesium 1.6 L DS: Provider Date of admission: 11/25/16 23:59 Primary care physician: . No PCP Attending physician on admission: Louis Medina MD Consults: 11/26/16 05:44 Consult to Pharmacy [CONS] Routine Reason for Pharmacy Consult: Other Comment: pt on warfarin 11/26/16 08:17 Consult to Anesthesiology [CONS] Routine Consulting Provider: Reason for Anesthesiology: Pre-op Clearance 11/26/16 10:22 Consult to Physician [CONS] Routine Comment: mechanical mitral valve, lovenox, clearance Consulting Provider: Ralf Thakkar When should Consulting Provider be notified: Now 11/27/16 16:03 Consult to Case Mgmt/Social Srvs [CONS] Routine Reason for Case Mgmt/Social Srvs: Rehab Consult to Occupational Therapy [CONS] Routine Reason for Occupational Therapy: Evaluate and Treat Consult to Physical Therapy [CONS] Routine Reason for Physical Therapy: Evaluate and Treat 12/01/16 12:08 Consult to Dietitian [CONS] Routine Reason for Dietitian: Other Consult Comment: patient request Discharging clinician: BELLA Dailey Expected date of discharge: 12/02/16
== END 2016-12-02 13:00 | disposition home or self-care (01) | DRG 683 ==
LOC: EDBD → EDUNIT# → N.ED 22:47 → N.4E 22:47 → OBSVTOIN 23:59 → SUATTDRO 11-26 03:14 → N.4E 11-26 04:15
PROVIDERS: ADMIT Internal Medicine; ATTEND Internal Medicine
PROC: COLONBX (2016-11-28 12:05)

== ENCOUNTER 2018-02-27 22:37 | Inpatient (IN) ==
[2018-02-27] MEDS ORDERED: LACTATED RINGERS 1,000 ML IV ONE (23:20)
[2018-02-27 23:25] LABS: Basophils # 0.1 10*3/uL (0.0-0.2); Basophils % 0.5 % (0.0-0.8); Hematocrit 42.7 VOL% (35.7-47.0); Hemoglobin 14.5 GM/DL (12.0-16.0); Immature Granulocytes % 0.5 %; Immature Granulocytes Absolute 0.06 #; Lymphocytes # 1.5 10*3/uL (1.4-4.0); Mean Corpuscular Hemoglobin 27 PG (27-34); Mean Corpuscular Volume 78.6 FL (87-102); Monocytes # 0.7 10*3/uL (0.11-0.8); Monocytes % 6.4 % (1.7-12.7); Neutrophils # 8.6 10*3/uL (1.4-7.4); Neutrophils % 78.6 % (38.7-73.9); Platelet Count 234 T/CUMM (130-400); Red Blood Count 5.43 MC/CUMM (3.8-5.5)
[2018-02-27 23:31] LABS: Apearance,Urine CLEAR (Clear); Bacteria,Urine Many /HPF (Few); Bilirubin,Urine Negative (Negative); Blood, Urine Small mg/dL (Negative); Glucose,Urine (UA) >=500 mg/dL (Negative); Ketones,Urine Negative (Negative); Mucus,Urine Occasional /LPF (Occasional); Nitrite,Urine Negative (Negative); Protein,Urine Negative; RBC,Urine <1 /HPF (0-4); Urine Color Straw (Yellow); Urine Specific Gravity 1.018 (1.001-1.035); Urine Urobilinogen < 2.0 EU/DL (0.2-1.0); WBC,Urine 1 /HPF (0-6)
[2018-02-27 23:46] LABS: Alanine Aminotransferase 26 U/L (13-56); Albumin 3.6 G/DL (3.4-5.0); Alkaline Phosphatase 179 U/L (45-117); Aspartate Amino Transferase 23 U/L (0-37); Blood Urea Nitrogen 9 MG/DL (7-18); Calcium 9.6 MG/DL (8.5-10.1); Osmolality,Calculated 296.1 MOS/KG (273-304); Potassium 3.6 MMOL/L (3.5-5.1); Sodium 128 MMOL/L (136-145); Total Protein 8.2 G/DL (6.4-8.3)
[2018-02-27 23:47] LABS: Glucose 840 MG/DL (74-106)
[2018-02-27 23:48] LABS: Lactic Acid 4.2 MMOL/L (0.4-2.0)
[2018-02-28] MEDS ORDERED: SODIUM CHLORIDE 0.9% 1,000 ML IV STA (00:10)
[2018-02-28] MEDS ORDERED: SODIUM PHOSPHATE INJ 15.9 MMOL in SODIUM CHLORIDE 0.9% 250 ML IV PRN (01:07)
[2018-02-28] MEDS ORDERED: DEXTROSE 50% 25 GM/50 ML SYRINGE IV PRN (01:07)
[2018-02-28] MEDS ORDERED: INSULIN REGULAR 100 UNIT/ML IV ONE ×2 (01:07→09:52)
[2018-02-28] MEDS ORDERED: DEXTROSE 50% 25 GM/50 ML VIAL IV PRN (01:07)
[2018-02-28] MEDS ORDERED: MAGNESIUM SULF RIDER 4 GM in PREMIX 1 EACH IV PRN (01:39)
[2018-02-28] MEDS ORDERED: GLUCAGON 1 MG VIAL IM PRN (01:39)
[2018-02-28] MEDS ORDERED: ALBUTEROL 2.5 MG/3 ML NEB RESP TX PRN (01:58)
[2018-02-28 02:32] LABS: INR 2.9
[2018-02-28 02:34] LABS: PT Patient Result 31.2 SECS
[2018-02-28 02:58] LABS: Calcium 9.3 MG/DL (8.5-10.1); Osmolality,Calculated 296.2 MOS/KG (273-304); Potassium 2.6 MMOL/L (3.5-5.1)
[2018-02-28] MEDS: MAGNESIUM SULF RIDER 2 GM in PREMIX 1 EACH IV PRN ×2 (03:00→16:59)
[2018-02-28] MEDS: SODIUM CHLORIDE 0.9% 1,000 ML IV SCH ×2 (03:00→05:20)
[2018-02-28] MEDS: INSULIN REGULAR DRIP 100 ML IV SCH (03:20)
[2018-02-28] MEDS: POTASSIUM CHLORIDE RIDER 10 MEQ in PREMIX 1 EACH IV PRN ×12 (03:26→21:05)
[2018-02-28 04:26] LABS: Basophils % 0.3 % (0.0-0.8); Hematocrit 39.9 VOL% (35.7-47.0); Hemoglobin 13.6 GM/DL (12.0-16.0); Immature Granulocytes % 0.5 %; Immature Granulocytes Absolute 0.06 #; Lymphocytes # 1.4 10*3/uL (1.4-4.0); Lymphocytes % 11.7 % (21.3-54.2); Mean Corpuscular HGB Conc 34.1 GM/DL (32-36); Mean Corpuscular Hemoglobin 27 PG (27-34); Mean Corpuscular Volume 78.7 FL (87-102); Mean Platelet Volume 11.6 FL (9.6-12.0); Monocytes # 0.7 10*3/uL (0.11-0.8); Monocytes % 5.7 % (1.7-12.7); Neutrophils # 9.6 10*3/uL (1.4-7.4); Neutrophils % 81.8 % (38.7-73.9); Platelet Count 209 T/CUMM (130-400); Red Blood Count 5.07 MC/CUMM (3.8-5.5); Red Cell Distribution Width 13.9 % (9.3-17.3); White Blood Count 11.8 T/CUMM (4-12)
[2018-02-28 05:33] LABS: Thyroid Stimulating Hormone 2.4 uIU/ml (0.358-3.74)
[2018-02-28] MEDS ORDERED: SODIUM CHLORIDE 0.9% 1,000 ML IV SCH (06:07)
[2018-02-28 07:39] LABS: Calcium 8.1 MG/DL (8.5-10.1); Osmolality,Calculated 294.1 MOS/KG (273-304)
[2018-02-28] MEDS ORDERED: INFLUENZA VIRUS VACCINE 0.5 ML SYRINGE IM ONE (09:00)
[2018-02-28 10:52] LABS: Calcium 7.5 MG/DL (8.5-10.1); Osmolality,Calculated 286.5 MOS/KG (273-304); Potassium 3.2 MMOL/L (3.5-5.1)
[2018-02-28] MEDS: SODIUM CHLOR 0.45% KCL 20 MEQ 20 MEQ/1,000 ML BAG IV SCH (13:54)
[2018-02-28 16:04] LABS: Calcium 7.6 MG/DL (8.5-10.1); Osmolality,Calculated 278.7 MOS/KG (273-304); Potassium 3.4 MMOL/L (3.5-5.1)
[2018-02-28] MEDS: DEXT 5% NACL 0.45% KCL 20 MEQ 20 MEQ/1,000 ML BAG IV SCH (16:59)
[2018-02-28 19:43] LABS: Calcium 7.5 MG/DL (8.5-10.1); Osmolality,Calculated 271.5 MOS/KG (273-304); Potassium 3.7 MMOL/L (3.5-5.1)
[2018-03-01] MEDS: SODIUM CHLORIDE 0.45% 1,000 ML IV SCH ×3 (00:07→10:12)
[2018-03-01] MEDS: DEXT 5% NACL 0.45% KCL 20 MEQ 20 MEQ/1,000 ML BAG IV SCH (00:08)
[2018-03-01] MEDS: SODIUM CHLOR 0.45% KCL 20 MEQ 20 MEQ/1,000 ML BAG IV SCH ×2 (00:08→00:11)
[2018-03-01] MEDS: INSULIN REGULAR 100 UNIT/ML SUBCUT SCH ×6 (01:39→21:00)
[2018-03-01 03:45] LABS: Basophils % 0.4 % (0.0-0.8); Eosinophils % 0.1 % (0.00-10.9); Hematocrit 35.9 VOL% (35.7-47.0); Hemoglobin 11.8 GM/DL (12.0-16.0); Immature Granulocytes % 0.5 %; Immature Granulocytes Absolute 0.04 #; Lymphocytes # 2.2 10*3/uL (1.4-4.0); Mean Corpuscular HGB Conc 32.9 GM/DL (32-36); Mean Corpuscular Hemoglobin 27 PG (27-34); Mean Corpuscular Volume 81.2 FL (87-102); Mean Platelet Volume 11.1 FL (9.6-12.0); Monocytes # 0.6 10*3/uL (0.11-0.8); Monocytes % 7.6 % (1.7-12.7); Neutrophils # 5.2 10*3/uL (1.4-7.4); Neutrophils % 64.4 % (38.7-73.9); Platelet Count 200 T/CUMM (130-400); Red Blood Count 4.42 MC/CUMM (3.8-5.5); Red Cell Distribution Width 14.5 % (9.3-17.3); White Blood Count 8.1 T/CUMM (4-12)
[2018-03-01] MEDS: INSULIN REGULAR DRIP 100 ML IV SCH (04:20)
[2018-03-01 07:47] LABS: Calcium 7.8 MG/DL (8.5-10.1); Osmolality,Calculated 273.8 MOS/KG (273-304); Potassium 3.7 MMOL/L (3.5-5.1)
[2018-03-01] MEDS ORDERED: INSULIN REGULAR 100 UNIT/ML ONE (12:10)
[2018-03-01] MEDS: POTASSIUM PHOS/SOD PHOS POWDER 250 MG PACK PO SCH ×2 (12:19→17:19)
[2018-03-01] MEDS: DIGOXIN 0.125 MG TABLET PO SCH (12:19)
[2018-03-01] MEDS ORDERED: WARFARIN 2.5 MG TABLET PO ONE (17:25)
[2018-03-01] MEDS ORDERED: WARFARIN 7.5 MG TABLET PO SCH (18:00)
[2018-03-01] MEDS: DILTIAZEM 60 MG TABLET PO SCH (21:20)
[2018-03-02 06:13] LABS: INR 1.6; PT Patient Result 17.6 SECS
[2018-03-02] MEDS: INSULIN REGULAR 100 UNIT/ML SUBCUT SCH ×4 (07:30→20:39)
[2018-03-02] MEDS: DILTIAZEM 60 MG TABLET PO SCH ×2 (08:36→20:32)
[2018-03-02] MEDS: PANTOPRAZOLE 20 MG TABLET PO SCH (08:36)
[2018-03-02] MEDS: LOSARTAN 50 MG TABLET PO SCH (08:36)
[2018-03-02] MEDS: FOLIC ACID 1 MG TABLET PO SCH (08:36)
[2018-03-02] MEDS ORDERED: sitaGLIPtin 100 MG TABLET PO SCH (09:00)
[2018-03-02] MEDS ORDERED: PIOGLITAZONE 15 MG TABLET PO SCH (09:30)
[2018-03-02] MEDS: metFORMIN 500 MG TABLET PO SCH ×2 (10:22→17:21)
[2018-03-02] MEDS ORDERED: INSULIN ASPART PROTAMINE/ASPART 70/30 100 UNIT/ML SUBCUT SCH (11:30)
[2018-03-02 12:15] LABS: Basophils % 0.5 % (0.0-0.8); Hematocrit 35.2 VOL% (35.7-47.0); Hemoglobin 11.5 GM/DL (12.0-16.0); Immature Granulocytes % 0.8 %; Immature Granulocytes Absolute 0.07 #; Lymphocytes # 1.6 10*3/uL (1.4-4.0); Lymphocytes % 18.5 % (21.3-54.2); Mean Corpuscular HGB Conc 32.7 GM/DL (32-36); Mean Corpuscular Hemoglobin 27 PG (27-34); Mean Corpuscular Volume 81.5 FL (87-102); Monocytes # 0.6 10*3/uL (0.11-0.8); Monocytes % 7.3 % (1.7-12.7); Neutrophils # 6.2 10*3/uL (1.4-7.4); Neutrophils % 72.9 % (38.7-73.9); Platelet Count 176 T/CUMM (130-400); Red Blood Count 4.32 MC/CUMM (3.8-5.5); Red Cell Distribution Width 14.6 % (9.3-17.3); White Blood Count 8.5 T/CUMM (4-12)
[2018-03-02] MEDS: ONDANSETRON 4 MG/2 ML VIAL IV PRN (12:24)
[2018-03-02 12:30] LABS: Calcium 8.2 MG/DL (8.5-10.1); Osmolality,Calculated 286.7 MOS/KG (273-304); Potassium 4.5 MMOL/L (3.5-5.1)
[2018-03-02] MEDS: DIGOXIN 0.125 MG TABLET PO SCH (12:42)
[2018-03-02] MEDS ORDERED: WARFARIN 5 MG TABLET PO ONE (13:30)
[2018-03-02] MEDS: ENOXAPARIN 60 MG/0.6 ML SYRINGE SUBCUT SCH (15:41)
[2018-03-02] MEDS: ACETAMINOPHEN 325 MG TABLET PO PRN (15:43)
[2018-03-02] MEDS: WARFARIN 5 MG TABLET PO SCH (17:21)
[2018-03-02] MEDS: INSULIN NPH/REGULAR 70/30 100 UNIT/ML SUBCUT SCH (17:21)
[2018-03-02] MEDS ORDERED: WARFARIN 5 MG TABLET PO SCH (18:00)
[2018-03-03 03:59] LABS: Basophils % 0.4 % (0.0-0.8); Hematocrit 31.1 VOL% (35.7-47.0); Hemoglobin 10.4 GM/DL (12.0-16.0); Immature Granulocytes % 0.8 %; Immature Granulocytes Absolute 0.06 #; Lymphocytes # 2.2 10*3/uL (1.4-4.0); Lymphocytes % 27.6 % (21.3-54.2); Mean Corpuscular HGB Conc 33.4 GM/DL (32-36); Mean Corpuscular Hemoglobin 28 PG (27-34); Mean Corpuscular Volume 82.5 FL (87-102); Mean Platelet Volume 11.3 FL (9.6-12.0); Monocytes # 0.7 10*3/uL (0.11-0.8); Monocytes % 8.4 % (1.7-12.7); Neutrophils % 62.8 % (38.7-73.9); Platelet Count 180 T/CUMM (130-400); Red Blood Count 3.77 MC/CUMM (3.8-5.5); Red Cell Distribution Width 14.9 % (9.3-17.3); White Blood Count 7.9 T/CUMM (4-12)
[2018-03-03 04:05] LABS: INR 1.5; PT Patient Result 15.9 SECS
[2018-03-03 04:27] LABS: Calcium 8.5 MG/DL (8.5-10.1); Osmolality,Calculated 279.4 MOS/KG (273-304); Potassium 4.2 MMOL/L (3.5-5.1)
[2018-03-03] MEDS: ENOXAPARIN 60 MG/0.6 ML SYRINGE SUBCUT SCH ×2 (06:26→17:01)
[2018-03-03] MEDS: metFORMIN 500 MG TABLET PO SCH ×2 (08:51→17:00)
[2018-03-03] MEDS: DILTIAZEM 60 MG TABLET PO SCH ×2 (08:51→21:02)
[2018-03-03] MEDS: LOSARTAN 50 MG TABLET PO SCH (08:51)
[2018-03-03] MEDS: FOLIC ACID 1 MG TABLET PO SCH (08:51)
[2018-03-03] MEDS: PANTOPRAZOLE 20 MG TABLET PO SCH (08:52)
[2018-03-03] MEDS: INSULIN REGULAR 100 UNIT/ML SUBCUT SCH ×4 (08:52→21:02)
[2018-03-03] MEDS: INSULIN NPH/REGULAR 70/30 100 UNIT/ML SUBCUT SCH ×2 (08:52→17:01)
[2018-03-03] MEDS: DIGOXIN 0.125 MG TABLET PO SCH (12:19)
[2018-03-03] MEDS: ACETAMINOPHEN 325 MG TABLET PO PRN (17:00)
[2018-03-03] MEDS: WARFARIN 5 MG TABLET PO SCH (17:00)
[2018-03-04] MEDS: ONDANSETRON 4 MG/2 ML VIAL IV PRN ×2 (00:44→11:00)
[2018-03-04 06:35] LABS: INR 2.3
[2018-03-04 06:36] LABS: PT Patient Result 24.6 SECS
[2018-03-04] MEDS: ENOXAPARIN 60 MG/0.6 ML SYRINGE SUBCUT SCH ×2 (06:49→17:52)
[2018-03-04] MEDS: PANTOPRAZOLE 20 MG TABLET PO SCH (08:21)
[2018-03-04] MEDS: DILTIAZEM 60 MG TABLET PO SCH ×2 (08:21→20:51)
[2018-03-04] MEDS: FOLIC ACID 1 MG TABLET PO SCH (08:21)
[2018-03-04] MEDS: LOSARTAN 50 MG TABLET PO SCH (08:21)
[2018-03-04] MEDS: INSULIN NPH/REGULAR 70/30 100 UNIT/ML SUBCUT SCH ×2 (08:21→15:45)
[2018-03-04] MEDS: metFORMIN 500 MG TABLET PO SCH ×2 (08:21→16:07)
[2018-03-04] MEDS: INSULIN REGULAR 100 UNIT/ML SUBCUT SCH ×3 (08:22→16:06)
[2018-03-04] MEDS ORDERED: WARFARIN 2.5 MG TABLET PO ONE (08:23)
[2018-03-04] MEDS: DIGOXIN 0.125 MG TABLET PO SCH (14:15)
[2018-03-04] MEDS ORDERED: SODIUM CHLORIDE 0.9% 1,000 ML IV ONE (16:25)
[2018-03-04] MEDS ORDERED: cefTRIAXone 1,000 MG in SYRINGE 1 EACH IV ONE (17:00)
[2018-03-04 17:50] LABS: Basophils % 0.2 % (0.0-0.8); Hematocrit 30.2 VOL% (35.7-47.0); Immature Granulocytes % 0.9 %; Immature Granulocytes Absolute 0.14 #; Lymphocytes # 1.7 10*3/uL (1.4-4.0); Lymphocytes % 10.7 % (21.3-54.2); Mean Corpuscular HGB Conc 33.1 GM/DL (32-36); Mean Corpuscular Hemoglobin 27 PG (27-34); Mean Corpuscular Volume 82.1 FL (87-102); Mean Platelet Volume 11.3 FL (9.6-12.0); Monocytes # 1.5 10*3/uL (0.11-0.8); Monocytes % 9.2 % (1.7-12.7); Neutrophils # 12.9 10*3/uL (1.4-7.4); Platelet Count 164 T/CUMM (130-400); Red Blood Count 3.68 MC/CUMM (3.8-5.5); Red Cell Distribution Width 15.2 % (9.3-17.3); White Blood Count 16.3 T/CUMM (4-12)
[2018-03-04] MEDS: WARFARIN 5 MG TABLET PO SCH (17:52)
[2018-03-04 19:21] LABS: Apearance,Urine Slightly Hazy (Clear); Bacteria,Urine Many /HPF (Few); Bilirubin,Urine Negative (Negative); Blood, Urine Negative (Negative); Glucose,Urine (UA) Negative (Negative); Ketones,Urine Negative (Negative); Mucus,Urine Occasional /LPF (Occasional); Nitrite,Urine Negative (Negative); Protein,Urine 30 MG/DL; RBC,Urine 2 /HPF (0-4); Squamous Epithelial Cell,Urine Occasional /HPF (0-10); Urine Color Amber (Yellow); Urine Specific Gravity 1.017 (1.001-1.035); WBC,Urine 76 /HPF (0-6)
[2018-03-05] MEDS: INSULIN REGULAR 100 UNIT/ML SUBCUT SCH ×5 (01:00→20:55)
[2018-03-05] MEDS: ENOXAPARIN 60 MG/0.6 ML SYRINGE SUBCUT SCH ×2 (05:23→18:21)
[2018-03-05] MEDS: INSULIN NPH/REGULAR 70/30 100 UNIT/ML SUBCUT SCH ×2 (08:08→15:53)
[2018-03-05] MEDS: metFORMIN 500 MG TABLET PO SCH ×2 (08:08→17:14)
[2018-03-05] MEDS: cefTRIAXone 1,000 MG in SYRINGE 1 EACH IV SCH (08:12)
[2018-03-05] MEDS: LOSARTAN 50 MG TABLET PO SCH (08:13)
[2018-03-05] MEDS: FOLIC ACID 1 MG TABLET PO SCH (08:13)
[2018-03-05] MEDS: DILTIAZEM 60 MG TABLET PO SCH ×2 (08:13→20:55)
[2018-03-05] MEDS: PANTOPRAZOLE 20 MG TABLET PO SCH (08:13)
[2018-03-05] MEDS: LACTATED RINGERS 1,000 ML IV SCH ×2 (08:56→15:03)
[2018-03-05 09:03] LABS: Basophils % 0.1 % (0.0-0.8); Hematocrit 32.9 VOL% (35.7-47.0); Hemoglobin 10.5 GM/DL (12.0-16.0); Immature Granulocytes % 0.6 %; Immature Granulocytes Absolute 0.07 #; Lymphocytes # 1.6 10*3/uL (1.4-4.0); Lymphocytes % 12.5 % (21.3-54.2); Mean Corpuscular HGB Conc 31.9 GM/DL (32-36); Mean Corpuscular Hemoglobin 27 PG (27-34); Mean Corpuscular Volume 83.5 FL (87-102); Mean Platelet Volume 12.2 FL (9.6-12.0); Monocytes % 8.3 % (1.7-12.7); Neutrophils # 9.8 10*3/uL (1.4-7.4); Neutrophils % 78.5 % (38.7-73.9); Platelet Count 149 T/CUMM (130-400); Red Blood Count 3.94 MC/CUMM (3.8-5.5); Red Cell Distribution Width 15.5 % (9.3-17.3); White Blood Count 12.5 T/CUMM (4-12)
[2018-03-05 09:09] LABS: INR 1.8; PT Patient Result 19.5 SECS
[2018-03-05 09:19] LABS: Calcium 7.7 MG/DL (8.5-10.1); Osmolality,Calculated 266.4 MOS/KG (273-304); Potassium 4.3 MMOL/L (3.5-5.1)
[2018-03-05] MEDS ORDERED: MAGNESIUM SULF RIDER 4 GM in PREMIX 1 EACH IV ONE (11:00)
[2018-03-05] MEDS ORDERED: VANCOMYCIN INJ 1,000 MG in SODIUM CHLORIDE 0.9% 250 ML IV SCH ×2 (11:00→14:00)
[2018-03-05] MEDS: ACETAMINOPHEN 325 MG TABLET PO PRN (11:58)
[2018-03-05] MEDS: DIGOXIN 0.125 MG TABLET PO SCH (13:47)
[2018-03-05] MEDS: SODIUM CHLORIDE 0.9% 1,000 ML IV SCH ×2 (13:47→18:15)
[2018-03-05] MEDS ORDERED: SODIUM CHLORIDE 0.9% 1,000 ML IV ONE (15:42)
[2018-03-05] MEDS: SKIN HEALING OINT (AQUAPHOR) 50 GM TUBE TOP SCH (15:54)
[2018-03-05] MEDS: WARFARIN 7.5 MG TABLET PO SCH (18:21)
[2018-03-05 18:31] LABS: ABG Base Excess -1.2 MMOL/L (-2.5-2.5); ABG HCO3 23.4 MMOL/L (20-26); ABG Oxygen Saturation 98.6 % (95-100); ABG PCO2 29.8 MM HG (35-48); ABG TCO2 19.6 MMOL/L (23-27)
[2018-03-05 20:32] LABS: Calcium 7.3 MG/DL (8.5-10.1); Osmolality,Calculated 274.2 MOS/KG (273-304); Potassium 4.2 MMOL/L (3.5-5.1)
[2018-03-06] MEDS: LACTATED RINGERS 1,000 ML IV SCH ×4 (00:04→23:50)
[2018-03-06] MEDS: SODIUM CHLORIDE 0.9% 1,000 ML IV SCH ×4 (02:27→19:19)
[2018-03-06 04:35] LABS: Basophils % 0.3 % (0.0-0.8); Hematocrit 29.4 VOL% (35.7-47.0); Hemoglobin 9.2 GM/DL (12.0-16.0); Immature Granulocytes % 0.5 %; Immature Granulocytes Absolute 0.04 #; Lymphocytes # 0.9 10*3/uL (1.4-4.0); Lymphocytes % 12.4 % (21.3-54.2); Mean Corpuscular HGB Conc 31.3 GM/DL (32-36); Mean Corpuscular Hemoglobin 26 PG (27-34); Mean Corpuscular Volume 84.2 FL (87-102); Mean Platelet Volume 12.1 FL (9.6-12.0); Monocytes # 0.8 10*3/uL (0.11-0.8); Monocytes % 10.9 % (1.7-12.7); Neutrophils # 5.6 10*3/uL (1.4-7.4); Neutrophils % 75.9 % (38.7-73.9); Platelet Count 139 T/CUMM (130-400); Red Blood Count 3.49 MC/CUMM (3.8-5.5); Red Cell Distribution Width 15.7 % (9.3-17.3); White Blood Count 7.3 T/CUMM (4-12)
[2018-03-06 04:50] LABS: Calcium 7.2 MG/DL (8.5-10.1); Osmolality,Calculated 270.2 MOS/KG (273-304)
[2018-03-06 04:52] LABS: INR 2.5
[2018-03-06 04:53] LABS: PT Patient Result 26.8 SECS
[2018-03-06] MEDS: ENOXAPARIN 60 MG/0.6 ML SYRINGE SUBCUT SCH ×2 (05:44→17:08)
[2018-03-06] MEDS: metFORMIN 500 MG TABLET PO SCH ×2 (08:07→16:31)
[2018-03-06] MEDS: INSULIN REGULAR 100 UNIT/ML SUBCUT SCH ×4 (08:07→20:33)
[2018-03-06] MEDS: INSULIN NPH/REGULAR 70/30 100 UNIT/ML SUBCUT SCH ×2 (08:07→16:31)
[2018-03-06] MEDS: DILTIAZEM 60 MG TABLET PO SCH ×2 (08:53→20:34)
[2018-03-06] MEDS: FOLIC ACID 1 MG TABLET PO SCH (08:53)
[2018-03-06] MEDS: LOSARTAN 50 MG TABLET PO SCH (08:53)
[2018-03-06] MEDS: PANTOPRAZOLE 20 MG TABLET PO SCH (08:53)
[2018-03-06] MEDS: cefTRIAXone 1,000 MG in SYRINGE 1 EACH IV SCH (08:54)
[2018-03-06] MEDS: SKIN HEALING OINT (AQUAPHOR) 50 GM TUBE TOP SCH (08:54)
[2018-03-06] MEDS: VANCOMYCIN INJ 1,000 MG in SODIUM CHLORIDE 0.9% 250 ML IV SCH ×2 (10:21→22:00)
[2018-03-06] MEDS: DIGOXIN 0.125 MG TABLET PO SCH (12:57)
[2018-03-06] MEDS: WARFARIN 7.5 MG TABLET PO SCH (17:08)
[2018-03-06] MEDS ORDERED: WARFARIN 5 MG TABLET PO SCH (18:00)
[2018-03-07] MEDS: SODIUM CHLORIDE 0.9% 1,000 ML IV SCH ×6 (03:11→21:27)
[2018-03-07] MEDS: ENOXAPARIN 60 MG/0.6 ML SYRINGE SUBCUT SCH (05:52)
[2018-03-07 06:02] LABS: Basophils % 0.2 % (0.0-0.8); Hematocrit 28.6 VOL% (35.7-47.0); Hemoglobin 8.8 GM/DL (12.0-16.0); Immature Granulocytes % 0.4 %; Immature Granulocytes Absolute 0.02 #; Lymphocytes # 1.1 10*3/uL (1.4-4.0); Lymphocytes % 23.4 % (21.3-54.2); Mean Corpuscular HGB Conc 30.8 GM/DL (32-36); Mean Corpuscular Hemoglobin 26 PG (27-34); Mean Corpuscular Volume 85.6 FL (87-102); Mean Platelet Volume 12.3 FL (9.6-12.0); Monocytes # 0.7 10*3/uL (0.11-0.8); Monocytes % 14.6 % (1.7-12.7); Neutrophils # 2.8 10*3/uL (1.4-7.4); Neutrophils % 61.4 % (38.7-73.9); Platelet Count 140 T/CUMM (130-400); Red Blood Count 3.34 MC/CUMM (3.8-5.5); Red Cell Distribution Width 15.7 % (9.3-17.3); White Blood Count 4.6 T/CUMM (4-12)
[2018-03-07 06:13] LABS: INR 4.7
[2018-03-07 06:21] LABS: PT Patient Result 50.9 SECS
[2018-03-07 06:28] LABS: Calcium 7.4 MG/DL (8.5-10.1); Osmolality,Calculated 279.7 MOS/KG (273-304); Potassium 3.6 MMOL/L (3.5-5.1)
[2018-03-07] MEDS: INSULIN REGULAR 100 UNIT/ML SUBCUT SCH ×4 (08:00→21:27)
[2018-03-07] MEDS: INSULIN NPH/REGULAR 70/30 100 UNIT/ML SUBCUT SCH ×2 (08:00→17:24)
[2018-03-07] MEDS: LACTATED RINGERS 1,000 ML IV SCH ×2 (08:01→17:24)
[2018-03-07] MEDS: metFORMIN 500 MG TABLET PO SCH ×2 (08:01→18:00)
[2018-03-07] MEDS: POTASSIUM CHLORIDE RIDER 10 MEQ in PREMIX 1 EACH IV PRN ×2 (08:02→08:39)
[2018-03-07] MEDS: cefTRIAXone 1,000 MG in SYRINGE 1 EACH IV SCH (08:38)
[2018-03-07] MEDS: SKIN HEALING OINT (AQUAPHOR) 50 GM TUBE TOP SCH (09:19)
[2018-03-07] MEDS: LOSARTAN 50 MG TABLET PO SCH (09:20)
[2018-03-07] MEDS: DILTIAZEM 60 MG TABLET PO SCH ×2 (09:20→21:27)
[2018-03-07] MEDS: FOLIC ACID 1 MG TABLET PO SCH (09:20)
[2018-03-07] MEDS: PANTOPRAZOLE 20 MG TABLET PO SCH (09:20)
[2018-03-07] MEDS: VANCOMYCIN INJ 1,000 MG in SODIUM CHLORIDE 0.9% 250 ML IV SCH (10:06)
[2018-03-07] MEDS ORDERED: MIDAZOLAM 10 MG/2 ML VIAL ONE ×2 (11:40→12:13)
[2018-03-07] MEDS ORDERED: MEPERIDINE 50 MG/1 ML VIAL ONE (11:41)
[2018-03-07] MEDS ORDERED: AMPICILLIN INJ 1,000 MG in SODIUM CHLORIDE 0.9% 100 ML IV SCH (13:30)
[2018-03-07] MEDS: DIGOXIN 0.125 MG TABLET PO SCH (13:42)
[2018-03-07] MEDS: AMPICILLIN INJ 2,000 MG in SODIUM CHLORIDE 0.9% 100 ML IV SCH ×3 (14:35→22:33)
[2018-03-08] MEDS: LACTATED RINGERS 1,000 ML IV SCH (01:26)
[2018-03-08] MEDS: AMPICILLIN INJ 2,000 MG in SODIUM CHLORIDE 0.9% 100 ML IV SCH ×6 (01:26→23:25)
[2018-03-08 05:59] LABS: Basophils % 0.3 % (0.0-0.8); Hematocrit 29.2 VOL% (35.7-47.0); Hemoglobin 9.1 GM/DL (12.0-16.0); Immature Granulocytes % 0.5 %; Immature Granulocytes Absolute 0.03 #; Lymphocytes # 1.2 10*3/uL (1.4-4.0); Lymphocytes % 19.9 % (21.3-54.2); Mean Corpuscular HGB Conc 31.2 GM/DL (32-36); Mean Corpuscular Hemoglobin 27 PG (27-34); Mean Corpuscular Volume 85.9 FL (87-102); Monocytes # 0.7 10*3/uL (0.11-0.8); Monocytes % 11.1 % (1.7-12.7); Neutrophils % 68.2 % (38.7-73.9); Platelet Count 200 T/CUMM (130-400); Red Cell Distribution Width 15.8 % (9.3-17.3); White Blood Count 5.9 T/CUMM (4-12)
[2018-03-08 06:16] LABS: Albumin 2.2 G/DL (3.4-5.0); Bilirubin,Total 0.7 MG/DL (0.2-1.0); Calcium 7.6 MG/DL (8.5-10.1); Osmolality,Calculated 284.3 MOS/KG (273-304); Potassium 3.8 MMOL/L (3.5-5.1)
[2018-03-08] MEDS: INSULIN REGULAR 100 UNIT/ML SUBCUT SCH ×4 (07:32→20:40)
[2018-03-08] MEDS: INSULIN NPH/REGULAR 70/30 100 UNIT/ML SUBCUT SCH ×2 (07:32→17:14)
[2018-03-08] MEDS: POTASSIUM CHLORIDE RIDER 10 MEQ in PREMIX 1 EACH IV PRN ×2 (07:33→09:03)
[2018-03-08] MEDS: LOSARTAN 50 MG TABLET PO SCH (09:03)
[2018-03-08] MEDS: DILTIAZEM 60 MG TABLET PO SCH ×2 (09:03→20:39)
[2018-03-08] MEDS: PANTOPRAZOLE 20 MG TABLET PO SCH (09:03)
[2018-03-08] MEDS: FOLIC ACID 1 MG TABLET PO SCH (09:04)
[2018-03-08] MEDS: metFORMIN 500 MG TABLET PO SCH ×2 (09:04→17:12)
[2018-03-08] MEDS: SODIUM CHLORIDE 0.9% 1,000 ML IV SCH ×6 (09:15→22:51)
[2018-03-08] MEDS: SKIN HEALING OINT (AQUAPHOR) 50 GM TUBE TOP SCH (09:17)
[2018-03-08 09:55] LABS: PT Patient Result 61.2 SECS
[2018-03-08 09:56] LABS: INR 5.7
[2018-03-08] MEDS: DIGOXIN 0.125 MG TABLET PO SCH (12:28)
[2018-03-09] MEDS: AMPICILLIN INJ 2,000 MG in SODIUM CHLORIDE 0.9% 100 ML IV SCH ×5 (03:16→22:07)
[2018-03-09] MEDS: SODIUM CHLORIDE 0.9% 1,000 ML IV SCH ×4 (04:13→22:07)
[2018-03-09 04:34] LABS: Basophils % 0.4 % (0.0-0.8); Hematocrit 29.1 VOL% (35.7-47.0); Immature Granulocytes % 0.9 %; Immature Granulocytes Absolute 0.07 #; Lymphocytes # 1.7 10*3/uL (1.4-4.0); Lymphocytes % 21.6 % (21.3-54.2); Mean Corpuscular HGB Conc 30.9 GM/DL (32-36); Mean Corpuscular Hemoglobin 27 PG (27-34); Mean Corpuscular Volume 85.8 FL (87-102); Mean Platelet Volume 11.9 FL (9.6-12.0); Monocytes # 0.8 10*3/uL (0.11-0.8); Monocytes % 10.5 % (1.7-12.7); Neutrophils # 5.2 10*3/uL (1.4-7.4); Neutrophils % 66.6 % (38.7-73.9); Platelet Count 237 T/CUMM (130-400); Red Blood Count 3.39 MC/CUMM (3.8-5.5); Red Cell Distribution Width 15.9 % (9.3-17.3); White Blood Count 7.8 T/CUMM (4-12)
[2018-03-09 04:46] LABS: INR 3.7
[2018-03-09 04:49] LABS: PT Patient Result 39.3 SECS
[2018-03-09 04:59] LABS: Albumin 2.1 G/DL (3.4-5.0); Bilirubin,Total 0.4 MG/DL (0.2-1.0); Calcium 7.7 MG/DL (8.5-10.1); Osmolality,Calculated 278.4 MOS/KG (273-304); Potassium 4.4 MMOL/L (3.5-5.1); Total Protein 5.8 G/DL (6.4-8.3)
[2018-03-09] MEDS: MAGNESIUM SULF RIDER 2 GM in PREMIX 1 EACH IV PRN (05:26)
[2018-03-09] MEDS: INSULIN REGULAR 100 UNIT/ML SUBCUT SCH ×4 (08:08→22:08)
[2018-03-09] MEDS: LOSARTAN 50 MG TABLET PO SCH (09:25)
[2018-03-09] MEDS: INSULIN NPH/REGULAR 70/30 100 UNIT/ML SUBCUT SCH ×2 (09:25→17:37)
[2018-03-09] MEDS: PANTOPRAZOLE 20 MG TABLET PO SCH (09:25)
[2018-03-09] MEDS: FOLIC ACID 1 MG TABLET PO SCH (09:25)
[2018-03-09] MEDS: SKIN HEALING OINT (AQUAPHOR) 50 GM TUBE TOP SCH (09:26)
[2018-03-09] MEDS: DILTIAZEM 60 MG TABLET PO SCH ×2 (09:26→22:07)
[2018-03-09] MEDS: metFORMIN 500 MG TABLET PO SCH ×2 (09:26→17:37)
[2018-03-09] MEDS: DIGOXIN 0.125 MG TABLET PO SCH (13:40)
[2018-03-10] MEDS: AMPICILLIN INJ 2,000 MG in SODIUM CHLORIDE 0.9% 100 ML IV SCH ×5 (01:22→21:21)
[2018-03-10 05:41] LABS: Basophils % 0.4 % (0.0-0.8); Hematocrit 27.8 VOL% (35.7-47.0); Hemoglobin 8.4 GM/DL (12.0-16.0); Immature Granulocytes % 1.7 %; Immature Granulocytes Absolute 0.14 #; Lymphocytes # 2.2 10*3/uL (1.4-4.0); Lymphocytes % 26.9 % (21.3-54.2); Mean Corpuscular HGB Conc 30.2 GM/DL (32-36); Mean Corpuscular Hemoglobin 26 PG (27-34); Mean Corpuscular Volume 86.3 FL (87-102); Mean Platelet Volume 11.3 FL (9.6-12.0); Monocytes # 0.7 10*3/uL (0.11-0.8); Monocytes % 8.2 % (1.7-12.7); NRBC # 0.02 10*3/uL; Neutrophils # 5.2 10*3/uL (1.4-7.4); Neutrophils % 62.8 % (38.7-73.9); Platelet Count 250 T/CUMM (130-400); Red Blood Count 3.22 MC/CUMM (3.8-5.5); Red Cell Distribution Width 16.3 % (9.3-17.3); White Blood Count 8.3 T/CUMM (4-12)
[2018-03-10 05:53] LABS: INR 1.6; PT Patient Result 17.1 SECS
[2018-03-10 06:04] LABS: Albumin 2.1 G/DL (3.4-5.0); Bilirubin,Total 0.8 MG/DL (0.2-1.0); Calcium 8.4 MG/DL (8.5-10.1); Osmolality,Calculated 277.4 MOS/KG (273-304); Potassium 4.2 MMOL/L (3.5-5.1); Total Protein 5.7 G/DL (6.4-8.3)
[2018-03-10 06:19] LABS: Hypochromasia 1+; Platelet Estimate Adequate
[2018-03-10] MEDS: INSULIN REGULAR 100 UNIT/ML SUBCUT SCH ×4 (07:30→22:30)
[2018-03-10] MEDS: INSULIN NPH/REGULAR 70/30 100 UNIT/ML SUBCUT SCH ×2 (10:06→17:03)
[2018-03-10] MEDS: DILTIAZEM 60 MG TABLET PO SCH ×2 (10:07→21:23)
[2018-03-10] MEDS: LOSARTAN 50 MG TABLET PO SCH (10:07)
[2018-03-10] MEDS: metFORMIN 500 MG TABLET PO SCH ×2 (10:07→17:02)
[2018-03-10] MEDS: PANTOPRAZOLE 20 MG TABLET PO SCH (10:08)
[2018-03-10] MEDS: FOLIC ACID 1 MG TABLET PO SCH (10:08)
[2018-03-10] MEDS: DOCUSATE SODIUM 100 MG CAPSULE PO PRN (10:08)
[2018-03-10] MEDS: ENOXAPARIN 60 MG/0.6 ML SYRINGE SUBCUT SCH ×2 (10:09→21:23)
[2018-03-10] MEDS: SKIN HEALING OINT (AQUAPHOR) 50 GM TUBE TOP SCH (10:14)
[2018-03-10] MEDS: SODIUM CHLORIDE 0.9% 1,000 ML IV SCH ×3 (11:52→22:30)
[2018-03-10] MEDS: DIGOXIN 0.125 MG TABLET PO SCH (16:56)
[2018-03-10] MEDS: WARFARIN 3 MG TABLET PO SCH (18:32)
[2018-03-11] MEDS: AMPICILLIN INJ 2,000 MG in SODIUM CHLORIDE 0.9% 100 ML IV SCH ×6 (02:40→21:40)
[2018-03-11 05:01] LABS: Basophils % 0.4 % (0.0-0.8); Hematocrit 28.1 VOL% (35.7-47.0); Hemoglobin 8.6 GM/DL (12.0-16.0); Immature Granulocytes % 1.5 %; Immature Granulocytes Absolute 0.14 #; Lymphocytes # 2.1 10*3/uL (1.4-4.0); Lymphocytes % 22.7 % (21.3-54.2); Mean Corpuscular HGB Conc 30.6 GM/DL (32-36); Mean Corpuscular Hemoglobin 26 PG (27-34); Mean Corpuscular Volume 86.2 FL (87-102); Mean Platelet Volume 10.9 FL (9.6-12.0); Monocytes # 0.8 10*3/uL (0.11-0.8); Monocytes % 8.2 % (1.7-12.7); NRBC # 0.02 10*3/uL; Neutrophils # 6.3 10*3/uL (1.4-7.4); Neutrophils % 67.2 % (38.7-73.9); Platelet Count 290 T/CUMM (130-400); Red Blood Count 3.26 MC/CUMM (3.8-5.5); White Blood Count 9.4 T/CUMM (4-12)
[2018-03-11 05:14] LABS: INR 1.4; PT Patient Result 14.9 SECS
[2018-03-11 05:28] LABS: Calcium 8.4 MG/DL (8.5-10.1); Osmolality,Calculated 279.3 MOS/KG (273-304)
[2018-03-11 05:34] LABS: Albumin 2.3 G/DL (3.4-5.0); Bilirubin,Total 0.6 MG/DL (0.2-1.0); Calcium 8.4 MG/DL (8.5-10.1); Osmolality,Calculated 280.3 MOS/KG (273-304)
[2018-03-11 05:36] LABS: Band Neutrophils 1 % (0-10); Eosinophils 1 % (0-10); Lymphocytes 22 % (20-55); Nucleated Red Blood Cells 1 (0-5); Platelet Estimate Normal; Segmented Neutrophils 68 % (50-85); Total Cells Counted 100
[2018-03-11] MEDS ORDERED: MAGNESIUM SULF RIDER 4 GM in PREMIX 1 EACH IV ONE (07:15)
[2018-03-11] MEDS: INSULIN NPH/REGULAR 70/30 100 UNIT/ML SUBCUT SCH ×2 (07:36→17:53)
[2018-03-11] MEDS: INSULIN REGULAR 100 UNIT/ML SUBCUT SCH ×4 (07:37→21:47)
[2018-03-11] MEDS: DILTIAZEM 60 MG TABLET PO SCH ×2 (09:01→21:41)
[2018-03-11] MEDS: FOLIC ACID 1 MG TABLET PO SCH (09:01)
[2018-03-11] MEDS: metFORMIN 500 MG TABLET PO SCH ×2 (09:01→17:52)
[2018-03-11] MEDS: DOCUSATE SODIUM 100 MG CAPSULE PO PRN (09:01)
[2018-03-11] MEDS: LOSARTAN 50 MG TABLET PO SCH (09:02)
[2018-03-11] MEDS: PANTOPRAZOLE 20 MG TABLET PO SCH (09:02)
[2018-03-11] MEDS: ENOXAPARIN 60 MG/0.6 ML SYRINGE SUBCUT SCH ×2 (09:02→21:41)
[2018-03-11] MEDS: MAGNESIUM CHLORIDE 64 MG TABLET PO SCH ×2 (09:03→21:41)
[2018-03-11] MEDS: MAGNESIUM SULF RIDER 2 GM in PREMIX 1 EACH IV PRN ×2 (09:03→13:40)
[2018-03-11] MEDS: SODIUM CHLORIDE 0.9% 1,000 ML IV SCH (09:10)
[2018-03-11] MEDS: DIGOXIN 0.125 MG TABLET PO SCH (17:52)
[2018-03-11] MEDS: SKIN HEALING OINT (AQUAPHOR) 50 GM TUBE TOP SCH (17:53)
[2018-03-11] MEDS: WARFARIN 3 MG TABLET PO SCH (19:25)
[2018-03-12] MEDS: SODIUM CHLORIDE 0.9% 1,000 ML IV SCH ×5 (00:16→21:29)
[2018-03-12] MEDS: AMPICILLIN INJ 2,000 MG in SODIUM CHLORIDE 0.9% 100 ML IV SCH ×6 (00:49→21:26)
[2018-03-12 06:12] LABS: Basophils % 0.3 % (0.0-0.8); Hematocrit 27.9 VOL% (35.7-47.0); Hemoglobin 8.4 GM/DL (12.0-16.0); Immature Granulocytes % 1.4 %; Immature Granulocytes Absolute 0.11 #; Lymphocytes # 1.9 10*3/uL (1.4-4.0); Lymphocytes % 24.9 % (21.3-54.2); Mean Corpuscular HGB Conc 30.1 GM/DL (32-36); Mean Corpuscular Hemoglobin 26 PG (27-34); Mean Corpuscular Volume 85.8 FL (87-102); Mean Platelet Volume 10.7 FL (9.6-12.0); Monocytes # 0.7 10*3/uL (0.11-0.8); Monocytes % 9.2 % (1.7-12.7); Neutrophils % 64.2 % (38.7-73.9); Platelet Count 337 T/CUMM (130-400); Red Blood Count 3.25 MC/CUMM (3.8-5.5); Red Cell Distribution Width 17.1 % (9.3-17.3); White Blood Count 7.8 T/CUMM (4-12)
[2018-03-12 06:16] LABS: INR 1.4; PT Patient Result 15.4 SECS
[2018-03-12 06:42] LABS: Hypochromasia 1+; Platelet Estimate Adequate
[2018-03-12 06:46] LABS: Albumin 2.3 G/DL (3.4-5.0); Bilirubin,Total 0.8 MG/DL (0.2-1.0); Calcium 8.2 MG/DL (8.5-10.1); Osmolality,Calculated 277.5 MOS/KG (273-304); Total Protein 6.2 G/DL (6.4-8.3)
[2018-03-12] MEDS ORDERED: WARFARIN 4 MG TABLET PO ONE (07:10)
[2018-03-12] MEDS: INSULIN REGULAR 100 UNIT/ML SUBCUT SCH ×4 (09:34→21:29)
[2018-03-12] MEDS: ENOXAPARIN 60 MG/0.6 ML SYRINGE SUBCUT SCH ×2 (09:36→21:29)
[2018-03-12] MEDS: INSULIN NPH/REGULAR 70/30 100 UNIT/ML SUBCUT SCH ×2 (09:36→17:04)
[2018-03-12] MEDS: DILTIAZEM 60 MG TABLET PO SCH ×2 (09:37→21:28)
[2018-03-12] MEDS: FOLIC ACID 1 MG TABLET PO SCH (09:37)
[2018-03-12] MEDS: LOSARTAN 50 MG TABLET PO SCH (09:37)
[2018-03-12] MEDS: metFORMIN 500 MG TABLET PO SCH ×2 (09:38→17:04)
[2018-03-12] MEDS: MAGNESIUM CHLORIDE 64 MG TABLET PO SCH ×2 (09:38→21:28)
[2018-03-12] MEDS: PANTOPRAZOLE 20 MG TABLET PO SCH (09:38)
[2018-03-12] MEDS: SKIN HEALING OINT (AQUAPHOR) 50 GM TUBE TOP SCH (09:39)
[2018-03-12] MEDS: DIGOXIN 0.125 MG TABLET PO SCH (14:15)
[2018-03-12] MEDS ORDERED: WARFARIN 7.5 MG TABLET PO SCH (18:00)
[2018-03-13] MEDS: AMPICILLIN INJ 2,000 MG in SODIUM CHLORIDE 0.9% 100 ML IV SCH ×4 (01:11→21:30)
[2018-03-13 05:08] LABS: Basophils % 0.7 % (0.0-0.8); Hematocrit 28.6 VOL% (35.7-47.0); Hemoglobin 8.7 GM/DL (12.0-16.0); Immature Granulocytes % 1.6 %; Immature Granulocytes Absolute 0.09 #; Lymphocytes # 1.6 10*3/uL (1.4-4.0); Lymphocytes % 27.4 % (21.3-54.2); Mean Corpuscular HGB Conc 30.4 GM/DL (32-36); Mean Corpuscular Hemoglobin 26 PG (27-34); Mean Corpuscular Volume 86.7 FL (87-102); Mean Platelet Volume 10.3 FL (9.6-12.0); Monocytes # 0.6 10*3/uL (0.11-0.8); Monocytes % 10.7 % (1.7-12.7); Neutrophils # 3.4 10*3/uL (1.4-7.4); Neutrophils % 59.6 % (38.7-73.9); Platelet Count 302 T/CUMM (130-400); Red Cell Distribution Width 17.2 % (9.3-17.3); White Blood Count 5.7 T/CUMM (4-12)
[2018-03-13 05:19] LABS: INR 2.2
[2018-03-13 05:22] LABS: PT Patient Result 23.4 SECS
[2018-03-13 05:32] LABS: Hypochromasia 1+; Lymphocytes 28 % (20-55); Platelet Estimate Adequate; Segmented Neutrophils 63 % (50-85); Total Cells Counted 100
[2018-03-13 05:36] LABS: Albumin 2.4 G/DL (3.4-5.0); Bilirubin,Total 0.5 MG/DL (0.2-1.0); Calcium 8.2 MG/DL (8.5-10.1); Osmolality,Calculated 278.3 MOS/KG (273-304); Potassium 4.2 MMOL/L (3.5-5.1); Total Protein 6.1 G/DL (6.4-8.3)
[2018-03-13 05:37] LABS: Calcium 8.6 MG/DL (8.5-10.1); Osmolality,Calculated 274.5 MOS/KG (273-304); Potassium 3.9 MMOL/L (3.5-5.1)
[2018-03-13] MEDS: INSULIN REGULAR 100 UNIT/ML SUBCUT SCH ×4 (08:03→23:53)
[2018-03-13] MEDS: INSULIN NPH/REGULAR 70/30 100 UNIT/ML SUBCUT SCH ×2 (08:03→16:09)
[2018-03-13] MEDS: SODIUM CHLORIDE 0.9% 1,000 ML IV SCH (09:25)
[2018-03-13] MEDS: SKIN HEALING OINT (AQUAPHOR) 50 GM TUBE TOP SCH (09:26)
[2018-03-13] MEDS: DILTIAZEM 60 MG TABLET PO SCH ×2 (09:26→21:30)
[2018-03-13] MEDS: LOSARTAN 50 MG TABLET PO SCH (09:26)
[2018-03-13] MEDS: FOLIC ACID 1 MG TABLET PO SCH (09:26)
[2018-03-13] MEDS: metFORMIN 500 MG TABLET PO SCH ×2 (09:26→17:32)
[2018-03-13] MEDS: PANTOPRAZOLE 20 MG TABLET PO SCH (09:26)
[2018-03-13] MEDS: MAGNESIUM CHLORIDE 64 MG TABLET PO SCH ×2 (09:26→21:30)
[2018-03-13] MEDS: ENOXAPARIN 60 MG/0.6 ML SYRINGE SUBCUT SCH ×2 (09:26→09:29)
[2018-03-13] MEDS ORDERED: MAGNESIUM SULF RIDER 2 GM in PREMIX 1 EACH IV ONE (10:22)
[2018-03-13] MEDS ORDERED: GENTAMICIN INJ 450 MG in SODIUM CHLORIDE 0.9% 100 ML IV SCH (11:30)
[2018-03-13] MEDS: DIGOXIN 0.125 MG TABLET PO SCH (13:03)
[2018-03-13] MEDS: GENTAMICIN INJ 130 MG in SODIUM CHLORIDE 0.9% 100 ML IV SCH ×2 (13:07→20:10)
[2018-03-13] MEDS: WARFARIN 3 MG TABLET PO SCH (17:32)
[2018-03-14] MEDS: AMPICILLIN INJ 2,000 MG in SODIUM CHLORIDE 0.9% 100 ML IV SCH ×6 (01:28→21:19)
[2018-03-14] MEDS: GENTAMICIN INJ 130 MG in SODIUM CHLORIDE 0.9% 100 ML IV SCH ×3 (03:17→22:19)
[2018-03-14 05:56] LABS: INR 2.8; PT Patient Result 29.7 SECS
[2018-03-14 06:59] LABS: Calcium 8.5 MG/DL (8.5-10.1); Osmolality,Calculated 275.5 MOS/KG (273-304); Potassium 4.2 MMOL/L (3.5-5.1)
[2018-03-14] MEDS: INSULIN REGULAR 100 UNIT/ML SUBCUT SCH ×4 (09:19→21:20)
[2018-03-14] MEDS: INSULIN NPH/REGULAR 70/30 100 UNIT/ML SUBCUT SCH ×2 (09:19→17:00)
[2018-03-14] MEDS: MAGNESIUM CHLORIDE 64 MG TABLET PO SCH ×2 (09:19→21:20)
[2018-03-14] MEDS: DILTIAZEM 60 MG TABLET PO SCH ×2 (09:20→21:20)
[2018-03-14] MEDS: SKIN HEALING OINT (AQUAPHOR) 50 GM TUBE TOP SCH (09:20)
[2018-03-14] MEDS: FOLIC ACID 1 MG TABLET PO SCH (09:20)
[2018-03-14] MEDS: LOSARTAN 50 MG TABLET PO SCH (09:20)
[2018-03-14] MEDS: PANTOPRAZOLE 20 MG TABLET PO SCH (09:20)
[2018-03-14] MEDS: metFORMIN 500 MG TABLET PO SCH ×2 (09:20→17:00)
[2018-03-14] MEDS: DIGOXIN 0.125 MG TABLET PO SCH (14:35)
[2018-03-15] MEDS: AMPICILLIN INJ 2,000 MG in SODIUM CHLORIDE 0.9% 100 ML IV SCH ×7 (02:45→21:51)
[2018-03-15 06:06] LABS: Basophils % 0.5 % (0.0-0.8); Hematocrit 27.6 VOL% (35.7-47.0); Hemoglobin 8.3 GM/DL (12.0-16.0); Immature Granulocytes % 0.3 %; Immature Granulocytes Absolute 0.02 #; Lymphocytes # 1.6 10*3/uL (1.4-4.0); Lymphocytes % 25.7 % (21.3-54.2); Mean Corpuscular HGB Conc 30.1 GM/DL (32-36); Mean Corpuscular Hemoglobin 26 PG (27-34); Mean Corpuscular Volume 86.8 FL (87-102); Mean Platelet Volume 10.1 FL (9.6-12.0); Monocytes # 0.7 10*3/uL (0.11-0.8); Monocytes % 10.3 % (1.7-12.7); Neutrophils % 63.2 % (38.7-73.9); Platelet Count 306 T/CUMM (130-400); Red Blood Count 3.18 MC/CUMM (3.8-5.5); Red Cell Distribution Width 17.1 % (9.3-17.3); White Blood Count 6.3 T/CUMM (4-12)
[2018-03-15 06:19] LABS: INR 2.3
[2018-03-15 06:21] LABS: PT Patient Result 24.8 SECS
[2018-03-15 06:24] LABS: Calcium 8.6 MG/DL (8.5-10.1); Osmolality,Calculated 279.3 MOS/KG (273-304)
[2018-03-15] MEDS: INSULIN REGULAR 100 UNIT/ML SUBCUT SCH ×4 (08:11→22:27)
[2018-03-15] MEDS: INSULIN NPH/REGULAR 70/30 100 UNIT/ML SUBCUT SCH ×2 (08:12→16:00)
[2018-03-15] MEDS: metFORMIN 500 MG TABLET PO SCH ×2 (09:04→16:01)
[2018-03-15] MEDS: FOLIC ACID 1 MG TABLET PO SCH (09:04)
[2018-03-15] MEDS: MAGNESIUM CHLORIDE 64 MG TABLET PO SCH ×2 (09:05→21:51)
[2018-03-15] MEDS: DILTIAZEM 60 MG TABLET PO SCH ×2 (09:05→21:51)
[2018-03-15] MEDS: LOSARTAN 50 MG TABLET PO SCH (09:05)
[2018-03-15] MEDS: PANTOPRAZOLE 20 MG TABLET PO SCH (09:06)
[2018-03-15] MEDS: SKIN HEALING OINT (AQUAPHOR) 50 GM TUBE TOP SCH (09:06)
[2018-03-15] MEDS: GENTAMICIN INJ 60 MG in SODIUM CHLORIDE 0.9% 100 ML IV SCH ×2 (13:18→15:22)
[2018-03-15] MEDS: DIGOXIN 0.125 MG TABLET PO SCH (13:39)
[2018-03-15] MEDS: WARFARIN 3 MG TABLET PO SCH (17:16)
[2018-03-16] MEDS: AMPICILLIN INJ 2,000 MG in SODIUM CHLORIDE 0.9% 100 ML IV SCH ×6 (02:10→22:18)
[2018-03-16 06:17] LABS: Basophils # 0.1 10*3/uL (0.0-0.2); Basophils % 0.7 % (0.0-0.8); Hematocrit 29.5 VOL% (35.7-47.0); Immature Granulocytes % 0.4 %; Immature Granulocytes Absolute 0.03 #; Lymphocytes # 1.7 10*3/uL (1.4-4.0); Lymphocytes % 24.5 % (21.3-54.2); Mean Corpuscular HGB Conc 30.5 GM/DL (32-36); Mean Corpuscular Hemoglobin 26 PG (27-34); Mean Corpuscular Volume 86.5 FL (87-102); Mean Platelet Volume 10.4 FL (9.6-12.0); Monocytes # 0.7 10*3/uL (0.11-0.8); Neutrophils # 4.6 10*3/uL (1.4-7.4); Neutrophils % 64.4 % (38.7-73.9); Platelet Count 336 T/CUMM (130-400); Red Blood Count 3.41 MC/CUMM (3.8-5.5); White Blood Count 7.1 T/CUMM (4-12)
[2018-03-16 06:19] LABS: INR 1.5; PT Patient Result 16.6 SECS
[2018-03-16 06:39] LABS: Osmolality,Calculated 279.4 MOS/KG (273-304); Potassium 4.1 MMOL/L (3.5-5.1)
[2018-03-16] MEDS: INSULIN NPH/REGULAR 70/30 100 UNIT/ML SUBCUT SCH ×2 (08:40→17:29)
[2018-03-16] MEDS: INSULIN REGULAR 100 UNIT/ML SUBCUT SCH ×4 (08:40→22:22)
[2018-03-16] MEDS: FOLIC ACID 1 MG TABLET PO SCH (08:41)
[2018-03-16] MEDS: MAGNESIUM CHLORIDE 64 MG TABLET PO SCH ×2 (08:41→22:18)
[2018-03-16] MEDS: LOSARTAN 50 MG TABLET PO SCH (08:41)
[2018-03-16] MEDS: metFORMIN 500 MG TABLET PO SCH ×2 (08:41→17:28)
[2018-03-16] MEDS: DILTIAZEM 60 MG TABLET PO SCH ×2 (08:41→22:18)
[2018-03-16] MEDS: PANTOPRAZOLE 20 MG TABLET PO SCH (08:42)
[2018-03-16] MEDS: SKIN HEALING OINT (AQUAPHOR) 50 GM TUBE TOP SCH (13:10)
[2018-03-16] MEDS: DIGOXIN 0.125 MG TABLET PO SCH (13:11)
[2018-03-16] MEDS: GENTAMICIN INJ 60 MG in SODIUM CHLORIDE 0.9% 100 ML IV SCH (14:34)
[2018-03-16] MEDS: WARFARIN 7.5 MG TABLET PO SCH (17:28)
[2018-03-17] MEDS: AMPICILLIN INJ 2,000 MG in SODIUM CHLORIDE 0.9% 100 ML IV SCH ×6 (01:15→21:22)
[2018-03-17 06:50] LABS: Basophils # 0.1 10*3/uL (0.0-0.2); Basophils % 0.6 % (0.0-0.8); Hematocrit 30.7 VOL% (35.7-47.0); Hemoglobin 9.3 GM/DL (12.0-16.0); Immature Granulocytes % 0.6 %; Immature Granulocytes Absolute 0.05 #; Lymphocytes # 2.2 10*3/uL (1.4-4.0); Lymphocytes % 27.5 % (21.3-54.2); Mean Corpuscular HGB Conc 30.3 GM/DL (32-36); Mean Corpuscular Hemoglobin 26 PG (27-34); Mean Corpuscular Volume 86.5 FL (87-102); Mean Platelet Volume 10.3 FL (9.6-12.0); Monocytes # 0.8 10*3/uL (0.11-0.8); Monocytes % 9.5 % (1.7-12.7); Neutrophils # 4.9 10*3/uL (1.4-7.4); Neutrophils % 61.8 % (38.7-73.9); Platelet Count 345 T/CUMM (130-400); Red Blood Count 3.55 MC/CUMM (3.8-5.5); Red Cell Distribution Width 17.1 % (9.3-17.3); White Blood Count 7.9 T/CUMM (4-12)
[2018-03-17 06:57] LABS: INR 1.6; PT Patient Result 17.8 SECS
[2018-03-17 07:14] LABS: Calcium 8.9 MG/DL (8.5-10.1); Osmolality,Calculated 274.7 MOS/KG (273-304); Potassium 3.9 MMOL/L (3.5-5.1)
[2018-03-17] MEDS: metFORMIN 500 MG TABLET PO SCH ×2 (09:08→17:30)
[2018-03-17] MEDS: DILTIAZEM 60 MG TABLET PO SCH ×2 (09:10→21:22)
[2018-03-17] MEDS: PANTOPRAZOLE 20 MG TABLET PO SCH (09:10)
[2018-03-17] MEDS: LOSARTAN 50 MG TABLET PO SCH (09:10)
[2018-03-17] MEDS: FOLIC ACID 1 MG TABLET PO SCH (09:10)
[2018-03-17] MEDS: INSULIN NPH/REGULAR 70/30 100 UNIT/ML SUBCUT SCH ×2 (09:12→16:54)
[2018-03-17] MEDS: SKIN HEALING OINT (AQUAPHOR) 50 GM TUBE TOP SCH (09:12)
[2018-03-17] MEDS: MAGNESIUM CHLORIDE 64 MG TABLET PO SCH ×2 (09:13→21:21)
[2018-03-17] MEDS: INSULIN REGULAR 100 UNIT/ML SUBCUT SCH ×4 (09:50→21:27)
[2018-03-17] MEDS: DIGOXIN 0.125 MG TABLET PO SCH (12:49)
[2018-03-17] MEDS: GENTAMICIN INJ 60 MG in SODIUM CHLORIDE 0.9% 100 ML IV SCH (13:40)
[2018-03-17] MEDS: WARFARIN 7.5 MG TABLET PO SCH (17:30)
[2018-03-18] MEDS: AMPICILLIN INJ 2,000 MG in SODIUM CHLORIDE 0.9% 100 ML IV SCH ×6 (01:06→21:28)
[2018-03-18 06:12] LABS: INR 1.9
[2018-03-18 06:19] LABS: Calcium 8.6 MG/DL (8.5-10.1); Osmolality,Calculated 276.7 MOS/KG (273-304); Potassium 3.7 MMOL/L (3.5-5.1)
[2018-03-18] MEDS: MAGNESIUM SULF RIDER 2 GM in PREMIX 1 EACH IV PRN ×2 (07:17→10:17)
[2018-03-18] MEDS: metFORMIN 500 MG TABLET PO SCH ×2 (08:24→16:22)
[2018-03-18] MEDS: LOSARTAN 50 MG TABLET PO SCH (08:24)
[2018-03-18] MEDS: PANTOPRAZOLE 20 MG TABLET PO SCH (08:24)
[2018-03-18] MEDS: FOLIC ACID 1 MG TABLET PO SCH (08:24)
[2018-03-18] MEDS: DILTIAZEM 60 MG TABLET PO SCH ×2 (08:24→21:28)
[2018-03-18] MEDS: MAGNESIUM CHLORIDE 64 MG TABLET PO SCH ×2 (08:24→21:28)
[2018-03-18] MEDS: INSULIN NPH/REGULAR 70/30 100 UNIT/ML SUBCUT SCH ×2 (08:25→16:22)
[2018-03-18] MEDS: INSULIN REGULAR 100 UNIT/ML SUBCUT SCH ×4 (09:04→21:29)
[2018-03-18] MEDS: SKIN HEALING OINT (AQUAPHOR) 50 GM TUBE TOP SCH (09:05)
[2018-03-18] MEDS: GENTAMICIN INJ 60 MG in SODIUM CHLORIDE 0.9% 100 ML IV SCH (12:06)
[2018-03-18] MEDS: DIGOXIN 0.125 MG TABLET PO SCH (13:33)
[2018-03-18] MEDS ORDERED: WARFARIN 2.5 MG TABLET PO ONE (15:28)
[2018-03-18] MEDS: WARFARIN 7.5 MG TABLET PO SCH (17:31)
[2018-03-19] MEDS: AMPICILLIN INJ 2,000 MG in SODIUM CHLORIDE 0.9% 100 ML IV SCH ×3 (01:23→08:54)
[2018-03-19 06:14] LABS: INR 2.2
[2018-03-19 06:19] LABS: PT Patient Result 23.5 SECS
[2018-03-19 06:44] LABS: Calcium 8.7 MG/DL (8.5-10.1); Osmolality,Calculated 273.8 MOS/KG (273-304); Potassium 4.1 MMOL/L (3.5-5.1)
[2018-03-19] MEDS: INSULIN REGULAR 100 UNIT/ML SUBCUT SCH ×2 (08:33→11:26)
[2018-03-19] MEDS: INSULIN NPH/REGULAR 70/30 100 UNIT/ML SUBCUT SCH (08:53)
[2018-03-19] MEDS: PANTOPRAZOLE 20 MG TABLET PO SCH (08:58)
[2018-03-19] MEDS: metFORMIN 500 MG TABLET PO SCH (08:58)
[2018-03-19] MEDS: SKIN HEALING OINT (AQUAPHOR) 50 GM TUBE TOP SCH (08:58)
[2018-03-19] MEDS: MAGNESIUM CHLORIDE 64 MG TABLET PO SCH (08:58)
[2018-03-19] MEDS: DILTIAZEM 60 MG TABLET PO SCH (08:58)
[2018-03-19] MEDS: FOLIC ACID 1 MG TABLET PO SCH (08:58)
[2018-03-19] MEDS: LOSARTAN 50 MG TABLET PO SCH (08:59)
[2018-03-19] MEDS: GENTAMICIN INJ 60 MG in SODIUM CHLORIDE 0.9% 100 ML IV SCH (11:29)
[2018-03-19 12:06] VITALS: BP 149/71
== END 2018-03-19 14:30 | disposition home or self-care (01) | DRG 637 ==
LOC: N.ED 22:37 → SUATTDRO 02-28 01:05 → N.EDINP 02-28 01:05 → N.CC 02-28 02:05 → N.4E 03-02 12:30 → N.CC 03-05 17:26 → N.5E 03-09 14:19
PROVIDERS: ADMIT Internal Medicine Nephrology; ATTEND Internal Medicine

== ENCOUNTER 2018-03-22 18:25 | Observation (INO) ==
[2018-03-22 19:52] LABS: Basophils # 0.1 10*3/uL (0.0-0.2); Basophils % 0.5 % (0.0-0.8); Hematocrit 33.5 VOL% (35.7-47.0); Hemoglobin 10.4 GM/DL (12.0-16.0); Immature Granulocytes % 0.4 %; Immature Granulocytes Absolute 0.04 #; Lymphocytes # 0.6 10*3/uL (1.4-4.0); Lymphocytes % 6.1 % (21.3-54.2); Mean Corpuscular Hemoglobin 25 PG (27-34); Mean Corpuscular Volume 81.9 FL (87-102); Monocytes # 1.1 10*3/uL (0.11-0.8); Monocytes % 11.2 % (1.7-12.7); Neutrophils % 81.8 % (38.7-73.9); Platelet Count 324 T/CUMM (130-400); Red Blood Count 4.09 MC/CUMM (3.8-5.5); Red Cell Distribution Width 15.9 % (9.3-17.3); White Blood Count 9.7 T/CUMM (4-12)
[2018-03-22 20:04] LABS: Partial Thromboplastin Time 36.2 SECS (0-40)
[2018-03-22 20:09] LABS: INR 2.1; PT Patient Result 22.8 SECS
[2018-03-22 20:24] LABS: Alanine Aminotransferase 25 U/L (13-56); Albumin 3.3 G/DL (3.4-5.0); Alkaline Phosphatase 162 U/L (45-117); Aspartate Amino Transferase 40 U/L (0-37); Blood Urea Nitrogen 24 MG/DL (7-18); Calcium 8.8 MG/DL (8.5-10.1); Glucose 189 MG/DL (74-106); Osmolality,Calculated 266.9 MOS/KG (273-304); Potassium 3.7 MMOL/L (3.5-5.1); Sodium 129 MMOL/L (136-145); Total Protein 8.9 G/DL (6.4-8.3); Troponin I < 0.015 NG/ML (0.00-0.045)
[2018-03-22 20:28] LABS: Apearance,Urine CLEAR (Clear); Bilirubin,Urine Negative (Negative); Blood, Urine Negative (Negative); Glucose,Urine (UA) Negative (Negative); Ketones,Urine Negative (Negative); Mucus,Urine Occasional /LPF (Occasional); Nitrite,Urine Negative (Negative); Protein,Urine 30 MG/DL; RBC,Urine 2 /HPF (0-4); Squamous Epithelial Cell,Urine Occasional /HPF (0-10); Urine Color Yellow (Yellow); Urine Specific Gravity 1.011 (1.001-1.035); Urine Urobilinogen < 2.0 EU/DL (0.2-1.0); WBC,Urine 1 /HPF (0-6)
[2018-03-22 20:37] LABS: Barbiturates Screen,Urine Negative (Negative); Benzodiazepines Screen,Urine Negative (Negative); Cannabinoid Screen,Urine Negative (Negative); Opiate Screen,Urine Negative (Negative); Phencyclidine Screen,Urine Negative (Negative)
[2018-03-22] MEDS ORDERED: ACETAMINOPHEN 325 MG TABLET PO PRN (22:44)
[2018-03-22] MEDS ORDERED: diphenhydrAMINE CAP 25 MG CAPSULE PO PRN (22:44)
[2018-03-22] MEDS ORDERED: ONDANSETRON 4 MG/2 ML VIAL IV PRN (22:44)
[2018-03-22] MEDS ORDERED: MORPHINE 4 MG/1 ML VIAL IV PRN (22:44)
[2018-03-22] MEDS ORDERED: NICOTINE 21 MG/24 HR PATCH TRANSDERM PRN (22:44)
[2018-03-22] MEDS ORDERED: BISACODYL 5 MG TABLET PO PRN (22:44)
[2018-03-22] MEDS ORDERED: SODIUM CHLORIDE 0.9% 1,000 ML IV SCH (23:00)
[2018-03-23 05:53] LABS: INR 1.9
[2018-03-23 05:58] LABS: PT Patient Result 20.1 SECS
[2018-03-23 06:05] LABS: Basophils % 0.5 % (0.0-0.8); Hematocrit 33.5 VOL% (35.7-47.0); Hemoglobin 10.3 GM/DL (12.0-16.0); Immature Granulocytes % 0.5 %; Immature Granulocytes Absolute 0.04 #; Lymphocytes # 0.8 10*3/uL (1.4-4.0); Lymphocytes % 11.3 % (21.3-54.2); Mean Corpuscular HGB Conc 30.7 GM/DL (32-36); Mean Corpuscular Hemoglobin 25 PG (27-34); Mean Corpuscular Volume 81.9 FL (87-102); Mean Platelet Volume 10.7 FL (9.6-12.0); Monocytes # 1.1 10*3/uL (0.11-0.8); Monocytes % 15.2 % (1.7-12.7); Neutrophils # 5.3 10*3/uL (1.4-7.4); Neutrophils % 72.5 % (38.7-73.9); Platelet Count 319 T/CUMM (130-400); Red Blood Count 4.09 MC/CUMM (3.8-5.5); Red Cell Distribution Width 16.1 % (9.3-17.3); White Blood Count 7.4 T/CUMM (4-12)
[2018-03-23 06:13] LABS: Albumin 3.2 G/DL (3.4-5.0); Bilirubin,Total 0.9 MG/DL (0.2-1.0); Osmolality,Calculated 269.4 MOS/KG (273-304); Potassium 3.5 MMOL/L (3.5-5.1); Total Protein 8.4 G/DL (6.4-8.3)
[2018-03-23 07:51] VITALS: BP 137/70
[2018-03-23] MEDS ORDERED: PANTOPRAZOLE 40 MG TABLET PO SCH (09:00)
== END 2018-03-23 09:55 | disposition home or self-care (01) ==
LOC: N.ED 18:25 → N.EDINP 18:25 → SUATTDRO 22:44 → N.3E 23:31
PROVIDERS: ADMIT Internal Medicine; ATTEND Internal Medicine Nephrology

== ENCOUNTER 2019-08-05 14:25 | Inpatient (IN) ==
[2019-08-05 15:43] LABS: Basophils # 0.1 10*3/uL (0.0-0.2); Basophils % 0.2 % (0.0-0.8); Hemoglobin 11.2 GM/DL (12.0-16.0); Immature Granulocytes % 1.4 %; Immature Granulocytes Absolute 0.54 #; Lymphocytes # 0.8 10*3/uL (1.4-4.0); Lymphocytes % 1.9 % (21.3-54.2); Mean Corpuscular HGB Conc 30.3 GM/DL (32-36); Mean Corpuscular Volume 75.7 FL (87-102); Mean Platelet Volume 10.6 FL (9.6-12.0); Monocytes % 5.9 % (1.7-12.7); Neutrophils % 90.6 % (38.7-73.9); Platelet Count 380 T/CUMM (130-400); Red Blood Count 4.89 MC/CUMM (3.8-5.5); Red Cell Distribution Width 16.4 % (9.3-17.3); White Blood Count 38.6 T/CUMM (4-12)
[2019-08-05 16:21] LABS: Amorphous Crystals,Urine Occasional /HPF (Few); Apearance,Urine CLOUDY (Clear); Bacteria,Urine Moderate /HPF (Few); Bilirubin,Urine Negative (Negative); Blood, Urine Large mg/dL (Negative); Glucose,Urine (UA) >=500 mg/dL (Negative); Ketones,Urine Negative (Negative); Mucus,Urine Occasional /LPF (Occasional); Nitrite,Urine Positive (Negative); Protein,Urine 100 MG/DL; RBC,Urine 3 /HPF (0-4); Urine Color Amber (Yellow); Urine Specific Gravity 1.017 (1.001-1.035); Urine Urobilinogen < 2.0 EU/DL (0.2-1.0); WBC,Urine 16 /HPF (0-6)
[2019-08-05] MEDS ORDERED: PIPERACILLIN/TAZOBACTAM 3,375 MG in SODIUM CHLORIDE 0.9% 100 ML IV STA (16:24)
[2019-08-05 16:25] LABS: CKMB % 0.8 %
[2019-08-05 16:26] LABS: Ferritin 16.1 ng/ml (8-252)
[2019-08-05 16:27] LABS: Troponin I 0.195 NG/ML (0.00-0.045)
[2019-08-05 16:29] LABS: PT Patient Result 172.4 SECS (9.8-11.9)
[2019-08-05 16:30] LABS: INR > 17.6
[2019-08-05 16:36] LABS: Barbiturates Screen,Urine Negative (Negative); Benzodiazepines Screen,Urine Negative (Negative); Cannabinoid Screen,Urine Negative (Negative); Opiate Screen,Urine Negative (Negative); Phencyclidine Screen,Urine Negative (Negative)
[2019-08-05 16:54] LABS: Albumin 3.5 G/DL (3.4-5.0); Bilirubin,Total 0.6 MG/DL (0.2-1.0); Calcium 7.5 MG/DL (8.5-10.1); Osmolality,Calculated 286.1 MOS/KG (273-304); Total Protein 7.7 G/DL (6.4-8.3)
[2019-08-05] MEDS ORDERED: MAGNESIUM SULF RIDER 4 GM in PREMIX 1 EACH IV ONE (17:08)
[2019-08-05] MEDS ORDERED: SODIUM CHLORIDE 0.9% 1,000 ML IV PRN (17:13)
[2019-08-05] MEDS ORDERED: GLUCAGON 1 MG VIAL IM PRN (17:16)
[2019-08-05] MEDS ORDERED: LORazepam 2 MG/1 ML VIAL ONE (17:21)
[2019-08-05] MEDS ORDERED: LORazepam 2 MG/1 ML VIAL IV ONE (17:22)
[2019-08-05] MEDS ORDERED: levETIRAcetam 500 MG/5 ML VIAL IV ONE (17:24)
[2019-08-05 17:28] LABS: Sedimentation Rate-Westergren 20 MM/HR (0-30)
[2019-08-05] MEDS ORDERED: MAGNESIUM SULF RIDER 50 ML IV ONE (17:39)
[2019-08-05] MEDS: POTASSIUM CHLORIDE RIDER 10 MEQ in PREMIX 1 EACH IV SCH ×4 (17:50→21:13)
[2019-08-05] MEDS ORDERED: PHYTONADIONE INJ 5 MG in SODIUM CHLORIDE 0.9% 50 ML IV ONE (18:30)
[2019-08-05] MEDS ORDERED: LORazepam 2 MG/1 ML VIAL IV PRN (18:51)
[2019-08-05] MEDS ORDERED: ALBUTEROL 2.5 MG/3 ML NEB RESP TX PRN (18:51)
[2019-08-05] MEDS ORDERED: ONDANSETRON 4 MG/2 ML VIAL IV PRN (18:51)
[2019-08-05] MEDS: SODIUM CHLORIDE 0.9% 1,000 ML IV SCH (18:52)
[2019-08-05] MEDS: LEVOFLOXACIN INJ 500 MG in PREMIX 1 EACH IV SCH (18:52)
[2019-08-05] MEDS: INSULIN LISPRO 100 UNIT/ML SUBCUT SCH ×2 (19:30→21:20)
[2019-08-05 19:40] LABS: Band Neutrophils 3 % (0-10); Lymphocytes 6 % (20-55); Microcytosis Slight; Platelet Estimate Normal; Segmented Neutrophils 84 % (50-85); Total Cells Counted 100
[2019-08-05] MEDS: PANTOPRAZOLE 40 MG VIAL IV SCH (21:21)
[2019-08-05] MEDS ORDERED: PHYTONADIONE 10 MG/1 ML AMP SUBCUT ONE (22:45)
[2019-08-06] MEDS: DEXTROSE 10% 250 ML BAG IV PRN ×2 (00:42→02:02)
[2019-08-06 00:47] LABS: PT Patient Result 59.5 SECS (9.8-11.9)
[2019-08-06 00:49] LABS: Calcium 7.8 MG/DL (8.5-10.1); Osmolality,Calculated 279.4 MOS/KG (273-304)
[2019-08-06 00:50] LABS: INR 6.1
[2019-08-06] MEDS: INSULIN LISPRO 100 UNIT/ML SUBCUT SCH ×7 (01:12→20:14)
[2019-08-06] MEDS ORDERED: PHYTONADIONE 10 MG/1 ML AMP SUBCUT ONE (02:00)
[2019-08-06] MEDS: SODIUM CHLORIDE 0.9% 1,000 ML IV SCH ×4 (02:10→17:49)
[2019-08-06] MEDS ORDERED: SODIUM CHLORIDE 0.9% 1,000 ML IV ONE (03:03)
[2019-08-06 03:16] LABS: Basophils % 0.2 % (0.0-0.8); Hematocrit 35.4 VOL% (35.7-47.0); Hemoglobin 10.5 GM/DL (12.0-16.0); Immature Granulocytes % 0.8 %; Immature Granulocytes Absolute 0.19 #; Lymphocytes # 1.8 10*3/uL (1.4-4.0); Lymphocytes % 7.4 % (21.3-54.2); Mean Corpuscular HGB Conc 29.7 GM/DL (32-36); Mean Corpuscular Volume 77.8 FL (87-102); Mean Platelet Volume 10.5 FL (9.6-12.0); Monocytes % 7.8 % (1.7-12.7); Neutrophils % 83.8 % (38.7-73.9); Platelet Count 311 T/CUMM (130-400); Red Blood Count 4.55 MC/CUMM (3.8-5.5); Red Cell Distribution Width 16.4 % (9.3-17.3); White Blood Count 23.7 T/CUMM (4-12)
[2019-08-06] MEDS: POTASSIUM CHLORIDE RIDER 10 MEQ in PREMIX 1 EACH IV SCH ×6 (03:30→09:06)
[2019-08-06 03:34] LABS: ABG Base Excess -0.8 MMOL/L (-2.5-2.5); ABG HCO3 23.8 MMOL/L (20-26); ABG Oxygen Saturation 99.9 % (95-100); ABG PCO2 39.4 MM HG (35-48); ABG PH 7.391 (7.35-7.45); ABG TCO2 21.8 MMOL/L (23-27); Allen Test Positive
[2019-08-06 03:44] LABS: Blood Urea Nitrogen 24 MG/DL (7-18); Calcium 7.6 MG/DL (8.5-10.1); Estimated Glom Filtration Rate 22 ML/MIN; Glucose 98 MG/DL (74-106); Osmolality,Calculated 278.7 MOS/KG (273-304)
[2019-08-06 03:54] LABS: Risk Ratio 2.1; VLDL CHOLESTEROL 17.6 MG/DL
[2019-08-06] MEDS ORDERED: ENOXAPARIN 80 MG/0.8 ML SYRINGE SUBCUT ONE (04:00)
[2019-08-06 04:19] LABS: Hypochromasia 1+; Lymphocytes 8 % (20-55); Microcytosis Slight; Ovalocytes Slight; Platelet Estimate Adequate; Segmented Neutrophils 87 % (50-85); Total Cells Counted 100
[2019-08-06 04:21] LABS: PT Patient Result 67.1 SECS (9.8-11.9)
[2019-08-06 04:23] LABS: INR 6.9
[2019-08-06] MEDS ORDERED: MAGNESIUM SULF RIDER 2 GM in PREMIX 1 EACH IV ONE (07:44)
[2019-08-06] MEDS ORDERED: methylPREDNISolone SOD SUC 40 MG/1 ML VIAL IV ONE (07:46)
[2019-08-06] MEDS ORDERED: ENOXAPARIN 30 MG/0.3 ML SYRINGE SUBCUT SCH (09:00)
[2019-08-06 12:42] LABS: Calcium 7.3 MG/DL (8.5-10.1); Osmolality,Calculated 283.5 MOS/KG (273-304)
[2019-08-06] MEDS: HYDROCORTISONE 1% CREAM 28 GM TUBE TOP SCH ×3 (13:25→20:05)
[2019-08-06] MEDS: DESITIN 4OZ/NYSTATIN 15 GRAM MIXTURE PASTE TOP SCH ×2 (13:26→20:05)
[2019-08-06] MEDS: FUROSEMIDE 40 MG TABLET PO SCH (14:10)
[2019-08-06] MEDS: ATORVASTATIN 40 MG TABLET PO SCH (14:10)
[2019-08-06] MEDS: DIGOXIN 0.125 MG TABLET PO SCH (14:10)
[2019-08-06] MEDS: LEVOFLOXACIN INJ 500 MG in PREMIX 1 EACH IV SCH (17:49)
[2019-08-06] MEDS: PANTOPRAZOLE 40 MG VIAL IV SCH (20:14)
[2019-08-06] MEDS: levETIRAcetam 500 MG TABLET PO SCH (20:14)
[2019-08-06] MEDS ORDERED: LORazepam 2 MG/1 ML VIAL IV PRN (22:50)
[2019-08-06] MEDS ORDERED: HALOPERIDOL 5 MG/ML AMP IM PRN (22:51)
[2019-08-07] MEDS: INSULIN LISPRO 100 UNIT/ML SUBCUT SCH ×6 (00:12→21:12)
[2019-08-07] MEDS: SODIUM CHLORIDE 0.9% 1,000 ML IV SCH ×3 (00:13→08:46)
[2019-08-07 03:29] LABS: Albumin 2.5 G/DL (3.4-5.0); Osmolality,Calculated 280.7 MOS/KG (273-304); Total Protein 6.5 G/DL (6.4-8.3)
[2019-08-07] MEDS ORDERED: MAGNESIUM SULF RIDER 2 GM in PREMIX 1 EACH IV ONE (07:13)
[2019-08-07] MEDS: ATORVASTATIN 40 MG TABLET PO SCH (08:13)
[2019-08-07] MEDS: FUROSEMIDE 40 MG TABLET PO SCH (08:15)
[2019-08-07] MEDS: MULTIVITAMIN (CENTRUM) TABLET PO SCH (08:15)
[2019-08-07] MEDS: HYDROCORTISONE 1% CREAM 28 GM TUBE TOP SCH ×2 (08:15→21:12)
[2019-08-07] MEDS: DESITIN 4OZ/NYSTATIN 15 GRAM MIXTURE PASTE TOP SCH ×2 (08:15→21:12)
[2019-08-07] MEDS: PANTOPRAZOLE 40 MG TABLET PO SCH (08:15)
[2019-08-07] MEDS: levETIRAcetam 500 MG TABLET PO SCH ×2 (08:15→21:11)
[2019-08-07 08:22] LABS: INR 1.4
[2019-08-07 08:29] LABS: PT Patient Result 14.7 SECS (9.8-11.9)
[2019-08-07] MEDS ORDERED: WARFARIN 10 MG TABLET PO ONE (08:56)
[2019-08-07] MEDS ORDERED: PERMETHRIN 5% CREAM 60 GM TUBE TOP ONE (11:59)
[2019-08-07] MEDS ORDERED: PERMETHRIN 1% LOTION 59 ML BOTTLE TOP ONE (12:00)
[2019-08-07] MEDS: DIGOXIN 0.125 MG TABLET PO SCH (12:01)
[2019-08-07] MEDS: LEVOFLOXACIN INJ 500 MG in PREMIX 1 EACH IV SCH (17:55)
[2019-08-08 06:29] LABS: INR 1.4
[2019-08-08 06:57] LABS: Albumin 2.7 G/DL (3.4-5.0); Bilirubin,Total 0.9 MG/DL (0.2-1.0); Calcium 7.5 MG/DL (8.5-10.1); Osmolality,Calculated 294.8 MOS/KG (273-304); Total Protein 6.3 G/DL (6.4-8.3)
[2019-08-08] MEDS ORDERED: WARFARIN 10 MG TABLET PO ONE (07:19)
[2019-08-08] MEDS: INSULIN LISPRO 100 UNIT/ML SUBCUT SCH ×4 (09:45→20:55)
[2019-08-08] MEDS ORDERED: POTASSIUM CHLORIDE 20 MEQ TABLET PO ONE (09:46)
[2019-08-08] MEDS ORDERED: MAGNESIUM SULF RIDER 2 GM in PREMIX 1 EACH IV ONE (09:46)
[2019-08-08] MEDS: HYDROCORTISONE 1% CREAM 28 GM TUBE TOP SCH ×2 (09:46→20:57)
[2019-08-08] MEDS: PANTOPRAZOLE 40 MG TABLET PO SCH (09:47)
[2019-08-08] MEDS: MULTIVITAMIN (CENTRUM) TABLET PO SCH (09:47)
[2019-08-08] MEDS: levETIRAcetam 500 MG TABLET PO SCH ×2 (09:47→20:55)
[2019-08-08] MEDS: DESITIN 4OZ/NYSTATIN 15 GRAM MIXTURE PASTE TOP SCH ×2 (09:47→20:57)
[2019-08-08] MEDS: ATORVASTATIN 40 MG TABLET PO SCH (09:47)
[2019-08-08] MEDS: FUROSEMIDE 40 MG TABLET PO SCH (09:47)
[2019-08-08] MEDS: SODIUM CHLORIDE 0.9% 1,000 ML IV SCH (09:48)
[2019-08-08] MEDS: DIGOXIN 0.125 MG TABLET PO SCH (12:00)
[2019-08-08] MEDS: LEVOFLOXACIN INJ 500 MG in PREMIX 1 EACH IV SCH (18:12)
[2019-08-09] MEDS: SODIUM CHLORIDE 0.9% 1,000 ML IV SCH ×2 (05:25→22:19)
[2019-08-09 05:53] LABS: INR 1.8; PT Patient Result 19.2 SECS (9.8-11.9)
[2019-08-09 06:13] LABS: Albumin 2.5 G/DL (3.4-5.0); Bilirubin,Total 0.7 MG/DL (0.2-1.0); Calcium 7.5 MG/DL (8.5-10.1); Total Protein 6.3 G/DL (6.4-8.3)
[2019-08-09] MEDS: INSULIN LISPRO 100 UNIT/ML SUBCUT SCH ×4 (09:17→21:28)
[2019-08-09] MEDS: FUROSEMIDE 40 MG TABLET PO SCH (09:18)
[2019-08-09] MEDS: PANTOPRAZOLE 40 MG TABLET PO SCH (09:18)
[2019-08-09] MEDS: MULTIVITAMIN (CENTRUM) TABLET PO SCH (09:18)
[2019-08-09] MEDS: ATORVASTATIN 40 MG TABLET PO SCH (09:18)
[2019-08-09] MEDS: levETIRAcetam 500 MG TABLET PO SCH ×2 (09:18→21:28)
[2019-08-09] MEDS: HYDROCORTISONE 1% CREAM 28 GM TUBE TOP SCH ×2 (09:19→21:29)
[2019-08-09] MEDS: DESITIN 4OZ/NYSTATIN 15 GRAM MIXTURE PASTE TOP SCH ×2 (09:19→21:29)
[2019-08-09] MEDS ORDERED: WARFARIN 7.5 MG TABLET PO ONE (09:38)
[2019-08-09] MEDS: DIGOXIN 0.125 MG TABLET PO SCH (16:17)
[2019-08-09] MEDS: LEVOFLOXACIN INJ 500 MG in PREMIX 1 EACH IV SCH (19:16)
[2019-08-10 05:20] LABS: Basophils % 0.2 % (0.0-0.8); Eosinophils % 0.3 % (0.00-10.9); Hematocrit 27.1 VOL% (35.7-47.0); Immature Granulocytes % 0.8 %; Immature Granulocytes Absolute 0.05 #; Lymphocytes # 1.2 10*3/uL (1.4-4.0); Lymphocytes % 18.8 % (21.3-54.2); Mean Corpuscular HGB Conc 29.5 GM/DL (32-36); Mean Corpuscular Volume 77.2 FL (87-102); Mean Platelet Volume 10.9 FL (9.6-12.0); Monocytes % 13.8 % (1.7-12.7); Neutrophils % 66.1 % (38.7-73.9); Platelet Count 242 T/CUMM (130-400); Red Blood Count 3.51 MC/CUMM (3.8-5.5); Red Cell Distribution Width 17.2 % (9.3-17.3); White Blood Count 6.6 T/CUMM (4-12)
[2019-08-10 05:34] LABS: INR 3.1; PT Patient Result 31.2 SECS (9.8-11.9)
[2019-08-10 06:06] LABS: Calcium 7.4 MG/DL (8.5-10.1)
[2019-08-10] MEDS: PANTOPRAZOLE 40 MG TABLET PO SCH (09:23)
[2019-08-10] MEDS: FUROSEMIDE 40 MG TABLET PO SCH (09:23)
[2019-08-10] MEDS: INSULIN LISPRO 100 UNIT/ML SUBCUT SCH ×4 (09:23→20:52)
[2019-08-10] MEDS: ATORVASTATIN 40 MG TABLET PO SCH (09:24)
[2019-08-10] MEDS: HYDROCORTISONE 1% CREAM 28 GM TUBE TOP SCH ×2 (09:24→20:52)
[2019-08-10] MEDS: MULTIVITAMIN (CENTRUM) TABLET PO SCH (09:24)
[2019-08-10] MEDS: DESITIN 4OZ/NYSTATIN 15 GRAM MIXTURE PASTE TOP SCH ×2 (09:24→20:53)
[2019-08-10] MEDS: levETIRAcetam 500 MG TABLET PO SCH ×2 (09:26→20:52)
[2019-08-10] MEDS: DIGOXIN 0.125 MG TABLET PO SCH (14:34)
[2019-08-10] MEDS: SODIUM CHLORIDE 0.9% 1,000 ML IV SCH (14:39)
[2019-08-10] MEDS ORDERED: ACETAMINOPHEN 325 MG TABLET PO PRN (16:03)
[2019-08-10] MEDS: INSULIN GLARGINE 100 UNIT/ML SUBCUT SCH (20:52)
[2019-08-11 06:21] LABS: INR 3.2; PT Patient Result 32.6 SECS (9.8-11.9)
[2019-08-11 06:24] LABS: Calcium 7.7 MG/DL (8.5-10.1); Osmolality,Calculated 295.6 MOS/KG (273-304)
[2019-08-11 06:33] LABS: Basophils % 0.3 % (0.0-0.8); Eosinophils % 0.4 % (0.00-10.9); Hematocrit 28.7 VOL% (35.7-47.0); Hemoglobin 8.5 GM/DL (12.0-16.0); Immature Granulocytes % 0.5 %; Immature Granulocytes Absolute 0.04 #; Lymphocytes # 1.5 10*3/uL (1.4-4.0); Lymphocytes % 19.2 % (21.3-54.2); Mean Corpuscular HGB Conc 29.6 GM/DL (32-36); Mean Corpuscular Volume 78.2 FL (87-102); Mean Platelet Volume 11.1 FL (9.6-12.0); Monocytes % 12.7 % (1.7-12.7); Neutrophils % 66.9 % (38.7-73.9); Platelet Count 275 T/CUMM (130-400); Red Blood Count 3.67 MC/CUMM (3.8-5.5); Red Cell Distribution Width 17.3 % (9.3-17.3); White Blood Count 7.6 T/CUMM (4-12)
[2019-08-11] MEDS: INSULIN LISPRO 100 UNIT/ML SUBCUT SCH ×4 (08:55→20:55)
[2019-08-11] MEDS ORDERED: POTASSIUM CHLORIDE 20 MEQ TABLET PO ONE (08:57)
[2019-08-11] MEDS: FUROSEMIDE 40 MG TABLET PO SCH (09:37)
[2019-08-11] MEDS: DESITIN 4OZ/NYSTATIN 15 GRAM MIXTURE PASTE TOP SCH ×2 (09:38→20:56)
[2019-08-11] MEDS: HYDROCORTISONE 1% CREAM 28 GM TUBE TOP SCH ×2 (09:38→20:55)
[2019-08-11] MEDS: PANTOPRAZOLE 40 MG TABLET PO SCH (09:38)
[2019-08-11] MEDS: ATORVASTATIN 40 MG TABLET PO SCH (09:38)
[2019-08-11] MEDS: MULTIVITAMIN (CENTRUM) TABLET PO SCH (09:38)
[2019-08-11] MEDS: levETIRAcetam 500 MG TABLET PO SCH ×2 (09:38→20:55)
[2019-08-11] MEDS: DIGOXIN 0.125 MG TABLET PO SCH (14:00)
[2019-08-11] MEDS: cephALEXin 500 MG CAPSULE PO SCH (20:55)
[2019-08-11] MEDS: INSULIN GLARGINE 100 UNIT/ML SUBCUT SCH (20:55)
[2019-08-12 06:49] LABS: INR 2.5; PT Patient Result 25.7 SECS (9.8-11.9)
[2019-08-12] MEDS ORDERED: WARFARIN 5 MG TABLET PO ONE (07:50)
[2019-08-12] MEDS: cephALEXin 500 MG CAPSULE PO SCH ×2 (09:21→21:03)
[2019-08-12] MEDS: PANTOPRAZOLE 40 MG TABLET PO SCH (09:21)
[2019-08-12] MEDS: ATORVASTATIN 40 MG TABLET PO SCH (09:21)
[2019-08-12] MEDS: FUROSEMIDE 40 MG TABLET PO SCH (09:21)
[2019-08-12] MEDS: POTASSIUM CHLORIDE 20 MEQ TABLET PO SCH (09:21)
[2019-08-12] MEDS: levETIRAcetam 500 MG TABLET PO SCH ×2 (09:21→21:03)
[2019-08-12] MEDS: MULTIVITAMIN (CENTRUM) TABLET PO SCH (09:21)
[2019-08-12] MEDS: HYDROCORTISONE 1% CREAM 28 GM TUBE TOP SCH ×2 (09:22→21:03)
[2019-08-12] MEDS: DESITIN 4OZ/NYSTATIN 15 GRAM MIXTURE PASTE TOP SCH ×2 (09:22→21:04)
[2019-08-12] MEDS: INSULIN LISPRO 100 UNIT/ML SUBCUT SCH ×4 (09:47→21:03)
[2019-08-12] MEDS: DIGOXIN 0.125 MG TABLET PO SCH (12:51)
[2019-08-12] MEDS: INSULIN GLARGINE 100 UNIT/ML SUBCUT SCH (21:03)
[2019-08-13 05:44] LABS: Basophils % 0.4 % (0.0-0.8); Eosinophils % 0.3 % (0.00-10.9); Hematocrit 28.9 VOL% (35.7-47.0); Hemoglobin 8.7 GM/DL (12.0-16.0); Immature Granulocytes % 0.7 %; Immature Granulocytes Absolute 0.07 #; Lymphocytes # 1.8 10*3/uL (1.4-4.0); Lymphocytes % 17.1 % (21.3-54.2); Mean Corpuscular HGB Conc 30.1 GM/DL (32-36); Mean Corpuscular Volume 77.1 FL (87-102); Mean Platelet Volume 10.9 FL (9.6-12.0); Monocytes % 9.7 % (1.7-12.7); Neutrophils % 71.8 % (38.7-73.9); Platelet Count 295 T/CUMM (130-400); Red Blood Count 3.75 MC/CUMM (3.8-5.5); Red Cell Distribution Width 17.7 % (9.3-17.3); White Blood Count 10.3 T/CUMM (4-12)
[2019-08-13 05:51] LABS: INR 2.3; PT Patient Result 23.9 SECS (9.8-11.9)
[2019-08-13 05:59] LABS: Calcium 8.4 MG/DL (8.5-10.1); Osmolality,Calculated 286.4 MOS/KG (273-304)
[2019-08-13] MEDS ORDERED: WARFARIN 7.5 MG TABLET PO ONE (07:14)
[2019-08-13] MEDS ORDERED: POTASSIUM CHLORIDE RIDER 10 MEQ in PREMIX 1 EACH IV PRN (08:02)
[2019-08-13] MEDS ORDERED: MAGNESIUM SULF RIDER 2 GM in PREMIX 1 EACH IV PRN (08:13)
[2019-08-13] MEDS ORDERED: MAGNESIUM SULF RIDER 4 GM in PREMIX 1 EACH IV PRN (08:13)
[2019-08-13] MEDS: MULTIVITAMIN (CENTRUM) TABLET PO SCH (09:03)
[2019-08-13] MEDS: cephALEXin 500 MG CAPSULE PO SCH (09:03)
[2019-08-13] MEDS: POTASSIUM CHLORIDE 20 MEQ TABLET PO SCH (09:03)
[2019-08-13] MEDS: PANTOPRAZOLE 40 MG TABLET PO SCH (09:04)
[2019-08-13] MEDS: ATORVASTATIN 40 MG TABLET PO SCH (09:04)
[2019-08-13] MEDS: FUROSEMIDE 40 MG TABLET PO SCH (09:04)
[2019-08-13] MEDS: levETIRAcetam 500 MG TABLET PO SCH (09:04)
[2019-08-13] MEDS: HYDROCORTISONE 1% CREAM 28 GM TUBE TOP SCH (09:04)
[2019-08-13] MEDS: SODIUM CHLORIDE 0.9% 1,000 ML IV SCH ×3 (09:05→10:03)
[2019-08-13] MEDS: DESITIN 4OZ/NYSTATIN 15 GRAM MIXTURE PASTE TOP SCH (09:05)
[2019-08-13] MEDS: INSULIN LISPRO 100 UNIT/ML SUBCUT SCH ×2 (10:01→12:16)
[2019-08-13 11:41] VITALS: BP 133/60
[2019-08-13] MEDS ORDERED: POTASSIUM CHLORIDE 20 MEQ TABLET PO ONE (12:05)
[2019-08-13] MEDS: DIGOXIN 0.125 MG TABLET PO SCH (12:16)
== END 2019-08-13 15:00 | disposition swing bed (61) | DRG 871 ==
LOC: EDBD → EDUNIT# → N.ED 14:25 → SUATTDRO 17:05 → N.EDINP 17:05 → N.ICU 17:38 → N.TELES 08-07 13:16
PROVIDERS: ADMIT Internal Medicine; ATTEND Family Medicine

== ENCOUNTER 2020-03-11 16:37 | Observation (INO) ==
[2020-03-11 22:25] LABS: Basophils % 0.3 % (0.0-0.8); Hematocrit 36.3 VOL% (35.7-47.0); Hemoglobin 10.7 GM/DL (12.0-16.0); Immature Granulocytes % 0.4 %; Immature Granulocytes Absolute 0.04 #; Lymphocytes # 1.9 10*3/uL (1.4-4.0); Lymphocytes % 20.2 % (21.3-54.2); Mean Corpuscular HGB Conc 29.5 GM/DL (32-36); Mean Corpuscular Volume 69.1 FL (87-102); Mean Platelet Volume 10.7 FL (9.6-12.0); Monocytes % 11.9 % (1.7-12.7); Neutrophils % 67.2 % (38.7-73.9); Platelet Count 307 T/CUMM (130-400); Red Blood Count 5.25 MC/CUMM (3.8-5.5); Red Cell Distribution Width 21.7 % (9.3-17.3); White Blood Count 9.2 T/CUMM (4-12)
[2020-03-11 22:57] LABS: Albumin 3.1 G/DL (3.4-5.0); Bilirubin,Total 0.4 MG/DL (0.2-1.0); Calcium 8.8 MG/DL (8.5-10.1); Osmolality,Calculated 287.5 MOS/KG (273-304); Total Protein 7.5 G/DL (6.4-8.3)
[2020-03-12] MEDS ORDERED: MELATONIN 3 MG TABLET PO PRN (05:41)
[2020-03-12] MEDS ORDERED: DEXTROSE 50% 25 GM/50 ML VIAL IV PRN ×2 (05:43)
[2020-03-12] MEDS ORDERED: GLUCAGON 1 MG VIAL IM PRN ×2 (05:43)
[2020-03-12] MEDS ORDERED: ONDANSETRON 4 MG/2 ML VIAL IV PRN (05:43)
[2020-03-12] MEDS: ASCORBIC ACID 500 MG TABLET PO SCH ×2 (08:54→20:48)
[2020-03-12] MEDS: ZINC GLUCONATE 50 MG TABLET PO SCH (08:55)
[2020-03-12] MEDS: FAMOTIDINE 20 MG TABLET PO SCH ×2 (08:55→20:48)
[2020-03-12] MEDS: CHOLECALCIFEROL 1,000 UNIT TABLET PO SCH (08:55)
[2020-03-12] MEDS: CETIRIZINE 10 MG TABLET PO SCH (08:55)
[2020-03-12] MEDS ORDERED: ENOXAPARIN 40 MG/0.4 ML SYRINGE SUBCUT SCH (09:00)
[2020-03-12 09:21] LABS: PT Patient Result > 178.9 SECS (9.8-11.9)
[2020-03-12 09:23] LABS: INR > 17.6
[2020-03-12] MEDS ORDERED: PHYTONADIONE 5 MG/5 ML ORAL.SYR PO ONE (11:17)
[2020-03-12] MEDS: SKIN HEALING OINT (AQUAPHOR) 50 GM TUBE TOP SCH (13:19)
[2020-03-12] MEDS: INSULIN LISPRO 100 UNIT/ML SUBCUT SCH ×4 (13:19→20:48)
[2020-03-12] MEDS ORDERED: TUBERCULIN SKIN TEST 0.1 ML SYRINGE INTRADERM ONE (14:00)
[2020-03-13 06:00] LABS: Basophils % 0.8 % (0.0-0.8); Hemoglobin 10.5 GM/DL (12.0-16.0); Immature Granulocytes % 0.4 %; Immature Granulocytes Absolute 0.02 #; Lymphocytes # 1.4 10*3/uL (1.4-4.0); Lymphocytes % 28.9 % (21.3-54.2); Mean Corpuscular Volume 68.5 FL (87-102); Monocytes % 15.1 % (1.7-12.7); Neutrophils % 54.8 % (38.7-73.9); Platelet Count 119 T/CUMM (130-400); Red Blood Count 5.11 MC/CUMM (3.8-5.5); Red Cell Distribution Width 21.2 % (9.3-17.3); White Blood Count 4.8 T/CUMM (4-12)
[2020-03-13 06:38] LABS: Calcium 8.7 MG/DL (8.5-10.1); Osmolality,Calculated 284.3 MOS/KG (273-304)
[2020-03-13 06:43] LABS: PT Patient Result 54.3 SECS (9.8-11.9)
[2020-03-13 07:00] LABS: INR 5.5
[2020-03-13] MEDS: INSULIN LISPRO 100 UNIT/ML SUBCUT SCH ×4 (07:20→21:13)
[2020-03-13] MEDS ORDERED: MAGNESIUM SULF RIDER 4 GM in PREMIX 1 EACH IV PRN (07:44)
[2020-03-13] MEDS ORDERED: MAGNESIUM SULF RIDER 2 GM in PREMIX 1 EACH IV PRN (07:44)
[2020-03-13 08:15] LABS: Hypochromasia 2+; Microcytosis 1+; Ovalocytes Few
[2020-03-13 08:16] LABS: Platelet Estimate Adequate
[2020-03-13] MEDS: FAMOTIDINE 20 MG TABLET PO SCH ×2 (09:31→21:13)
[2020-03-13] MEDS: CHOLECALCIFEROL 1,000 UNIT TABLET PO SCH (09:31)
[2020-03-13] MEDS: ZINC GLUCONATE 50 MG TABLET PO SCH (09:31)
[2020-03-13] MEDS: ASCORBIC ACID 500 MG TABLET PO SCH ×2 (09:31→21:13)
[2020-03-13] MEDS: CETIRIZINE 10 MG TABLET PO SCH (09:31)
[2020-03-13] MEDS: SKIN HEALING OINT (AQUAPHOR) 50 GM TUBE TOP SCH (09:31)
[2020-03-13] MEDS: INSULIN NPH/REGULAR 70/30 100 UNIT/ML SUBCUT SCH (19:09)
[2020-03-13] MEDS: MAGNESIUM CHLORIDE 64 MG TABLET PO SCH (21:13)
[2020-03-13] MEDS: levETIRAcetam 500 MG TABLET PO SCH (21:13)
[2020-03-13] MEDS: DILTIAZEM 60 MG TABLET PO SCH (21:13)
[2020-03-13] MEDS: HYDROCORTISONE 1% CREAM 28 GM TUBE TOP SCH (21:13)
[2020-03-14 04:12] LABS: Basophils % 0.7 % (0.0-0.8); Hematocrit 32.8 VOL% (35.7-47.0); Hemoglobin 9.6 GM/DL (12.0-16.0); Immature Granulocytes % 0.2 %; Immature Granulocytes Absolute 0.01 #; Lymphocytes # 1.5 10*3/uL (1.4-4.0); Lymphocytes % 25.2 % (21.3-54.2); Mean Corpuscular HGB Conc 29.3 GM/DL (32-36); Mean Corpuscular Volume 71.5 FL (87-102); Monocytes % 13.6 % (1.7-12.7); Neutrophils % 60.3 % (38.7-73.9); Platelet Count 206 T/CUMM (130-400); Red Blood Count 4.59 MC/CUMM (3.8-5.5); Red Cell Distribution Width 20.8 % (9.3-17.3); White Blood Count 5.9 T/CUMM (4-12)
[2020-03-14 04:38] LABS: Calcium 8.6 MG/DL (8.5-10.1)
[2020-03-14] MEDS: levETIRAcetam 500 MG TABLET PO SCH ×2 (09:19→21:08)
[2020-03-14] MEDS: ATORVASTATIN 40 MG TABLET PO SCH (09:19)
[2020-03-14] MEDS: ZINC GLUCONATE 50 MG TABLET PO SCH (09:19)
[2020-03-14] MEDS: SKIN HEALING OINT (AQUAPHOR) 50 GM TUBE TOP SCH (09:19)
[2020-03-14] MEDS: FAMOTIDINE 20 MG TABLET PO SCH ×2 (09:19→21:08)
[2020-03-14] MEDS: MAGNESIUM CHLORIDE 64 MG TABLET PO SCH ×2 (09:19→21:08)
[2020-03-14] MEDS: INSULIN LISPRO 100 UNIT/ML SUBCUT SCH ×4 (09:19→21:08)
[2020-03-14] MEDS: CHOLECALCIFEROL 1,000 UNIT TABLET PO SCH (09:19)
[2020-03-14] MEDS: ASCORBIC ACID 500 MG TABLET PO SCH ×2 (09:19→21:08)
[2020-03-14] MEDS: FOLIC ACID 1 MG TABLET PO SCH (09:19)
[2020-03-14] MEDS: INSULIN NPH/REGULAR 70/30 100 UNIT/ML SUBCUT SCH ×2 (09:19→20:19)
[2020-03-14] MEDS: CETIRIZINE 10 MG TABLET PO SCH (09:19)
[2020-03-14] MEDS: DILTIAZEM 60 MG TABLET PO SCH ×2 (09:19→21:08)
[2020-03-14] MEDS: HYDROCORTISONE 1% CREAM 28 GM TUBE TOP SCH ×2 (11:49→21:08)
[2020-03-14] MEDS: DIGOXIN 0.125 MG TABLET PO SCH (13:12)
[2020-03-14] MEDS: WARFARIN 5 MG TABLET PO SCH (18:25)
[2020-03-15 06:32] LABS: Basophils % 0.6 % (0.0-0.8); Hematocrit 32.6 VOL% (35.7-47.0); Hemoglobin 9.6 GM/DL (12.0-16.0); Immature Granulocytes % 0.5 %; Immature Granulocytes Absolute 0.03 #; Lymphocytes # 1.6 10*3/uL (1.4-4.0); Lymphocytes % 23.8 % (21.3-54.2); Mean Corpuscular HGB Conc 29.4 GM/DL (32-36); Mean Corpuscular Volume 70.6 FL (87-102); Mean Platelet Volume 10.9 FL (9.6-12.0); Monocytes % 11.4 % (1.7-12.7); Neutrophils % 63.7 % (38.7-73.9); Platelet Count 249 T/CUMM (130-400); Red Blood Count 4.62 MC/CUMM (3.8-5.5); Red Cell Distribution Width 21.2 % (9.3-17.3); White Blood Count 6.6 T/CUMM (4-12)
[2020-03-15 06:42] LABS: INR 2.6; PT Patient Result 26.1 SECS (9.8-11.9)
[2020-03-15 06:52] LABS: Calcium 8.7 MG/DL (8.5-10.1); Osmolality,Calculated 281.4 MOS/KG (273-304)
[2020-03-15 08:03] LABS: Anisocytosis 2+; Platelet Estimate Normal; Poikilocytosis 1+
[2020-03-15 08:04] LABS: Ovalocytes 1+; Tear Drop Cells Few
[2020-03-15] MEDS: INSULIN LISPRO 100 UNIT/ML SUBCUT SCH ×4 (08:39→21:30)
[2020-03-15] MEDS: ZINC GLUCONATE 50 MG TABLET PO SCH (09:15)
[2020-03-15] MEDS: MAGNESIUM CHLORIDE 64 MG TABLET PO SCH ×2 (09:15→21:30)
[2020-03-15] MEDS: DILTIAZEM 60 MG TABLET PO SCH ×2 (09:15→21:30)
[2020-03-15] MEDS: ATORVASTATIN 40 MG TABLET PO SCH (09:15)
[2020-03-15] MEDS: FAMOTIDINE 20 MG TABLET PO SCH ×2 (09:15→21:30)
[2020-03-15] MEDS: FOLIC ACID 1 MG TABLET PO SCH (09:15)
[2020-03-15] MEDS: CHOLECALCIFEROL 1,000 UNIT TABLET PO SCH (09:15)
[2020-03-15] MEDS: INSULIN NPH/REGULAR 70/30 100 UNIT/ML SUBCUT SCH ×2 (09:15→20:22)
[2020-03-15] MEDS: ASCORBIC ACID 500 MG TABLET PO SCH ×2 (09:15→21:30)
[2020-03-15] MEDS: levETIRAcetam 500 MG TABLET PO SCH ×2 (09:15→21:30)
[2020-03-15] MEDS: SKIN HEALING OINT (AQUAPHOR) 50 GM TUBE TOP SCH (09:15)
[2020-03-15] MEDS: CETIRIZINE 10 MG TABLET PO SCH (10:37)
[2020-03-15] MEDS: ENOXAPARIN 80 MG/0.8 ML SYRINGE SUBCUT SCH ×2 (11:45→21:30)
[2020-03-15] MEDS: DIGOXIN 0.125 MG TABLET PO SCH (13:43)
[2020-03-15] MEDS: HYDROCORTISONE 1% CREAM 28 GM TUBE TOP SCH ×2 (18:31→21:30)
[2020-03-15] MEDS: WARFARIN 5 MG TABLET PO SCH (18:33)
[2020-03-16 04:12] LABS: INR 3.5; PT Patient Result 35.4 SECS (9.8-11.9)
[2020-03-16 04:13] LABS: Basophils % 0.6 % (0.0-0.8); Hematocrit 31.9 VOL% (35.7-47.0); Hemoglobin 9.3 GM/DL (12.0-16.0); Immature Granulocytes % 0.5 %; Immature Granulocytes Absolute 0.03 #; Lymphocytes # 1.7 10*3/uL (1.4-4.0); Lymphocytes % 27.8 % (21.3-54.2); Mean Corpuscular HGB Conc 29.2 GM/DL (32-36); Mean Corpuscular Volume 71.4 FL (87-102); Mean Platelet Volume 11.1 FL (9.6-12.0); Monocytes % 13.8 % (1.7-12.7); Neutrophils % 57.3 % (38.7-73.9); Platelet Count 229 T/CUMM (130-400); Red Blood Count 4.47 MC/CUMM (3.8-5.5); Red Cell Distribution Width 21.1 % (9.3-17.3); White Blood Count 6.3 T/CUMM (4-12)
[2020-03-16 04:22] LABS: Hypochromasia 1+; Microcytosis 1+; Platelet Estimate Adequate
[2020-03-16 04:25] LABS: Calcium 8.6 MG/DL (8.5-10.1); Osmolality,Calculated 282.5 MOS/KG (273-304)
[2020-03-16] MEDS: INSULIN LISPRO 100 UNIT/ML SUBCUT SCH ×2 (08:00→12:37)
[2020-03-16] MEDS: SKIN HEALING OINT (AQUAPHOR) 50 GM TUBE TOP SCH (09:23)
[2020-03-16] MEDS: CHOLECALCIFEROL 1,000 UNIT TABLET PO SCH (09:24)
[2020-03-16] MEDS: ASCORBIC ACID 500 MG TABLET PO SCH (09:24)
[2020-03-16] MEDS: DILTIAZEM 60 MG TABLET PO SCH (09:24)
[2020-03-16] MEDS: ZINC GLUCONATE 50 MG TABLET PO SCH (09:24)
[2020-03-16] MEDS: ATORVASTATIN 40 MG TABLET PO SCH (09:24)
[2020-03-16] MEDS: FOLIC ACID 1 MG TABLET PO SCH (09:25)
[2020-03-16] MEDS: INSULIN NPH/REGULAR 70/30 100 UNIT/ML SUBCUT SCH (09:25)
[2020-03-16] MEDS: CETIRIZINE 10 MG TABLET PO SCH (09:25)
[2020-03-16] MEDS: FAMOTIDINE 20 MG TABLET PO SCH (09:25)
[2020-03-16] MEDS: MAGNESIUM CHLORIDE 64 MG TABLET PO SCH (09:25)
[2020-03-16] MEDS: levETIRAcetam 500 MG TABLET PO SCH (09:25)
[2020-03-16] MEDS: HYDROCORTISONE 1% CREAM 28 GM TUBE TOP SCH (09:26)
[2020-03-16] MEDS: ENOXAPARIN 80 MG/0.8 ML SYRINGE SUBCUT SCH (09:32)
[2020-03-16 09:33] VITALS: BP 121/85
[2020-03-16] MEDS: DIGOXIN 0.125 MG TABLET PO SCH (12:38)
== END 2020-03-16 14:44 ==
LOC: N.EDINP 16:37 → N.ED 16:37 → SUATTDRO 21:48 → N.2E 23:38
PROVIDERS: ADMIT Internal Medicine; ATTEND Internal Medicine

== ENCOUNTER 2020-06-28 18:08 | Inpatient (IN) ==
[2020-06-28 19:03] LABS: Basophils % 0.5 % (0.0-0.8); Eosinophils % 0.1 % (0.00-10.9); Hematocrit 37.8 VOL% (35.7-47.0); Hemoglobin 11.5 GM/DL (12.0-16.0); Immature Granulocytes % 0.6 %; Immature Granulocytes Absolute 0.05 #; Lymphocytes % 12.5 % (21.3-54.2); Mean Corpuscular HGB Conc 30.4 GM/DL (32-36); Mean Corpuscular Volume 79.1 FL (87-102); Mean Platelet Volume 11.5 FL (9.6-12.0); Monocytes % 12.2 % (1.7-12.7); Neutrophils % 74.1 % (38.7-73.9); Platelet Count 328 T/CUMM (130-400); Red Blood Count 4.78 MC/CUMM (3.8-5.5); Red Cell Distribution Width 21.4 % (9.3-17.3); White Blood Count 8.3 T/CUMM (4-12)
[2020-06-28 19:10] LABS: PT Patient Result 11.3 SECS (10.5-12.0); Partial Thromboplastin Time 22.5 SECS (23.9-33.8)
[2020-06-28 19:28] LABS: Bilirubin,Total 0.6 MG/DL (0.2-1.0); Calcium 8.9 MG/DL (8.5-10.1); Osmolality,Calculated 283.4 MOS/KG (273-304); Potassium 4.4 MMOL/L (3.5-5.1); Total Protein 7.1 G/DL (6.4-8.2)
[2020-06-28] MEDS ORDERED: SODIUM CHLORIDE 0.9% 1,000 ML IV STA ×2 (20:02→20:51)
[2020-06-28 20:39] LABS: Bacteria,Urine Many /HPF (Few); Bilirubin,Urine Negative (Negative); Blood, Urine Negative (Negative); Glucose,Urine (UA) >=500 mg/dL (Negative); Ketones,Urine Negative (Negative); Mucus,Urine Occasional /LPF (Occasional); Nitrite,Urine Positive (Negative); Protein,Urine 100 MG/DL; Squamous Epithelial Cell,Urine Occasional /HPF (0-10); Urine Appearance CLOUDY (Clear); Urine Color Yellow (Yellow); Urine Specific Gravity 1.025 (1.001-1.035); Urine Urobilinogen < 2.0 EU/DL (0.2-1.0)
[2020-06-28] MEDS ORDERED: cefTRIAXone 1,000 MG in SODIUM CHLORIDE 0.9% 100 ML IV STA (20:44)
[2020-06-28] MEDS ORDERED: ACETAMINOPHEN 325 MG TABLET PO PRN (20:56)
[2020-06-28] MEDS ORDERED: ONDANSETRON 4 MG/2 ML VIAL IV PRN (20:56)
[2020-06-28] MEDS: SODIUM CHLORIDE 0.9% 1,000 ML IV SCH (22:30)
[2020-06-28] MEDS: DOCUSATE SODIUM 100 MG CAPSULE PO SCH (23:23)
[2020-06-29] MEDS ORDERED: GLUCAGON 1 MG VIAL IM PRN (00:18)
[2020-06-29] MEDS ORDERED: DEXTROSE 50% 25 GM/50 ML VIAL IV PRN (00:18)
[2020-06-29 06:06] LABS: Basophils # 0.1 10*3/uL (0.0-0.2); Basophils % 0.6 % (0.0-0.8); Eosinophils % 0.4 % (0.00-10.9); Hematocrit 36.4 VOL% (35.7-47.0); Hemoglobin 11.1 GM/DL (12.0-16.0); Immature Granulocytes % 0.7 %; Immature Granulocytes Absolute 0.07 #; Lymphocytes % 21.2 % (21.3-54.2); Mean Corpuscular HGB Conc 30.5 GM/DL (32-36); Mean Corpuscular Volume 79.8 FL (87-102); Mean Platelet Volume 10.5 FL (9.6-12.0); Monocytes % 15.2 % (1.7-12.7); Neutrophils % 61.9 % (38.7-73.9); Platelet Count 271 T/CUMM (130-400); Red Blood Count 4.56 MC/CUMM (3.8-5.5); Red Cell Distribution Width 21.3 % (9.3-17.3); White Blood Count 9.4 T/CUMM (4-12)
[2020-06-29 06:18] LABS: PT Patient Result 11.6 SECS (10.5-12.0)
[2020-06-29 06:33] LABS: Albumin 2.8 G/DL (3.4-5.0); Bilirubin,Total 0.8 MG/DL (0.2-1.0); Calcium 8.6 MG/DL (8.5-10.1); Osmolality,Calculated 276.4 MOS/KG (273-304); Potassium 3.8 MMOL/L (3.5-5.1); Total Protein 6.5 G/DL (6.4-8.2)
[2020-06-29] MEDS: ATORVASTATIN 80 MG TABLET PO SCH (08:15)
[2020-06-29] MEDS: predniSONE 5 MG TABLET PO SCH (08:15)
[2020-06-29] MEDS: FAMOTIDINE 20 MG TABLET PO SCH (08:15)
[2020-06-29] MEDS: PANTOPRAZOLE 40 MG TABLET PO SCH (08:15)
[2020-06-29] MEDS: DOCUSATE SODIUM 100 MG CAPSULE PO SCH ×2 (08:15→20:31)
[2020-06-29] MEDS: ASPIRIN CHEW 81 MG TABLET PO SCH (08:15)
[2020-06-29] MEDS: GLIMEPIRIDE 4 MG TABLET PO SCH ×2 (08:15→20:31)
[2020-06-29] MEDS: levETIRAcetam 500 MG TABLET PO SCH ×2 (08:16→20:31)
[2020-06-29] MEDS: FOLIC ACID 1 MG TABLET PO SCH (08:16)
[2020-06-29] MEDS: metroNIDAZOLE 500 MG TABLET PO SCH ×3 (08:16→16:21)
[2020-06-29] MEDS: SKIN HEALING OINT (AQUAPHOR) 50 GM TUBE TOP SCH (08:28)
[2020-06-29] MEDS: INSULIN REGULAR 100 UNIT/ML SUBCUT SCH ×3 (08:28→16:21)
[2020-06-29] MEDS: TRIAMCINOLONE 0.1% CREAM 15 GM TUBE TOP SCH ×2 (08:28→20:41)
[2020-06-29] MEDS: DIGOXIN 0.125 MG TABLET PO SCH (12:24)
[2020-06-29] MEDS: SODIUM CHLORIDE 0.9% 1,000 ML IV SCH (16:20)
[2020-06-29] MEDS: INSULIN GLARGINE 100 UNIT/ML SUBCUT SCH (16:20)
[2020-06-29] MEDS ORDERED: WARFARIN 5 MG TABLET PO SCH (18:00)
[2020-06-29] MEDS: cefTRIAXone 1,000 MG in SODIUM CHLORIDE 0.9% 100 ML IV SCH (20:30)
[2020-06-29] MEDS: MELATONIN 3 MG TABLET PO SCH (20:30)
[2020-06-30] MEDS: SODIUM CHLORIDE 0.9% 1,000 ML IV SCH ×3 (02:34→13:40)
[2020-06-30 05:34] LABS: INR 1.1; PT Patient Result 11.9 SECS (10.5-12.0)
[2020-06-30 05:39] LABS: Basophils # 0.1 10*3/uL (0.0-0.2); Basophils % 0.7 % (0.0-0.8); Eosinophils % 0.3 % (0.00-10.9); Hemoglobin 9.9 GM/DL (12.0-16.0); Immature Granulocytes % 0.6 %; Immature Granulocytes Absolute 0.04 #; Lymphocytes # 1.6 10*3/uL (1.4-4.0); Lymphocytes % 23.5 % (21.3-54.2); Mean Corpuscular Volume 80.5 FL (87-102); Mean Platelet Volume 11.1 FL (9.6-12.0); Monocytes % 14.9 % (1.7-12.7); Platelet Count 248 T/CUMM (130-400); Red Cell Distribution Width 21.1 % (9.3-17.3)
[2020-06-30 05:50] LABS: Albumin 2.4 G/DL (3.4-5.0); Bilirubin,Total 1.2 MG/DL (0.2-1.0); Calcium 8.4 MG/DL (8.5-10.1); Osmolality,Calculated 280.4 MOS/KG (273-304); Potassium 3.6 MMOL/L (3.5-5.1); Total Protein 5.8 G/DL (6.4-8.2)
[2020-06-30 06:08] LABS: Hypochromasia Slight; Microcytosis Slight; Platelet Estimate Adequate
[2020-06-30] MEDS: TRIAMCINOLONE 0.1% CREAM 15 GM TUBE TOP SCH ×3 (06:14→20:50)
[2020-06-30] MEDS: INSULIN REGULAR 100 UNIT/ML SUBCUT SCH ×3 (07:03→17:54)
[2020-06-30] MEDS ORDERED: MAGNESIUM SULF RIDER 2 GM/50 ML PREMIX IV PRN (07:16)
[2020-06-30] MEDS ORDERED: MAGNESIUM SULF RIDER 4 GM/100 ML PREMIX IV PRN (07:16)
[2020-06-30] MEDS: predniSONE 5 MG TABLET PO SCH (08:34)
[2020-06-30] MEDS: GLIMEPIRIDE 4 MG TABLET PO SCH ×2 (08:35→20:49)
[2020-06-30] MEDS: DOCUSATE SODIUM 100 MG CAPSULE PO SCH ×2 (08:35→20:50)
[2020-06-30] MEDS: levETIRAcetam 500 MG TABLET PO SCH ×2 (08:36→20:50)
[2020-06-30] MEDS: ASPIRIN CHEW 81 MG TABLET PO SCH (08:37)
[2020-06-30] MEDS: metroNIDAZOLE 500 MG TABLET PO SCH ×3 (08:38→18:08)
[2020-06-30] MEDS: PANTOPRAZOLE 40 MG TABLET PO SCH (08:39)
[2020-06-30] MEDS: FAMOTIDINE 20 MG TABLET PO SCH (08:39)
[2020-06-30] MEDS: ATORVASTATIN 80 MG TABLET PO SCH (08:40)
[2020-06-30] MEDS: amLODIPine 5 MG TABLET PO SCH (08:41)
[2020-06-30] MEDS: FOLIC ACID 1 MG TABLET PO SCH (08:42)
[2020-06-30] MEDS: SKIN HEALING OINT (AQUAPHOR) 50 GM TUBE TOP SCH (08:43)
[2020-06-30] MEDS: cefTRIAXone 1,000 MG in SODIUM CHLORIDE 0.9% 100 ML IV SCH ×2 (08:45→20:49)
[2020-06-30] MEDS ORDERED: METHOTREXATE 2.5 MG TABLET PO SCH (09:00)
[2020-06-30] MEDS: DIGOXIN 0.125 MG TABLET PO SCH (13:41)
[2020-06-30] MEDS: INSULIN GLARGINE 100 UNIT/ML SUBCUT SCH (16:11)
[2020-06-30] MEDS ORDERED: WARFARIN 7.5 MG TABLET PO ONE (16:20)
[2020-06-30] MEDS: MELATONIN 3 MG TABLET PO SCH (20:49)
[2020-07-01] MEDS: SODIUM CHLORIDE 0.9% 1,000 ML IV SCH ×3 (01:44→12:42)
[2020-07-01 06:58] LABS: INR 1.2; PT Patient Result 12.9 SECS (10.5-12.0)
[2020-07-01 07:17] LABS: Risk Ratio 2.41; VLDL CHOLESTEROL 18.8 MG/DL
[2020-07-01] MEDS: INSULIN REGULAR 100 UNIT/ML SUBCUT SCH ×3 (07:32→16:08)
[2020-07-01] MEDS: cefTRIAXone 1,000 MG in SODIUM CHLORIDE 0.9% 100 ML IV SCH ×2 (09:29→22:19)
[2020-07-01] MEDS: FAMOTIDINE 20 MG TABLET PO SCH (09:31)
[2020-07-01] MEDS: amLODIPine 5 MG TABLET PO SCH (09:31)
[2020-07-01] MEDS: TRIAMCINOLONE 0.1% CREAM 15 GM TUBE TOP SCH ×2 (09:31→22:19)
[2020-07-01] MEDS: PANTOPRAZOLE 40 MG TABLET PO SCH (09:31)
[2020-07-01] MEDS: GLIMEPIRIDE 4 MG TABLET PO SCH ×2 (09:31→22:18)
[2020-07-01] MEDS: ASPIRIN CHEW 81 MG TABLET PO SCH (09:31)
[2020-07-01] MEDS: ATORVASTATIN 80 MG TABLET PO SCH (09:31)
[2020-07-01] MEDS: levETIRAcetam 500 MG TABLET PO SCH ×2 (09:31→22:19)
[2020-07-01] MEDS: SKIN HEALING OINT (AQUAPHOR) 50 GM TUBE TOP SCH (09:31)
[2020-07-01] MEDS: predniSONE 5 MG TABLET PO SCH (09:31)
[2020-07-01] MEDS: DOCUSATE SODIUM 100 MG CAPSULE PO SCH ×2 (09:31→22:19)
[2020-07-01] MEDS: FOLIC ACID 1 MG TABLET PO SCH (09:31)
[2020-07-01] MEDS: INSULIN GLARGINE 100 UNIT/ML SUBCUT SCH (09:32)
[2020-07-01] MEDS: DIGOXIN 0.125 MG TABLET PO SCH (13:58)
[2020-07-01] MEDS ORDERED: WARFARIN 7.5 MG TABLET PO SCH (18:00)
[2020-07-01] MEDS: MELATONIN 3 MG TABLET PO SCH (22:18)
[2020-07-02] MEDS: SODIUM CHLORIDE 0.9% 1,000 ML IV SCH ×3 (01:40→17:29)
[2020-07-02 06:59] LABS: INR 1.2; PT Patient Result 13.3 SECS (10.5-12.0)
[2020-07-02 07:21] LABS: Calcium 8.5 MG/DL (8.5-10.1); Osmolality,Calculated 279.3 MOS/KG (273-304); Potassium 3.4 MMOL/L (3.5-5.1)
[2020-07-02] MEDS: INSULIN REGULAR 100 UNIT/ML SUBCUT SCH ×3 (08:19→17:29)
[2020-07-02] MEDS: GLIMEPIRIDE 4 MG TABLET PO SCH ×2 (08:36→20:41)
[2020-07-02] MEDS: amLODIPine 5 MG TABLET PO SCH (08:36)
[2020-07-02] MEDS: ATORVASTATIN 80 MG TABLET PO SCH (08:36)
[2020-07-02] MEDS: ASPIRIN CHEW 81 MG TABLET PO SCH (08:36)
[2020-07-02] MEDS: SKIN HEALING OINT (AQUAPHOR) 50 GM TUBE TOP SCH (08:37)
[2020-07-02] MEDS: PANTOPRAZOLE 40 MG TABLET PO SCH (08:37)
[2020-07-02] MEDS: levETIRAcetam 500 MG TABLET PO SCH ×2 (08:37→20:42)
[2020-07-02] MEDS: FAMOTIDINE 20 MG TABLET PO SCH (08:37)
[2020-07-02] MEDS: predniSONE 5 MG TABLET PO SCH (08:37)
[2020-07-02] MEDS: DOCUSATE SODIUM 100 MG CAPSULE PO SCH ×2 (08:37→20:42)
[2020-07-02] MEDS: FOLIC ACID 1 MG TABLET PO SCH (08:37)
[2020-07-02] MEDS: cefTRIAXone 1,000 MG in SODIUM CHLORIDE 0.9% 100 ML IV SCH ×3 (08:38→21:00)
[2020-07-02] MEDS: TRIAMCINOLONE 0.1% CREAM 15 GM TUBE TOP SCH ×2 (08:38→20:42)
[2020-07-02] MEDS: INSULIN GLARGINE 100 UNIT/ML SUBCUT SCH (09:39)
[2020-07-02] MEDS: DIGOXIN 0.125 MG TABLET PO SCH (12:35)
[2020-07-02] MEDS ORDERED: WARFARIN 7.5 MG TABLET PO SCH (18:00)
[2020-07-02] MEDS: MELATONIN 3 MG TABLET PO SCH (20:42)
[2020-07-03] MEDS: SODIUM CHLORIDE 0.9% 1,000 ML IV SCH ×2 (03:31→16:58)
[2020-07-03 07:22] LABS: PT Patient Result 20.9 SECS (10.5-12.0)
[2020-07-03] MEDS: INSULIN REGULAR 100 UNIT/ML SUBCUT SCH ×3 (08:01→16:35)
[2020-07-03] MEDS: cefTRIAXone 1,000 MG in SODIUM CHLORIDE 0.9% 100 ML IV SCH (08:37)
[2020-07-03] MEDS: GLIMEPIRIDE 4 MG TABLET PO SCH (08:38)
[2020-07-03] MEDS: PANTOPRAZOLE 40 MG TABLET PO SCH (08:38)
[2020-07-03] MEDS: DOCUSATE SODIUM 100 MG CAPSULE PO SCH (08:38)
[2020-07-03] MEDS: amLODIPine 5 MG TABLET PO SCH (08:38)
[2020-07-03] MEDS: FAMOTIDINE 20 MG TABLET PO SCH (08:38)
[2020-07-03] MEDS: ATORVASTATIN 80 MG TABLET PO SCH (08:38)
[2020-07-03] MEDS: levETIRAcetam 500 MG TABLET PO SCH (08:38)
[2020-07-03] MEDS: INSULIN GLARGINE 100 UNIT/ML SUBCUT SCH (08:39)
[2020-07-03] MEDS: FOLIC ACID 1 MG TABLET PO SCH (08:39)
[2020-07-03] MEDS: SKIN HEALING OINT (AQUAPHOR) 50 GM TUBE TOP SCH (08:39)
[2020-07-03] MEDS: predniSONE 5 MG TABLET PO SCH (08:39)
[2020-07-03] MEDS: TRIAMCINOLONE 0.1% CREAM 15 GM TUBE TOP SCH (08:39)
[2020-07-03] MEDS: DIGOXIN 0.125 MG TABLET PO SCH (13:22)
[2020-07-03 16:09] VITALS: BP 138/59
== END 2020-07-03 16:37 | DRG 690 ==
LOC: N.ED 18:08 → N.EDINP 18:08 → N.4E 21:59
PROVIDERS: ADMIT Internal Medicine; ATTEND Internal Medicine

== ENCOUNTER 2021-08-01 11:12 | Inpatient (IN) ==
[2021-08-01 11:56] LABS: Basophils % 0.3 % (0.0-0.8); Eosinophils % 0.3 % (0.00-10.9); Hematocrit 41.4 VOL% (35.7-47.0); Hemoglobin 13.4 GM/DL (12.0-16.0); Immature Granulocytes % 0.8 %; Lymphocytes % 7.3 % (21.3-54.2); Mean Corpuscular HGB Conc 32.4 GM/DL (32-36); Mean Corpuscular Volume 92.8 FL (87-102); Mean Platelet Volume 11.8 FL (9.6-12.0); Monocytes # 0.7 10*3/uL (0.11-0.8); Monocytes % 5.4 % (1.7-12.7); Neutrophils % 85.9 % (38.7-73.9); Platelet Count 161 T/CUMM (130-400); Red Blood Count 4.46 MC/CUMM (3.8-5.5); Red Cell Distribution Width 15.3 % (9.3-17.3); White Blood Count 13.1 T/CUMM (4-12)
[2021-08-01 12:14] LABS: Albumin 3.5 G/DL (3.4-5.0); Bilirubin,Total 0.8 MG/DL (0.20-1.00); Calcium 9.6 MG/DL (8.5-10.1); Osmolality,Calculated 300.7 MOS/KG (273-304); Potassium 4.3 MMOL/L (3.5-5.1)
[2021-08-01 12:15] LABS: PT Patient Result 11.5 SECS (10.5-12.0); Partial Thromboplastin Time 23.6 SECS (23.8-32.1); Platelet Estimate Normal
[2021-08-01 12:50] LABS: Bacteria,Urine Many /HPF (Few); Glucose,Urine (UA) 100 mg/dL (Negative); Ketones,Urine Trace mg/dL (Negative); Mucus,Urine Few /LPF (Occasional); Nitrite,Urine Positive (Negative); Protein,Urine 100 mg/dL (Negative); RBC,Urine 1 /HPF (0-4); Squamous Epithelial Cell,Urine Occasional /HPF (0-10); Urine Appearance Clear (Clear); Urine Color Amber (Yellow); Urine Specific Gravity 1.025 (1.001-1.035)
[2021-08-01 12:51] LABS: Bilirubin,Urine Small mg/dL (Negative); Blood, Urine Trace mg/dL (Negative); Urine Urobilinogen 0.2 eU/dL (<2.0)
[2021-08-01] MEDS ORDERED: ENOXAPARIN 100 MG/ML SYRINGE SUBCUT STA (14:29)
[2021-08-01] MEDS ORDERED: cefTRIAXone 1,000 MG in SODIUM CHLORIDE 0.9% 100 ML IV STA (14:30)
[2021-08-01] MEDS ORDERED: ONDANSETRON 4 MG/2 ML VIAL IV PRN (14:31)
[2021-08-01] MEDS ORDERED: ACETAMINOPHEN 325 MG TABLET PO PRN (14:31)
[2021-08-01] MEDS ORDERED: GLUCAGON 1 MG VIAL IM PRN (14:31)
[2021-08-01] MEDS ORDERED: DEXTROSE 10% 250 ML BAG IV PRN (14:54)
[2021-08-01] MEDS ORDERED: cefTRIAXone 1,000 MG in SODIUM CHLORIDE 0.9% 100 ML IV SCH (15:00)
[2021-08-01] MEDS: INSULIN REGULAR 100 UNIT/ML SUBCUT SCH (17:44)
[2021-08-01] MEDS ORDERED: WARFARIN 4 MG TABLET PO SCH (18:00)
[2021-08-01] MEDS: DOCUSATE SODIUM 100 MG CAPSULE PO SCH ×2 (21:14→21:15)
[2021-08-01] MEDS: MEMANTINE 5 MG TABLET PO SCH (21:15)
[2021-08-01] MEDS: levETIRAcetam LIQUID 100 MG/ML 30 ML/BOTTLE PO SCH (21:15)
[2021-08-01] MEDS: ATORVASTATIN 10 MG TABLET PO SCH (21:15)
[2021-08-01] MEDS: MAGNESIUM CHLORIDE 64 MG TABLET PO SCH (21:16)
[2021-08-01] MEDS: FAMOTIDINE 20 MG TABLET PO SCH (21:16)
[2021-08-02 05:26] LABS: Basophils % 0.3 % (0.0-0.8); Eosinophils # 0.1 10*3/uL (0.0-0.87); Eosinophils % 1.5 % (0.00-10.9); Hematocrit 40.7 VOL% (35.7-47.0); Immature Granulocytes % 0.7 %; Immature Granulocytes Absolute 0.06 #; Lymphocytes # 1.3 10*3/uL (1.4-4.0); Lymphocytes % 15.5 % (21.3-54.2); Mean Corpuscular HGB Conc 31.9 GM/DL (32-36); Mean Corpuscular Volume 93.8 FL (87-102); Mean Platelet Volume 11.7 FL (9.6-12.0); Monocytes # 0.9 10*3/uL (0.11-0.8); Monocytes % 9.9 % (1.7-12.7); Neutrophils % 72.1 % (38.7-73.9); Platelet Count 177 T/CUMM (130-400); Red Blood Count 4.34 MC/CUMM (3.8-5.5); Red Cell Distribution Width 15.4 % (9.3-17.3); White Blood Count 8.7 T/CUMM (4-12)
[2021-08-02 05:44] LABS: Albumin 3.5 G/DL (3.4-5.0); Bilirubin,Total 0.6 MG/DL (0.20-1.00); Calcium 9.2 MG/DL (8.5-10.1); Osmolality,Calculated 303.6 MOS/KG (273-304); Potassium 3.6 MMOL/L (3.5-5.1)
[2021-08-02] MEDS: PANTOPRAZOLE 40 MG TABLET PO SCH (05:46)
[2021-08-02 06:57] LABS: INR 1.3
[2021-08-02] MEDS: MEMANTINE 5 MG TABLET PO SCH ×2 (08:36→21:02)
[2021-08-02] MEDS: LOSARTAN 50 MG TABLET PO SCH (08:36)
[2021-08-02] MEDS: MAGNESIUM CHLORIDE 64 MG TABLET PO SCH ×2 (08:36→21:02)
[2021-08-02] MEDS: GLIMEPIRIDE 2 MG TABLET PO SCH (08:36)
[2021-08-02] MEDS: DOCUSATE SODIUM 100 MG CAPSULE PO SCH ×4 (08:36→21:03)
[2021-08-02] MEDS: FAMOTIDINE 20 MG TABLET PO SCH ×2 (08:36→21:02)
[2021-08-02] MEDS: amLODIPine 10 MG TABLET PO SCH (08:36)
[2021-08-02] MEDS: DIGOXIN 0.125 MG TABLET PO SCH (08:37)
[2021-08-02] MEDS: SERTRALINE 25 MG TABLET PO SCH (08:37)
[2021-08-02] MEDS: FOLIC ACID 1 MG TABLET PO SCH (08:37)
[2021-08-02] MEDS: levETIRAcetam LIQUID 100 MG/ML 30 ML/BOTTLE PO SCH ×2 (08:40→21:04)
[2021-08-02] MEDS: INSULIN REGULAR 100 UNIT/ML SUBCUT SCH ×3 (09:03→17:02)
[2021-08-02] MEDS: cefTRIAXone 1,000 MG in SODIUM CHLORIDE 0.9% 100 ML IV SCH (15:40)
[2021-08-02] MEDS: HEPARIN DRIP 25,000 UNITS/500 ML PREMIX IV SCH (16:19)
[2021-08-02] MEDS: MENTHOL/ZINC OXIDE OINT 71 GM JAR TOP SCH (21:03)
[2021-08-02] MEDS: ATORVASTATIN 10 MG TABLET PO SCH (21:04)
[2021-08-03 04:43] LABS: Basophils % 0.1 % (0.0-0.8); Eosinophils # 0.2 10*3/uL (0.0-0.87); Eosinophils % 1.9 % (0.00-10.9); Hematocrit 42.4 VOL% (35.7-47.0); Hemoglobin 13.1 GM/DL (12.0-16.0); Immature Granulocytes % 0.6 %; Immature Granulocytes Absolute 0.06 #; Lymphocytes # 1.4 10*3/uL (1.4-4.0); Lymphocytes % 14.5 % (21.3-54.2); Mean Corpuscular HGB Conc 30.9 GM/DL (32-36); Mean Corpuscular Volume 95.7 FL (87-102); Mean Platelet Volume 12.7 FL (9.6-12.0); Monocytes # 1.1 10*3/uL (0.11-0.8); Monocytes % 11.6 % (1.7-12.7); Neutrophils % 71.3 % (38.7-73.9); Platelet Count 177 T/CUMM (130-400); Red Blood Count 4.43 MC/CUMM (3.8-5.5); Red Cell Distribution Width 15.5 % (9.3-17.3); White Blood Count 9.9 T/CUMM (4-12)
[2021-08-03 04:51] LABS: INR 1.4; PT Patient Result 15.6 SECS (10.5-12.0)
[2021-08-03 05:04] LABS: Calcium 9.6 MG/DL (8.5-10.1); Osmolality,Calculated 300.3 MOS/KG (273-304); Potassium 3.4 MMOL/L (3.5-5.1)
[2021-08-03] MEDS: PANTOPRAZOLE 40 MG TABLET PO SCH (05:30)
[2021-08-03] MEDS ORDERED: DIGOXIN 0.5 MG/2 ML AMP IV ONE (07:16)
[2021-08-03] MEDS: DOCUSATE SODIUM 100 MG CAPSULE PO SCH ×4 (09:22→21:02)
[2021-08-03] MEDS: GLIMEPIRIDE 2 MG TABLET PO SCH (09:22)
[2021-08-03] MEDS: MAGNESIUM CHLORIDE 64 MG TABLET PO SCH ×2 (09:22→21:03)
[2021-08-03] MEDS: INSULIN REGULAR 100 UNIT/ML SUBCUT SCH ×3 (09:22→18:13)
[2021-08-03] MEDS: FAMOTIDINE 20 MG TABLET PO SCH ×2 (09:22→21:03)
[2021-08-03] MEDS: DIGOXIN 0.125 MG TABLET PO SCH (09:23)
[2021-08-03] MEDS: MEMANTINE 5 MG TABLET PO SCH ×2 (09:23→21:03)
[2021-08-03] MEDS: FOLIC ACID 1 MG TABLET PO SCH (09:23)
[2021-08-03] MEDS: amLODIPine 10 MG TABLET PO SCH (09:23)
[2021-08-03] MEDS: LOSARTAN 50 MG TABLET PO SCH (09:23)
[2021-08-03] MEDS: SERTRALINE 25 MG TABLET PO SCH (09:23)
[2021-08-03] MEDS: MENTHOL/ZINC OXIDE OINT 71 GM JAR TOP SCH ×2 (09:26→21:02)
[2021-08-03] MEDS: levETIRAcetam LIQUID 100 MG/ML 30 ML/BOTTLE PO SCH ×2 (09:27→21:03)
[2021-08-03] MEDS: cefTRIAXone 1,000 MG in SODIUM CHLORIDE 0.9% 100 ML IV SCH (15:02)
[2021-08-03] MEDS ORDERED: HEPARIN 5,000 UNIT/1 ML VIAL IV ONE (15:10)
[2021-08-03] MEDS: HEPARIN DRIP 25,000 UNITS/500 ML PREMIX IV SCH (16:01)
[2021-08-03] MEDS: ATORVASTATIN 10 MG TABLET PO SCH (21:03)
[2021-08-04 01:55] LABS: Basophils % 0.2 % (0.0-0.8); Eosinophils % 0.1 % (0.00-10.9); Hematocrit 45.4 VOL% (35.7-47.0); Hemoglobin 13.8 GM/DL (12.0-16.0); Immature Granulocytes % 0.9 %; Immature Granulocytes Absolute 0.16 #; Lymphocytes # 1.7 10*3/uL (1.4-4.0); Lymphocytes % 9.6 % (21.3-54.2); Mean Corpuscular HGB Conc 30.4 GM/DL (32-36); Monocytes # 2.2 10*3/uL (0.11-0.8); Monocytes % 12.2 % (1.7-12.7); Platelet Count 188 T/CUMM (130-400); Red Blood Count 4.73 MC/CUMM (3.8-5.5); Red Cell Distribution Width 15.7 % (9.3-17.3); White Blood Count 17.7 T/CUMM (4-12)
[2021-08-04 02:08] LABS: INR 1.6; PT Patient Result 17.1 SECS (10.5-12.0)
[2021-08-04 02:13] LABS: Calcium 9.7 MG/DL (8.5-10.1); Osmolality,Calculated 305.3 MOS/KG (273-304); Potassium 3.7 MMOL/L (3.5-5.1)
[2021-08-04] MEDS: PANTOPRAZOLE 40 MG TABLET PO SCH (06:00)
[2021-08-04] MEDS: LACTATED RINGERS 1,000 ML IV SCH (08:11)
[2021-08-04] MEDS: methylPREDNISolone SOD SUC 40 MG/1 ML VIAL IV SCH ×2 (09:49→17:31)
[2021-08-04] MEDS: SODIUM CHLORIDE 0.9% 1,000 ML IV SCH ×2 (09:52→22:00)
[2021-08-04] MEDS: MEROPENEM 500 MG in SODIUM CHLORIDE 0.9% 100 ML IV SCH ×2 (09:53→17:34)
[2021-08-04] MEDS: INSULIN REGULAR 100 UNIT/ML SUBCUT SCH ×3 (11:04→17:30)
[2021-08-04] MEDS: FOLIC ACID 1 MG TABLET PO SCH (11:43)
[2021-08-04] MEDS: SERTRALINE 25 MG TABLET PO SCH (11:43)
[2021-08-04] MEDS: THIAMINE 100 MG TABLET PO SCH (11:43)
[2021-08-04] MEDS: MULTIVITAMIN (CENTRUM) TABLET PO SCH (11:44)
[2021-08-04] MEDS: MAGNESIUM CHLORIDE 64 MG TABLET PO SCH ×2 (11:44→20:50)
[2021-08-04] MEDS: FAMOTIDINE 20 MG TABLET PO SCH ×2 (11:44→20:50)
[2021-08-04] MEDS: MEMANTINE 5 MG TABLET PO SCH ×2 (11:44→20:50)
[2021-08-04] MEDS: DOCUSATE SODIUM 100 MG CAPSULE PO SCH ×4 (11:44→20:50)
[2021-08-04] MEDS: METOPROLOL TARTRATE 25 MG TABLET PO SCH ×2 (11:44→20:50)
[2021-08-04] MEDS: LOSARTAN 50 MG TABLET PO SCH (11:45)
[2021-08-04] MEDS: GLIMEPIRIDE 2 MG TABLET PO SCH (11:45)
[2021-08-04] MEDS: DIGOXIN 0.125 MG TABLET PO SCH (11:45)
[2021-08-04] MEDS: MENTHOL/ZINC OXIDE OINT 71 GM JAR TOP SCH ×2 (11:45→20:51)
[2021-08-04] MEDS: levETIRAcetam LIQUID 100 MG/ML 30 ML/BOTTLE PO SCH ×2 (11:46→20:51)
[2021-08-04] MEDS: INSULIN GLARGINE 100 UNIT/ML SUBCUT SCH (13:31)
[2021-08-04] MEDS: HEPARIN DRIP 25,000 UNITS/500 ML PREMIX IV SCH ×2 (14:58→15:03)
[2021-08-04] MEDS ORDERED: ZINC IV SCH (17:00)
[2021-08-04] MEDS ORDERED: [UNRECOGNIZED DRUG - OTHER] IV SCH (17:00)
[2021-08-04] MEDS ORDERED: MULTIVITAMIN IV SCH (17:00)
[2021-08-04] MEDS ORDERED: COPPER IV SCH (17:00)
[2021-08-04] MEDS ORDERED: SELENIUM IV SCH (17:00)
[2021-08-04] MEDS ORDERED: DEXTROSE 10% 1,000 ML IV PRN (17:00)
[2021-08-04] MEDS ORDERED: MANGANESE IV SCH (17:00)
[2021-08-04] MEDS ORDERED: WARFARIN 3 MG TABLET PO SCH (18:00)
[2021-08-04] MEDS: ALBUTEROL/IPRATROPIUM 3 ML NEB RESP TX SCH (19:03)
[2021-08-04] MEDS: ATORVASTATIN 10 MG TABLET PO SCH (20:59)
[2021-08-04] MEDS ORDERED: INSULIN GLARGINE 100 UNIT/ML SUBCUT SCH (21:00)
[2021-08-05] MEDS: ALBUTEROL/IPRATROPIUM 3 ML NEB RESP TX SCH ×5 (00:22→23:45)
[2021-08-05] MEDS: methylPREDNISolone SOD SUC 40 MG/1 ML VIAL IV SCH ×3 (02:01→18:06)
[2021-08-05] MEDS: MEROPENEM 500 MG in SODIUM CHLORIDE 0.9% 100 ML IV SCH ×3 (02:01→18:09)
[2021-08-05 04:40] LABS: Basophils % 0.1 % (0.0-0.8); Hematocrit 36.2 VOL% (35.7-47.0); Hemoglobin 11.3 GM/DL (12.0-16.0); Immature Granulocytes % 0.3 %; Immature Granulocytes Absolute 0.03 #; Lymphocytes # 0.5 10*3/uL (1.4-4.0); Lymphocytes % 5.3 % (21.3-54.2); Mean Corpuscular HGB Conc 31.2 GM/DL (32-36); Mean Corpuscular Volume 96.3 FL (87-102); Mean Platelet Volume 13.1 FL (9.6-12.0); Monocytes # 0.8 10*3/uL (0.11-0.8); Monocytes % 9.5 % (1.7-12.7); Neutrophils % 84.8 % (38.7-73.9); Platelet Count 156 T/CUMM (130-400); Red Blood Count 3.76 MC/CUMM (3.8-5.5); Red Cell Distribution Width 15.4 % (9.3-17.3); White Blood Count 8.9 T/CUMM (4-12)
[2021-08-05 04:49] LABS: INR 1.6; PT Patient Result 17.2 SECS (10.5-12.0)
[2021-08-05 04:58] LABS: Alanine Aminotransferase 17 U/L (13-56); Albumin 2.2 G/DL (3.4-5.0); Alkaline Phosphatase 76 U/L (45-117); Aspartate Amino Transferase 21 U/L (0-37); Bilirubin,Total < 0.39 MG/DL (0.20-1.00); Blood Urea Nitrogen 56 MG/DL (7-18); Calcium 8.3 MG/DL (8.5-10.1); Carbon Dioxide 21 MMOL/L (21-32); Chloride 123 MMOL/L (98-107); Glucose 370 MG/DL (74-106); Osmolality,Calculated 333.6 MOS/KG (273-304); Potassium 3.3 MMOL/L (3.5-5.1); Sodium 153 MMOL/L (136-145); Total Protein 5.5 G/DL (6.4-8.2)
[2021-08-05 05:13] LABS: Calcium 7.9 MG/DL (8.5-10.1); Osmolality,Calculated 336.3 MOS/KG (273-304); Potassium 3.5 MMOL/L (3.5-5.1)
[2021-08-05] MEDS: PANTOPRAZOLE 40 MG TABLET PO SCH (06:23)
[2021-08-05] MEDS: SODIUM CHLORIDE 0.9% 1,000 ML IV SCH ×2 (09:31→17:17)
[2021-08-05] MEDS: INSULIN REGULAR 100 UNIT/ML SUBCUT SCH ×3 (09:35→18:06)
[2021-08-05] MEDS: INSULIN GLARGINE 100 UNIT/ML SUBCUT SCH (09:35)
[2021-08-05] MEDS: SERTRALINE 25 MG TABLET PO SCH (09:36)
[2021-08-05] MEDS: FOLIC ACID 1 MG TABLET PO SCH (09:36)
[2021-08-05] MEDS: MULTIVITAMIN (CENTRUM) TABLET PO SCH (09:36)
[2021-08-05] MEDS: GLIMEPIRIDE 2 MG TABLET PO SCH (09:36)
[2021-08-05] MEDS: DIGOXIN 0.125 MG TABLET PO SCH (09:37)
[2021-08-05] MEDS: FAMOTIDINE 20 MG TABLET PO SCH ×2 (09:37→21:17)
[2021-08-05] MEDS: THIAMINE 100 MG TABLET PO SCH (09:37)
[2021-08-05] MEDS: MAGNESIUM CHLORIDE 64 MG TABLET PO SCH ×2 (09:37→21:17)
[2021-08-05] MEDS: LOSARTAN 50 MG TABLET PO SCH (09:37)
[2021-08-05] MEDS: MENTHOL/ZINC OXIDE OINT 71 GM JAR TOP SCH ×2 (09:38→21:17)
[2021-08-05] MEDS: levETIRAcetam LIQUID 100 MG/ML 30 ML/BOTTLE PO SCH ×2 (09:38→21:18)
[2021-08-05] MEDS: DOCUSATE SODIUM 100 MG CAPSULE PO SCH ×4 (09:38→21:18)
[2021-08-05] MEDS: MEMANTINE 5 MG TABLET PO SCH ×2 (09:38→21:17)
[2021-08-05] MEDS: METOPROLOL TARTRATE 25 MG TABLET PO SCH ×2 (09:38→21:17)
[2021-08-05] MEDS: LACTATED RINGERS 1,000 ML IV SCH (11:59)
[2021-08-05] MEDS: ZINC IV SCH (18:02)
[2021-08-05] MEDS: [UNRECOGNIZED DRUG - OTHER] IV SCH (18:02)
[2021-08-05] MEDS: MANGANESE IV SCH (18:02)
[2021-08-05] MEDS: SELENIUM IV SCH (18:02)
[2021-08-05] MEDS: COPPER IV SCH (18:02)
[2021-08-05] MEDS: MULTIVITAMIN IV SCH (18:02)
[2021-08-05] MEDS: DEXTROSE 5% 1,000 ML IV SCH (18:58)
[2021-08-05] MEDS: HEPARIN DRIP 25,000 UNITS/500 ML PREMIX IV SCH (20:13)
[2021-08-05] MEDS ORDERED: HEPARIN 5,000 UNIT/1 ML VIAL IV ONE (21:00)
[2021-08-05] MEDS: ATORVASTATIN 10 MG TABLET PO SCH (21:17)
[2021-08-06] MEDS: INSULIN REGULAR 100 UNIT/ML SUBCUT SCH ×5 (00:05→23:33)
[2021-08-06 01:50] LABS: Basophils % 0.1 % (0.0-0.8); Hematocrit 34.5 VOL% (35.7-47.0); Hemoglobin 10.8 GM/DL (12.0-16.0); Immature Granulocytes % 0.7 %; Immature Granulocytes Absolute 0.05 #; Lymphocytes # 0.4 10*3/uL (1.4-4.0); Lymphocytes % 5.2 % (21.3-54.2); Mean Corpuscular HGB Conc 31.3 GM/DL (32-36); Monocytes # 0.8 10*3/uL (0.11-0.8); Monocytes % 9.9 % (1.7-12.7); Neutrophils % 84.1 % (38.7-73.9); Platelet Count 159 T/CUMM (130-400); Red Blood Count 3.63 MC/CUMM (3.8-5.5); Red Cell Distribution Width 15.6 % (9.3-17.3); White Blood Count 7.7 T/CUMM (4-12)
[2021-08-06 02:03] LABS: INR 1.1; PT Patient Result 12.1 SECS (10.5-12.0)
[2021-08-06 02:12] LABS: Alanine Aminotransferase 14 U/L (13-56); Albumin 2.3 G/DL (3.4-5.0); Alkaline Phosphatase 70 U/L (45-117); Aspartate Amino Transferase 16 U/L (0-37); Bilirubin,Total < 0.39 MG/DL (0.20-1.00); Blood Urea Nitrogen 67 MG/DL (7-18); Carbon Dioxide 20 MMOL/L (21-32); Chloride 123 MMOL/L (98-107); Glucose 263 MG/DL (74-106); Osmolality,Calculated 323.1 MOS/KG (273-304); Potassium 3.2 MMOL/L (3.5-5.1); Sodium 149 MMOL/L (136-145); Total Protein 5.7 G/DL (6.4-8.2)
[2021-08-06 02:15] LABS: Calcium 8.6 MG/DL (8.5-10.1); Osmolality,Calculated 314.8 MOS/KG (273-304); Potassium 4.4 MMOL/L (3.5-5.1)
[2021-08-06] MEDS: methylPREDNISolone SOD SUC 40 MG/1 ML VIAL IV SCH ×3 (03:25→17:56)
[2021-08-06] MEDS: MEROPENEM 500 MG in SODIUM CHLORIDE 0.9% 100 ML IV SCH ×3 (03:25→17:56)
[2021-08-06] MEDS: ALBUTEROL/IPRATROPIUM 3 ML NEB RESP TX SCH ×4 (04:57→19:44)
[2021-08-06] MEDS: DEXTROSE 5% 1,000 ML IV SCH ×2 (05:51→10:27)
[2021-08-06] MEDS: PANTOPRAZOLE 40 MG TABLET PO SCH ×3 (05:56→17:50)
[2021-08-06] MEDS: LACTATED RINGERS 1,000 ML IV SCH (08:11)
[2021-08-06] MEDS ORDERED: KETAMINE 500 MG/10 ML VIAL ONE (08:57)
[2021-08-06] MEDS ORDERED: LIDOCAINE 2% 5 ML VIAL ONE (09:03)
[2021-08-06] MEDS ORDERED: ETOMIDATE 20 MG/10 ML VIAL IV ONE (09:03)
[2021-08-06] MEDS ORDERED: propofoL 200 MG/20 ML VIAL IV ONE (09:03)
[2021-08-06] MEDS: MENTHOL/ZINC OXIDE OINT 71 GM JAR TOP SCH ×2 (10:27→22:26)
[2021-08-06] MEDS: MAGNESIUM CHLORIDE 64 MG TABLET PO SCH ×3 (10:31→22:44)
[2021-08-06] MEDS: MULTIVITAMIN (CENTRUM) TABLET PO SCH ×2 (10:31→17:50)
[2021-08-06] MEDS: MEMANTINE 5 MG TABLET PO SCH ×3 (10:32→22:44)
[2021-08-06] MEDS: LOSARTAN 50 MG TABLET PO SCH ×2 (10:32→17:51)
[2021-08-06] MEDS: SERTRALINE 25 MG TABLET PO SCH ×2 (10:32→17:50)
[2021-08-06] MEDS: GLIMEPIRIDE 2 MG TABLET PO SCH ×2 (10:32→17:50)
[2021-08-06] MEDS: FAMOTIDINE 20 MG TABLET PO SCH ×3 (10:33→22:44)
[2021-08-06] MEDS: DIGOXIN 0.125 MG TABLET PO SCH ×2 (10:33→17:51)
[2021-08-06] MEDS: METOPROLOL TARTRATE 25 MG TABLET PO SCH ×3 (10:33→22:44)
[2021-08-06] MEDS: DOCUSATE SODIUM 100 MG CAPSULE PO SCH ×4 (10:34→22:44)
[2021-08-06] MEDS: THIAMINE 100 MG TABLET PO SCH ×2 (10:34→17:49)
[2021-08-06] MEDS: FOLIC ACID 1 MG TABLET PO SCH ×2 (10:34→17:50)
[2021-08-06] MEDS: levETIRAcetam LIQUID 100 MG/ML 30 ML/BOTTLE PO SCH ×2 (13:25→22:26)
[2021-08-06] MEDS: HEPARIN DRIP 25,000 UNITS/500 ML PREMIX IV SCH (14:39)
[2021-08-06] MEDS: SODIUM CHLORIDE 0.9% 1,000 ML IV SCH (14:39)
[2021-08-06] MEDS ORDERED: [UNRECOGNIZED DRUG - OTHER] IV SCH (17:00)
[2021-08-06] MEDS ORDERED: MANGANESE IV SCH ×2 (17:00)
[2021-08-06] MEDS ORDERED: [UNRECOGNIZED DRUG - OTHER] IV SCH (17:00)
[2021-08-06] MEDS ORDERED: MULTIVITAMIN IV SCH ×2 (17:00)
[2021-08-06] MEDS ORDERED: COPPER IV SCH ×2 (17:00)
[2021-08-06] MEDS ORDERED: SELENIUM IV SCH ×2 (17:00)
[2021-08-06] MEDS ORDERED: ZINC IV SCH ×2 (17:00)
[2021-08-06] MEDS: COPPER IV SCH (18:00)
[2021-08-06] MEDS: MULTIVITAMIN IV SCH (18:00)
[2021-08-06] MEDS: [UNRECOGNIZED DRUG - OTHER] IV SCH (18:00)
[2021-08-06] MEDS: MANGANESE IV SCH (18:00)
[2021-08-06] MEDS ORDERED: WARFARIN 3 MG TABLET PO SCH (18:00)
[2021-08-06] MEDS: SELENIUM IV SCH (18:00)
[2021-08-06] MEDS: ZINC IV SCH (18:00)
[2021-08-06] MEDS: ATORVASTATIN 10 MG TABLET PO SCH (22:26)
[2021-08-07] MEDS: ALBUTEROL/IPRATROPIUM 3 ML NEB RESP TX SCH ×4 (00:24→20:05)
[2021-08-07] MEDS: SODIUM CHLORIDE 0.9% 1,000 ML IV SCH ×3 (05:36→22:35)
[2021-08-07] MEDS: MEROPENEM 500 MG in SODIUM CHLORIDE 0.9% 100 ML IV SCH ×4 (05:37→18:26)
[2021-08-07] MEDS: methylPREDNISolone SOD SUC 40 MG/1 ML VIAL IV SCH ×2 (05:37→18:22)
[2021-08-07 05:43] LABS: Basophils % 0.1 % (0.0-0.8); Hematocrit 36.3 VOL% (35.7-47.0); Hemoglobin 11.2 GM/DL (12.0-16.0); Immature Granulocytes % 0.9 %; Immature Granulocytes Absolute 0.07 #; Lymphocytes # 0.5 10*3/uL (1.4-4.0); Lymphocytes % 6.4 % (21.3-54.2); Mean Corpuscular HGB Conc 30.9 GM/DL (32-36); Mean Corpuscular Volume 95.3 FL (87-102); Mean Platelet Volume 13.5 FL (9.6-12.0); Monocytes # 0.6 10*3/uL (0.11-0.8); Neutrophils % 84.6 % (38.7-73.9); Platelet Count 134 T/CUMM (130-400); Red Blood Count 3.81 MC/CUMM (3.8-5.5); Red Cell Distribution Width 15.3 % (9.3-17.3); White Blood Count 7.4 T/CUMM (4-12)
[2021-08-07 05:55] LABS: Calcium 9.1 MG/DL (8.5-10.1); Osmolality,Calculated 306.4 MOS/KG (273-304); Phosphorous 2.2 MG/DL (2.5-4.9); Potassium 3.6 MMOL/L (3.5-5.1)
[2021-08-07] MEDS: INSULIN REGULAR 100 UNIT/ML SUBCUT SCH ×3 (06:06→18:25)
[2021-08-07] MEDS: PANTOPRAZOLE 40 MG TABLET PO SCH (06:25)
[2021-08-07] MEDS: MENTHOL/ZINC OXIDE OINT 71 GM JAR TOP SCH ×2 (08:26→22:27)
[2021-08-07 09:15] LABS: INR 1.1; PT Patient Result 12.4 SECS (10.5-12.0)
[2021-08-07] MEDS: FOLIC ACID 1 MG TABLET PO SCH (09:28)
[2021-08-07] MEDS: MULTIVITAMIN (CENTRUM) TABLET PO SCH (09:28)
[2021-08-07] MEDS: FAMOTIDINE 20 MG TABLET PO SCH ×2 (09:28→22:28)
[2021-08-07] MEDS: DOCUSATE SODIUM 100 MG CAPSULE PO SCH ×2 (09:28→22:27)
[2021-08-07] MEDS: SERTRALINE 25 MG TABLET PO SCH (09:28)
[2021-08-07] MEDS: GLIMEPIRIDE 2 MG TABLET PO SCH (09:28)
[2021-08-07] MEDS: METOPROLOL TARTRATE 25 MG TABLET PO SCH ×2 (09:29→22:26)
[2021-08-07] MEDS: DIGOXIN 0.125 MG TABLET PO SCH (09:29)
[2021-08-07] MEDS: LOSARTAN 50 MG TABLET PO SCH (09:29)
[2021-08-07] MEDS: THIAMINE 100 MG TABLET PO SCH (09:29)
[2021-08-07] MEDS: MAGNESIUM CHLORIDE 64 MG TABLET PO SCH ×2 (09:29→22:27)
[2021-08-07] MEDS: MEMANTINE 5 MG TABLET PO SCH ×2 (09:30→22:27)
[2021-08-07] MEDS: levETIRAcetam LIQUID 100 MG/ML 30 ML/BOTTLE PO SCH ×2 (09:31→22:26)
[2021-08-07] MEDS: WARFARIN 4 MG TABLET PO SCH (18:25)
[2021-08-07] MEDS: HEPARIN DRIP 25,000 UNITS/500 ML PREMIX IV SCH (18:32)
[2021-08-07] MEDS: ATORVASTATIN 10 MG TABLET PO SCH (22:26)
[2021-08-08] MEDS: ALBUTEROL/IPRATROPIUM 3 ML NEB RESP TX SCH ×4 (00:27→19:18)
[2021-08-08] MEDS: INSULIN REGULAR 100 UNIT/ML SUBCUT SCH ×4 (01:37→18:16)
[2021-08-08] MEDS: MEROPENEM 500 MG in SODIUM CHLORIDE 0.9% 100 ML IV SCH ×3 (03:40→18:14)
[2021-08-08] MEDS: methylPREDNISolone SOD SUC 40 MG/1 ML VIAL IV SCH ×2 (04:45→18:18)
[2021-08-08 04:56] LABS: Basophils % 0.3 % (0.0-0.8); Hematocrit 32.9 VOL% (35.7-47.0); Hemoglobin 10.3 GM/DL (12.0-16.0); Immature Granulocytes % 2.3 %; Immature Granulocytes Absolute 0.27 #; Lymphocytes # 0.9 10*3/uL (1.4-4.0); Lymphocytes % 7.6 % (21.3-54.2); Mean Corpuscular HGB Conc 31.3 GM/DL (32-36); Mean Corpuscular Volume 93.5 FL (87-102); Mean Platelet Volume 13.7 FL (9.6-12.0); Monocytes # 0.8 10*3/uL (0.11-0.8); Monocytes % 6.4 % (1.7-12.7); Neutrophils % 83.4 % (38.7-73.9); Platelet Count 164 T/CUMM (130-400); Red Blood Count 3.52 MC/CUMM (3.8-5.5); Red Cell Distribution Width 15.4 % (9.3-17.3); White Blood Count 11.9 T/CUMM (4-12)
[2021-08-08 05:15] LABS: Calcium 7.7 MG/DL (8.5-10.1); Osmolality,Calculated 302.6 MOS/KG (273-304); Potassium 4.3 MMOL/L (3.5-5.1)
[2021-08-08 05:19] LABS: Calcium 7.6 MG/DL (8.5-10.1); Osmolality,Calculated 302.6 MOS/KG (273-304); Phosphorous 1.8 MG/DL (2.5-4.9); Potassium 4.4 MMOL/L (3.5-5.1)
[2021-08-08 05:20] LABS: Band Neutrophils 3 % (0-10); Lymphocytes 7 % (20-55); Microcytosis Slight; Promyelocytes 1 %; Total Cells Counted 100
[2021-08-08 05:21] LABS: Ovalocytes Slight; Platelet Estimate Adequate; Polychromasia Slight
[2021-08-08 06:01] LABS: INR 1.3; PT Patient Result 13.7 SECS (10.5-12.0)
[2021-08-08] MEDS: PANTOPRAZOLE 40 MG TABLET PO SCH (06:21)
[2021-08-08] MEDS: SODIUM CHLORIDE 0.9% 1,000 ML IV SCH ×2 (07:21→18:14)
[2021-08-08] MEDS: MULTIVITAMIN (CENTRUM) TABLET PO SCH (09:00)
[2021-08-08] MEDS: THIAMINE 100 MG TABLET PO SCH (09:01)
[2021-08-08] MEDS: MEMANTINE 5 MG TABLET PO SCH ×2 (09:01→22:12)
[2021-08-08] MEDS: DIGOXIN 0.125 MG TABLET PO SCH (09:01)
[2021-08-08] MEDS: METOPROLOL TARTRATE 25 MG TABLET PO SCH ×2 (09:01→22:12)
[2021-08-08] MEDS: FOLIC ACID 1 MG TABLET PO SCH (09:01)
[2021-08-08] MEDS: LOSARTAN 50 MG TABLET PO SCH (09:01)
[2021-08-08] MEDS: MAGNESIUM CHLORIDE 64 MG TABLET PO SCH ×2 (09:01→22:12)
[2021-08-08] MEDS: FAMOTIDINE 20 MG TABLET PO SCH ×2 (09:02→22:12)
[2021-08-08] MEDS: SERTRALINE 25 MG TABLET PO SCH (09:02)
[2021-08-08] MEDS: DOCUSATE SODIUM 100 MG CAPSULE PO SCH ×2 (09:02→22:12)
[2021-08-08] MEDS: GLIMEPIRIDE 2 MG TABLET PO SCH (09:02)
[2021-08-08] MEDS: MENTHOL/ZINC OXIDE OINT 71 GM JAR TOP SCH ×2 (09:03→22:12)
[2021-08-08] MEDS: levETIRAcetam LIQUID 100 MG/ML 30 ML/BOTTLE PO SCH ×2 (09:03→22:12)
[2021-08-08] MEDS: POLYETHYLENE GLYCOL POWDER 17 GM PACK PO SCH (09:51)
[2021-08-08] MEDS: WARFARIN 4 MG TABLET PO SCH (18:18)
[2021-08-08] MEDS: HEPARIN DRIP 25,000 UNITS/500 ML PREMIX IV SCH (18:31)
[2021-08-08] MEDS: ATORVASTATIN 10 MG TABLET PO SCH (22:12)
[2021-08-09] MEDS: ALBUTEROL/IPRATROPIUM 3 ML NEB RESP TX SCH ×4 (00:05→19:13)
[2021-08-09] MEDS: INSULIN REGULAR 100 UNIT/ML SUBCUT SCH ×4 (00:55→18:40)
[2021-08-09] MEDS: SODIUM CHLORIDE 0.9% 1,000 ML IV SCH ×2 (03:38→17:25)
[2021-08-09] MEDS: MEROPENEM 500 MG in SODIUM CHLORIDE 0.9% 100 ML IV SCH ×3 (03:40→17:26)
[2021-08-09 05:38] LABS: Basophils # 0.1 10*3/uL (0.0-0.2); Basophils % 0.5 % (0.0-0.8); Hemoglobin 10.3 GM/DL (12.0-16.0); Immature Granulocytes % 4.9 %; Immature Granulocytes Absolute 0.71 #; Lymphocytes # 1.2 10*3/uL (1.4-4.0); Lymphocytes % 8.2 % (21.3-54.2); Mean Corpuscular HGB Conc 31.2 GM/DL (32-36); Mean Corpuscular Volume 94.6 FL (87-102); Mean Platelet Volume 13.7 FL (9.6-12.0); Monocytes % 6.7 % (1.7-12.7); NRBC # 0.05 10*3/uL; Neutrophils % 79.7 % (38.7-73.9); Platelet Count 185 T/CUMM (130-400); Red Blood Count 3.49 MC/CUMM (3.8-5.5); Red Cell Distribution Width 15.9 % (9.3-17.3); White Blood Count 14.6 T/CUMM (4-12)
[2021-08-09 05:58] LABS: Band Neutrophils 1 % (0-10); Lymphocytes 4 % (20-55); Total Cells Counted 100
[2021-08-09 05:59] LABS: Platelet Estimate Adequate
[2021-08-09 06:09] LABS: Calcium 7.9 MG/DL (8.5-10.1); Osmolality,Calculated 297.4 MOS/KG (273-304); Potassium 4.2 MMOL/L (3.5-5.1)
[2021-08-09 06:19] LABS: Calcium 7.5 MG/DL (8.5-10.1); Osmolality,Calculated 297.4 MOS/KG (273-304); Potassium 4.2 MMOL/L (3.5-5.1)
[2021-08-09] MEDS: PANTOPRAZOLE 40 MG TABLET PO SCH (06:19)
[2021-08-09 06:21] LABS: INR 1.7; PT Patient Result 18.1 SECS (10.5-12.0)
[2021-08-09] MEDS: methylPREDNISolone SOD SUC 40 MG/1 ML VIAL IV SCH ×2 (06:27→17:26)
[2021-08-09] MEDS: MENTHOL/ZINC OXIDE OINT 71 GM JAR TOP SCH ×2 (10:13→22:21)
[2021-08-09] MEDS: FAMOTIDINE 20 MG TABLET PO SCH ×2 (10:14→22:21)
[2021-08-09] MEDS: MEMANTINE 5 MG TABLET PO SCH ×2 (10:14→22:21)
[2021-08-09] MEDS: SERTRALINE 25 MG TABLET PO SCH (10:14)
[2021-08-09] MEDS: MULTIVITAMIN (CENTRUM) TABLET PO SCH (10:14)
[2021-08-09] MEDS: DOCUSATE SODIUM 100 MG CAPSULE PO SCH ×2 (10:14→22:22)
[2021-08-09] MEDS: MAGNESIUM CHLORIDE 64 MG TABLET PO SCH ×2 (10:14→22:21)
[2021-08-09] MEDS: FOLIC ACID 1 MG TABLET PO SCH (10:15)
[2021-08-09] MEDS: GLIMEPIRIDE 2 MG TABLET PO SCH (10:15)
[2021-08-09] MEDS: DIGOXIN 0.125 MG TABLET PO SCH (10:17)
[2021-08-09] MEDS: THIAMINE 100 MG TABLET PO SCH (10:18)
[2021-08-09] MEDS: LOSARTAN 50 MG TABLET PO SCH (10:18)
[2021-08-09] MEDS: METOPROLOL TARTRATE 25 MG TABLET PO SCH ×2 (10:18→22:22)
[2021-08-09] MEDS: POLYETHYLENE GLYCOL POWDER 17 GM PACK PO SCH (10:18)
[2021-08-09] MEDS: levETIRAcetam LIQUID 100 MG/ML 30 ML/BOTTLE PO SCH ×2 (10:18→22:22)
[2021-08-09] MEDS ORDERED: SODIUM PHOSPHATE INJ 30 MMOL in SODIUM CHLORIDE 0.9% 250 ML IV ONE (14:05)
[2021-08-09] MEDS: WARFARIN 4 MG TABLET PO SCH (17:25)
[2021-08-09] MEDS: ATORVASTATIN 10 MG TABLET PO SCH (22:21)
[2021-08-10] MEDS: INSULIN REGULAR 100 UNIT/ML SUBCUT SCH ×3 (00:19→12:47)
[2021-08-10] MEDS: HEPARIN DRIP 25,000 UNITS/500 ML PREMIX IV SCH (01:00)
[2021-08-10] MEDS: MEROPENEM 500 MG in SODIUM CHLORIDE 0.9% 100 ML IV SCH ×2 (02:58→09:02)
[2021-08-10] MEDS: SODIUM CHLORIDE 0.9% 1,000 ML IV SCH (03:58)
[2021-08-10 05:13] LABS: Basophils # 0.1 10*3/uL (0.0-0.2); Basophils % 0.4 % (0.0-0.8); Eosinophils % 0.1 % (0.00-10.9); Hematocrit 31.7 VOL% (35.7-47.0); Hemoglobin 9.9 GM/DL (12.0-16.0); Immature Granulocytes % 7.3 %; Immature Granulocytes Absolute 0.84 #; Lymphocytes # 0.6 10*3/uL (1.4-4.0); Lymphocytes % 5.5 % (21.3-54.2); Mean Corpuscular HGB Conc 31.2 GM/DL (32-36); Mean Corpuscular Volume 94.6 FL (87-102); Mean Platelet Volume 13.5 FL (9.6-12.0); Monocytes # 0.9 10*3/uL (0.11-0.8); Monocytes % 7.8 % (1.7-12.7); NRBC # 0.03 10*3/uL; Neutrophils % 78.9 % (38.7-73.9); Platelet Count 196 T/CUMM (130-400); Red Blood Count 3.35 MC/CUMM (3.8-5.5); Red Cell Distribution Width 16.1 % (9.3-17.3); White Blood Count 11.5 T/CUMM (4-12)
[2021-08-10 05:17] LABS: INR 2.1; PT Patient Result 21.9 SECS (10.5-12.0)
[2021-08-10 05:28] LABS: Calcium 7.7 MG/DL (8.5-10.1); Osmolality,Calculated 305.4 MOS/KG (273-304); Potassium 3.8 MMOL/L (3.5-5.1)
[2021-08-10 05:40] LABS: Lymphocytes 6 % (20-55); Metamyelocytes 2 %; Microcytosis 1+; Total Cells Counted 100
[2021-08-10 05:41] LABS: Ovalocytes Slight
[2021-08-10 05:48] LABS: Calcium 7.5 MG/DL (8.5-10.1); Osmolality,Calculated 301.6 MOS/KG (273-304); Phosphorous 3.6 MG/DL (2.5-4.9); Potassium 3.9 MMOL/L (3.5-5.1)
[2021-08-10] MEDS: methylPREDNISolone SOD SUC 40 MG/1 ML VIAL IV SCH ×2 (05:56→17:30)
[2021-08-10] MEDS: PANTOPRAZOLE 40 MG TABLET PO SCH (05:56)
[2021-08-10] MEDS: ALBUTEROL/IPRATROPIUM 3 ML NEB RESP TX SCH ×3 (07:07→13:14)
[2021-08-10] MEDS: MAGNESIUM CHLORIDE 64 MG TABLET PO SCH (09:00)
[2021-08-10] MEDS: MENTHOL/ZINC OXIDE OINT 71 GM JAR TOP SCH (09:00)
[2021-08-10] MEDS: THIAMINE 100 MG TABLET PO SCH (09:00)
[2021-08-10] MEDS: SERTRALINE 25 MG TABLET PO SCH (09:00)
[2021-08-10] MEDS: MULTIVITAMIN (CENTRUM) TABLET PO SCH (09:00)
[2021-08-10] MEDS: LOSARTAN 50 MG TABLET PO SCH (09:00)
[2021-08-10] MEDS: FOLIC ACID 1 MG TABLET PO SCH (09:00)
[2021-08-10] MEDS: levETIRAcetam LIQUID 100 MG/ML 30 ML/BOTTLE PO SCH (09:01)
[2021-08-10] MEDS: POLYETHYLENE GLYCOL POWDER 17 GM PACK PO SCH (09:01)
[2021-08-10] MEDS: FAMOTIDINE 20 MG TABLET PO SCH (09:01)
[2021-08-10] MEDS: MEMANTINE 5 MG TABLET PO SCH (09:01)
[2021-08-10] MEDS: GLIMEPIRIDE 2 MG TABLET PO SCH (09:06)
[2021-08-10] MEDS: DIGOXIN 0.125 MG TABLET PO SCH (10:44)
[2021-08-10] MEDS: DOCUSATE SODIUM 100 MG CAPSULE PO SCH (10:44)
[2021-08-10] MEDS: METOPROLOL TARTRATE 25 MG TABLET PO SCH (10:44)
[2021-08-10 16:23] VITALS: BP 125/52
== END 2021-08-10 18:07 | DRG 178 ==
LOC: EDBD → EDUNIT# → N.ED 11:12 → N.TELES 14:31
PROVIDERS: ADMIT Internal Medicine; ATTEND Internal Medicine
PROC: EGDWPEG (ICD-10-PCS; 2021-08-06 08:50)